=== PATIENT | female | born 1950 | race Caucasian/White ===

== ENCOUNTER 2018-04-07 19:42 | Emergency (ER) | payer OTHER ==
[~2018-04-07] VITALS: Ht 170.2 cm; Wt 76.5 kg
[~2018-04-07 19:42] MED LIST: ASPEC81 PO; ATOR-26 PO; GLC500 PO; IBUP-103 PO; LAMO25TA PO; LATA0.009 OP; LEVO25TA PO; LOSA100T65 PO; MULT-506 PO; PANT40TA PO; PARO1TAB27 PO; ROPI1TAB PO; ROPI2TAB6 PO
[2018-04-07 19:46] VITALS: TEMP 36.7; Ht 170.2 cm; Wt 76.5 kg
[2018-04-07] MEDS ORDERED: OXYCODONE/ACETAMINOPHEN 5-325 TAB PO STA (20:08)
--- NOTE | 2018-04-07 20:45 | DIAGNOSTIC IMAGING REPORT ---
L HIP UNILATERAL 2 VIEWS CLINICAL HISTORY: Left hip pain. No known injury. COMPARISON: None FINDINGS: Alignment of the left hip is anatomic. There is no fracture, suspicious osseous lesion or evidence for avascular necrosis. Left joint space is preserved. IMPRESSION: Unremarkable left hip radiographs. Electronically signed by: Devyn Reynoso M.D. 04/07/2018 8:43 PM Dictated Date/Time: 04/07/2018 8:43 PM
--- NOTE | 2018-04-07 20:46 | DIAGNOSTIC IMAGING REPORT ---
L FEMUR 2 VIEWS ROUTINE CLINICAL HISTORY: Left hip pain. No known injury. COMPARISON: None FINDINGS: No fracture or osseous lesion is identified within the left femur. Alignment of the left hip and the left knee is anatomic. There is moderate joint space narrowing and osteophytosis within the medial compartment of the left knee with osteophytosis within the lateral compartment. Superior patellar spurring is noted. IMPRESSION: 1. No osseous abnormality of the left femur. 2. Mild to moderate left knee osteoarthritis. Electronically signed by: Devyn Reynoso M.D. 04/07/2018 8:45 PM Dictated Date/Time: 04/07/2018 8:44 PM
[2018-04-07] MEDS ORDERED: OXYC-57 PO (21:10)
[2018-04-07] MEDS ORDERED: PERCOCET HOME PACK PO ONE (21:15)
[2018-04-07 21:22] VITALS: BP 162/82; PULSE 82; O2SAT 97
--- NOTE | 2018-04-08 01:07 | EMERGENCY ROOM VISIT NOTE ---
ED Visit Note First contact with patient: 19:57 Chief Complaint: Left hip pain. History of Present Illness: Ms. Bailey is a 67-year-old white female who ambulates into the ED accompanied by her complaining of left anterior thigh pain. [place] patient reports she has had previous pinched nerve but that was on the right side. Patient reports she started experiencing pain 3 days ago while doing yard work and cleaning out out buildings. Initially her pain was mild has gradually increased in intensity. She places her discomfort over the anterior thigh in the area of the insertion of the hamstring quadricep muscle group on the pelvis. She rates her discomfort 10/10. She describes her pain as a burning sensation. Her pain worsens with flexion and extension of the hip, moving from the standing to the sitting and lying down position and minimally with palpation. She reports she has been using ibuprofen and Aleve without relief of her discomfort. She denies any associated symptoms including recent direct trauma, any injuries like falls or car accidents, fevers, chills, sweats, skin eruptions, skin color changes, lumbar back pain, abdominal pain, nausea, vomiting, diarrhea, constipation, rectal bleeding, black/tarry stools, urinary symptoms, hematuria, flank pain, extremity weakness/numbness/tingling, genital paresthesias, bowel and bladder dysfunction. Review of Systems: As noted above in history of present illness. 8 body systems were reviewed and found to be negative as noted above. Past Medical History: Diabetes, heart disease, hypertension, asthma, pneumonia, unspecified stomach disorder. Current Medications: Lamictal, Requip, Paxil, Xalatan, aspirin, Synthroid, metformin, Lipitor, Cozaar, tonics, multivitamins, ibuprofen. Allergies to Medications: Carbamazepine. Betaxolol, Levobunolol, simvastatin, penicillins, sulfa. Social History: Physical Examination: Vital Signs: Date Time Temp Pulse Resp B/P (MAP) Pulse Ox O2 Delivery O2 Flow Rate FiO2 04/07/18 21:22 82 16 162/82 97 04/07/18 19:46 36.7 97 20 160/90 96 Room Air GENERAL: 67-year-old female in mild to moderate distress due to pain, nontoxic- appearing, afebrile and hemodynamically stable. NEUROLOGICAL: Awake, alert and oriented to person, place and time. Answering questions appropriately and following commands. Normal gait. Good hand eye coordination. No focal motor sensory deficits. SKIN: Warm, dry and pink. No soft tissue eruptions or trauma noted. HEENT: Atraumatic and normocephalic. BACK: No tenderness over the bony thoracic and lumbar spine. No tenderness or paraspinous muscle spasm. Decreased range of motion due to pain in her thigh. No CVA tenderness. Unable to perform a straight leg raise test due to pain. THORAX: Lungs sounds are clear to auscultation and equal bilaterally with symmetrical chest wall. No wheezing, rales or rhonchi. No crepitus, tenderness , subcutaneous air or deformities noted. ABDOMEN: Obese, soft and nontender. Positive bowel sounds in all quadrants. No guarding, rigidity or organomegaly. LOWER EXTREMITIES: No tenderness in the hip, knee, ankle and foot joints. Mild tenderness over the anterior proximal quadriceps muscles. I do not appreciate any bony muscle deformity, swelling or ecchymosis. 2+ patellar and Achilles deep tendon reflexes intact and equal bilaterally. Able to distinguish light sensations to all dermatomes of the lower legs and feet. No calf tenderness or cords. ED Course: Patient is assessed as noted above. Patient's medication list was reviewed. Patient was given 1 Percocet 5/325 mg tablet by mouth for pain and ice. Left Femur X-Rays: Was read by myself and the radiologist showing no acute fractures of the femur. Mild to moderate knee osteoarthritis. Left Hip X-Rays: Was read by myself and the radiologist showing normal anatomical alignment. No fractures or dislocations. Radiologist notes no suspicious osseous lesions and no evidence of avascular necrosis. Patient was educated on walker use. Patient's case was reviewed with Dr. Ngo; we agreed on diagnostic approach, treatment, disposition and plan. Patient was educated about today's findings and instructed on her treatment plan ; she verbalized understanding and agreement with this plan. Clinical Impression: Left thigh pain. Decision-Making: Initially my differential diagnosis I considered lumbar contusion, lumbar herniated disc, bursitis, hip osteoarthritis, and other causes. Disposition: Patient discharged to home in stable condition accompanied by her ; prior to departure she was reassessed and subjectively reported she was feeling the same and rated her discomfort 9/10. Plan: Comfort measures including rest, ice walker use and a sliding pain medication scale of ibuprofen, acetaminophen and Percocet were discussed with the patient; her name was checked on state database and no red flags were noted and she was given appropriate narcotic precautions. Patient was encouraged to follow-up with her family physician for recheck early next week. Patient was encouraged return the ED for worsening/uncontrolled pain, leg weakness/numbness/tingling, genital paresthesias, bowel and bladder dysfunction or any new/concerning symptoms.
[2018-04-09] MEDS ORDERED: LATA0.5S OP (09:30)
[2018-04-09] MEDS ORDERED: ASPI-232 PO (11:09)
[2018-04-09] MEDS ORDERED: METF1000 PO (11:09)
== END 2018-04-07 21:25 | disposition home or self-care (01) ==
LOC: C.EDB 19:42 → C.EDD 21:25
DX: M79.652 Pain in left thigh (principal); E11.9 Type 2 diabetes mellitus without complications; I10 Essential (primary) hypertension; J45.909 Unspecified asthma, uncomplicated; E66.9 Obesity, unspecified; Z87.01 Personal history of pneumonia (recurrent); Z79.82 Long term (current) use of aspirin; Z79.01 Long term (current) use of anticoagulants; Z79.899 Other long term (current) drug therapy; Z88.8 Allergy status to other drugs, medicaments and biological substances; Z88.0 Allergy status to penicillin; Z88.2 Allergy status to sulfonamides

== ENCOUNTER 2024-05-28 14:52 | Inpatient (IN) ==
[2024-05-28 15:40] LABS: Hematocrit (blood only) 42.3 % (37.0-47.0); Hemoglobin 13.7 g/dl (12.0-16.0); Mean Corpuscular Hemoglobin 28.8 pg (25.0-34.0); Mean Corpuscular Hgb Conc 32.4 g/dL (32.0-36.0); Mean Corpuscular Volume 88.9 fL (80.0-100.0); Mean Platelet Volume 8.8 fL (9.4-12.4); Platelet Count 223 K/uL (130-400); RDW Coefficient of Variation 13.2 % (11.5-14.5); RDW Standard Deviation 43.2 fL (36.4-46.3); Red Blood Count 4.76 M/uL (4.20-5.40); White Blood Count 6.77 K/ul (4.8-10.8)
[2024-05-28 15:46] LABS: Alanine Aminotransferase 12 U/L (7-52); Albumin Globulin Ratio 1.4 (0.9-2); Albumin Level 4.2 gm/dl (3.4-5.0); Alkaline Phosphatase 73 U/L (34-104); Anion Gap 9 (3-11); Aspartate Aminotransferase 17 U/L (13-39); Bilirubin,Total 0.5 mg/dl (0.2-1.0); Blood Urea Nitrogen 19 mg/dl (6-23); Calcium 9.7 mg/dl (8.6-10.3); Carbon Dioxide 28 mmol/L (21-32); Chloride 101 mmol/L (98-107); Est GFR (African American) 88.3 ml/min; Est GFR (Non-African American) 76.2 ml/min; Glucose 135 mg/dl (70-99(Fasting)); Magnesium 2.1 mg/dl (1.7-2.4); Potassium 3.3 mmol/L (3.5-5.1); Sodium 138 mmol/L (136-145); Total Protein 7.2 gm/dl (6.0-8.3)
--- NOTE | 2024-05-28 15:46 | CT Scan Report ---
CT OF THE HEAD WITHOUT CONTRAST CLINICAL HISTORY: Neuro deficit, acute, stroke suspected COMPARISON STUDY: Head CT and CTA of the head May 23, [address]23. CT DOSE: 547.75 mGy.cm TECHNIQUE: Helical axial images of the head were obtained without IV contrast. Automated exposure con trol was utilized for the study. A dose lowering technique was utilized adhering to the principles o f ALARA. FINDINGS: No acute intracranial hemorrhage, midline shift or mass effect is present. White matter hyp odensities are similar to prior exam and favor small vessel disease. The ventricular system is unrema rkable. The basal cisterns are patent. No extra-axial collections are present. There are no findings to suggest acute dural sinus thrombosis or acute territorial infarct. No significant calvarial abnorm alities are present. Visualized portions of the sinuses and mastoid air cells are clear. IMPRESSION: No acute intracranial findings. No change in appearance of the brain. ACT 112: Negative or not required by law. Electronically signed by: Devyn Reynoso M.D. 05/28/2024 3:44 PM
--- NOTE | 2024-05-28 15:47 | XRay Report ---
XR chest 1V not portable CLINICAL HISTORY: stroke alert TECHNIQUE: Single frontal radiograph of the chest was obtained. Comparison: Comparison is made to chest radiograph 05/23/2023 FINDINGS: No lines and tubes are seen. Calcified aortic knob is seen. The lungs are clear. No evidence of pleur al effusion or pneumothorax. IMPRESSION: No acute chest disease. ACT 112: Negative or not required by law. Electronically signed by: Ricardo Uribe M.D. 05/28/2024 3:46 PM
[2024-05-28 16:03] LABS: Partial Thromboplastin Ratio 0.8; Partial Thromboplastin Time 22 Seconds (21-31); Prothrombin Time 10.5 Seconds (9.0-12.0)
[2024-05-28] MEDS: ONDANSETRON INJ 2 MG/ML 2 ML VIAL IV STA (16:45)
[2024-05-28] MEDS: SODIUM CHLORIDE 0.9% 1,000 ML IV ONE (16:46)
--- NOTE | 2024-05-28 17:20 | Emergency Department Note ---
Impression & Plan Weakness, Near syncope, Dizziness, Hypokalemia ED Provider Note NAME: CANDELARIO SOTO AGE: 74 SEX: F : 1950 ARRIVES VIA: Walk-In INFORMANT: [Patient][family] ED PROVIDER(S): [Neymar Guaman MD] CHIEF COMPLAINT: Nausea, off-balance HISTORY OF PRESENT ILLNESS: The patient is a 74-year-old female who states that she was at an orthopedic appointment today. When she was walking out, she felt as if she had too much alcohol to drink. She was off balance, her vision was dark and she felt lightheaded and nauseated. She was sweaty. There was no chest pain. Patient sat down and felt a bit better but then the symptoms returned. She came to the ER. She does admit to some dry heaves, no diarrhea. No fever, no chest pain. The patient does feel worse when she stands up. Patient is unsure exactly why she feels this way. She is on no new medications. She felt okay earlier today, this all started fairly suddenly as she was leaving in the doctor's office. The patient's symptoms started about 4-1/2 hours ago. PMHx/PSHx/Social Hx: See Below PHYSICAL EXAM: GENERAL: Patient is in no acute distress. HEENT: No acute trauma, normocephalic atraumatic, mucous membranes moist, no nasal congestion. NECK: No stridor, no adenopathy, no meningismus, trachea is midline. LUNGS: Clear to auscultation bilaterally, no wheeze, no rhonchi, breath sounds equal. HEART: Subtle systolic murmur, regular rate and rhythm. ABDOMEN: Soft, nontender, no peritonitis. EXTREMITIES: No cyanosis, full range of motion of all the joints without pain or difficulty. NEUROLOGIC: Oriented x 3, patient has poor cerebellar functioning in both upper extremities. There is no extremity drift, speech slur or facial droop. SKIN: No jaundice, no diaphoresis. DIFFERENTIAL DIAGNOSIS: Dehydration, dysrhythmia, electrolyte imbalance, UTI, anemia, stroke, among others. EMERGENCY DEPARTMENT PROCEDURES: MEDICAL DECISION MAKING: There is no leukocytosis or concerning anemia. There is a normal platelet count. No coagulopathy. Potassium somewhat low at 3.3. No renal failure. No concerning liver enzyme elevation. The patient appeared to be in a euthyroid state. Urinalysis showed some glucose, no infection. Respiratory bio fire was completely negative. Chest x-ray did not show pneumonia or CHF. Brain CT showed no acute bleed or mass effect. CT angio of the head and neck were performed, there was no significant stenosis or clot. On my exam, patient did have poor cerebellar function in both upper extremities. She had no pronator drift. No speech slur or facial droop. Patient received IV saline, 1 L. She was given IV Zofran for nausea. During the patient stay, she began to develop a headache, she was given IV Tylenol. The patient was out of the window for any type of TNK. She had presented 4 and half hours after the onset of symptoms. Patient feels better than she did earlier but still has some of her symptoms. The cause for her complaints is currently unclear. I do think further workup is in order, the patient would likely benefit from an MRI of the brain and monitoring here in the hospital. I spoke with the patient and case management, I spoke with her family. The on- call hospitalist was consulted. Prior/Outside records/notes reviewed: None ECG per my interpretation: Indication was possible stroke. The ECG shows a normal sinus rhythm with a rate of 73. There is diffuse nonspecific ST change. There is no ST elevation, no PVCs. The QTc is 438. Imaging/x-ray results per my interpretation: Chest x-ray does not show mediastinal widening, pneumonia or pneumothorax. Chronic Medical/Social conditions affecting care: Advanced age. Care/Management discussed with: Case management, the on-call hospitalist. Level of care consideration(s): After review of the information above and other included data: --I believe the patient requires escalation of care to admission DISPOSITION: Admission Past Med/Surg History Problem List Postural dizziness with near syncope Syncope Left knee DJD Rotator cuff tear, right Status post reverse total replacement of left shoulder (~11/2021) Encounter for pre-operative examination Depression (Chronic) Left thigh pain (Acute) Hypothyroidism (Chronic) Insomnia (Chronic) Bursitis Medical History Osteoarthritis GERD (gastroesophageal reflux disease) Occasional Hypothyroidism Glaucoma Anxiety and depression Restless leg syndrome Mini stroke vs. complex migraine (most recent event 5+ years ago) Sleep apnea Could not tolerate device Asthma stable Chronic obstructive pulmonary disease Diabetes mellitus, type II NIDDM Bipolar disorder stable Hyperlipidemia Hypertension Surgical History History of carpal tunnel release RT/LEFT History of repair of rotator cuff RT/LEFT History of esophagogastroduodenoscopy (EGD) WITH ESOPHAGEAL STRETCHING X 3 History of colonoscopy History of Yusef fundoplication History of tonsillectomy and adenoidectomy H/O eye surgery LASER PROCEDURE FOR GLAUCOMA Strabismus RT/LEFT REPAIRED A CHILD (2 SURGERIES) History of cataract surgery RT/LEFT History of cardiac cath 30 years ago > no stents Family History Mother Family history of diabetes mellitus Brother Family history of diabetes mellitus Other No family history of adverse response to anesthesia Social History Smoking Status: Never smoker Second Hand Exposure: No; Do You Dip or Chew Tobacco: No; Hx Alcohol Use: No Hx Substance Use: No Preferred Language: Hungarian Communication Ability: Effective Special Diet Cook Required: No Beliefs That Will Affect Care: None Current Living Situation: Spouse Other Information That Helps Us Care for You: No Feels Safe at Home: Yes Safety Concerns: Feels Safe At This Time Assistive Devices: Cane, Glasses and Wheelchair Allergies Allergies Allergy/AdvReac Type Severity Reaction Status Date / Time Penicillins Allergy Intermediate rash/very Verified 05/28/24 19:03 sick Sulfa (Sulfonamide Allergy Unknown Unknown Verified 05/28/24 19:03 Antibiotics) betaxolol AdvReac Intermediate Insomnia Verified 05/28/24 19:03 (eye drop)/depression carbamazepine AdvReac Intermediate Worsened Verified 05/28/24 19:03 depression levobunolol AdvReac Intermediate Insomnia Verified 05/28/24 19:03 (eye drop) levofloxacin AdvReac Intermediate Muscle Pain Verified 05/28/24 19:03 simvastatin AdvReac Intermediate Myalgias Verified 05/28/24 19:03 Home Meds Home Medications Medication Instructions Recorded Confirmed aspirin 81 mg tablet,delayed 81 mg PO QAM 05/18/21 05/28/24 release (Ashley Low Dose Aspirin) empagliflozin 25 mg tablet 25 mg PO QAM 05/18/21 05/28/24 (Jardiance) latanoprost 0.005 % eye drops 1 drp OPB HS 05/18/21 05/28/24 (Xalatan) levothyroxine 25 mcg tablet 25 mcg PO DAILYBB 05/18/21 05/28/24 (Synthroid) losartan 100 1 tab PO QAM 05/18/21 05/28/24 mg-hydrochlorothiazide 25 mg tablet (Hyzaar) ropinirole 1 mg tablet 1 mg PO QID 05/18/21 05/28/24 potassium chloride 10 mEq 10 meq PO QAM 08/04/21 05/28/24 capsule,extended release albuterol sulfate 90 mcg/actuation 1 - 2 puff inhalation Q4H PRN 05/28/24 05/28/24 aerosol inhaler Shortness Of Breath Or Wheezing allopurinol 100 mg tablet 100 mg PO BID 05/28/24 05/28/24 atorvastatin 20 mg tablet 20 mg PO QAM 05/28/24 05/28/24 cholecalciferol (vitamin D3) 25 50 mcg PO DAILY 05/28/24 05/28/24 mcg (1,000 unit) capsule (Vitamin D3) clobetasol 0.05 % topical cream 1 applic topical BID PRN ITCHING 05/28/24 05/28/24 OF SCALP/BEHIND EARS cyanocobalamin (vitamin B-12) 500 500 mcg PO DAILY 05/28/24 05/28/24 mcg tablet (Vitamin B-12) famotidine 40 mg tablet 40 mg PO HS 05/28/24 05/28/24 ibuprofen 200 mg tablet 200 mg PO Q6H PRN Pain 05/28/24 05/28/24 pantoprazole 40 mg tablet,delayed 40 mg PO BID 05/28/24 05/28/24 release semaglutide 0.25 mg or 0.5 mg (2 0.25 mg subcut WK 05/28/24 05/28/24 mg/3 mL) subcutaneous pen injector (Ozempic) sertraline 100 mg tablet 150 mg PO QAM 05/28/24 05/28/24 tramadol 50 mg tablet 50 mg PO Q12H PRN Pain, Severe 05/28/24 05/28/24 trazodone 50 mg tablet 50 mg PO HS 05/28/24 05/28/24 Results & Data (ED) Vital Signs Vital Signs - 24 hr 05/28/24 14:56 05/28/24 17:09 05/28/24 17:15 Temperature 36.6 C Temperature Source Temporal Artery Scan Pulse Rate 73 69 70 Pulse Rate [Apical] Pulse Rate from SpO2 Sensor 70 Pulse Rhythm Regular Pulse Strength Normal Respiratory Rate 18 12 Respiratory Effort / Characteristics Non-Labored Spontaneous Respiratory Depth Normal Respiratory Pattern Regular Blood Pressure 142/78 H Blood Pressure [Right Arm] Blood Pressure Mean 99 Blood Pressure Mean [Right Arm] Blood Pressure Position Sitting Pulse Oximetry 96 96 Oxygen Delivery Method Room Air Sepsis Recent Fever Within 48 Hours No Sepsis New/Unexplained Change in Mental Status No Sepsis Action Taken by Nursing No Action Required 05/28/24 17:53 05/28/24 17:53 05/28/24 17:57 Temperature Temperature Source Pulse Rate 75 71 Pulse Rate [Apical] 74 Pulse Rate from SpO2 Sensor 71 Pulse Rhythm Pulse Strength Respiratory Rate 16 16 14 Respiratory Effort / Characteristics Non-Labored Spontaneous Respiratory Depth Normal Respiratory Pattern Blood Pressure Blood Pressure [Right Arm] 168/95 H Blood Pressure Mean Blood Pressure Mean [Right Arm] 119 Blood Pressure Position Pulse Oximetry 91 91 93 Oxygen Delivery Method Room Air Room Air Sepsis Recent Fever Within 48 Hours Sepsis New/Unexplained Change in Mental Status Sepsis Action Taken by Nursing 05/28/24 18:00 05/28/24 18:09 05/28/24 18:24 Temperature Temperature Source Pulse Rate 70 75 Pulse Rate [Apical] Pulse Rate from SpO2 Sensor 71 74 Pulse Rhythm Pulse Strength Respiratory Rate 12 17 Respiratory Effort / Characteristics Respiratory Depth Respiratory Pattern Blood Pressure 152/84 H Blood Pressure [Right Arm] Blood Pressure Mean 102 Blood Pressure Mean [Right Arm] Blood Pressure Position Pulse Oximetry 94 97 Oxygen Delivery Method Sepsis Recent Fever Within 48 Hours Sepsis New/Unexplained Change in Mental Status Sepsis Action Taken by [facility] Medications Current Medication List: was personally reviewed by me Laboratory Data Attestation: I reviewed the patient's lab results. 05/28/24 15:06 05/28/24 15:06 Lab Results 05/28/24 05/28/24 Range/Units 15:06 17:07 WBC 6.77 (4.8-10.8) K/ul RBC 4.76 (4.20-5.40) M/uL Hgb 13.7 (12.0-16.0) g/dl Hct 42.3 (37.0-47.0) % MCV 88.9 (80.0-100.0) fL MCH 28.8 (25.0-34.0) pg MCHC 32.4 (32.0-36.0) g/dL RDW Std Deviation 43.2 (36.4-46.3) fL RDW Coeff of Fidel 13.2 (11.5-14.5) % Plt Count 223 (130-400) K/uL MPV 8.8 L (9.4-12.4) fL PT 10.5 (9.0-12.0) Seconds INR 1.0 (0.9-1.1) APTT 22 (21-31) Seconds PTT Ratio 0.8 Sodium 138 (136-145) mmol/L Potassium 3.3 L (3.5-5.1) mmol/L Chloride 101 (98-107) mmol/L Carbon Dioxide 28 (21-32) mmol/L Anion Gap 9 (3-11) BUN 19 (6-23) mg/dl Creatinine 0.76 (0.6-1.2) mg/dl Est Cr Clr Drug Dosing Not Reportable Est GFR ( Amer) 88.3 ml/min Est GFR (Non-Af Amer) 76.2 ml/min BUN/Creatinine Ratio 25.0 H (10-20) Glucose 135 H (70-99(Fasting)) mg/dl Calcium 9.7 (8.6-10.3) mg/dl Magnesium 2.1 (1.7-2.4) mg/dl Total Bilirubin 0.5 (0.2-1.0) mg/dl AST 17 (13-39) U/L ALT 12 (7-52) U/L Alkaline Phosphatase 73 (34-104) U/L Total Protein 7.2 (6.0-8.3) gm/dl Albumin 4.2 (3.4-5.0) gm/dl Globulin 3.0 (2.5-4.0) gm/dl Albumin/Globulin Ratio 1.4 (0.9-2) TSH 2.697 (0.300-4.500) uIu/ml Urine Color Yellow Urine Appearance Clear (Clear) Urine pH 5.5 (4.5-7.5) Ur Specific [place] 1.026 (1.000-1.030) Urine Protein Negative (Negative) Urine Glucose (UA) 3+ H (Negative) Urine Ketones Negative (Negative) Urine Blood Negative (Negative) Urine Nitrite Negative (Negative) Urine Bilirubin Negative (Negative) Urine Urobilinogen Negative (Negative) Ur Leukocyte Esterase Negative (Negative) Administered Medications Allopurinol (Allopurinol 100 Mg Tab) 100 mg PO BID CRISTINA Stop: 06/27/24 21:34 Last Admin: 05/28/24 21:58 Dose: 100 mg Documented By: GIOVANI Famotidine (Famotidine 40 Mg Tablet) 40 mg PO HS CRISTINA Stop: 06/27/24 21:34 Last Admin: 05/28/24 21:58 Dose: 40 mg Documented By: GIOVANI Latanoprost (Latanoprost 0.005% Op Soln 2.5 Ml Btl) 1 drops OPB HS CRISTINA Stop: 06/27/24 21:34 Last Admin: 05/28/24 21:59 Dose: 1 drops Documented By: GIOVANI Pantoprazole Sodium (Pantoprazole 40 Mg Tab) 40 mg PO BID CRISTINA Stop: 06/27/24 21:34 Last Admin: 05/28/24 21:59 Dose: 40 mg Documented By: GIOVANI Ropinirole HCl (Ropinirole Hcl 1 Mg Tablet) 1 mg PO QID CRISTINA Stop: 06/27/24 21:34 Last Admin: 05/28/24 21:59 Dose: 1 mg Documented By: GIOVANI Discontinued Medications Sodium Chloride (Nss) 1,000 mls @ 999 mls/hr IV .Q1H1M ONE Stop: 05/28/24 17:39 Last Infusion: 05/28/24 17:50 Dose: Infused Documented By: Admin: 05/28/24 16:46 Dose: 999 mls/hr Documented By: AL Acetaminophen (Ofirmev) 1,000 mg in 100 mls @ 400 mls/hr IV NOW STA Stop: 05/28/24 18:54 Last Infusion: 05/28/24 20:48 Dose: Infused Documented By: Admin: 05/28/24 18:44 Dose: 400 mls/hr Documented By: KAYCEE Ioversol (Optiray 320 125ml) 120 ml IV ONCE ONE Stop: 05/28/24 17:41 Last Admin: 05/28/24 17:40 Dose: 120 ml Documented By: PLFlor Ondansetron HCl (Ondansetron Inj 2 Mg/Ml 2 Ml Vial) 4 mg IV NOW STA Stop: 05/28/24 16:40 Last Admin: 05/28/24 16:45 Dose: 4 mg Documented By: AL Potassium Chloride (Potassium Chloride Crtab 20 Meq Tabcr) 40 meq PO NOW STA Stop: 05/28/24 21:20 Last Admin: 05/28/24 21:57 Dose: 40 meq Documented By: GIOVANI Imaging Data Radiologist's Impression: Chest X-Ray 05/28/24 15:03 XR chest 1V not portable CLINICAL HISTORY: stroke alert TECHNIQUE: Single frontal radiograph of the chest was obtained. Comparison: Comparison is made to chest radiograph 05/23/2023 FINDINGS: No lines and tubes are seen. Calcified aortic knob is seen. The lungs are clear. No evidence of pleural effusion or pneumothorax. IMPRESSION: No acute chest disease. ACT 112: Negative or not required by law. Electronically signed by: Ricardo Uribe M.D. 05/28/2024 3:[address] 05/28/24 15:03 CT OF THE HEAD WITHOUT CONTRAST CLINICAL HISTORY: Neuro deficit, acute, stroke suspected COMPARISON STUDY: Head CT and CTA of the head May 23, [address]23. CT DOSE: 547.75 mGy.cm TECHNIQUE: Helical axial images of the head were obtained without IV contrast. Automated exposure control was utilized for the study. A dose lowering technique was utilized adhering to the principles of ALARA. FINDINGS: No acute intracranial hemorrhage, midline shift or mass effect is present. White matter hypodensities are similar to prior exam and favor small vessel disease. The ventricular system is unremarkable. The basal cisterns are patent. No extra-axial collections are present. There are no findings to suggest acute dural sinus thrombosis or acute territorial infarct. No significant calvarial abnormalities are present. Visualized portions of the sinuses and mastoid air cells are clear. IMPRESSION: No acute intracranial findings. No change in appearance of the brain. ACT 112: Negative or not required by law. Electronically signed by: Devyn Reynoso M.D. 05/28/2024 3:44 PM Head CTA 05/28/24 16:43 CT angio neck with con, CT angio head w con CLINICAL HISTORY: stroke like TECHNIQUE: CT angiography of the head and neck was performed following intravenous administration of iodinated contrast. Coronal and sagittal MIPS were obtained from the axial data set and were submitted for review. Automated dose lowering techniques and/or adjustment according to patient size were utilized for this examination. All measurements were calculated based on NASCET criteria. CT DOSE: 452.92 mGy.cm Comparison: Comparison is made to CT head 05/28/2024 FINDINGS: Lungs and soft tissues are unremarkable. CTA Neck: A 3 vessel aortic arch is shown. There is no significant atherosclerotic plaque in the aortic arch or the origins of the innominate, left common carotid, and left subclavian arteries. There is mild calcified atherosclerotic plaque at the bifurcation of the bilateral common carotid arteries without hemodynamically significant flow stenosis. There is no dissection present. The vertebral arteries are codominant. CTA Head: The anterior and posterior cerebral circulations are patent. No hemodynamically significant stenosis, aneurysm, dissection, or arteriovenous malformation is shown. IMPRESSION: 1. No occlusion, hemodynamically significant stenosis, or dissection in the major cervical arteries. 2. No occlusion, hemodynamically significant stenosis, aneurysm, dissection, or arteriovenous malformation in the major intracranial arteries. Assessment of stenosis of the internal carotid arteries is based on NASCET criteria. ACT 112: Negative or not required by law. Electronically signed by: Ricardo Uribe M.D. 05/28/2024 6:03 PM Neck CTA 05/28/24 16:43 CT angio neck with con, CT angio head w con CLINICAL HISTORY: stroke like TECHNIQUE: CT angiography of the head and neck was performed following intravenous administration of iodinated contrast. Coronal and sagittal MIPS were obtained from the axial data set and were submitted for review. Automated dose lowering techniques and/or adjustment according to patient size were utilized for this examination. All measurements were calculated based on NASCET criteria. CT DOSE: 452.92 mGy.cm Comparison: Comparison is made to CT head 05/28/2024 FINDINGS: Lungs and soft tissues are unremarkable. CTA Neck: A 3 vessel aortic arch is shown. There is no significant atherosclerotic plaque in the aortic arch or the origins of the innominate, left common carotid, and left subclavian arteries. There is mild calcified atherosclerotic plaque at the bifurcation of the bilateral common carotid arteries without hemodynamically significant flow stenosis. There is no dissection present. The vertebral arteries are codominant. CTA Head: The anterior and posterior cerebral circulations are patent. No hemodynamically significant stenosis, aneurysm, dissection, or arteriovenous malformation is shown. IMPRESSION: 1. No occlusion, hemodynamically significant stenosis, or dissection in the major cervical arteries. 2. No occlusion, hemodynamically significant stenosis, aneurysm, dissection, or arteriovenous malformation in the major intracranial arteries. Assessment of stenosis of the internal carotid arteries is based on NASCET criteria. ACT 112: Negative or not required by law. Electronically signed by: Ricardo Uribe M.D. 05/28/2024 6:03 PM Discharge Plan Visit Data Chief Complaint: Nausea Stated Complaint: SYNOCOPE ED Provider: Neymar Guaman Discharge Problem: Weakness, Near syncope, Dizziness, Hypokalemia Patient Disposition: Admitted As Inpatient Condition: Fair
[2024-05-28 17:29] LABS: Appearance Urine Clear (Clear); Bilirubin Urine Negative (Negative); Blood Urine Negative (Negative); Color Urine Yellow; Glucose Urine UA 3+ (Negative); Ketones Urine Negative (Negative); Leukocyte Esterase Urine Negative (Negative); Nitrite Urine Negative (Negative); Protein Urine Negative (Negative); Specific Gravity Urine 1.026 (1.000-1.030); Urobilinogen Urine Negative (Negative); pH Urine 5.5 (4.5-7.5)
[2024-05-28] MEDS: OPTIRAY 320 125ml IV ONE (17:40)
--- NOTE | 2024-05-28 18:04 | CT Scan Report ---
CT angio neck with con, CT angio head w con CLINICAL HISTORY: stroke like TECHNIQUE: CT angiography of the head and neck was performed following intravenous administration of iodinated contrast. Coronal and sagittal MIPS were obtained from the axial data set and were submitt ed for review. Automated dose lowering techniques and/or adjustment according to patient size were u tilized for this examination. All measurements were calculated based on NASCET criteria. CT DOSE: 452.92 mGy.cm Comparison: Comparison is made to CT head 05/28/2024 FINDINGS: Lungs and soft tissues are unremarkable. CTA Neck: A 3 vessel aortic arch is shown. There is no significant atherosclerotic plaque in the aor tic arch or the origins of the innominate, left common carotid, and left subclavian arteries. There is mild calcified atherosclerotic plaque at the bifurcation of the bilateral common carotid arteries without hemodynamically significant flow stenosis. There is no dissection present. The vertebral rose manuela are codominant. CTA Head: The anterior and posterior cerebral circulations are patent. No hemodynamically significan t stenosis, aneurysm, dissection, or arteriovenous malformation is shown. IMPRESSION: 1. No occlusion, hemodynamically significant stenosis, or dissection in the major cervical arteries. 2. No occlusion, hemodynamically significant stenosis, aneurysm, dissection, or arteriovenous malfor mation in the major intracranial arteries. Assessment of stenosis of the internal carotid arteries is based on NASCET criteria. ACT 112: Negative or not required by law. Electronically signed by: Ricardo Uribe M.D. 05/28/2024 6:03 PM
[2024-05-28] MEDS: ACETAMINOPHEN 1,000 MG/100 ML VIAL IV STA (18:44)
--- NOTE | 2024-05-28 18:48 | History & Physical Report ---
Date of Service May 28, 2024 Assessment & Plan (1) Postural dizziness with near syncope: (2) Hypokalemia: Plan Zonia Bailey is a 74y/o F with PMHx of DM type II, hypothyroidism, hyperlipidemia, HTN, ASCVD, hypertensive heart disease without heart failure, GERD without esophagitis, history of B12 deficiency, history of vitamin D deficiency, restless leg syndrome, lumbar degenerative disc disease, gouty arthropathy, primary open angle glaucoma of both eyes, depression, attention deficit disorder, anxiety and other problems listed below who presented to the ED today for evaluation secondary to a near-syncopal event. Postural Dizziness w/ Near Syncopal Events Pt c/o multiple near-syncopal events that occurred earlier today. CXR negative for acute disease process. Head CT with no acute intracranial findings. Head and neck CTA with no acute findings/abnormalities. CBC unremarkable on admission, no leukocytosis. UA and RVP negative - appears no infective process is occurring. Brain MRI and echo pending - follow results. Continuous cardiac, pulse ox monitoring in place. PT/OT evals ordered, fall precautions in place. AM labs including CBC, BMP, mag, phos and fasting lipid panel - follow. Hypokalemia Potassium 3.3 on admission. Administered 40mEq on oral potassium. Can continue LIBRARY MANAGER potassium supplementation. Repeat BMP in AM - monitor and replete PRN. DM Type II Hold LIBRARY MANAGER diabetic medications; initiate SSI regimen. Hgb A1c 7.2 on 02/12/24; will repeat Hgb A1c in AM - follow. BSG checks ACHS, CC/HH diet in place - monitor BSG trend. HTN BP stable at 133/74 at time of admission. Can continue LIBRARY MANAGER losartan-hydrochlorothiazide. Continuous cardiac monitoring in place, trend BP in AM. Dyslipidemia, H/O ASCVD: Can continue LIBRARY MANAGER aspirin and statin therapy. Hypothyroidism: Can continue LIBRARY MANAGER levothyroxine, TSH WNL on admission. Other Chronic Medical Conditions: Restless legs syndrome, depression/anxiety, lumbar DDD, insomnia, GERD, glaucoma --> Can continue LIBRARY MANAGER medications for these specific conditions. DVT Prophylaxis: SCDs/TEDs - For now Code Status: FULL CODE PCP: Narinder Milton, Disposition: Admit to Med/Surg with Telemetry Patient seen in collaboration with Dr. Benjamin. Please see addendum. I spent a total of 60 minutes coordinating, documenting, and providing care for this patient excluding time spent in the performance of separately billed services. This included personally reviewing all current laboratories and imaging studies, medical reconciliation, outpatient chart review and discussion with specialists. This chart was completed in part utilizing Speech Voice Recognition Software. Grammatical errors, random word insertions, pronoun errors, and incomplete sentences are an occasional consequence of this system due to software limitations, ambient noise, and hardware issues. Any formal questions or concerns about the content, text, or information contained within the body of this dictation should be directly addressed to the provider for clarification. History of Present Illness Chief Complaint: Near-Syncopal Events Primary Care Provider: Narinder Milton DO Zonia Bailey is a 74y/o F with PMHx of DM type II, hypothyroidism, hyperlipidemia, HTN, ASCVD, hypertensive heart disease without heart failure, GERD without esophagitis, history of B12 deficiency, history of vitamin D deficiency, restless leg syndrome, lumbar degenerative disc disease, gouty arthropathy, primary open angle glaucoma of both eyes, depression, attention deficit disorder, anxiety and other problems listed below who presented to the ED today for evaluation secondary to near-syncopal events. History obtained from patient, family at bedside and associated chart review. Patient seen at bedside with Dr. Benjamin. Patient was walking out of an orthopedic appointment earlier today when she suddenly felt very lightheaded and off-balance. Patient states her vision became very dark and she felt quite nauseated as well. She was also very diaphoretic. She denies experiencing any chest pain or shortness of breath with this episode. She mentions she sat down and started to feel a little bit better, therefore she drove herself to the nearby [employer] to machine pecan picker some things for her house. At [employer], she reports that she had another similar episode as before. Patient was supposed to have her drive her home from [employer], but her family reports that she drove herself home from the store. At her house, she was getting out of the car and became very lightheaded and dizzy. Family reports that she almost passed out. She was not fully unresponsive, but she appeared very lethargic and not as alert. Patient does admit to some dry heaving, but no vomiting. No recent fevers, body aches or chills. Patient reports that she feels worse when she stands up. Patient mentions that she is under a lot of stress recently. She is to undergo a total left knee arthroplasty on 06/14 and must have her hemoglobin A1c less than 7 before surgery, which she reports is constantly on her mind. She is not on any new medications, she reports she felt fine earlier in the day before the first episode occurred. Patient did not fall with either these episodes; no recent head trauma according to the patient and family. According to the patient, she has a history of mini strokes. Allergies Allergy/AdvReac Type Severity Reaction Status Date / Time Penicillins Allergy Intermediate rash/very Verified 05/28/24 19:03 sick Sulfa (Sulfonamide Allergy Unknown Unknown Verified 05/28/24 19:03 Antibiotics) betaxolol AdvReac Intermediate Insomnia Verified 05/28/24 19:03 (eye drop)/depression carbamazepine AdvReac Intermediate Worsened Verified 05/28/24 19:03 depression levobunolol AdvReac Intermediate Insomnia Verified 05/28/24 19:03 (eye drop) levofloxacin AdvReac Intermediate Muscle Pain Verified 05/28/24 19:03 simvastatin AdvReac Intermediate Myalgias Verified 05/28/24 19:03 Home Medications Medication Instructions Recorded Confirmed Type aspirin 81 mg tablet,delayed 81 mg PO QAM 05/18/21 05/28/24 History release (Ashley Low Dose Aspirin) empagliflozin 25 mg tablet 25 mg PO QAM 05/18/21 05/28/24 History (Jardiance) latanoprost 0.005 % eye drops 1 drp OPB HS 05/18/21 05/28/24 History (Xalatan) levothyroxine 25 mcg tablet 25 mcg PO DAILYBB 05/18/21 05/28/24 History (Synthroid) losartan 100 1 tab PO QAM 05/18/21 05/28/24 History mg-hydrochlorothiazide 25 mg tablet (Hyzaar) ropinirole 1 mg tablet 1 mg PO QID 05/18/21 05/28/24 History potassium chloride 10 mEq 10 meq PO QAM 08/04/21 05/28/24 History capsule,extended release albuterol sulfate 90 mcg/actuation 1 - 2 puff inhalation Q4H PRN 05/28/24 05/28/24 History aerosol inhaler Shortness Of Breath Or Wheezing allopurinol 100 mg tablet 100 mg PO BID 05/28/24 05/28/24 History atorvastatin 20 mg tablet 20 mg PO QAM 05/28/24 05/28/24 History cholecalciferol (vitamin D3) 25 50 mcg PO DAILY 05/28/24 05/28/24 History mcg (1,000 unit) capsule (Vitamin D3) clobetasol 0.05 % topical cream 1 applic topical BID PRN ITCHING 05/28/24 05/28/24 History OF SCALP/BEHIND EARS cyanocobalamin (vitamin B-12) 500 500 mcg PO DAILY 05/28/24 05/28/24 History mcg tablet (Vitamin B-12) famotidine 40 mg tablet 40 mg PO HS 05/28/24 05/28/24 History ibuprofen 200 mg tablet 200 mg PO Q6H PRN Pain 05/28/24 05/28/24 History pantoprazole 40 mg tablet,delayed 40 mg PO BID 05/28/24 05/28/24 History release semaglutide 0.25 mg or 0.5 mg (2 0.25 mg subcut WK 05/28/24 05/28/24 History mg/3 mL) subcutaneous pen injector (Ozempic) sertraline 100 mg tablet 150 mg PO QAM 05/28/24 05/28/24 History tramadol 50 mg tablet 50 mg PO Q12H PRN Pain, Severe 05/28/24 05/28/24 History trazodone 50 mg tablet 50 mg PO HS 05/28/24 05/28/24 History Past Med/Surg History Problem List (Updated 05/28/24 @ 22:42 by Karina Cary PA-C) Hypokalemia Postural dizziness with near syncope Syncope Left knee DJD Rotator cuff tear, right Status post reverse total replacement of left shoulder (~11/2021) Encounter for pre-operative examination Depression (Chronic) Left thigh pain (Acute) Hypothyroidism (Chronic) Insomnia (Chronic) Bursitis Medical History Osteoarthritis GERD (gastroesophageal reflux disease) Occasional Hypothyroidism Glaucoma Anxiety and depression Restless leg syndrome Mini stroke vs. complex migraine (most recent event 5+ years ago) Sleep apnea Could not tolerate device Asthma stable Chronic obstructive pulmonary disease Diabetes mellitus, type II NIDDM Bipolar disorder stable Hyperlipidemia Hypertension Surgical History History of carpal tunnel release RT/LEFT History of repair of rotator cuff RT/LEFT History of esophagogastroduodenoscopy (EGD) WITH ESOPHAGEAL STRETCHING X 3 History of colonoscopy History of Yusef fundoplication History of tonsillectomy and adenoidectomy H/O eye surgery LASER PROCEDURE FOR GLAUCOMA Strabismus RT/LEFT REPAIRED A CHILD (2 SURGERIES) History of cataract surgery RT/LEFT History of cardiac cath 30 years ago > no stents Family History Mother Family history of diabetes mellitus Brother Family history of diabetes mellitus Other No family history of adverse response to anesthesia Social History Smoking Status: Never smoker Second Hand Exposure: No; Do You Dip or Chew Tobacco: No; Hx Alcohol Use: No Hx Substance Use: No Preferred Language: Luxembourgish Communication Ability: Effective Bass String Winder Required: No Beliefs That Will Affect Care: None Current Living Situation: Spouse Other Information That Helps Us Care for You: No Feels Safe at Home: Yes Safety Concerns: Feels Safe At This Time Assistive Devices: Cane, Glasses and Wheelchair Review of Systems Review of Systems: At least ten systems reviewed and negative, except as noted in the HPI. Physical Exam Physical Exam: Please refer to Dr. Benjamin's addendum for physical examination findings. Results & Data Results & Data Vital Signs (Past 12 Hours) Vital Signs Temp Pulse Pulse Resp BP BP Pulse Ox 05/28/24 18:47 69 16 174/87 H 94 05/28/24 17:53 75 16 91 05/28/24 17:53 74 16 168/95 H 91 05/28/24 17:09 69 05/28/24 14:56 36.6 C 73 18 142/78 H 96 O2 Del Method 05/28/24 18:47 Room Air 05/28/24 17:53 Room Air 05/28/24 17:53 Room Air 05/28/24 17:09 05/28/24 14:56 Room Air Laboratory Results Short CBC 05/28/24 Range/Units 15:06 WBC 6.77 (4.8-10.8) K/ul Hgb 13.7 (12.0-16.0) g/dl Hct 42.3 (37.0-47.0) % Plt Count 223 (130-400) K/uL BMP 05/28/24 15:06 Sodium 138 Potassium 3.3 L Chloride 101 Carbon Dioxide 28 BUN 19 Creatinine 0.76 Glucose 135 H Calcium 9.7 Liver Function 05/28/24 Range/Units 15:06 Total Bilirubin 0.5 (0.2-1.0) mg/dl AST 17 (13-39) U/L ALT 12 (7-52) U/L Alkaline Phosphatase 73 (34-104) U/L Albumin 4.2 (3.4-5.0) gm/dl Urine 05/28/24 Range/Units 17:07 Urine Color Yellow Urine Appearance Clear (Clear) Urine pH 5.5 (4.5-7.5) Ur Specific [place] 1.026 (1.000-1.030) Urine Protein Negative (Negative) Urine Glucose (UA) 3+ H (Negative) Diagnostic Findings Chest X-Ray 05/28/24 15:03 XR chest 1V not portable CLINICAL HISTORY: stroke alert TECHNIQUE: Single frontal radiograph of the chest was obtained. Comparison: Comparison is made to chest radiograph 05/23/2023 FINDINGS: No lines and tubes are seen. Calcified aortic knob is seen. The lungs are clear. No evidence of pleural effusion or pneumothorax. IMPRESSION: No acute chest disease. ACT 112: Negative or not required by law. Electronically signed by: Ricardo Uribe M.D. 05/28/2024 3:[address] 05/28/24 15:03 CT OF THE HEAD WITHOUT CONTRAST CLINICAL HISTORY: Neuro deficit, acute, stroke suspected COMPARISON STUDY: Head CT and CTA of the head May 23, [address]23. CT DOSE: 547.75 mGy.cm TECHNIQUE: Helical axial images of the head were obtained without IV contrast. Automated exposure control was utilized for the study. A dose lowering technique was utilized adhering to the principles of ALARA. FINDINGS: No acute intracranial hemorrhage, midline shift or mass effect is present. White matter hypodensities are similar to prior exam and favor small vessel disease. The ventricular system is unremarkable. The basal cisterns are patent. No extra-axial collections are present. There are no findings to suggest acute dural sinus thrombosis or acute territorial infarct. No significant calvarial abnormalities are present. Visualized portions of the sinuses and mastoid air cells are clear. IMPRESSION: No acute intracranial findings. No change in appearance of the brain. ACT 112: Negative or not required by law. Electronically signed by: Devyn Reynoso M.D. 05/28/2024 3:44 PM Head CTA 05/28/24 16:43 CT angio neck with con, CT angio head w con CLINICAL HISTORY: stroke like TECHNIQUE: CT angiography of the head and neck was performed following intravenous administration of iodinated contrast. Coronal and sagittal MIPS were obtained from the axial data set and were submitted for review. Automated dose lowering techniques and/or adjustment according to patient size were utilized for this examination. All measurements were calculated based on NASCET criteria. CT DOSE: 452.92 mGy.cm Comparison: Comparison is made to CT head 05/28/2024 FINDINGS: Lungs and soft tissues are unremarkable. CTA Neck: A 3 vessel aortic arch is shown. There is no significant atherosclerotic plaque in the aortic arch or the origins of the innominate, left common carotid, and left subclavian arteries. There is mild calcified atherosclerotic plaque at the bifurcation of the bilateral common carotid arteries without hemodynamically significant flow stenosis. There is no dissection present. The vertebral arteries are codominant. CTA Head: The anterior and posterior cerebral circulations are patent. No hemodynamically significant stenosis, aneurysm, dissection, or arteriovenous malformation is shown. IMPRESSION: 1. No occlusion, hemodynamically significant stenosis, or dissection in the major cervical arteries. 2. No occlusion, hemodynamically significant stenosis, aneurysm, dissection, or arteriovenous malformation in the major intracranial arteries. Assessment of stenosis of the internal carotid arteries is based on NASCET criteria. ACT 112: Negative or not required by law. Electronically signed by: Ricardo Uribe M.D. 05/28/2024 6:03 PM Neck CTA 05/28/24 16:43 CT angio neck with con, CT angio head w con CLINICAL HISTORY: stroke like TECHNIQUE: CT angiography of the head and neck was performed following intravenous administration of iodinated contrast. Coronal and sagittal MIPS were obtained from the axial data set and were submitted for review. Automated dose lowering techniques and/or adjustment according to patient size were utilized for this examination. All measurements were calculated based on NASCET criteria. CT DOSE: 452.92 mGy.cm Comparison: Comparison is made to CT head 05/28/2024 FINDINGS: Lungs and soft tissues are unremarkable. CTA Neck: A 3 vessel aortic arch is shown. There is no significant atherosclerotic plaque in the aortic arch or the origins of the innominate, left common carotid, and left subclavian arteries. There is mild calcified atherosclerotic plaque at the bifurcation of the bilateral common carotid arteries without hemodynamically significant flow stenosis. There is no dissection present. The vertebral arteries are codominant. CTA Head: The anterior and posterior cerebral circulations are patent. No hemodynamically significant stenosis, aneurysm, dissection, or arteriovenous malformation is shown. IMPRESSION: 1. No occlusion, hemodynamically significant stenosis, or dissection in the major cervical arteries. 2. No occlusion, hemodynamically significant stenosis, aneurysm, dissection, or arteriovenous malformation in the major intracranial arteries. Assessment of stenosis of the internal carotid arteries is based on NASCET criteria. ACT 112: Negative or not required by law. Electronically signed by: Ricardo Uribe M.D. 05/28/2024 6:03 PM Medications Administered Acetaminophen (Ofirmev) 1,000 mg in 100 mls @ 400 mls/hr IV NOW STA Stop: 05/28/24 18:54 Last Admin: 05/28/24 18:44 Dose: 400 mls/hr Documented By: KAYCEE Discontinued Medications Sodium Chloride (Nss) 1,000 mls @ 999 mls/hr IV .Q1H1M ONE Stop: 05/28/24 17:39 Last Infusion: 05/28/24 17:50 Dose: Infused Documented By: Admin: 05/28/24 16:46 Dose: 999 mls/hr Documented By: AL Ioversol (Optiray 320 125ml) 120 ml IV ONCE ONE Stop: 05/28/24 17:41 Last Admin: 05/28/24 17:40 Dose: 120 ml Documented By: JADEN Ondansetron HCl (Ondansetron Inj 2 Mg/Ml 2 Ml Vial) 4 mg IV NOW STA Stop: 05/28/24 16:40 Last Admin: 05/28/24 16:45 Dose: 4 mg Documented By: AL Code Status & VTE Plan Code Status FULL CODE VTE Prophylaxis Plan VTE Prophylaxis will be ordered: Yes
[2024-05-28 20:40] LABS: Thyroid Stimulating Hormone 2.697 uIu/ml (0.300-4.500)
[2024-05-28 21:21] LABS: Adenovirus PCR Not Detected (NotDetected); Bordetella parapertussis PCR Not Detected (NotDetected); Bordetella pertussis PCR Not Detected (NotDetected); Chlamydia pneumoniae PCR Not Detected (NotDetected); Coronavirus 229E PCR Not Detected (NotDetected); Coronavirus CoV-2 (COVID19)PCR Not Detected (NotDetected); Coronavirus HKU1 PCR Not Detected (NotDetected); Coronavirus NL63 PCR Not Detected (NotDetected); Coronavirus OC43PCR Not Detected (NotDetected); Human Metapneumovirus PCR Not Detected (NotDetected); Influenza A PCR Not Detected (NotDetected); Influenza B PCR Not Detected (NotDetected); Mycoplasma pneumoniae PCR Not Detected (NotDetected); Parainfluenza Virus 1 PCR Not Detected (NotDetected); Parainfluenza Virus 2 PCR Not Detected (NotDetected); Parainfluenza Virus 3 PCR Not Detected (NotDetected); Parainfluenza Virus 4 PCR Not Detected (NotDetected); Respiratory Syncytial VirusPCR Not Detected (NotDetected); Rhinovirus/Enterovirus PCR Not Detected (NotDetected)
[2024-05-28] MEDS ORDERED: GLUCOSE 10 TAB/TUBE PO PRN (21:35)
[2024-05-28] MEDS ORDERED: IBUPROFEN 200 MG TAB PO PRN (21:35)
[2024-05-28] MEDS ORDERED: GLUCOSE 40% GEL 15 GM TUBE PO PRN (21:35)
[2024-05-28] MEDS ORDERED: ACETAMINOPHEN 325 MG TAB PO PRN (21:35)
[2024-05-28] MEDS ORDERED: POLYETHYLENE (MIRALAX) 17 GM PACK PO PRN (21:35)
[2024-05-28] MEDS ORDERED: GLUCAGON FOR INJ 1 MG VIAL SQ PRN (21:35)
[2024-05-28] MEDS ORDERED: DEXTROSE 50% 50 ML SYRINGE IV PRN (21:35)
[2024-05-28] MEDS ORDERED: ONDANSETRON INJ 2 MG/ML 2 ML VIAL IV PRN (21:35)
[2024-05-28] MEDS ORDERED: CARBOHYDRATES FOR HYPOGLYCEMIA PO PRN (21:35)
[2024-05-28] MEDS: POTASSIUM CHLORIDE CRTAB 20 MEQ TABCR PO STA (21:57)
[2024-05-28] MEDS: allopurinoL 100 MG TAB PO SCH (21:58)
[2024-05-28] MEDS: FAMOTIDINE 40 MG TABLET PO SCH (21:58)
[2024-05-28] MEDS: PANTOprazole 40 MG TAB PO SCH (21:59)
[2024-05-28] MEDS: rOPINIRole HCL 1 MG TABLET PO SCH (21:59)
[2024-05-28] MEDS: LATANOPROST 0.005% OP SOLN 2.5 ML BTL OPB SCH (21:59)
[2024-05-28] MEDS: INSULIN ASPART PER UNIT CHARGE SC SCH (22:33)
[2024-05-28] MEDS: traMADol HCL 50 MG TABLET PO PRN (23:28)
[2024-05-28] MEDS: traZODone HCL 50 MG TAB PO SCH (23:28)
--- NOTE | 2024-05-29 01:31 | Magnetic Resonance Report ---
Exam(s): MRI HEAD Without Contrast EXAM: MR Head Without Intravenous Contrast CLINICAL HISTORY: Reason for exam: Syncopal event. TECHNIQUE: Magnetic resonance images of the head/brain without intravenous contrast in multiple planes. COMPARISON: Comparison made to prior head CT from May 28, 2024. FINDINGS: Brain: Advanced nonspecific white matter changes. The flow voids of the base of the brain are intact. No mass. No hemorrhage. No acute infarct. Ventricles: Unremarkable. No ventriculomegaly. Bones/joints: Unremarkable. No acute fracture. Sinuses: Chronic ethmoid sinusitis. No acute sinusitis. Mastoid air cells: There is a tiny amount of fluid in the left mastoid air cells. No mastoid effusion. Orbits: Bilateral lens replacements. IMPRESSION: No evidence of acute intracranial pathology. Electronically signed by: Laura Yost MD 05/29/24 01:30 AM
--- OUTSIDE RECORDS SUMMARY | 2024-05-29 03:22 | External Medical Summary | Summary of Care ---
Author Name Unknown Organization [facility] Address [address] [place] [address] Phone [phone] Care Team Providers Care Membership Manager Name Role Phone Narinder Milton DO Primary Care Provider [phone] Encounter Details Date Type Department Care Team (Late st Contact Info) Description 05/28[facility]2024 [facility] [address] [place] [address] Isela Veras MD [address] [place] [address] GERD (gastroesophageal reflux disease)* Allergies Active Allergy Reactions Criticality Noted Date Comments Betaxolol 01/08/1997 Betoptic S: insomnia, depression Carbamazepine And Analogs Unknown 04/01/1999 Levobunolol 01/08/1997 Betagan: fatigue, nightmares Levofloxacin Muscle pain 03/14/2011 Penicillins 04/01/1999 Rash, very sick Simvastatin Unknown 09/16/2004 zocor Sulfa Antibiotics Unknown 04/01/1999 documented as of this encounter (statuses as of 05/28/2024) Medications Medication Sig Dispensed Refills Start Date End Date Status ASPIRIN 81 MG PO CHEW Take 1 Tablet by mouth in the morning. 0 09/29/2005 Active Ibuprofen 200 MG Oral Tablet (Motrin) Taking 2-3 daily with therapy for shoulder 01/05/2022 Active Levothyroxine Sodium 25 MCG Oral Tablet (Levoxyl)Indications :Hypothyroidism TAKE 1 TABLET BY MOUTH DAILY AT LEAST 30 MINUTES PRIOR TO FIRST MEAL OF THE DAY OR OTHER MEDICATIONS 100 Tablet 3 04/13/2023 Active Vitamin D-3 25 MCG (1000 UT) Oral CapsuleIndications:V itamin D deficiency Take 2 Capsules by mouth in the morning. 100 Capsule 3 05/29/2023 Active Vitamin B 12 500 MCG Oral TabletIndications:Vi tamin B 12 deficiency Take 500 mcg by mouth in the morning. 05/29/2023 Active Losartan Potassium-HCTZ 100-25 MG Oral Tablet (Hyzaar)Indications: HTN, goal below 130/80 TAKE ONE TABLET BY MOUTH EVERY DAY 100 Tablet 3 06/08/2023 Active Empagliflozin 25 MG Oral Tablet (Jardiance) Take 1 Tablet by mouth in the morning. 100 Tablet 2 08/22/2023 Active Potassium Chloride ER 10 MEQ Oral Capsule Extended ReleaseIndications:H ypertensive heart disease without heart failure TAKE ONE CAPSULE BY MOUTH EVERY MORNING AND TAKE ONE CAPSULE BY MOUTH EVERY DAY BEFORE BEDTIME 200 Capsule 2 09/22/2023 Active Additional Information Patient taking differently: 10 mEq Oral Daily(AM), Reported on 10/11/2023 traZODone HCl 50 MG Oral Tablet (Desyrel)Indications :Moderate episode of recurrent major depressive disorder (HCC) Take 1 Tablet by mouth at bedtime. 90 Tablet 3 09/25/2023 Active Latanoprost 0.005 % Ophthalmic Solution (Xalatan)Indications :Primary open angle glaucoma of both eyes, mild stage Instill 1 Drop into both eyes at bedtime. 2.5 mL 5 11/14/2023 Active rOPINIRole HCl 1 MG Oral Tablet (Requip)Indications: Restless legs syndrome TAKE ONE TABLET BY MOUTH FOUR TIMES A DAY 360 Tablet 2 01/01/2024 5 Active Atorvastatin Calcium 20 MG Oral Tablet (Lipitor)Indications :Dyslipidemia, goal LDL below 160 TAKE ONE TABLET BY MOUTH EVERY MORNING 100 Tablet 1 01/22/2024 Active Sertraline HCl 100 MG Oral Tablet (Zoloft)Indications: Bipolar affective disorder, currently depressed, moderate (HCC) Take 1.5 Tablets by mouth in the morning. 45 Tablet 3 01/23/2024 Active Additional Information Patient taking differently: 100 mgOral Daily(AM), Reported on 02/12/2024 Clobetasol Propionate 0.05 % External Ointment (Temovate)Indication s:Pruritus,Dermatiti s of right ear canal Apply 2x daily (or more if itchy instead of scratching) to itchy areas on scalp/behind ears or other itchy areas on body. 60 g 02/22/2024 Active Ozempic (0.25 or 0.5 MG/DOSE) 2 MG/3ML Solution Pen-injector (Semaglutide(0.25 or 0.5MG/DOS)) Inject 0.25 mg under the skin once a week. Active Famotidine 40 MG Oral Tablet (Pepcid) Take 1 Tablet by mouth at bedtime. 30 Tablet 5 05/15/2024 Active Pantoprazole Sodium 40 MG Oral Tablet Delayed Release (Protonix) Take one tablet by mouth before breakfast and one tablet before supper 180 Tablet 3 05/15/2024 Active traMADol HCl 50 MG Oral Tablet (Ultram)Indications: Primary osteoarthritis of left knee Take 1 Tablet by mouth every 12 hours as needed for Pain, Severe. 30 Tablet 05/15/2024 Active Allopurinol 100 MG Oral Tablet (Zyloprim)Indication s:Gout, arthropathy Take 1 Tablet by mouth in the morning and 1 Tablet before bedtime. 60 Tablet 5 05/15/2024 Active Hospital, Clinic, or Other Facility Administered Medication Ordered Dose Route Frequency Start Date End Date Status albuterol (PROVENTIL HFA) inhaler 4 PuffIndications:COPD, severity to be determined (HCC) 4 Puff IN Q4H PRN 09/08/2017 Active documented as of this encounter (statuses as of 05/28/2024) Active Problems Problem Noted Date Diagnosed Date Gout, arthropathy 04/29/2024 Anxiety disorder 01/23/2024 Gastroesophageal reflux disease without esophagi tis 10/11/2023 Lumbar degenerative disc disease 11/01/2022 Vitamin B 12 deficiency 09/19/2022 Vitamin D deficiency 01/12/2022 HTN, goal below 140/90 01/05/2022 Pure hypercholesterolemia 01/05/2022 Attention deficit disorder (ADD) in adult 2019 Restless legs syndrome 09/29/2020 Hypertensive heart disease without heart failure 03/07/2017 Hypothyroidism due to acquired atrophy of thyroi d 03/07/2017 Diffuse esophageal spasm 04/02/2015 Overview: Jackhammer esophagus Type 2 diabetes mellitus wit h hemoglobin A1c goal of less than 8.0% 04/28/2010 Overview: ICD-10 update of inactive term Insomnia 03/22/2005 Overview: ICD-10 update of inactive term Severe episode of recurrent major depressive disorder, without psychotic features 03/22/2005 Primary open angle glaucoma (POAG) of both eyes, mild stage 02/14/2003 ASCVD documented as of this encounter (statuses as of 05/28/2024) Resolved Problems Problem Noted Date Diagnosed Date Resolved Date Major depressive disorder, r ecurrent episode, moderate 01/23/2024 05/15/2024 Anxiety state 01/17/2023 02/12/2024 Type 2 diabetes mellitus wit h other diabetic ophthalmic complication 06/30/2020 01/05/2022 Overview: DM2 + glaucoma = conditions have assumed relationship per current coding guidelines. Encounter for examination fo r normal comparison and control in clinical research program 01/14/2019 06/15/2020 Overview: DO NOT DELETE [facility] [place] DETECT Study: Project # [id number], Flat Machine Cutter: Antione Coburn, PhD. SUMMARY: Goal: Establish test characteristics (sensitivity, specificity, PPV, NPV) of a circulating tumor DNA (ctDNA)-based test for cancer. Hypothesis: Circulating tumor DNA (ctDNA) and elevated protein biomarkers (together, the marker panel) can be detected in asymptomatic individuals with early cancer. Specific Aim 1: Determine the prevalence of a positive marker panel test in a prospective clinical cohort of 10,000 asymptomatic women ages 65 to 75 years. Specific Aim 2: Determine the sensitivity, specificity, positive predictive value (PPV) and negative predictive value (NPV) of a marker panel test to identify histologically proven cancers that develop within 5-years of the marker panel evaluation. CONTACTS: During normal business hours, contact study staff at ; after hours Flat Machine Cutter via the [facility] threading machine operator . Please contact study team before resolving/deleting from patients problem list. Study phone number: [phone]. Diagnosis changed due to Research Module. Go to Snapshot for study details. Encounter for examination fo r normal comparison and control in clinical research program 01/14/2019 07/14/2022 Overview: DO NOT DELETE - [facility] Study: Project # [id number], Flat Machine Cutter: Wilfrid Guzman, MS, MPH. SUMMARY: Goal: Establish test characteristics (sensitivity, specificity, PPV, NPV) of a circulating tumor DNA (ctDNA)-based test for cancer. - Hypothesis: Circulating tumor DNA (ctDNA) and elevated protein biomarkers (together, the marker panel) can be detected in asymptomatic individuals with early cancer. - Specific Aim 1: Determine the prevalence of a positive marker panel test in a prospective clinical cohort of 10,000 asymptomatic women ages 65 to 75 years. - Specific Aim 2: Determine the sensitivity, specificity, positive predictive value (PPV) and negative predictive value (NPV) of a marker panel test to identify histologically proven cancers that develop within 5-years of the marker panel evaluation. - CONTACTS: During normal business hours, contact study staff at ; after hours Flat Machine Cutter via the [facility] threading machine operator . - Please contact study team before resolving/deleting from patients problem list. Study phone number: [phone]. Diagnosis changed due to Research Module. Go to Snapshot for study details. Bronchitis, complicated 01/26/201502/12 Ankle joint pain 04/30/2014 03/07/2017 Bacterial pneumonia 10/05/2011 05/25/20 12 Abdominal pain, generalized 11/05/2010 05/25/2012 Cough 09/23/2009 05/25/2012 NONALLERGIC RHINITIS 09/23/2009 020 Impaired fasting glucose 09/14/2009 RECURRENT ACUTE SINUSITIS 08/17/2009 Chronic pharyngitis 08/17/2009 05/25/20 12 CHRONIC AIRWAY OBSTRUCTION - MODERATE PERSISTENT 04/08/2009 12/29/2019 ADVANCE DIRECTIVE INFORMATION 08/24/2005 01/03/2020 Overview: No, Advance Directive brochure offered , patient declined. Coagulation disorder 06/01/2004 018 HTN, goal below 130/80 03/08/200401/05 Dermatochalasis 02/14/2003 12/21/2005 HYPERTENSIVE HRT DIS NOS Overview: Per Heart Failure Taxonomy Protocol. Gastroesophageal reflux dise ase with esophagitis 01/12/2022 Carpal tunnel syndrome 05/25 CLASSICAL MIGRAINE WITHOU ME NTION OF INTRACTABLE MIGRAINE 01/03/2020 INFORMATION 12/10/2012 ADJ DISORDER W/DEPRES MOOD 0 05/25/2012 Need for prophylactic hormon e replacement therapy (postmenopausal) 05/25/2012 Dysphagia 01/03/2020 Overview: ICD-10 update of inactive term documented as of this encounter (statuses as of 05/28/2024) Immunizations Name Administration Dates Next Due COVID-19 mRNA, LNP-s, No Pre serve, 2-Dose Series ([employer]) 09/04/2021,01/27/2021,01/01/2021 H1N1 2008 Influenza, IM 11/12/2009 Pneumococcal Conjugate Vacc, 13 Valent (Prevnar) 09/02/2016,07/14/2015 Pneumococcal Polysaccharide PPV23 (Pneumovax) 11/28/2017,11/15/2010 Seasonal Influenza, PF, 6 M & above, IM , (FluLaval or Fluzone) 08/14/2020,08/15/2018,08/24/2017 Seasonal Influenza, Quadriva lent Hd (Fluzone Hd) 09/25/2023,08/25/2022,01/05/2022 Seasonal Influenza, Quadriva lent, No Preserve, IM 09/02/2016 Seasonal Influenza, Split, I IV3, With Preserve, Inj 07/14/2015,09/17/2014,09/10/2013,10/13,09/05/2011,11/11/2010,11/12/20 09 11/12/2010 Seasonal Influenza, Trivalen t, Adjuvanted, 65+ yrs 09/05/2019 TDAP (age 10 and older)(Boostrix) 11/28/2017 TDAP, Age 7 and older, IM (Adacel) 10/23/2007 Varicella Zoster Vaccine (Adult) 01/25/2010 Zoster Vaccine Recombinant (Shingrix) 03/10/2022 ,01/05/2022 documented as of this encounter Social History Tobacco Use Types Packs/Day Years Used Date Smoking Tobacco: Never Passive Smoke Exposure: Past Smokeless Tobacco: Never Comments:no passive smoke ex posures Alcohol Use Standard Drinks/Week Comments Never 0 (1 standard drink = 0.6 oz pur e alcohol) AUDIT-C Answer Date Recorded Q1: How often do you have a drink containing alc ohol? Never 07/11/2022 Average Number of Drinks Not on file 022 Q3: How often do you have si x or more drinks on one occasion? Never 07/11/2022 PHQ-2 Answer Date Recorded PHQ Adult Total Score 2 03/25/2024 Hunger Vital Sign Answer Date Recorded Within the past 12 months, y ou worried that your food would run out before you got the money to buy more. Never true 09/25/20 23 Within the past 12 months, t he food you bought just didn't last and you didn't have money to get more. Never true 09/25/2023 Childcare Answer Date Recorded Do you feel overwhelmed with taking care of a child, family member or friend? No 09/25/2023 Does your family need help f inding childcare? (Household - for ages 0-17 years) Not on file 09/25/2023 Clothing Answer Date Recorded Have you been unable to get clothing when it was really needed? No 09/25/2023 Is your family able to get c lothes or diapers when needed? (Household - for ages 0-17 years) Not on file 09/25/2023 Personal Safety Answer Date Recorded Do you feel unsafe or have concerns for your saf ety? No 09/25/2023 Do you have concerns for you r family's safety? (Household - for ages 0-17 years) Not on file 09/25/2023 Utilities Answer Date Recorded Do you have trouble paying y our heating, water, or electric bill? No 09/25/2023 Is your family able to pay t he heat, water, or electric bill? (Household - for ages 0-17 years) Not on file 09/25/2023 Does your family have access to good internet? (Household - for ages 0-17 years) Not on file 09/25/2023 Employment Status Answer Date Recorded Are you unemployed or without regular income? No 09/25/2023 Does the household have a re gular source of income? (Household - for ages 0-17 years) Not on file 09/25/2023 Social Connections Answer Date Recorded How often do you feel lonely or isolated from th ose around you? Never 09/25/2023 Financial Resource Strain Answer Date R ecorded Do you have any trouble payi ng for your medications, or do you think you might in the future? No 09/25/2023 Does your family have troubl e paying for medicine? (Household - for ages 0-17 years) Not on file 09/25/2023 Transportation Needs Answer Date Record ed READ ONLY Do you have troubl e getting a ride to medical visits or work? Never True 09/25/2023 Does your family have a hard time getting a ride to doctors visits? (Household - for ages 0-17 years) Not on file 09/25/2023 Has lack of transportation k ept you from medical appointments, meetings, work, or from getting things needed for daily living? Check all that apply. (Adult - for ages 18 years and over) Not on file 09/25/2023 Do you (or your family) have trouble finding or paying for a ride (transportation)? (Household - for ages 0-17 years) Not on file 09/25/2023 Housing Stability Answer Date Recorded Do you currently live in a s helter or have no steady place to sleep at night? No 09/25/2023 READ ONLY Do you think you a re at risk of becoming homeless? No 09/25/2023 Does your family worry about paying for your home or becoming homeless? (Household - for ages 0-17 years) Not on file 1 11/25/2022 Are you homeless or worried that you might be in the future? (Adult - for ages 18 years and over) Not on file Are you (or your family) keo eless or worried that you might be in the future? (Household - for ages 0-17 years) Not on file Food Insecurity Answer Date Recorded Do you need food for this week? No 09/25/2023 Are you able to get enough f ood for your family? (Household - for ages 0-17 years) Not on file 09/25/2023 Does your family need food t his week? (Household - for ages 0-17 years) Not on file 09/25/2023 Do you always have enough fo od for your family? (Household - for ages 0-17 years) Not on file 09/25/2023 Sex and Gender Information Value Date Recorded Sex Assigned at Female 12/23/2019 2:07 PM EST Gender Identity Female 12/23/2019 2:07 PM EST Sexual Orientation Straight 12/23/2019 2: 07 PM EST Job Start Date Occupation Industry Not on file Not on file Not on file documented as of this encounter Progress Notes * Jamila Montes De Oca LPN - 05/28/2024 9:45 AM EDT Order successfully faxed to [facility] today. Fax number busy at [phone], but confirmation received at [phone]. Olivia Montes De Oca LPN Intake Nurse Navigator General Surgery and Breast Clinic [facility] documented in this encounter Plan of Treatment Upcoming Encounters Date Type Department Care Team (Late st Contact Info) Description 06/17/2024 10:00 AM EDT Office Visit Family Practice [address] [place] [address] [address] [place] [address] Roseanna Childress DO [address] [place] [address] 06/28/2024 10:00 AM EDT Office Visit General Surgery, [facility] [address] [facility] [place] [address] Isela Veras MD [address] [place] [address] 07/01/2024 12:30 PM EDT Office Visit Gastroenterology, [facility] [address] [facility] [place] [address] Adelaide Bell CRNP [address] [facility] [place] [address] 07/24/2024 11:30 AM EDT Office Visit Ophthalmology, [place] [address] [place] [address] Avtar Patel MD [address] [place] [address] 08/06/2024 11:00 AM EDT Nutrition Services Nutrition Services [address] [address] Mercedez Alcantar RDN [address] [facility] [place] [address] 03/21/2025 11:00 AM EDT Nurse Only Ancillary [address] [address] College, Nurse Annual Wellness Visit [address] [address] Scheduled Orders Name Type Priority Associated Diagnoses Orde r Schedule FLUORO UGI SINGLE CONTRAST Medical Imaging Routine GERD (gastroesophageal reflux disease) Ordered: 05/28/2024 Scheduled Procedures Name Priority Associated Diagnoses Date/Ti me COLONOSCOPY FLEXIBLE PROXIMAL DIAGNOSTIC Recall History of colon polyps Health Maintenance Due Date Last Done Comments COVID-19 Vaccine ( season) 2023 09/04/2021, 01/27/2021, 01/01/2021 Influenza Vaccine (FLU shot) (#1) 2024 09/25/2023, 08/25/2022, 01/05/2022, Additional history exists HbA1c 08/13/2024 02/12/2024, 09/13, 05/26/2023, Additional history exists Diabetic Eye Exam 10/11/2024 10/11/2023, , 01/12/2022, Additional history exists Albumin/Creatinine Ratio 02/11/2025 042 024, 01/17/2023, 01/05/2022, Additional history exists Diabetic Foot Exam 02/11/2025 02/12/2024, 0 01/17/2023, 03/10/2022, Additional history exists TSH 02/11/2025 02/12/2024, 03/0 05/2023, 01/05/2022, Additional history exists DXA Scan 02/19/2025 02/19/2018, 07/14, 07/29/2013, Additional history exists Depression Monitoring 03/25/2025 03/25/2024 , 03/18/2024, 02/12/2024, Additional history exists GFR 04/29/2025 04/29/2024, 040 11/2023, 06/12/2023, Additional history exists Colonoscopy 09/01/2025 09/01/2020, 08/14, 07/18/2013, Additional history exists Singleton's Esophagus Surveilance 2027 2024, 2024, 09/23/2022, Additional history exists DTaP,Tdap,and Td Vaccines (3 - Td or Tdap) 11/28/2027 11/28/2017, 10/23/2007, 12/24/1993 Pneumococcal Vaccine: 65+ Years Completed 11/28/2017, 09/02/2016, 07/14/2015, Additional history exists RETIRED - COLONOSCOPY-EVERY 5 YRS AGES 18-100 Discontinued 09/01/2020, 09/01/2020, 07/18/2013, Additional history exists *BASELINE EKG FOR HTN Completed 05/31/2021 , 05/18/2021, 08/22/2020, Additional history exists Zoster Vaccines Completed 03/10/2022, 12/15, 01/25/2010 HPV (Gardasil) Vaccine Aged Out No lo nger eligible based on patient's age to complete this topic Hepatitis B Vaccine Aged Out No longe r eligible based on patient's age to complete this topic MENINGOCOCCAL (MENACTRA/MENVEO) Aged Out No longer eligible based on patient's age to complete this topic documented as of this encounter Medical Devices Implanted Type Area Financial Retirement Plan Specialist Device Identifier Shelf Expiration Date Model / Serial / Lot Lens 19.0 Sn60wf - [id number] - [id number] Implanted:Qty: 1 on 09/16/2020 by Avtar Patel MD at [facility] Right: Eye WEST : SURGICAL [id number].190 / [id number] / Lens 19.5 Sn60wf - [id number] Implanted:Qty: 1 on 02/03/2021 by Avtar Patel MD at [facility] Left: Eye WEST : SURGICAL 12/18/2024 SN60WF.[id number] / / [id number] documented as of this encounter Visit Diagnoses Diagnosis GERD (gastroesophageal reflux disease)- Primary Esophageal reflux documented in this encounter Care Teams Membership Manager Relationship Specialty Start Date End Date Narinder Milton DO [address] [place] [address] PCP - General Internal Medicine 04/25/24 documented as of this encounter
[2024-05-29] MEDS: LEVOTHYROXINE SODIUM 25 MCG TABLET PO SCH (05:47)
[2024-05-29] MEDS: ASPIRIN 81 MG ECTAB PO SCH (07:37)
[2024-05-29] MEDS: LOSARTAN/HCTZ 50/12.5MG TAB PO SCH (07:38)
[2024-05-29] MEDS: ATORVASTATIN 20 MG TAB PO SCH (07:38)
[2024-05-29] MEDS: CYANOCOBALAMIN (B-12) 500 MCG TABLET PO SCH (07:38)
[2024-05-29] MEDS: SERTRALINE HCL 50 MG TABLET PO SCH (07:40)
[2024-05-29] MEDS: POTASSIUM CHLORIDE 10 MEQ TABCR PO SCH (07:40)
[2024-05-29 07:41] LABS: Hematocrit (blood only) 38.7 % (37.0-47.0); Hemoglobin 12.4 g/dl (12.0-16.0); Mean Corpuscular Hemoglobin 28.6 pg (25.0-34.0); Mean Corpuscular Volume 89.2 fL (80.0-100.0); Mean Platelet Volume 8.7 fL (9.4-12.4); Platelet Count 212 K/uL (130-400); RDW Coefficient of Variation 13.2 % (11.5-14.5); RDW Standard Deviation 43.4 fL (36.4-46.3); Red Blood Count 4.34 M/uL (4.20-5.40); White Blood Count 3.58 K/ul (4.8-10.8)
--- OUTSIDE RECORDS SUMMARY | 2024-05-29 07:49 | External Medical Summary | Summary of Care ---
Author Name Unknown Organization [facility] Address [address] [facility] [place] [address] Phone [phone] Care Team Providers Care Green Jobs Trainer Name Role Phone Narinder Milton DO Primary Care Provider Reason for Visit * Reason Onset Date Comments Films 05/28/2024 Encounter Details Date Type Department Care Team (Late st Contact Info) Description 05/28/2024 Telephone Radiology Film File [address], [place] [id number] Benny Hua MD [address] [place] [address] Films Allergies Active Allergy Reactions Criticality Noted Date [...] OR OTHER MEDICATIONS 100 Tablet 3 04/13/2023 4 Active Vitamin D-3 25 MCG (1000 UT) [...] 01/14/2019 06/15/2020 Overview: DO NOT DELETE [facility] DETECT Study: Project # [id number], [employer] Director: Antione Coburn, PhD. SUMMARY: Goal: Establish test [...] contact study staff at ; after hours [employer] Director via the [facility] lathe scalper operator . Please contact study team before resolving/deleting from patients problem list. Study phone number: [phone]. Diagnosis changed due to Research Module. Go to Snapshot for study details. Encounter for examination fo r normal comparison and control in clinical research program 01/14/2019 07/14/2022 Overview: DO NOT DELETE - [facility] SINGH Study: Project # [id number], [employer] Director: Wilfrid Guzman, MS, MPH. SUMMARY: Goal: Establish [...] contact study staff at ; after hours [employer] Director via the [facility] hospital lathe scalper operator . - Please contact study team before resolving/deleting from patients problem list. Study phone number: [phone]. Diagnosis changed due to Research Module. Go [...] mRNA, LNP-s, No Pre serve, 2-Dose Series (Jini) 09/04/2021,01/27/2021,01/01/2021 H1N1 2009 Influenza, IM 11/12/2009 Pneumococcal Conjugate Vacc, 13 [...] money to buy more. Never true 09/25/20 Within the past 12 months, t he [...] on file documented as of this encounter Miscellaneous Notes * Telephone Encounter - Ike Solis OSA - 05/28/2024 11:50 AM EDT [facility] orthopedics department requesting 05-24-24 MR Knee images be pushed through PACS. [place] Authorization to Release on file. Images pushed to [facility] PACS external connection. Report(s) faxed to Orthopedics - [phone]. Successful fax confirmation received. documented in this encounter Plan of Treatment Upcoming Encounters Date Type Department Care Team (Late st Contact Info) Description 06/17/2024 10:00 AM EDT Office Visit Family Practice [address] [place] [address] [address] [place] [address] Roseanna Childress DO [address] [place] [address] 06/28/2024 10:00 AM EDT Office Visit General Surgery, [facility] [address] [facility] [place] [address] Isela Veras MD [address] [place] [address] 07/01/2024 12:30 PM EDT Office Visit Gastroenterology, [facility] [address] [facility] [place] [address] Adelaide Bell CRNP [address] [place] [address] 07/24/2024 11:30 AM EDT Office Visit Ophthalmology, [place] [address] [place] [address] Avtar Patel MD [address] [place] [address] 08/06/2024 11:00 AM EDT Nutrition Services Nutrition Services [address] [address] Mercedez Alcantar RDN [address] [facility] [place] [address] 03/21/2025 11:00 AM EDT Nurse Only Ancillary [address] [address] College, Nurse Annual Wellness Visit [address] [address] Scheduled Procedures Name Priority Associated Diagnoses Date/Ti [...] , 01/12/2022, Additional history exists Albumin/Creatinine Ratio 02/11/20252 024, 01/17/2023, 01/05/2022, Additional history exists Diabetic Foot Exam 02/11/2025 02/12/2024, 0 01/17/2023, 03/10/2022, Additional history exists TSH 02/11/2025 02/12/2024, 03/0 05/2023, 01/05/2022, Additional history exists DXA Scan 02/19/2025 02/19/2018, 07/14, 07/29/2013, Additional history exists Depression Monitoring 03/25/2025 03/25/2024 , 03/18/2024, 02/12/2024, Additional history exists GFR 04/29/2025 04/29/2024, 0 11/2023, 06/12/2023, Additional history exists Colonoscopy 09/01/2025 [...] this encounter Medical Devices Implanted Type Area Assistant Teacher Primary Device Identifier Shelf Expiration Date Model / Serial / Lot Lens 19.0 Sn60wf - [id number] - [id number] Implanted:Qty: 1 on 09/16/2020 by Avtar Patel MD at [facility] Right: Eye WEST : SURGICAL SN60WF.190 / [id number] / Lens 19.5 Sn60wf - [id number] Implanted:Qty: 1 on 02/03/2021 by Avtar Patel MD at [facility] Left: Eye WEST : SURGICAL 12/18/2024 SN60WF.1 95 / / [id number] documented as of this encounter Care Teams Green Jobs Trainer Relationship Specialty Start Date End Date Narinder Milton DO [address] [place] [address] PCP - General Internal Medicine 04/25/24 documented as of this encounter
[2024-05-29 07:58] LABS: Estimated Average Glucose 183 mg/dl
[2024-05-29 08:08] LABS: BUN Creatinine Ratio 26.4 (10-20); Calcium 9.1 mg/dl (8.6-10.3); Chol HDL Ratio 3.7 (0-5); Creatinine Clr Calc Pharmacy 62.6 ml/min; Est GFR (African American) 94.3 ml/min; Est GFR (Non-African American) 81.3 ml/min; Magnesium 2.1 mg/dl (1.7-2.4); Potassium 3.6 mmol/L (3.5-5.1)
--- NOTE | 2024-05-29 11:06 | Electrocardiogram Report ---
Test Reason : Blood Pressure : / mmHG Vent. Rate : 073 BPM Atrial Rate : 073 BPM P-R Int : 152 ms QRS Dur : 086 ms QT Int : 398 ms P-R-T Axes : 056 043 099 degrees QTc Int : 438 ms Normal sinus rhythm Possible Left atrial enlargement Nonspecific T wave abnormality Abnormal ECG When compared with ECG of 23-MAY-2023 11:03, Nonspecific T wave abnormality now evident in Lateral leads Confirmed by Moshe Harirs ([id number]) on 05/29/2024 11:06:16 AM Referred By: Confirmed By:Moshe Harris
--- NOTE | 2024-05-29 13:39 | Hospitalist Progress Note ---
Date of Service May 29, 2024 Assessment & Plan (1) Postural dizziness with near syncope: Plan: Zonia Bailey is a 74y/o F with PMHx of DM type II, hypothyroidism, hyperlipidemia, HTN, ASCVD, hypertensive heart disease without heart failure, GERD without esophagitis, history of B12 deficiency, history of vitamin D deficiency, restless leg syndrome, lumbar degenerative disc disease, gouty arthropathy, primary open angle glaucoma of both eyes, depression, attention deficit disorder, anxiety and other problems listed below who presented to the ED today for evaluation secondary to a near-syncopal event. questionable loss of consciousness with the episodes of near syncope associated with sweating and nausea and also blurred vision symptoms have resolved completely in the hospital doubt any neurological events CT scan of the head and neck, CTA of the neck and head and MRI of the head are unremarkable echo of the heart showed LV to be hyperdynamic with EF more than 70%, aortic valve sclerosis without significant stenosis, there is mild mitral annular calcification with mild tricuspid regurgitation, grade 1 diastolic dysfunction lipid profile has been noted will get orthostatic vitals and PT and OT evaluation reassured and likely discharge tomorrow on Zio patch (2) Hypokalemia: Plan: Hypokalemia Potassium 3.3 on admission. Administered 40mEq on oral potassium. Can continue LIGHT TECHNICIAN potassium supplementation. Repeat BMP in AM - monitor and replete PRN. Plan other significant medical conditions are stable and as below: DM Type II Hold LIGHT TECHNICIAN diabetic medications; initiate SSI regimen. Hgb A1c 7.2 on 02/12/24; will repeat Hgb A1c in AM - follow. BSG checks ACHS, CC/HH diet in place - monitor BSG trend. hemoglobin A1c is slightly elevated at 8.0 HTN BP stable at 133/74 at time of admission. Can continue LIGHT TECHNICIAN losartan-hydrochlorothiazide. Continuous cardiac monitoring in place, trend BP in AM blood pressure remains controlled. Dyslipidemia, H/O ASCVD: Can continue LIGHT TECHNICIAN aspirin and statin therapy. Hypothyroidism: Can continue LIGHT TECHNICIAN levothyroxine, TSH WNL on admission. Other Chronic Medical Conditions: Restless legs syndrome, depression/anxiety, lumbar DDD, insomnia, GERD, glaucoma --> Can continue LIGHT TECHNICIAN medications for these specific conditions. DVT Prophylaxis: SCDs/TEDs - For now Code Status: FULL CODE PCP: Narinder Milton, DO Disposition: Admit to Med/Surg with Telemetry Admission and Anticipated Discharge Date Admission Date: May 28, 2024 Subjective 05/29/2024 The patient was seen and examined in medical telemetry unit she was admitted with syncopal episodes likely vasovagal in origin denies any more nausea and or vomiting and no more syncope denies any neurological symptoms and has been feeling a lot better Review of Systems Review of Systems: all systems reviewed and are unremarkable except as noted below Physical Exam Physical Exam: lying in bed without any acute distress Constitutional: well developed, well nourished, + ill appearing and + obese Eyes: PERRL, conjunctivae normal, anicteric sclerae ENMT: external ear and nose normal, oropharynx normal Neck: trachea midline, no thyromegaly Respiratory: no respiratory distress Auscultation: lungs clear to auscultation bilaterally Cardiovascular: Rate/Rhythm: regular rate and regular rhythm; not tachycardic Heart Sounds: normal S1 and normal S2; no murmur Extremities: no edema Gastrointestinal (Abdomen): Inspection/Auscultation: normal bowel sounds; abdomen not distended Percussion/Palpation: abdomen soft; abdomen nontender Musculoskeletal: no acute arthritis involving any of the joints Neurologic: normal touch/pain/proprioception and moves all extremities; no focal motor deficits Psychiatric: A+Ox3, euthymic affect Lymphatic: no cervical or axillary lymphadenopathy Results & Data Results & Data Vital Signs (Past 12 Hours) Vital Signs Temp Pulse Pulse Pulse Resp BP BP 05/29/24 11:37 36.7 C 68 18 112/64 05/29/24 07:30 36.4 C L 63 16 138/78 05/29/24 07:25 75 05/29/24 04:24 36.4 C L 74 18 97/60 L Pulse Ox O2 Del Method 05/29/24 11:37 93 Room Air 05/29/24 07:30 97 Room Air 05/29/24 07:25 05/29/24 04:24 93 Room Air Laboratory Results Short CBC 05/28/24 05/29/24 Range/Units 15:06 07:04 WBC 6.77 3.58 L (4.8-10.8) K/ul Hgb 13.7 12.4 (12.0-16.0) g/dl Hct 42.3 38.7 (37.0-47.0) % Plt Count 223 212 (130-400) K/uL BMP 05/28/24 05/29/24 15:06 07:04 Sodium 138 140 Potassium 3.3 L 3.6 Chloride 101 104 Carbon Dioxide 28 32 BUN 19 19 Creatinine 0.76 0.72 Glucose 135 H 116 H Calcium 9.7 9.1 Liver Function 05/28/24 Range/Units 15:06 Total Bilirubin 0.5 (0.2-1.0) mg/dl AST 17 (13-39) U/L ALT 12 (7-52) U/L Alkaline Phosphatase 73 (34-104) U/L Albumin 4.2 (3.4-5.0) gm/dl Urine 05/28/24 Range/Units 17:07 Urine Color Yellow Urine Appearance Clear (Clear) Urine pH 5.5 (4.5-7.5) Ur Specific Boron 1.026 (1.000-1.030) Urine Protein Negative (Negative) Urine Glucose (UA) 3+ H (Negative) Medications Administered Current Inpatient Medications Acetaminophen (Acetaminophen 325 Mg Tab) 650 mg PO Q4H PRN PRN Reason: pain/fever Stop: 06/27/24 21:34 Allopurinol (Allopurinol 100 Mg Tab) 100 mg PO BID CRISTINA Stop: 06/27/24 21:34 Last Admin: 05/29/24 07:37 Dose: 100 mg Aspirin (Aspirin 81 Mg Ectab) 81 mg PO QAM C[facility]STINA Stop: 06/28/24 08:59 Last Admin: 05/29/24 07:37 Dose: 81 mg Atorvastatin Calcium (Atorvastatin 20 Mg Tab) 20 mg PO QAM C[facility]STINA Stop: 06/28/24 08:59 Last Admin: 05/29/24 07:38 Dose: 20 mg Cyanocobalamin (Cyanocobalamin (B-12) 500 Mcg Tablet) 500 mcg PO DAILY CRISTINA Stop: 06/28/24 08:59 Last Admin: 05/29/24 07:38 Dose: 500 mcg Dextrose (Dextrose 50% 50 Ml Syringe) 25 - 50 ml IV UD PRN; Protocol PRN Reason: Hypoglycemia Protocol Stop: 06/27/24 21:34 Famotidine (Famotidine 40 Mg Tablet) 40 mg PO HS CRISTINA Stop: 06/27/24 21:34 Last Admin: 05/28/24 21:58 Dose: 40 mg Glucagon (Glucagon For Inj 1 Mg Vial) 1 mg SQ UD PRN; Protocol PRN Reason: Hypoglycemia Protocol Stop: 06/27/24 21:34 Glucose (Glucose 40% Gel 15 Gm Tube) 15 - 30 gm PO UD PRN; Protocol PRN Reason: Hypoglycemia Protocol Stop: 06/27/24 21:34 Glucose (Glucose 10 Tab/Tube) 4 - 8 tab PO UD PRN; Protocol PRN Reason: Hypoglycemia Treatment Stop: 06/27/24 21:34 HCTZ/Losartan Potassium (Losartan/Hctz 50/12.5mg Tab) 1 tab PO QAM [facility] Stop: 06/28/24 08:59 Last Admin: 05/29/24 07:38 Dose: 1 tab Ibuprofen (Ibuprofen 200 Mg Tab) 200 mg PO Q6H PRN PRN Reason: Pain Stop: 06/27/24 21:34 Insulin Aspart (Insulin Aspart Per Unit Charge) 0 units SC ACHS CRISTINA Stop: 06/27/24 21:34 Last Admin: 05/29/24 13:23 Dose: 2 units Latanoprost (Latanoprost 0.005% Op Soln 2.5 Ml Btl) 1 drops OPB HS CRISTINA Stop: 06/27/24 21:34 Last Admin: 05/28/24 21:59 Dose: 1 drops Levothyroxine Sodium (Levothyroxine Sodium 25 Mcg Tablet) 25 mcg PO DAILYBB [facility] Stop: 06/28/24 06:29 Last Admin: 05/29/24 05:47 Dose: 25 mcg Miscellaneous (Carbohydrates For Hypoglycemia ) 15 - 30 gm PO UD PRN PRN Reason: Hypoglycemia Protocol Stop: 06/27/24 21:34 Ondansetron HCl (Ondansetron Inj 2 Mg/Ml 2 Ml Vial) 4 mg IV Q6H PRN PRN Reason: Nausea Stop: 06/27/24 21:34 Pantoprazole Sodium (Pantoprazole 40 Mg Tab) 40 mg PO BID CRISTINA Stop: 06/27/24 21:34 Last Admin: 05/29/24 07:39 Dose: 40 mg Polyethylene Glycol (Polyethylene (Miralax) 17 Gm Pack) 17 gm PO DAILY PRN PRN Reason: Constipation Stop: 06/27/24 21:34 Potassium Chloride (Potassium Chloride 10 Meq Tabcr) 10 meq PO QAM C[facility]STINA Stop: 06/28/24 08:59 Last Admin: 07/17/24 07:40 Dose: 10 meq Ropinirole HCl (Ropinirole Hcl 1 Mg Tablet) 1 mg PO QID CRISTNIA Stop: 06/27/24 21:34 Last Admin: 05/29/24 13:24 Dose: 1 mg Sertraline HCl (Sertraline Hcl 50 Mg Tablet) 150 mg PO QAM [facility] Stop: 06/28/24 08:59 Last Admin: 05/29/24 07:40 Dose: 150 mg Tramadol HCl (Tramadol Hcl 50 Mg Tablet) 50 mg PO Q12H PRN PRN Reason: Pain, Severe Stop: 06/27/24 21:34 Last Admin: 05/28/24 23:28 Dose: 50 mg Trazodone HCl (Trazodone Hcl 50 Mg Tab) 50 mg PO HS [facility] Stop: 06/27/24 21:34 Last Admin: 05/28/24 23:28 Dose: 50 mg
[2024-05-30 07:50] LABS: Basophils # (auto) 0.05 K/uL (0.00-0.20); Basophils % (auto) 1.2 %; Eosinophils # (auto) 0.19 K/uL (0.00-0.50); Eosinophils % (auto) 4.4 %; Immature Granulocytes # (auto) 0.02 K/uL (0.01-0.20); Immature Granulocytes % (auto) 0.5 %; Lymphocytes % (auto) 32.8 %; Mean Corpuscular Hemoglobin 29.1 pg (25.0-34.0); Mean Corpuscular Hgb Conc 32.5 g/dL (32.0-36.0); Mean Corpuscular Volume 89.5 fL (80.0-100.0); Mean Platelet Volume 8.7 fL (9.4-12.4); Monocytes # (auto) 0.46 K/uL (0.11-0.59); Monocytes % (auto) 10.8 %; Neutrophils # (auto) 2.15 K/uL (1.40-6.50); Neutrophils % (auto) 50.3 %; Platelet Count 213 K/uL (130-400); RDW Coefficient of Variation 13.3 % (11.5-14.5); RDW Standard Deviation 43.9 fL (36.4-46.3); Red Blood Count 4.47 M/uL (4.20-5.40); White Blood Count 4.27 K/ul (4.8-10.8)
[2024-05-30 08:09] LABS: BUN Creatinine Ratio 30.3 (10-20); Calcium 9.4 mg/dl (8.6-10.3); Creatinine Clr Calc Pharmacy 59.6 ml/min; Est GFR (African American) 88.3 ml/min; Est GFR (Non-African American) 76.2 ml/min; Magnesium 2.1 mg/dl (1.7-2.4)
--- NOTE | 2024-05-30 12:58 | Hospitalist Progress Note ---
Date of Service May 30, 2024 Assessment & Plan (1) Postural dizziness with near syncope: Plan: Zonia Bailey is a 74y/o F with PMHx of DM type II, hypothyroidism, hyperlipidemia, HTN, ASCVD, hypertensive heart disease without heart failure, GERD without esophagitis, history of B12 deficiency, history of vitamin D deficiency, restless leg syndrome, lumbar degenerative disc disease, gouty arthropathy, primary open angle glaucoma of both eyes, depression, attention deficit disorder, anxiety and other problems listed below who presented to the ED today for evaluation secondary to a near-syncopal event. questionable loss of consciousness with the episodes of near syncope associated with sweating and nausea and also blurred vision symptoms have resolved completely in the hospital doubt any neurological events CT scan of the head and neck, CTA of the neck and head and MRI of the head are unremarkable echo of the heart showed LV to be hyperdynamic with EF more than 70%, aortic valve sclerosis without significant stenosis, there is mild mitral annular calcification with mild tricuspid regurgitation, grade 1 diastolic dysfunction lipid profile has been noted will get orthostatic vitals and PT and OT evaluation reassured and likely discharge tomorrow on Zio patch clinically much better without any symptoms will be discharged home this afternoon will have a Zio patch placed for 14 days from doctor's office (2) Hypokalemia: Plan: Hypokalemia Potassium 3.3 on admission. Administered 40mEq on oral potassium. Can continue BARREL LATHE OPERATOR INSIDE potassium supplementation. Repeat BMP in AM - monitor and replete PRN. potassium has been normalized Plan other significant medical conditions are stable and as below: DM Type II Hold BARREL LATHE OPERATOR INSIDE diabetic medications; initiate SSI regimen. Hgb A1c 7.2 on 02/12/24; will repeat Hgb A1c in AM - follow. BSG checks ACHS, CC/HH diet in place - monitor BSG trend. hemoglobin A1c is slightly elevated at 8.0 continue with home Jardiance and Ozempic HTN BP stable at 133/74 at time of admission. Can continue BARREL LATHE OPERATOR INSIDE losartan-hydrochlorothiazide. Continuous cardiac monitoring in place, trend BP in AM blood pressure remains controlled. Dyslipidemia, H/O ASCVD: Can continue BARREL LATHE OPERATOR INSIDE aspirin and statin therapy. Hypothyroidism: Can continue BARREL LATHE OPERATOR INSIDE levothyroxine, TSH WNL on admission. Other Chronic Medical Conditions: Restless legs syndrome, depression/anxiety, lumbar DDD, insomnia, GERD, glaucoma --> Can continue BARREL LATHE OPERATOR INSIDE medications for these specific conditions. DVT Prophylaxis: SCDs/TEDs - For now Code Status: FULL CODE PCP: Narinder Milton DO Disposition: Admit to Med/Surg with Telemetry will be discharged home this afternoon Admission and Anticipated Discharge Date Admission Date: May 28, 2024 Subjective 05/29/2024 The patient was seen and examined in medical telemetry unit she was admitted with syncopal episodes likely vasovagal in origin denies any more nausea and or vomiting and no more syncope denies any neurological symptoms and has been feeling a lot better 05/30/2024 the patient was seen and examined in medical telemetry unit she has been feeling fine without any dizziness and/or other neurological symptoms still complains to have pain in the knee Review of Systems Review of Systems: all systems reviewed and are unremarkable except as noted below Physical Exam Physical Exam: lying in bed without any acute distress Constitutional: well developed, well nourished, + ill appearing and + obese Eyes: PERRL, conjunctivae normal, anicteric sclerae ENMT: external ear and nose normal, oropharynx normal Neck: trachea midline, no thyromegaly Respiratory: no respiratory distress Auscultation: lungs clear to auscultation bilaterally Cardiovascular: Rate/Rhythm: regular rate and regular rhythm; not tachycardic Heart Sounds: normal S1 and normal S2; no murmur Extremities: no edema Gastrointestinal (Abdomen): Inspection/Auscultation: normal bowel sounds; abdomen not distended Percussion/Palpation: abdomen soft; abdomen nontender Neurologic: normal touch/pain/proprioception and moves all extremities; no focal motor deficits Psychiatric: A+Ox3, euthymic affect Lymphatic: no cervical or axillary lymphadenopathy Results & Data Results & Data Vital Signs (Past 12 Hours) Vital Signs Temp Pulse Pulse Resp BP BP Pulse Ox 05/30/24 11:15 36.6 C 56 L 18 105/65 97 05/30/24 07:30 36.7 C 62 16 135/77 94 05/30/24 07:16 64 05/30/24 03:00 36.7 C 65 18 150/88 H 92 O2 Del Method 05/30/24 11:15 Room Air 05/30/24 07:30 Room Air 05/30/24 07:16 05/30/24 03:00 Room Air Laboratory Results Short CBC 05/30/24 Range/Units 07:11 WBC 4.27 L (4.8-10.8) K/ul Hgb 13.0 (12.0-16.0) g/dl Hct 40.0 (37.0-47.0) % Plt Count 213 (130-400) K/uL BMP 05/30/24 07:11 Sodium 140 Potassium 4.0 Chloride 103 Carbon Dioxide 32 BUN 23 Creatinine 0.76 Glucose 123 H Calcium 9.4 Medications Administered Current Inpatient Medications Acetaminophen (Acetaminophen 325 Mg Tab) 650 mg PO Q4H PRN PRN Reason: pain/fever Stop: 06/27/24 21:34 Allopurinol (Allopurinol 100 Mg Tab) 100 mg PO BID CRISTINA Stop: 06/27/24 21:34 Last Admin: 05/30/24 07:25 Dose: 100 mg Aspirin (Aspirin 81 Mg Ectab) 81 mg PO QAM [facility] Stop: 06/28/24 08:59 Last Admin: 05/30/24 07:25 Dose: 81 mg Atorvastatin Calcium (Atorvastatin 20 Mg Tab) 20 mg PO QAM [facility] Stop: 06/28/24 08:59 Last Admin: 05/30/24 07:26 Dose: 20 mg Cyanocobalamin (Cyanocobalamin (B-12) 500 Mcg Tablet) 500 mcg PO DAILY CRISTINA Stop: 06/28/24 08:59 Last Admin: 05/30/24 07:26 Dose: 500 mcg Dextrose (Dextrose 50% 50 Ml Syringe) 25 - 50 ml IV UD PRN; Protocol PRN Reason: Hypoglycemia Protocol Stop: 06/27/24 21:34 Famotidine (Famotidine 40 Mg Tablet) 40 mg PO HS CRISTINA Stop: 06/27/24 21:34 Last Admin: 05/29/24 20:33 Dose: 40 mg Glucagon (Glucagon For Inj 1 Mg Vial) 1 mg SQ UD PRN; Protocol PRN Reason: Hypoglycemia Protocol Stop: 06/27/24 21:34 Glucose (Glucose 40% Gel 15 Gm Tube) 15 - 30 gm PO UD PRN; Protocol PRN Reason: Hypoglycemia Protocol Stop: 06/27/24 21:34 Glucose (Glucose 10 Tab/Tube) 4 - 8 tab PO UD PRN; Protocol PRN Reason: Hypoglycemia Treatment Stop: 06/27/24 21:34 HCTZ/Losartan Potassium (Losartan/Hctz 50/12.5mg Tab) 1 tab PO QAM [facility] Stop: 06/28/24 08:59 Last Admin: 05/30/24 07:26 Dose: 1 tab Ibuprofen (Ibuprofen 200 Mg Tab) 200 mg PO Q6H PRN PRN Reason: Pain Stop: 06/27/24 21:34 Insulin Aspart (Insulin Aspart Per Unit Charge) 0 units SC ACHS CRISTINA Stop: 06/27/24 21:34 Last Admin: 05/30/24 08:49 Dose: 5 units Latanoprost (Latanoprost 0.005% Op Soln 2.5 Ml Btl) 1 drops OPB HS [facility] Stop: 06/27/24 21:34 Last Admin: 05/29/24 20:34 Dose: 1 drops Levothyroxine Sodium (Levothyroxine Sodium 25 Mcg Tablet) 25 mcg PO DAILYBB [facility] Stop: 06/28/24 06:29 Last Admin: 05/30/24 04:50 Dose: 25 mcg Miscellaneous (Carbohydrates For Hypoglycemia ) 15 - 30 gm PO UD PRN PRN Reason: Hypoglycemia Protocol Stop: 06/27/24 21:34 Ondansetron HCl (Ondansetron Inj 2 Mg/Ml 2 Ml Vial) 4 mg IV Q6H PRN PRN Reason: Nausea Stop: 06/27/24 21:34 Pantoprazole Sodium (Pantoprazole 40 Mg Tab) 40 mg PO BID [facility] Stop: 06/27/24 21:34 Last Admin: 05/30/24 07:26 Dose: 40 mg Polyethylene Glycol (Polyethylene (Miralax) 17 Gm Pack) 17 gm PO DAILY PRN PRN Reason: Constipation Stop: 06/27/24 21:34 Potassium Chloride (Potassium Chloride 10 Meq Tabcr) 10 meq PO QAM [facility] Stop: 06/28/24 08:59 Last Admin: 05/30/24 07:27 Dose: 10 meq Ropinirole HCl (Ropinirole Hcl 1 Mg Tablet) 1 mg PO QID [facility] Stop: 06/27/24 21:34 Last Admin: 05/30/24 07:27 Dose: 1 mg Sertraline HCl (Sertraline Hcl 50 Mg Tablet) 150 mg PO QAM [facility] Stop: 06/28/24 08:59 Last Admin: 05/30/24 07:27 Dose: 150 mg Tramadol HCl (Tramadol Hcl 50 Mg Tablet) 50 mg PO Q12H PRN PRN Reason: Pain, Severe Stop: 06/27/24 21:34 Last Admin: 05/30/24 04:50 Dose: 50 mg Trazodone HCl (Trazodone Hcl 50 Mg Tab) 50 mg PO HS [facility] Stop: 06/27/24 21:34 Last Admin: 05/29/24 20:33 Dose: 50 mg
--- NOTE | 2024-05-31 15:27 | Discharge Summary ---
Date of Service May 31, 2024 Admission HPI Per Admitting Provider Zonia Bailey is a 74y/o F with PMHx of DM type II, hypothyroidism, hyperlipidemia, HTN, ASCVD, hypertensive heart disease without heart failure, GERD without esophagitis, history of B12 deficiency, history of vitamin D deficiency, restless leg syndrome, lumbar degenerative disc disease, gouty arthropathy, primary open angle glaucoma of both eyes, depression, attention deficit disorder, anxiety and other problems listed below who presented to the ED today for evaluation secondary to near-syncopal events. History obtained from patient, family at bedside and associated chart review. Patient seen at bedside with Dr. Benjamin. Patient was walking out of an orthopedic appointment earlier today when she suddenly felt very lightheaded and off-balance. Patient states her vision became very dark and she felt quite n auseated as well. She was also very diaphoretic. She denies experiencing any chest pain or shortness of breath with this episode. She mentions she sat down and started to feel a little bit better, therefore she drove herself to the nearby [employer] to lease picker some things for her house. At [employer], she reports that she had another similar episode as before. Patient was supposed to have her drive her home from [employer], but her family reports that she drove herself home from the store. At her house, she was getting out of the car and became very lightheaded and dizzy. Family reports that she almost passed out. She was not fully unresponsive, but she appeared very lethargic and not as alert. Patient does admit to some dry heaving, but no vomiting. No recent fevers, body aches or chills. Patient reports that she feels worse when she stands up. Patient mentions that she is under a lot of stress recently. She is to undergo a total left knee arthroplasty on 06/14 and must have her hemoglobin A1c less than 7 before surgery, which she reports is constantly on her mind. She is not on any new medications, she reports she felt fine earlier in the day before the first episode occurred. Patient did not fall with either these episodes; no recent head trauma according to the patient and family. According to the patient, she has a history of mini strokes. Principal Diagnosis syncope likely vasovagal, stroke has been ruled out Discharge Exam lying in bed without any acute distress Constitutional well developed, well nourished, + ill appearing and + obese Eyes PERRL, conjunctivae normal, anicteric sclerae ENMT external ear and nose normal, oropharynx normal Neck trachea midline, no thyromegaly Respiratory no respiratory distress Auscultation: lungs clear to auscultation bilaterally Cardiovascular Rate/Rhythm: regular rate and regular rhythm; not tachycardic Heart Sounds: normal S1 and normal S2; no murmur Extremities: no edema Gastrointestinal (Abdomen) Inspection/Auscultation: normal bowel sounds; abdomen not distended Percussion/Palpation: abdomen soft; abdomen nontender Neurologic normal touch/pain/proprioception and moves all extremities; no focal motor deficits Psychiatric A+Ox3, euthymic affect Lymphatic no cervical or axillary lymphadenopathy Discharge Data Allergies Allergy/AdvReac Type Severity Reaction Status Date / Time Penicillins Allergy Intermediate rash/very Verified 05/28/24 19:03 sick Sulfa (Sulfonamide Allergy Unknown Unknown Verified 05/28/24 19:03 Antibiotics) betaxolol AdvReac Intermediate Insomnia Verified 05/28/24 19:03 (eye drop)/depression carbamazepine AdvReac Intermediate Worsened Verified 05/28/24 19:03 depression levobunolol AdvReac Intermediate Insomnia Verified 05/28/24 19:03 (eye drop) levofloxacin AdvReac Intermediate Muscle Pain Verified 05/28/24 19:03 simvastatin AdvReac Intermediate Myalgias Verified 05/28/24 19:03 Consultations 05/28/24 18:41 ED Decision to Admit Stat Ordered Studies 05/28/24 15:03 CT head/brain wo con Stat 05/28/24 16:43 CT angio head w con Stat CT angio neck with con Stat 05/28/24 20:02 MRI Brain [MR brain wo con] Stat Hospital Course (1) Postural dizziness with near syncope: Zonia Bailey is a 74y/o F with PMHx of DM type II, hypothyroidism, hyperlipidemia, HTN, ASCVD, hypertensive heart disease without heart failure, GERD without esophagitis, history of B12 deficiency, history of vitamin D deficiency, restless leg syndrome, lumbar degenerative disc disease, gouty arthropathy, primary open angle glaucoma of both eyes, depression, attention deficit disorder, anxiety and other problems listed below who presented to the ED today for evaluation secondary to a near-syncopal event. questionable loss of consciousness with the episodes of near syncope associated with sweating and nausea and also blurred vision symptoms have resolved completely in the hospital doubt any neurological events CT scan of the head and neck, CTA of the neck and head and MRI of the head are unremarkable echo of the heart showed LV to be hyperdynamic with EF more than 70%, aortic valve sclerosis without significant stenosis, there is mild mitral annular calcification with mild tricuspid regurgitation, grade 1 diastolic dysfunction lipid profile has been noted will get orthostatic vitals and PT and OT evaluation reassured and likely discharge tomorrow on Zio patch clinically much better without any symptoms will be discharged home this afternoon will have a Zio patch placed for 14 days from doctor's office (2) Hypokalemia: Hypokalemia Potassium 3.3 on admission. Administered 40mEq on oral potassium. Can continue MEDICINE ASSISTANT potassium supplementation. Repeat BMP in AM - monitor and replete PRN. potassium has been normalized Plan other significant medical conditions are stable and as below: DM Type II Hold MEDICINE ASSISTANT diabetic medications; initiate SSI regimen. Hgb A1c 7.2 on 02/12/24; will repeat Hgb A1c in AM - follow. BSG checks ACHS, CC/HH diet in place - monitor BSG trend. hemoglobin A1c is slightly elevated at 8.0 continue with home Jardiance and Ozempic HTN BP stable at 133/74 at time of admission. Can continue MEDICINE ASSISTANT losartan-hydrochlorothiazide. Continuous cardiac monitoring in place, trend BP in AM blood pressure remains controlled. Dyslipidemia, H/O ASCVD: Can continue MEDICINE ASSISTANT aspirin and statin therapy. Hypothyroidism: Can continue MEDICINE ASSISTANT levothyroxine, TSH WNL on admission. Other Chronic Medical Conditions: Restless legs syndrome, depression/anxiety, lumbar DDD, insomnia, GERD, glaucoma --> Can continue MEDICINE ASSISTANT medications for these specific conditions. DVT Prophylaxis: SCDs/TEDs - For now Code Status: FULL CODE PCP: Narinder Milton DO Disposition: Admit to Med/Surg with Telemetry will be discharged home this afternoon Total Time Total Time Spent Total Time Spent (In Minutes): 35 minutes Discharge Plan Discharge Items Patient Disposition: Home - Self-Care Reason For Visit: SYNCOPE, R/O CVA Discharge Diagnosis: syncope likely vasovagal, stroke has been ruled out Condition on Discharge: Fair Activity: Resume your previous activity Non-emergency contact: Primary Care Provider Call non-emergency contact if: you have any medication questions and your s ymptoms worsen Follow-up/Referrals: Narinder Milton DO [Primary Care Provider] - 06/04/24 2:20 pm (Date & Time 06/04/2024 2:20 PM Provider Narinder Milton DO Department [facility] [address], [place] ) Diet: Carb Consistent or DM2 Addtl Attending Provider Instructions: please take precautions to avoid fall you need to have a Zio patch placed from your doctor's office please keep appointment with the healthcare providers Pending Studies at Discharge: No Stand-Alone Forms: My [employer], Smoking Cessation Medications and DC Order Prescriptions: Continued latanoprost [Xalatan] 0.005 % drops 1 drp OPB HS ropinirole 1 mg tablet 1 mg PO QID aspirin [Ashley Low Dose Aspirin] 81 mg Tablet,Delayed Release (Dr/Ec) 81 mg PO QAM levothyroxine [Synthroid] 25 mcg tablet 25 mcg PO DAILYBB losartan-hydrochlorothiazide [Hyzaar] 100-25 mg tablet 1 tab PO QAM Jardiance 25 mg tablet 25 mg PO QAM potassium chloride 10 mEq Capsule, Extended Release 10 meq PO QAM Rx Instructions: PER [facility]- ORDERED BID, PT ONLY TAKES QAM. atorvastatin 20 mg tablet 20 mg PO QAM trazodone 50 mg tablet 50 mg PO HS famotidine 40 mg Tablet 40 mg PO HS sertraline 100 mg tablet 150 mg PO QAM clobetasol 0.05 % Cream 1 applic TOPICAL BID PRN (Reason: ITCHING OF SCALP/BEHIND EARS) allopurinol 100 mg tablet 100 mg PO BID tramadol 50 mg tablet 50 mg PO Q12H PRN (Reason: Pain, Severe) cyanocobalamin (vitamin B-12) [Vitamin B-12] 500 mcg Tablet 500 mcg PO DAILY pantoprazole 40 mg Tablet,Delayed Release (Dr/Ec) 40 mg PO BID Rx Instructions: TAKE PRIOR TO BREAKFAST AND SUPPER ibuprofen 200 mg Tablet 200 mg PO Q6H PRN (Reason: Pain) Rx Instructions: PER [facility]--TAKES 2-3 TABS DAILY FOR SHOULDER PAIN albuterol sulfate 90 mcg/actuation Hfa Aerosol Inhaler 1 - 2 puff INHALATION Q4H PRN (Reason: Shortness Of Breath Or Wheezing) cholecalciferol (vitamin D3) [Vitamin D3] 25 mcg (1,000 unit) Capsule 50 mcg PO DAILY Ozempic 0.25 mg or 0.5 mg (2 mg/3 mL) pen injector 0.25 mg SUBCUT WK Rx Instructions: THURSDAYS Discharge Orders: Discharge Order (Routine); Ordered 05/30/24 Ordered By: Jina Islas/Other Patient Handouts: Managing Type 2 Diabetes Admission Data Admit Date/Time: 05/28/24 18:45 Attending Provider: Jina Celis Admit Provider: Valente Benjamin Primary Care Provider: Narinder Milton Other Providers: Valente Benjamin Other Interventions: Discharge Summary Assessment (RN) Last Done: 05/30/24 13:31
== END 2024-05-30 14:12 | disposition home or self-care (01) | DRG 312 ==
LOC: ED 14:52 → SUATTDRO 18:45 → 2N 18:45

== ENCOUNTER 2024-07-22 08:03 | Observation (INO) ==
--- NOTE | 2024-06-04 10:06 | Anesthesiology Consultation ---
Date of Service June 04, 2024 Assessment & Plan (1) Encounter for pre-operative examination: Chart Review Chart Review: Pending: Refer to Additional Notes / Consult section ( pt seeing PCP (Narinder Milton) 06/04/24 for hospital f/u; please obtain note and any testing) and Patient NOT seen in Pre Admission Testing Infectious Disease screening: Per PAT nursing assessment on 05/30/24, No known infectious disease contacts in past 10 days or current infectious disease symptoms. No recent travel outside the country. Pt had Negative COVID-19 test 05/28/24 [facility] ED. History Surgery Operation Date: 06/14/24 11:00 Proposed Procedures p Left Total Knee Arthroplasty - Malik Malhotra, Height/Weight Height: 5 ft 6 in Weight: 69.853 kg Allergies Allergy/AdvReac Type Severity Reaction Status Date / Time Penicillins Allergy Intermediate rash/very Verified 05/28/24 19:03 sick Sulfa (Sulfonamide Allergy Unknown Unknown Verified 05/28/24 19:03 Antibiotics) betaxolol AdvReac Intermediate Insomnia Verified 05/28/24 19:03 (eye drop)/depression carbamazepine AdvReac Intermediate Worsened Verified 05/28/24 19:03 depression levobunolol AdvReac Intermediate Insomnia Verified 05/28/24 19:03 (eye drop) levofloxacin AdvReac Intermediate Muscle Pain Verified 05/28/24 19:03 simvastatin AdvReac Intermediate Myalgias Verified 05/28/24 19:03 Medications Home Medications Medication Instructions Recorded Confirmed Last Taken aspirin 81 mg tablet,delayed 81 mg PO QAM 05/18/21 05/30/24 05/28/24 release (Ashley Low Dose Aspirin) empagliflozin 25 mg tablet 25 mg PO QAM 05/18/21 05/30/24 05/28/24 (Jardiance) latanoprost 0.005 % eye drops 1 drp OPB HS 05/18/21 05/30/24 05/27/24 (Xalatan) levothyroxine 25 mcg tablet 25 mcg PO DAILYBB 05/18/21 05/30/24 05/28/24 (Synthroid) losartan 100 1 tab PO QAM 05/18/21 05/30/24 05/28/24 mg-hydrochlorothiazide 25 mg tablet (Hyzaar) ropinirole 1 mg tablet 1 mg PO QID 05/18/21 05/30/24 05/28/24 16:00 potassium chloride 10 mEq 10 meq PO QAM 08/04/21 05/30/24 05/28/24 capsule,extended release albuterol sulfate 90 mcg/actuation 1 - 2 puff inhalation Q4H PRN 05/28/24 05/30/24 Unknown aerosol inhaler Shortness Of Breath Or Wheezing allopurinol 100 mg tablet 100 mg PO BID 05/28/24 05/30/24 05/28/24 08:00 atorvastatin 20 mg tablet 20 mg PO QAM 05/28/24 05/30/24 05/28/24 cholecalciferol (vitamin D3) 25 50 mcg PO DAILY 05/28/24 05/30/24 05/28/24 mcg (1,000 unit) capsule (Vitamin D3) clobetasol 0.05 % topical cream 1 applic topical BID PRN ITCHING 05/28/24 05/30/24 Unknown OF SCALP/BEHIND EARS cyanocobalamin (vitamin B-12) 500 500 mcg PO DAILY 05/28/24 05/30/24 05/28/24 mcg tablet (Vitamin B-12) famotidine 40 mg tablet 40 mg PO HS 05/28/24 05/30/24 05/27/24 ibuprofen 200 mg tablet 200 mg PO Q6H PRN Pain 05/28/24 05/30/24 Unknown pantoprazole 40 mg tablet,delayed 40 mg PO BID 05/28/24 05/30/24 05/28/24 07:00 release semaglutide 0.25 mg or 0.5 mg (2 0.25 mg subcut WK 05/28/24 05/30/24 Unknown mg/3 mL) subcutaneous pen injector (Ozempic) sertraline 100 mg tablet 150 mg PO QAM 05/28/24 05/30/24 05/28/24 tramadol 50 mg tablet 50 mg PO Q12H PRN Pain, Severe 05/28/24 05/30/24 Unknown trazodone 50 mg tablet 50 mg PO HS 05/28/24 05/30/24 05/27/24 Past Medical History Medical History (Updated 06/04/24 @ 10:26 by Pita Fuller PA-C) Anxiety and depression ASCVD (arteriosclerotic cardiovascular disease) Asthma stable- has not used inhaler > 1 yr Bipolar disorder stable Chronic obstructive pulmonary disease Diabetes mellitus, type II NIDDM GERD (gastroesophageal reflux disease) Glaucoma primary open angle b/l Gout Hx of Lyme disease (2022) treated Hyperlipidemia Hypertension Hypokalemia Hypothyroidism [place] esophagus Lumbar degenerative disc disease Mini stroke vs. complex migraine (most recent event 15+ years ago) Near syncope admitted to [facility] 05/28/24-05/31/24 after 3 near syncopal events (all in a matter of hours); dx likely vasovagal response; CVA was ruled out; pt to f/u with PCP for Zio monitor Osteoarthritis Restless leg syndrome Short-term memory loss Sleep apnea Could not tolerate device Past Family History Family History Mother Family history of diabetes mellitus Brother Family history of diabetes mellitus Other No family history of adverse response to anesthesia Past Surgical History Surgical History H/O eye surgery LASER PROCEDURE FOR GLAUCOMA History of cardiac cath 30 years ago > no stents History of carpal tunnel release RT/LEFT History of cataract surgery RT/LEFT History of colonoscopy History of esophagogastroduodenoscopy (EGD) 04/22/24 S EGD W/ PIMENTEL done hx-WITH ESOPHAGEAL STRETCHING 7-9 times History of left shoulder replacement History of Yusef fundoplication History of repair of rotator cuff RT/LEFT History of tonsillectomy and adenoidectomy Strabismus RT/LEFT REPAIRED A CHILD (2 SURGERIES) Social History Smoking Status: Never smoker Do You Dip or Chew Tobacco: No Hx Alcohol Use: No Hx Substance Use: No substance use type: does not use Lab Results Anesthesia Preop Results Results Anesthesia Widget: WBC 4.27 K/ul (4.8-10.8) L 05/30/24 Hgb 13.0 g/dl (12.0-16.0) 05/30/24 Hct 40.0 % (37.0-47.0) 05/30/24 Plt 213 K/uL (130-400) 05/30/24 Na 140 mmol/L (136-145) 05/30/24 K 4.0 mmol/L (3.5-5.1) 05/30/24 Cl 103 mmol/L (98-107) 05/30/24 CO2 32 mmol/L (21-32) 05/30/24 BUN 23 mg/dl (6-23) 05/30/24 Creat 0.76 mg/dl (0.6-1.2) 05/30/24 Glucose Level 123 mg/dl (70-99(Fasting)) H 05/30/24 POC Glucose 106 mg/dl (70-99) H 05/30/24 PT 10.5 Seconds (9.0-12.0) 05/28/24 PTT 22 Seconds (21-31) 05/28/24 INR 1.0 (0.9-1.1) 05/28/24 TSH 2.697 uIu/ml (0.300-4.500) 05/28/24 HA1c 8.0 % (4.5-5.6) H 05/29/24 Urine Color Yellow 05/28/24 Urine Appearance Clear (Clear) 05/28/24 Urine pH 5.5 (4.5-7.5) 05/28/24 Urine Specific [place] 1.026 (1.000-1.030) 05/28/24 Urine Protein Negative (Negative) 05/28/24 Urine Glucose (UA) 3+ (Negative) H 05/28/24 Urine Ketones Negative (Negative) 05/28/24 Urine Blood Negative (Negative) 05/28/24 Urine Nitrite Negative (Negative) 05/28/24 Urine Bilirubin Negative (Negative) 05/28/24 Urine Urobilinogen Negative (Negative) 05/28/24 Urine Leukocyte Esterase Negative (Negative) 05/28/24 Coronavirus OC43 (PCR) Not Detected (NotDetected) 05/28/24 Coronavirus HKU1 (PCR) Not Detected (NotDetected) 05/28/24 Coronavirus 229E (PCR) Not Detected (NotDetected) 05/28/24 COVID-19 PCR Not Detected (NotDetected) 05/28/24 Coronavirus NL63 (PCR) Not Detected (NotDetected) 05/28/24 Testing Electrocardiogram Date: 05/28/24 Findings: + NSR @ (73bpm) Possible LAE. NS TWA. Compared to 05/23/23, NSTWA now evident in lateral leads Chest X-Ray Date: 05/28/24 Findings: + NAD Calcified aortic knob is seen. Echocardiogram Date: 05/29/24 EF: >70% Borderline cLVH. LV WM is normal. LV is hyperdynamic. Aortic valve sclerosis is mild, without significant aortic valvular stenosis. Mild mitral annular calcification. Mild TR. PASP: 47mmHg (mildly elevated). Gr I DD. Stress Test Date: 05/02/21 Type: DSE Findings: + WNL DSE negative for inducible ischemia. Stress EKG showed no evidence of ischemia. Occasional PACs noted during stress. LVWM normal. LVWM with stress is normal. LVEF increases normally with stress. Resting ECHO: mild cLVH. Isolated basal septal hypertrophy with maximum thickness of 1.6cm. EF 60-64%. Gr I DD. Mild TR. Other Testing Head CT 05/28/24: FINDINGS: No acute intracranial hemorrhage, midline shift or mass effect is present. White matter hypodensities are similar to prior exam and favor small vessel disease. The ventricular system is unremarkable. The basal cisterns are patent. No extra-axial collections are present. There are no findings to suggest acute dural sinus thrombosis or acute territorial infarct. No significant calvarial abnormalities are present. Visualized portions of the sinuses and mastoid air cells are clear. IMPRESSION: No acute intracranial findings. No change in appearance of the brain (compared to head CT/CTA 05/23/23) Head/Neck CTA 05/28/24: 1. No occlusion, hemodynamically significant stenosis, or dissection in the major cervical arteries. 2. No occlusion, hemodynamically significant stenosis, aneurysm, dissection, or arteriovenous malformation in the major intracranial arteries. Brain MRI 05/28/24: No evidence of acute intracranial pathology.
--- NOTE | 2024-07-10 09:44 | Anesthesiology Consultation ---
Date of Service July 10, 2024 Assessment & Plan (1) Encounter for pre-operative examination: Chart Review Chart Review: Acceptable Risk for Surgery and Patient NOT seen in Pre Admission Testing *Pt was originally scheduled for this procedure on 06/14/24; surgery was postponed 2/ poor control of diabetes and 05/2024 [facility] admission for near-syncopal episodes. Pt saw PCP after hospital discharge and completed Zio monitor which was WNL. She also saw Pharmacist for Diabetic mgmt and med changes and lifestyle changes made. Ha1c improved. Per PCP note 06/20/24, "Patient is low medical risk for the listed procedure... Patient may proceed with knee replacement... Continue current medications... No additional studies indicated prior to procedure." Infectious Disease screening: Per PAT nursing assessment on 05/30/24, No known infectious disease contacts in past 10 days or current infectious disease symptoms. No recent travel outside the country. Pt currently scheduled as 23 hours observation. Patient is not an acceptable can didate for [facility] per Anesthesia Guidelines. History Surgery Operation Date: 07/22/24 09:00 Proposed Procedures p Left Total Knee Arthroplasty - Malik Malhotra, Height/Weight Height: 5 ft 6 in Weight: 69.853 kg Allergies Allergy/AdvReac Type Severity Reaction Status Date / Time Penicillins Allergy Intermediate rash/very Verified 05/28/24 19:03 sick Sulfa (Sulfonamide Allergy Unknown Unknown Verified 05/28/24 19:03 Antibiotics) betaxolol AdvReac Intermediate Insomnia Verified 05/28/24 19:03 (eye drop)/depression carbamazepine AdvReac Intermediate Worsened Verified 05/28/24 19:03 depression levobunolol AdvReac Intermediate Insomnia Verified 05/28/24 19:03 (eye drop) levofloxacin AdvReac Intermediate Muscle Pain Verified 05/28/24 19:03 simvastatin AdvReac Intermediate Myalgias Verified 05/28/24 19:03 Medications Home Medications Medication Instructions Recorded Confirmed Last Taken aspirin 81 mg tablet,delayed 81 mg PO QAM 05/18/21 05/30/24 05/28/24 release (Ashley Low Dose Aspirin) empagliflozin 25 mg tablet 25 mg PO QAM 05/18/21 05/30/24 05/28/24 (Jardiance) latanoprost 0.005 % eye drops 1 drp OPB HS 05/18/21 05/30/24 05/27/24 (Xalatan) levothyroxine 25 mcg tablet 25 mcg PO DAILYBB 05/18/21 05/30/24 05/28/24 (Synthroid) losartan 100 1 tab PO QAM 05/18/21 05/30/24 05/28/24 mg-hydrochlorothiazide 25 mg tablet (Hyzaar) ropinirole 1 mg tablet 1 mg PO QID 05/18/21 05/30/24 05/28/24 16:00 potassium chloride 10 mEq 10 meq PO QAM 08/04/21 05/30/24 05/28/24 capsule,extended release albuterol sulfate 90 mcg/actuation 1 - 2 puff inhalation Q4H PRN 05/28/24 05/30/24 Unknown aerosol inhaler Shortness Of Breath Or Wheezing allopurinol 100 mg tablet 100 mg PO BID 05/28/24 05/30/24 05/28/24 08:00 atorvastatin 20 mg tablet 20 mg PO QAM 05/28/24 05/30/24 05/28/24 cholecalciferol (vitamin D3) 25 50 mcg PO DAILY 05/28/24 05/30/24 05/28/24 mcg (1,000 unit) capsule (Vitamin D3) clobetasol 0.05 % topical cream 1 applic topical BID PRN ITCHING 05/28/24 05/30/24 Unknown OF SCALP/BEHIND EARS cyanocobalamin (vitamin B-12) 500 500 mcg PO DAILY 05/28/24 05/30/24 05/28/24 mcg tablet (Vitamin B-12) famotidine 40 mg tablet 40 mg PO HS 05/28/24 05/30/24 05/27/24 ibuprofen 200 mg tablet 200 mg PO Q6H PRN Pain 05/28/24 05/30/24 Unknown pantoprazole 40 mg tablet,delayed 40 mg PO BID 05/28/24 05/30/24 05/28/24 07:00 release sertraline 100 mg tablet 150 mg PO QAM 05/28/24 05/30/24 05/28/24 tramadol 50 mg tablet 50 mg PO Q12H PRN Pain, Severe 05/28/24 05/30/24 Unknown trazodone 50 mg tablet 50 mg PO HS 05/28/24 05/30/24 05/27/24 famotidine 40 mg tablet 40 mg PO HS 07/10/24 07/10/24 Unknown glipizide 2.5 mg tablet, extended 2.5 mg PO PM 07/10/24 07/10/24 Unknown release 24 hr Past Medical History Medical History (Updated 07/10/24 @ 10:17 by Pita Fuller PA-C) Anxiety and depression ASCVD (arteriosclerotic cardiovascular disease) dx per chart review Asthma stable- has not used inhaler > 1 yr Bipolar disorder stable Chronic obstructive pulmonary disease Diabetes mellitus, type II NIDDM GERD (gastroesophageal reflux disease) Glaucoma primary open angle b/l Gout Hx of Lyme disease (2022) treated Hyperlipidemia Hypertension Hypokalemia during 05/2024 hosp admission [facility]; likely 2/2 dehydration; resolved prior to D/C Hypothyroidism Jackhammer esophagus follows with GI Lumbar degenerative disc disease Mini stroke vs. complex migraine (most recent event 15+ years ago) Near syncope admitted to [facility] 05/28/24-05/31/24 after 3 near syncopal events (all in a matter of hours); dx likely vasovagal response vs dehydration; CVA was ruled out; pt had Zio monitor as outpt which was WNL Osteoarthritis Restless leg syndrome Short-term memory loss Sleep apnea Could not tolerate device Past Family History Family History Mother Family history of diabetes mellitus Brother Family history of diabetes mellitus Other No family history of adverse response to anesthesia Past Surgical History Surgical History (Updated 07/10/24 @ 10:17 by Pita Fuller PA-C) H/O eye surgery LASER PROCEDURE FOR GLAUCOMA History of cardiac cath 30 years ago > no stents History of carpal tunnel release RT/LEFT History of cataract surgery RT/LEFT History of colonoscopy History of esophagogastroduodenoscopy (EGD) 04/22/24 [facility] EGD W/ PIMENTEL done hx-WITH ESOPHAGEAL STRETCHING 7-9 times History of left shoulder replacement L reverse TSA 11/29/21; GA: MAC#3, ETT#7.5, Gr View 1, DVLx1 atraumatic History of Yusef fundoplication History of repair of rotator cuff RT/LEFT History of tonsillectomy and adenoidectomy Strabismus RT/LEFT REPAIRED A CHILD (2 SURGERIES) Social History Smoking Status: Never smoker Do You Dip or Chew Tobacco: No Hx Alcohol Use: No Hx Substance Use: No substance use type: does not use Testing Laboratory Results 06/27/24 Ha1c: 7.5% SODIUM: 140 POTASSIUM: 3.7 CHLORIDE: 100 CO2: 29 BUN: 16 CREATININE: 0.8 GLUCOSE: 88 06/04/24: WBC: 5.14 H/H: 13.5/42.5 PLATELETS: 222 05/28/24: UA: 3+ glucose, -Nitrite, -LE PT: 10.5 PTT: 22 INR: 1.0 Electrocardiogram Date: 05/28/24 Findings: + NSR @ (73bpm) Possible LAE. NS TWA. Compared to 05/23/23, NSTWA now evident in lateral leads Chest X-Ray Date: 05/28/24 Findings: + NAD Calcified aortic knob is seen. Echocardiogram Date: 05/29/24 EF: >70% Borderline cLVH. LV WM is normal. LV is hyperdynamic. Aortic valve sclerosis is mild, without significant aortic valvular stenosis. Mild mitral annular calcification. Mild TR. PASP: 47mmHg (mildly elevated). Gr I DD. Stress Test Date: 05/02/21 Type: DSE Findings: + WNL DSE negative for inducible ischemia. Stress EKG showed no evidence of ischemia. Occasional PACs noted during stress. LVWM normal. LVWM with stress is normal. LVEF increases normally with stress. Resting ECHO: mild cLVH. Isolated basal septal hypertrophy with maximum thickness of 1.6cm. EF 60-64%. Gr I DD. Mild TR. Other Testing 06/04/24 Zio monitor: monitor time: 13 days IMPRESSION: Sinus rhythm, average rate 78 beats per minute with 12 runs of nonsustained supraventricular tachycardia, longest episode 15.7 seconds at 112 beats per minute Head CT 05/28/24: FINDINGS: No acute intracranial hemorrhage, midline shift or mass effect is present. White matter hypodensities are similar to prior exam and favor small vessel disease. The ventricular system is unremarkable. The basal cisterns are patent. No extra-axial collections are present. There are no findings to suggest acute dural sinus thrombosis or acute territorial infarct. No significant calvarial abnormalities are present. Visualized portions of the sinuses and mastoid air cells are clear. IMPRESSION: No acute intracranial findings. No change in appearance of the brain (compared to head CT/CTA 05/23/23) Head/Neck CTA 05/28/24: 1. No occlusion, hemodynamically significant stenosis, or dissection in the major cervical arteries. 2. No occlusion, hemodynamically significant stenosis, aneurysm, dissection, or arteriovenous malformation in the major intracranial arteries. Brain MRI 05/28/24: No evidence of acute intracranial pathology.
--- NOTE | 2024-07-18 07:11 | History & Physical Report ---
Date of Service July 18, 2024 Assessment & Plan (1) Left knee DJD: We will proceed with a left total knee arthroplasty. Postoperatively she will be started on aspirin for DVT prophylaxis and kept overnight in the hospital for postop medical management. She plans to use fit for play upon discharge. History of Present Illness Chief Complaint: Osteoarthritis of the left knee. Primary Care Provider: Narinder Milton DO Brar is a pleasant 74-year-old female who has been dealing with chronic increasing left knee pain. It is to the point where she is ambulating with a cane. She was seeing an another provider. She has had aspirations and injections to the left knee. She can no longer ambulate well with it. X-rays and clinical examination have shown worsening osteoarthritis of the left knee. After failing conservative treatment, she has elected to proceed with a left total knee arthroplasty. Allergies Allergy/AdvReac Type Severity Reaction Status Date / Time Penicillins Allergy Intermediate rash/very Verified 05/28/24 19:03 sick Sulfa (Sulfonamide Allergy Unknown Unknown Verified 05/28/24 19:03 Antibiotics) betaxolol AdvReac Intermediate Insomnia Verified 05/28/24 19:03 (eye drop)/depression carbamazepine AdvReac Intermediate Worsened Verified 05/28/24 19:03 depression levobunolol AdvReac Intermediate Insomnia Verified 05/28/24 19:03 (eye drop) levofloxacin AdvReac Intermediate Muscle Pain Verified 05/28/24 19:03 simvastatin AdvReac Intermediate Myalgias Verified 05/28/24 19:03 Home Medications Medication Instructions Recorded Confirmed Type aspirin 81 mg tablet,delayed 81 mg PO QAM 05/18/21 05/30/24 History release (Ashley Low Dose Aspirin) empagliflozin 25 mg tablet 25 mg PO QAM 05/18/21 05/30/24 History (Jardiance) latanoprost 0.005 % eye drops 1 drp OPB HS 05/18/21 05/30/24 History (Xalatan) levothyroxine 25 mcg tablet 25 mcg PO DAILYBB 05/18/21 05/30/24 History (Synthroid) losartan 100 1 tab PO QAM 05/18/21 05/30/24 History mg-hydrochlorothiazide 25 mg tablet (Hyzaar) ropinirole 1 mg tablet 1 mg PO QID 05/18/21 05/30/24 History potassium chloride 10 mEq 10 meq PO QAM 08/04/21 05/30/24 History capsule,extended release albuterol sulfate 90 mcg/actuation 1 - 2 puff inhalation Q4H PRN 05/28/24 05/30/24 History aerosol inhaler Shortness Of Breath Or Wheezing allopurinol 100 mg tablet 100 mg PO BID 05/28/24 05/30/24 History atorvastatin 20 mg tablet 20 mg PO QAM 05/28/24 05/30/24 History cholecalciferol (vitamin D3) 25 50 mcg PO DAILY 05/28/24 05/30/24 History mcg (1,000 unit) capsule (Vitamin D3) clobetasol 0.05 % topical cream 1 applic topical BID PRN ITCHING 05/28/24 05/30/24 History OF SCALP/BEHIND EARS cyanocobalamin (vitamin B-12) 500 500 mcg PO DAILY 05/28/24 05/30/24 History mcg tablet (Vitamin B-12) famotidine 40 mg tablet 40 mg PO HS 05/28/24 05/30/24 History ibuprofen 200 mg tablet 200 mg PO Q6H PRN Pain 05/28/24 05/30/24 History pantoprazole 40 mg tablet,delayed 40 mg PO BID 05/28/24 05/30/24 History release sertraline 100 mg tablet 150 mg PO QAM 05/28/24 05/30/24 History tramadol 50 mg tablet 50 mg PO Q12H PRN Pain, Severe 05/28/24 05/30/24 History trazodone 50 mg tablet 50 mg PO HS 05/28/24 05/30/24 History famotidine 40 mg tablet 40 mg PO HS 07/10/24 07/10/24 History glipizide 2.5 mg tablet, extended 2.5 mg PO PM 07/10/24 07/10/24 History release 24 hr Past Med/Surg History Problem List Hypokalemia Postural dizziness with near syncope Syncope Left knee DJD Rotator cuff tear, right Status post reverse total replacement of left shoulder (~11/2021) Encounter for pre-operative examination Bursitis Insomnia (Chronic) Hypothyroidism (Chronic) Left thigh pain (Acute) Depression (Chronic) Medical History ASCVD (arteriosclerotic cardiovascular disease) dx per chart review Near syncope admitted to [facility] 05/28/24-05/31/24 after 3 near syncopal events (all in a matter of hours); dx likely vasovagal response vs dehydration; CVA was ruled out; pt had Zio monitor as outpt which was WNL Lumbar degenerative disc disease Hx of Lyme disease (2022) treated Gout Short-term memory loss Hypokalemia during 05/2024 hosp admission [facility]; likely 2/2 dehydration; resolved prior to D/C Jackhammer esophagus follows with GI Osteoarthritis GERD (gastroesophageal reflux disease) Hypothyroidism Glaucoma primary open angle b/l Anxiety and depression Restless leg syndrome Mini stroke vs. complex migraine (most recent event 15+ years ago) Sleep apnea Could not tolerate device Asthma stable- has not used inhaler > 1 yr Chronic obstructive pulmonary disease Diabetes mellitus, type II NIDDM Bipolar disorder stable Hyperlipidemia Hypertension Surgical History History of left shoulder replacement L reverse TSA 11/29/21; GA: MAC#3, ETT#7.5, Gr View 1, DVLx1 atraumatic History of carpal tunnel release RT/LEFT History of repair of rotator cuff RT/LEFT History of esophagogastroduodenoscopy (EGD) 04/22/24 S EGD W/ PIMENTEL done hx-WITH ESOPHAGEAL STRETCHING 7-9 times History of colonoscopy History of Yusef fundoplication History of tonsillectomy and adenoidectomy H/O eye surgery LASER PROCEDURE FOR GLAUCOMA Strabismus RT/LEFT REPAIRED A CHILD (2 SURGERIES) History of cataract surgery RT/LEFT History of cardiac cath 30 years ago > no stents Family History Mother Family history of diabetes mellitus Brother Family history of diabetes mellitus Other No family history of adverse response to anesthesia Social History Smoking Status: Never smoker Second Hand Exposure: No; Do You Dip or Chew Tobacco: No; Tobacco Cessation Education Requested by Patient: No Hx Alcohol Use: No Hx Substance Use: No Preferred Language: Korean Communication Ability: Effective Senior Operations Manager Required: No Beliefs That Will Affect Care: None Current Living Situation: Spouse Other Information That Helps Us Care for You: No Feels Safe at Home: Yes Safety Concerns: Feels Safe At This Time Assistive Devices: Cane and Walker Assistive Devices Comment: cane prn Review of Systems All systems reviewed & are unremarkable except as noted in HPI & below. Physical Exam On physical examination of the left knee, she has slight varus deformity. She has tenderness palpation of the distal medial femoral condyle and over the medial joint line.. Constitutional WD/WN, vitals as above Eyes PERRL, conjunctivae normal, anicteric sclerae ENMT external ear and nose normal, oropharynx normal Neck trachea midline, no thyromegaly Respiratory normal respiratory effort Cardiovascular RRR, no murmur, no edema Gastrointestinal (Abdomen) normal bowel sounds, soft, nontender, no hepatosplenomegaly Psychiatric A+Ox3, euthymic affect Results & Data Results & Data Laboratory Results . Diagnostic Findings X-rays of the left knee show advanced osteoarthritis with joint space narrowing, osteophyte formation, and [id number] articulation. PG Care Time/CCT Total # of Minutes Spent Total Time Spent with Patient: Total time spent is greater than 50% in coordination of care (as documented) at patient's floor/unit and/or counseling patient: Coding Level of Care Code None Diagnoses Left knee DJD M17.12
[~2024-07-22 08:03] MED LIST changes: -ASPEC81 PO; -ATOR-26 PO; +BUPIVACAINE 0.5 % 5 MG/1 ML PF 10ML VIAL ONE; +BUPIVACAINE/EPINEPHRINE 0.25% 1:200,000 30 ML VIAL ONE; +DEXAMETHASONE SOD INJ 4 MG/ML VIAL ONE; -GLC500 PO; -IBUP-103 PO; -LAMO25TA PO; -LATA0.009 OP; -LEVO25TA PO; -LOSA100T65 PO; -MULT-506 PO; -PANT40TA PO; -PARO1TAB27 PO; -ROPI1TAB PO; -ROPI2TAB6 PO
[2024-07-22] MEDS ORDERED: LIDOCAINE 2% 2 ML VIAL/AMP(20MG/ML) INFIL ONE (08:12)
[2024-07-22] MEDS ORDERED: PROPOFOL IV EMULSION 10 MG/ML 20 ML VIAL IV ONE (08:12)
[2024-07-22] MEDS ORDERED: GLYCOPYRROLATE 0.2 MG/ML VIAL ONE (08:12)
[2024-07-22] MEDS ORDERED: KETAMINE HCL 10MG/ML SYR ONE (08:12)
[2024-07-22] MEDS ORDERED: MIDAZOLAM HCL 1 MG/ML 2ML VIAL ONE (08:12)
[2024-07-22] MEDS ORDERED: ONDANSETRON INJ 2 MG/ML 2 ML VIAL ONE (08:12)
--- OUTSIDE RECORDS SUMMARY | 2024-07-22 08:32 | External Medical Summary | Summary of Care ---
Author Name Unknown Organization [facility] Address [address] [facility] [place] [address] Phone [phone] Care Team Providers Care Call Center Associate Name Role Phone Narinder Milton DO Primary Care Provider Encounter Details Date Type Department Care Team (Late st Contact Info) Description 05/17/2024 Telephone Gastroenterology, [facility] [address] [place] [address] Adelaide Bell CRNP [address] [place] [address] Allergies Active Allergy Reactions Criticality Noted Date Comments Betaxolol 01/08/1997 Betoptic S: insomnia, depression Carbamazepine And Analogs Unknown 04/01/1999 Levobunolol 01/08/1997 Betagan: fatigue, nightmares Levofloxacin Muscle pain 03/14/2011 Penicillins 04/01/1999 Rash, very sick Simvastatin Unknown 09/16/2004 zocor Sulfa Antibiotics Unknown 04/01/1999 documented as of this encounter (statuses as of 07/09/2024) Medications Medication Sig Dispensed Refills Start Date End Date Status ASPIRIN 81 MG PO CHEW Take 1 Tablet by mouth in the morning. 0 5 Active Vitamin D-3 25 MCG (1000 UT) Oral CapsuleIndications :Vitamin D deficiency Take 2 Capsules by mouth in the morning. 100 Capsule 3 3 Active Vitamin B 12 500 MCG Oral TabletIndications: Vitamin B 12 deficiency Take 500 mcg by mouth in the morning. 3 Active Latanoprost 0.005 % Ophthalmic Solution (Xalatan)Indicatio ns:Primary open angle glaucoma of both eyes, mild stage Instill 1 Drop into both eyes at bedtime. 2.5 mL 5 4 Active rOPINIRole HCl 1 MG Oral Tablet (Requip)Indication s:Restless legs syndrome TAKE ONE TABLET BY MOUTH FOUR TIMES A DAY 360 Tablet 2 4 025 Active Clobetasol Propionate 0.05 % External Ointment (Temovate)Indicati ons:Pruritus,Henryetta titis of right ear canal Apply 2x daily (or more if itchy instead of scratching) to itchy areas on scalp/behind ears or other itchy areas on body. 60 g 4 Active Pantoprazole Sodium 40 MG Oral Tablet Delayed Release (Protonix) Take one tablet by mouth before breakfast and one tablet before supper 180 Tablet 3 4 Active traMADol HCl 50 MG Oral Tablet (Ultram)Indication s:Primary osteoarthritis of left knee Take 1 Tablet by mouth every 12 hours as needed for Pain, Severe. 30 Tablet 4 Active Allopurinol 100 MG Oral Tablet (Zyloprim)Indicati ons:Gout, arthropathy Take 1 Tablet by mouth in the morning and 1 Tablet before bedtime. 60 Tablet 5 4 Active Ibuprofen 200 MG Oral Tablet (Motrin) Taking 2-3 daily with therapy for shoulder 2 024 Discontinued(Ak dication List Clean Up) Levothyroxine Sodium 25 MCG Oral Tablet (Levoxyl)Indicatio ns:Hypothyroidism TAKE 1 TABLET BY MOUTH DAILY AT LEAST 30 MINUTES PRIOR TO FIRST MEAL OF THE DAY OR OTHER MEDICATIONS 100 Tablet 3 3 024 Discontinued(Re fill) Losartan Potassium-HCTZ 100-25 MG Oral Tablet (Hyzaar)Indication s:HTN, goal below 130/80 TAKE ONE TABLET BY MOUTH EVERY DAY 100 Tablet 3 3 024 Discontinued(Re fill) Empagliflozin 25 MG Oral Tablet (Jardiance) Take 1 Tablet by mouth in the morning. 100 Tablet 2 3 024 Discontinued(Re fill) Potassium Chloride ER 10 MEQ Oral Capsule Extended ReleaseIndications :Hypertensive heart disease without heart failure TAKE ONE CAPSULE BY MOUTH EVERY MORNING AND TAKE ONE CAPSULE BY MOUTH EVERY DAY BEFORE BEDTIME 200 Capsule 2 3 024 Discontinued(Re fill) traZODone HCl 50 MG Oral Tablet (Desyrel)Indicatio ns:Moderate episode of recurrent major depressive disorder (HCC) Take 1 Tablet by mouth at bedtime. 90 Tablet 3 3 024 Discontinued(Me dication List Clean Up) Atorvastatin Calcium 20 MG Oral Tablet (Lipitor)Indicatio ns:Dyslipidemia, goal LDL below 160 TAKE ONE TABLET BY MOUTH EVERY MORNING 100 Tablet 1 4 024 Discontinued(Re fill) Sertraline HCl 100 MG Oral Tablet (Zoloft)Indication s:Bipolar affective disorder, currently depressed, moderate (HCC) Take 1.5 Tablets by mouth in the morning. 45 Tablet 3 4 024 Discontinued(Re fill) Ozempic (0.25 or 0.5 MG/DOSE) 2 MG/3ML Solution Pen-injector (Semaglutide(0.25 or 0.5MG/DOS)) Inject 0.25 mg under the skin once a week. 024 Discontinued Azithromycin 250 MG Oral Tablet (Zithromax)Indicat ions:Bronchitis, complicated Take 2 tabs by mouth on the first day, then 1 tab daily on days two through five 6 Tablet 4 024 Discontinued(Me dication List Clean Up) predniSONE 20 MG Oral Tablet (Deltasone)Indicat ions:Bronchitis, complicated Take 1 Tablet by mouth in the morning for 5 days. 5 Tablet 4 024 Discontinued([place] preference/disc ontinuation) Cephalexin 500 MG Oral CapsuleIndications :Cellulitis of left thumb Take 1 Capsule by mouth in the morning and 1 Capsule at noon and 1 Capsule before bedtime. Do all this for 10 days. 30 Capsule 4 024 Discontinued(Me dication List Clean Up) Famotidine 40 MG Oral Tablet (Pepcid) Take 1 Tablet by mouth at bedtime. 30 Tablet 5 07/03 024 Discontinued Hospital, Clinic, or Other Facility Administered Medication Ordered Dose Route Frequency Start Date End Date Status albuterol (PROVENTIL HFA) inhaler 4 PuffIndications:COPD, severity to be determined (HCC) 4 Puff IN Q4H PRN 09/08/2017 Active documented as of this encounter (statuses as of 07/09/2024) Active Problems Problem Noted Date Diagnosed Date History of Yusef fundoplication 06/28/2024 Halitosis 06/28/2024 Esophagogastric junction outflow obstruction Gout, arthropathy 04/29/2024 Generalized anxiety disorder 01/23/2024 Lumbar degenerative disc disease 11/01/2022 Vitamin B 12 deficiency 09/19/2022 Vitamin D deficiency 01/12/2022 HTN, goal below 140/90 01/05/2022 Pure hypercholesterolemia 01/05/2022 Attention deficit disorder (ADD) in adult 2019 Restless legs syndrome 09/29/2020 Hypertensive heart disease without heart failure 03/07/2017 Hypothyroidism due to acquired atrophy of thyroi d 03/07/2017 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 Type 2 diabetes mellitus wit h hemoglobin A1c goal of less than 8.0% 04/28/2010 Overview: ICD-10 update of inactive term Insomnia 03/22/2005 Overview: ICD-10 update of inactive term Severe episode of recurrent major depressive disorder, without psychotic features 03/22/2005 Primary open angle glaucoma (POAG) of both eyes, mild stage 02/14/2003 ASCVD Pharyngoesophageal dysphagia Overview: ICD-10 update of inactive term documented as of this encounter (statuses as of 07/09/2024) Resolved Problems Problem Noted Date Diagnosed Date Resolved Date Major depressive disorder, r ecurrent episode, moderate 01/23/2024 05/15/2024 Gastroesophageal reflux dise ase without esophagitis 10/11/2023 06/28/2024 Anxiety state 01/17/2023 02/12/2024 Type 2 diabetes mellitus wit h other diabetic ophthalmic complication 06/30/2020 01/05/2022 Overview: DM2 + glaucoma = conditions have assumed relationship per current coding guidelines. Encounter for examination fo r normal comparison and control in clinical research program 01/14/2019 06/15/2020 Overview: DO NOT DELETE [facility] SINGH Study: Project # [id number], Install And Repair Technician: Antione Coburn, PhD. SUMMARY: Goal: Establish test [...] contact study staff at ; after hours Install And Repair Technician via the [facility] hospital air reduction equipment operator . Please contact study team before resolving/deleting from patients problem list. Study phone number: [phone]. Diagnosis changed due to Research Module. Go to Snapshot for study details. Encounter for examination fo r normal comparison and control in clinical research program 01/14/2019 07/14/2022 Overview: DO NOT DELETE - [facility] DETECT Study: Project # [id number], Install And Repair Technician: Wilfrid Guzman, MS, MPH. SUMMARY: Goal: Establish [...] contact study staff at ; after hours Install And Repair Technician via the [facility] hospital air reduction equipment operator . - Please contact study team before resolving/deleting from patients problem list. Study phone number: [phone]. Diagnosis changed due to Research Module. Go [...] prophylactic hormon e replacement therapy (postmenopausal) 05/25/2012 documented as of this encounter (statuses as of 07/09/2024) Immunizations Name Administration Dates Next Due COVID-19 mRNA, LNP-s, No Pre serve, 2-Dose Series (ImmuneXcite) 09/04/2021,01/27/2021,01/01/2021 H1N1 2009 Influenza, IM 11/12/2009 PPD 05/20/1998 Pneumococcal Conjugate Vacc, 13 Valent (Prevnar) 09/02/2016,07/14/2015 Pneumococcal Polysaccharide PPV23 (Pneumovax) 11/28/2017,11/15/2010 Seasonal Influenza, PF, 6 M & above, IM , (FluLaval or Fluzone) 08/14/2020,08/15/2018,08/24/2017 Seasonal Influenza, Quadriva lent Hd (Fluzone Hd) 09/25/2023,08/25/2022,01/05/2022 Seasonal Influenza, Quadriva lent, No Preserve, IM 09/02/2016 Seasonal Influenza, Split, I IV3, With Preserve, Inj 07/14/2015,09/17/2014,09/10/2013,10/13,09/05/2011,11/11/2010,11/12/20 09 11/12/2010 Seasonal Influenza, Trivalen t, Adjuvanted, 65+ yrs 09/05/2019 TD - Tetanus/Diptheria (ADULT) 12/24/1993 TDAP (age 10 and older)(Boostrix) 11/28/2017 TDAP, [...] 09/25/2023 Does the household have a re lar source of income? (Household - for ages [...] encounter Miscellaneous Notes * Telephone Encounter - Iraida Bowers OSA - 07/09/2024 8:28 AM EDT Kwame ellison at [place] 07/12/24 * Telephone Encounter - Iraida Bowers OSA - 06/21/2024 2:50 PM EDT Can we start scheduling these? * Telephone Encounter - Iraida Bowers OSA - 05/17/2024 12:07 PM EDT Do you know when we are scheduling these. * Telephone Encounter - Iraida Bowers OSA - 05/17/2024 12:06 PM EDT ----- Message from Adelaide Bell sent at 05/15/2024 9:40 AM EDT ----- Regarding: needs esophageal manometry needs esophageal manometry documented in this encounter Plan of Treatment Upcoming Encounters Date Type Department Care Team (Late st Contact Info) Description 07/12/2024 10:00 AM EDT Nurse Only Gastroenterology, [place] [address] [place] [address] [place], Nurse Gastroenterology [address] [place] [address] 07/24/2024 11:30 AM EDT Office Visit Ophthalmology, [place] [address] [place] [address] Avtar Patel MD [address] [place] [address] 07/31/2024 10:30 AM EDT Telemedicine General Surgery, [place] [address] [place] [address] Carlitos Conde MD [address] [place] [address] 08/06/2024 11:00 AM EDT Nutrition Services Nutrition Services 65 [facility], [address] [place] [address] Mercedez Alcantar, NAHUN [address] [facility] [place] [address] 03/21/2025 11:00 AM EDT Nurse Only Ancillary [address], [place] [address] [facility], [place] [address] College, Nurse Annual Wellness Visit [address] [facility] [address] [facility], [place] [facility] Scheduled Procedures Name Priority Associated Diagnoses Date/Ti me COLONOSCOPY FLEXIBLE PROXIMAL DIAGNOSTIC Recall History of colon polyps Health Maintenance Due Date Last Done Comments COVID-19 Vaccine ( season) 2023 09/04/2021, 01/27/2021, 01/01/2021 Influenza Vaccine (FLU shot) (#1) 2024 09/25/2023, 08/25/2022, 01/05/2022, Additional history exists Diabetic Eye Exam 10/11/2024 10/11/2023, , 01/12/2022, Additional history exists HbA1c 12/28/2024 06/27/2024, 05/14, 02/12/2024, Additional history exists Albumin/Creatinine Ratio 02/11/2025 024, 01/17/2023, 01/05/2022, Additional history exists Diabetic Foot Exam 02/11/2025 02/12/2024, 0 01/17/2023, 03/10/2022, Additional history exists TSH 02/11/2025 02/12/2024, 03/0 05/2023, 01/05/2022, Additional history exists DXA Scan 02/19/2025 02/19/2018, 07/14, 07/29/2013, Additional history exists Adult Wellness Visit 03/18/2025 03/18/2024, 03/16/2023, 03/10/2022 Depression Monitoring 03/25/2025 03/25/2024 , 03/18/2024, 02/12/2024, Additional history exists GFR 06/27/2025 06/27/2024, 05/14, 04/29/2024, Additional history exists Colonoscopy 09/01/2025 09/01/2020, 08/14, 07/18/2013, Additional history exists Singleton's Esophagus Surveilance 2027 2024, 2024, 09/23/2022, Additional history exists DTap/Tdap Vaccines (3 - Td or Tdap) 11/28/2027 11/28/2017, 10/23/2007, 12/24/1993 Pneumococcal Vaccine: 65+ Years Completed 11/28/2017, 09/02/2016, 07/14/2015, Additional history exists RETIRED - COLONOSCOPY-EVERY 5 YRS AGES 18-100 Discontinued 09/01/2020, 09/01/2020, 07/18/2013, Additional history exists Zoster Vaccines Completed 03/10/2022, [...] this encounter Medical Devices Implanted Type Area Structural Steel Engineer Device Identifier Shelf Expiration Date Model / Serial / Lot Lens 19.0 Sn60wf - [id number] - [id number] Implanted:Qty: 1 on 09/16/2020 by Avtar Patel MD at OR [facility] Right: Eye WEST : SURGICAL SN60WF.190 / [id number] / Lens 19.5 Sn60wf - [id number] Implanted:Qty: 1 on 02/03/2021 by Avtar Patel MD at OR [facility] Left: Eye WEST : SURGICAL 12/18/2024 SN60WF.1 95 / / [id number] documented as of this encounter Care Teams Call Center Associate Relationship Specialty Start Date End Date Narinder Milton DO [address] [place] [address] PCP - General Internal Medicine 04/25/24 documented as of this encounter
--- OUTSIDE RECORDS SUMMARY | 2024-07-22 08:32 | External Medical Summary | Summary of Care ---
Author Name Unknown Organization [facility] Address [address] [place] [address] Phone [phone] Care Team Providers Care Home Health Cna Name Role Phone Narinder Milton DO Primary Care Provider [phone] Reason for Visit * Reason Onset Date Comments Information 06/28/202406/28, 07/01 Encounter Details Date Type Department Care Team (Late st Contact Info) Description 06/28/2024 Telephone Family Practice [facility] [address] [place] [address] Narinder Milton DO [address] [place] [address] Information (06/28, 07/01 ) Allergies Active Allergy Reactions Criticality Noted Date Comments Betaxolol 01/08/1997 Betoptic S: insomnia, depression Carbamazepine And Analogs Unknown 04/01/1999 Levobunolol 01/08/1997 Betagan: fatigue, nightmares Levofloxacin Muscle pain 03/14/2011 Penicillins 04/01/1999 Rash, very sick Simvastatin Unknown 09/16/2004 zocor Sulfa Antibiotics Unknown 04/01/1999 documented as of this encounter (statuses as of 07/08/2024) Medications Medication Sig Dispensed Refills Start Date End Date Status ASPIRIN 81 MG PO CHEW Take 1 Tablet by mouth in the morning. 0 5 Active Vitamin D-3 25 MCG (1000 UT) Oral CapsuleIndications:Vitami n D deficiency Take 2 Capsules by mouth in the morning. 100 Capsule 3 3 Active Vitamin B 12 500 MCG Oral TabletIndications:Vitamin B 12 deficiency Take 500 mcg by mouth in the morning. 3 Active Latanoprost 0.005 % Ophthalmic Solution (Xalatan)Indications:Prim margret open angle glaucoma of both eyes, mild stage Instill 1 Drop into both eyes at bedtime. 2.5 mL 5 4 Active rOPINIRole HCl 1 MG Oral Tablet (Requip)Indications:Restl ess legs syndrome TAKE ONE TABLET BY MOUTH FOUR TIMES A DAY 360 Tablet 2 4 12/31/19 25 Active Clobetasol Propionate 0.05 % External Ointment (Temovate)Indications:Pru ritus,Dermatitis of right ear canal Apply 2x daily (or more if itchy instead of scratching) to itchy areas on scalp/behind ears or other itchy areas on body. 60 g 4 Active Pantoprazole Sodium 40 MG Oral Tablet Delayed Release (Protonix) Take one tablet by mouth before breakfast and one tablet before supper 180 Tablet 3 4 Active traMADol HCl 50 MG Oral Tablet (Ultram)Indications:Prima ry osteoarthritis of left knee Take 1 Tablet by mouth every 12 hours as needed for Pain, Severe. 30 Tablet 4 Active Allopurinol 100 MG Oral Tablet (Zyloprim)Indications:Gou t, arthropathy Take 1 Tablet by mouth in the morning and 1 Tablet before bedtime. 60 Tablet 5 4 Active Famotidine 40 MG Oral Tablet (Pepcid)Indications:Gastr oesophageal reflux disease, unspecified whether esophagitis present Take 1 Tablet by mouth at bedtime. 90 Tablet 3 4 Active glipiZIDE ER 2.5 MG Oral Tablet Extended Release 24 Hour (Glucotrol XL)Indications:Type 2 diabetes mellitus with hemoglobin A1c goal of less than 8.0% ([facility]) Take 1 Tablet by mouth 2 times a day with morning and evening meals. 60 Tablet 1 4 Active Levothyroxine Sodium 25 MCG Oral Tablet (Levoxyl)Indications:Hypo thyroidism TAKE 1 TABLET BY MOUTH DAILY AT LEAST 30 MINUTES PRIOR TO FIRST MEAL OF THE DAY OR OTHER MEDICATIONS 100 Tablet 2 4 Active Acetaminophen 500 MG Oral Tablet (Tylenol) Take 1 Tablet by mouth every 6 hours as needed for Pain, Moderate. Active Atorvastatin Calcium 20 MG Oral Tablet (Lipitor)Indications:Pure hypercholesterolemia Take 1 Tablet by mouth in the morning. 100 Tablet 3 4 Active Empagliflozin 25 MG Oral Tablet (Jardiance) Take 1 Tablet by mouth in the morning. 100 Tablet 3 4 Active Losartan Potassium-HCTZ 100-25 MG Oral Tablet (Hyzaar)Indications:Hyper tensive heart disease without heart failure Take 1 Tablet by mouth in the morning. 100 Tablet 3 4 Active Potassium Chloride ER 10 MEQ Oral Capsule Extended ReleaseIndications:Hypert ensive heart disease without heart failure Take 1 Capsule by mouth in the morning. 100 Capsule 3 4 Active Sertraline HCl 100 MG Oral Tablet (Zoloft)Indications:Bipol ar affective disorder, currently depressed, moderate (HCC) Take 1 and 1/2 Tablets by mouth in the morning. 45 Tablet 1 4 Active Hospital, Clinic, or Other Facility Administered Medication Ordered Dose Route Frequency Start Date End Date Status albuterol (PROVENTIL HFA) inhaler 4 PuffIndications:COPD, severity to be determined (HCC) 4 Puff IN Q4H PRN 09/08/2017 Active documented as of this encounter (statuses as of 07/08/2024) Active Problems Problem Noted Date Diagnosed Date [...] as of this encounter (statuses as of 07/08/2024) Resolved Problems Problem Noted Date Diagnosed Date [...] [facility] [place] [facility] Study: Project # [id number], Senior Media Director: Antione Coburn, PhD. SUMMARY: Goal: Establish [...] contact study staff at ; after hours Senior Media Director via the [facility] hospital wastewater operator . Please contact study team before resolving/deleting from patients problem list. Study phone number: [phone]. Diagnosis changed due to Research Module. Go to [employer] for study details. Encounter for examination fo r normal comparison and control in clinical research program 01/14/2019 07/14/2022 Overview: DO NOT DELETE - [facility] [place] SINGH Study: Project # [id number], Senior Media Director: Wilfrid Guzman, MS, MPH. SUMMARY: Goal: [...] contact study staff at ; after hours Senior Media Director via the [facility] hospital wastewater operator . - Please contact study team before resolving/deleting from patients problem list. Study phone number: [phone]. Diagnosis changed due to Research Module. Go to [employer] for study details. Bronchitis, complicated 01/26/201502/12 Ankle [...] as of this encounter (statuses as of 07/08/2024) Immunizations Name Administration Dates Next Due COVID-19 mRNA, LNP-s, No Pre serve, 2-Dose Series ([employer]) 09/04/2021,01/27/2021,01/01/2021 H1N1 2009 Influenza, IM 11/12/2009 Pneumococcal [...] encounter Miscellaneous Notes * Telephone Encounter - Johana Marie LPN - 07/08/2024 2:51 PM EDT Faxed note to [phone]. Thank you * Telephone Encounter - Narinder Milton DO - 07/08/2024 10:43 AM EDT Preop completed Send notes to Dr. Malhotra * Telephone Encounter - Johana Marie LPN - 07/01/2024 2:35 PM EDT Left message for Dr Malhotra's office to return call. * Telephone Encounter - Johana Marie LPN - 06/28/2024 5:14 PM EDT Called, left message for patient to return call. Called, left message for patient to return call. Thank you * Telephone Encounter - Narinder iMlton DO - 06/28/2024 5:06 PM EDT Zio is good. Hgba1c is good 8.2% reading may have been an error Patient should be rescheduled for knee replacement See what surgery needs for preop. Hemoglobin AIC Results: Lab Results Component Value Date/Time HEMOGLOBIN A1C - [facility] 7.5 (H) 06/27/2024 12:11 PM HEMOGLOBIN A1C - [facility] 8.2 (H) 06/04/2024 03:23 PM HEMOGLOBIN A1C - [facility] 7.2 (H) 02/12/2024 09:36 AM HEMOGLOBIN A1C - [facility] 6.6 (H) 06/30/2020 07:27 AM HEMOGLOBIN A1C - [facility] 6.2 (H) 09/17/2019 12:14 PM HEMOGLOBIN A1C - [facility] 6.4 (H) 04/29/2019 12:06 PM documented in this encounter Plan of Treatment Upcoming Encounters Date Type Department Care Team (Late st Contact Info) Description 07/12/2024 10:00 AM EDT Nurse Only Gastroenterology, [place] [address] [place] [address] [place], Nurse Gastroenterology [facility] [place] [address] 07/24/2024 11:30 AM EDT Office Visit Ophthalmology, [place] [address] [facility] [place] [address] Avtar Patel MD [address] [place] [address] 07/31/2024 10:30 AM EDT Telemedicine General Surgery, [place] [address] [place] [address] Carlitos Conde MD [address] [place] [address] 08/06/2024 11:00 AM EDT Nutrition Services Nutrition Services [address] [place] [address] Mercedez Alcantar RDN [address] [place] [address] 03/21/2025 11:00 AM EDT Nurse Only Ancillary [address] [place] [address] College, Nurse Annual Wellness Visit [address] [facility] [address] [place] [address] Scheduled Procedures Name Priority Associated Diagnoses Date/Ti [...] this encounter Medical Devices Implanted Type Area Crystalizer Tender Device Identifier Shelf Expiration Date Model / Serial / Lot Lens 19.0 Sn60wf - [id number] - [id number] Implanted:Qty: 1 on 09/16/2020 by Avtar Patel MD at OR [facility] Right: Eye WEST : SURGICAL SN60WF.190 / [id number] / Lens 19.5 Sn60wf - [id number] Implanted:Qty: 1 on 02/03/2021 by Avtar Patel MD at OR [facility] Left: Eye WEST : SURGICAL 12/18/2024 SN60WF.1 95 / / [id number] documented as of this encounter Care Teams Home Health Cna Relationship Specialty Start Date End Date Narinder Milton DO [address] [place] [address] PCP - General Internal Medicine 04/25/24 documented as of this encounter
--- OUTSIDE RECORDS SUMMARY | 2024-07-22 08:32 | External Medical Summary | Summary of Care ---
Author Name Unknown Organization [facility] Address [address] [place] [address] Phone [phone] Care Team Providers Care Mc Kay Stitcher Name Role Phone Narinder Milton DO Primary Care Provider [phone] Reason for Visit * Reason Comments Esophageal Manometry Encounter Details Date Type Department Care Team (Late st Contact Info) Description 07/12/2024 10:00 AM EDT Nurse Only Gastroenterology, [place] [address] [place] [address] [place], Nurse Gastroenterology [address] [place] [address] Esophageal Manometry Allergies Active Allergy Reactions Criticality Noted Date Comments Betaxolol 01/08/1997 Betoptic S: insomnia, depression Carbamazepine And Analogs Unknown 04/01/1999 Levobunolol 01/08/1997 Betagan: fatigue, nightmares Levofloxacin Muscle pain 03/14/2011 Penicillins 04/01/1999 Rash, very sick Simvastatin Unknown 09/16/2004 zocor Sulfa Antibiotics Unknown 04/01/1999 documented as of this encounter (statuses as of 07/17/2024) Medications Medication Sig Dispensed Refills Start Date [...] hemoglobin A1c goal of less than 8.0% ([facility]) Take 1 Tablet by mouth 2 times [...] as of this encounter (statuses as of 07/17/2024) Active Problems Problem Noted Date Diagnosed Date [...] as of this encounter (statuses as of 07/17/2024) Resolved Problems Problem Noted Date Diagnosed Date [...] program 01/14/2019 06/15/2020 Overview: DO NOT DELETE [facility] DETECT Study: Project # [id number], Sql Report Writer: Antione Coburn, PhD. SUMMARY: Goal: Establish test [...] contact study staff at ; after hours Sql Report Writer via the [facility] hospital fun house operator . Please contact study team before resolving/deleting from patients problem list. Study phone number: [phone]. Diagnosis changed due to Research Module. Go to Snapshot for study details. Encounter for examination fo r normal comparison and control in clinical research program 01/14/2019 07/14/2022 Overview: DO NOT DELETE - [facility]H Study: Project # [id number], Sql Report Writer: Wilfrid Guzman, MS, MPH. SUMMARY: Goal: Establish [...] contact study staff at ; after hours Sql Report Writer via the [facility] hospital fun house operator . - Please contact study team before resolving/deleting from patients problem list. Study phone number: [phone]. Diagnosis changed due to Research Module. Go [...] as of this encounter (statuses as of 07/17/2024) Immunizations Name Administration Dates Next Due COVID-19 mRNA, LNP-s, No Pre serve, 2-Dose Series ([employer]) 09/04/2021,01/27/2021,01/01/2021 H1N1 2009 Influenza, IM 11/12/2009 PPD 05/20/1998 Pneumococcal Conjugate Vacc, 13 Valent (Prevnar) 09/02/2016,07/14/2015 Pneumococcal Polysaccharide PPV23 (Pneumovax) 11/28/2017,11/15/2010 Seasonal Influenza, PF, 6 M & above, IM , (FluLaval or Fluzone) 08/14/2020,08/15/2018,08/24/2017 Seasonal Influenza, Quadriva lent Hd (Fluzone Hd) 09/25/2023,08/25/2022,01/05/2022 Seasonal Influenza, Quadriva lent, No Preserve, IM 09/02/2016 Seasonal Influenza, Trivalen t, (IIV3), with Preserv, (Fluzone) 07/14/2015,09/17/2014,09/10/2013,10/13,09/05/2011,11/11/2010,11/12/20 09 11/12/2010 Seasonal Influenza, Trivalen t, Adjuvanted, 65+ YRS, PF, (Fluad) 09/05/2019 TD - Tetanus/Diptheria (ADULT) 12/24/1993 TDAP (age 10 and older)(Boostrix) 11/28/2017 TDAP, Age 7 and older, IM (Adacel) 10/23/2007 Varicella Zoster Vaccine (Adult) 01/25/2010 Zoster Vaccine Recombinant (Shingrix) 03/10/2022 ,01/05/2022 documented as of this encounter Social History Tobacco Use Types Packs/Day Years Used Date Smoking Tobacco: Never Passive Smoke Exposure: Past Smokeless Tobacco: Never Tobacco Cessation:Counseling Given: Not Answered Comments:no passive smoke exposures Alcohol Use Standard Drinks/Week Comments Never 0 [...] as of this encounter Progress Notes * Milo Quiñonez, DO - 07/17/2024 6:51 AM EDT Images from the original note were not included. Patient: Zonia Bailey [id number] Gender: Female Physician: Dr. Milo Quiñonez / Age: 06 1950 Him Coder: Carmen Alberto RN Height: 5 ft 4 in Referring Physician: Isela Veras MD Procedure: esophageal manometry / Z Examination Date: 07/12/2024 Swallow Composite (mean of 10 swallows) Resting Pressure Profile & Anatomy Basal Pressures* LES, respiratory mean(mmHg) 33.0 (13-43) UES mean(mmHg) 17.8 (34-104) Anatomy* LES proximal(cm) 39.5 LES intraabdominal(cm) 0.0 Esophageal length(cm) 19.9 Hiatal hernia Yes, 3.5 Motility* LES percent relaxation(%) 74 (>40.0%) Distal contr. integral(mmHg-cm-s) 2511.4 (500-5000) Incomplete bolus clearance(%) 30 Residual Pressures* LES (mean)(mmHg) 9.9 LES (median)(mmHg) 10.4 (<15.0) LES (highest)(mmHg) 17.8 UES (mean)(mmHg) 2.3 (<12.0) *Notes. Motility values are mean among swallows; Normal values in (xxx.x): Simultaneous contractions: Velocity > 8.0 cm/s; eSlv: eSleeve; 3SN, IRP, DCI, IBP - See manual definitions Lower Esophageal Sphincter Region Normal Esophageal Motility Normal Landmarks Number of swallows evaluated 10 Proximal LES (from nares)(cm) 39.5 [place] Classification LES length(cm) 1.3 2.7-4.8 % failed 20 Esophageal length (LES-UES centers)(cm) 19.9 % panesophageal pressurization 0 Intraabdominal LES length(cm) 0.0 % premature contraction 0 Hiatal hernia? Yes, 3.5 % rapid contraction 0 LES Pressures Additional High Resolution Parameters Pressure dennis. method eSleeve,IRP Distal latency 7.0 Basal (respiratory min.)(mmHg) 25.5 4.8-32.0 Distal contractile integral(mean)(mmHg-cm-s) 2511.4 500-5000 Basal (respiratory mean)(mmHg) 33.0 13-43 Contractile front velocity(cm/s) 2.9 <9.0 Residual (mean)(mmHg) 9.9 Impedance analysis Residual (median)(mmHg) 10.4 <15.0 Incomplete bolus clearance(%) 30 Residual (highest)(mmHg) 17.8 Percent relaxation(%) 74 >40.0% Upper Esophageal Sphincter Normal Pharyngeal / UES Motility Normal Mean basal pressure(mmHg) 17.8 34-104 No. swallows evaluated 10 Mean residual pressure(mmHg) 2.3 <12.0 Evaluated @ 3.0 & N/A above UES Mean peak pressure(mmHg) 13.4 Kab[place] Classification Findings* No [place] Classification abnormality found * Findings are based on published [place] Classification scheme and are only intended to serve as aguide for patient diagnosis Procedure After confirmation of potential allergies, a topical analgesic was used to numb the nares followed by trans-nasal insertion of a High Resolution Manometry Catheter. Pressure bands of both UES and LESwere observed on the color contour. Patient instructed to take deep breath to verify placement of catheter; diaphragmatic pinch noted on inspiration. Patient was assisted to supine position and catheter was stabilized by taping at the nares. Patient was encouraged to relax while acclimating to catheter for approximately 5 minutes. A 30 second baseline pressure was obtained to identify the UES andLES followed by a series of wet swallows using 5 ccs room temperature normal saline to assess esophageal motility and bolus transit. At the conclusion of the procedure; the catheter was removed. Indications Pharyngoesophageal dysphagia Interpretation / Findings Upper esophageal sphincter with low basal pressures. Esophageal body with peristalsis in response to wet swallows 7/10, 1/10 weak, 2/10 failed. Lower esophageal sphincter relaxes in response to wet swallows. Band consistent with hernia in thisarea. During rapid swallow phase DCI >450 which is NOT suggestive of ineffective esophageal motility. documented in this encounter Nursing Notes * Carmen Alberto RN - 07/12/2024 10:30 AM EDT Patient referred by Isela Veras MD for manometry because of pharyngoesophageal dysphagia. Procedure, risks and benefits were fully explained and time was given for questions. Informed consent was obtained. Procedure was performed by Carmen Alberto RN. Patient tolerated the procedure with some difficulty. Instructions for post-procedure mild sore throat were given: ice chips, tylenol. Catheter placed in left nares. No blood noted upon removal of catheter. Patient drank 1 bottle of Gatorade prior to appointment. The risk of aspiration was explained. Patient verbalized understanding and wished to continue with test. Dr. Quiñonez made aware prior toobtaining consent. documented in this encounter Plan of Treatment Upcoming Encounters Date Type Department Care Team (Late st Contact Info) Description 07/24/2024 11:30 AM EDT Office Visit Ophthalmology, [place] [address] Avtar Patel MD [address] [place] [id number] 07/31/2024 10:30 AM EDT Telemedicine General Surgery, [place] [address] [place] [address] Carlitos Conde MD [address] [place] [address] 08/06/2024 11:00 AM EDT Nutrition Services Nutrition Services [address] [place] [address] Mercedez Alcantar, NAHUN 106 [facility] [place] [id number] 03/21/2025 11:00 AM EDT Nurse Only [facility] [address] [place] [address] College, Nurse Annual Wellness Visit 65 [facility] [address] [place] [address] Scheduled Procedures Name Priority Associated Diagnoses Date/Ti me COLONOSCOPY FLEXIBLE PROXIMAL DIAGNOSTIC Recall History of colon polyps Health Maintenance Due Date Last Done Comments COVID-19 Vaccine ( season) 2024 09/04/2021, 01/27/2021, 01/01/2021 Influenza Vaccine (FLU shot) (#1) 2024 09/25/2023, 08/25/2022, 01/05/2022, Additional history exists Diabetic Eye Exam 10/11/2024 10/11/2023, , 01/12/2022, Additional history exists HbA1c 12/28/2024 06/27/2024, 2 01/2024, 02/12/2024, Additional history exists Albumin/Creatinine Ratio 02/11/2025 024, 01/17/2023, 01/05/2022, Additional history exists Diabetic Foot Exam 02/11/2025 02/12/2024, 0 01/17/2023, 03/10/2022, Additional history exists TSH 02/11/2025 02/12/2024, 03/0 05/2023, 01/05/2022, Additional history exists DXA Scan 02/19/2025 02/19/2018, 07/14, 07/29/2013, Additional history exists Adult Wellness Visit 03/18/2025 03/18/2024, 03/16/2023, 03/10/2022 Depression Monitoring 03/25/2025 03/25/2024 , 03/18/2024, 02/12/2024, Additional history exists GFR 06/27/2025 06/27/2024, 01/2024, 04/29/2024, Additional history exists Colonoscopy 09/01/2025 09/01/2020, [...] this encounter Medical Devices Implanted Type Area Room Worker Device Identifier Shelf Expiration Date Model / Serial / Lot Lens 19.0 Sn60wf - [id number] - [id number] Implanted:Qty: 1 on 09/16/2020 by Avtar Patel MD at OR [facility] Right: Eye WEST : SURGICAL SN60WF.190 / [id number] / Lens 19.5 Sn60wf - [id number] Implanted:Qty: 1 on 02/03/2021 by Avtar Patel MD at OR [facility] Left: Eye WEST : SURGICAL 12/18/2024 SN60WF.1 95 / / [id number] documented as of this encounter Visit Diagnoses Diagnosis Esophageal dysphagia [R13.19]- Primary Dysphagia, pharyngoesophageal phase documented in this encounter Care Teams Mc Kay Stitcher Relationship Specialty Start Date End Date Narinder Milton DO [address] [place] [address] PCP - General Internal Medicine 04/25/24 documented as of this encounter
--- OUTSIDE RECORDS SUMMARY | 2024-07-22 08:32 | External Medical Summary | Summary of Care ---
Author Name Unknown Organization [facility] Address [address] [place] [address] Phone [phone] Care Team Providers Care Property Staff Accountant Name Role Phone Narinder Milton DO Primary Care Provider [phone] Reason for Visit * Reason Comments Esophageal Manometry Encounter Details Date Type Department Care Team (Late st Contact Info) Description 07/12/2024 10:00 AM EDT Nurse Only Gastroenterology, [place] [address] [place] [address] [place], Nurse Gastroenterology [address] [place] [address] Esophageal Manometry Allergies Active Allergy Reactions Criticality Noted Date Comments Betaxolol 01/08/1997 Betoptic S: insomnia, depression Carbamazepine And Analogs Unknown 04/01/1999 Levobunolol 01/08/1997 Betagan: fatigue, nightmares Levofloxacin Muscle pain 03/14/2011 Penicillins 04/01/1999 Rash, very sick Simvastatin Unknown 09/16/2004 zocor Sulfa Antibiotics Unknown 04/01/1999 documented as of this encounter (statuses as of 07/12/2024) Medications Medication Sig Dispensed Refills Start Date [...] hemoglobin A1c goal of less than 8.0% ([facility]) Take 1 Tablet by mouth 2 times [...] as of this encounter (statuses as of 07/12/2024) Active Problems Problem Noted Date Diagnosed Date [...] as of this encounter (statuses as of 07/12/2024) Resolved Problems Problem Noted Date Diagnosed Date [...] program 01/14/2019 06/15/2020 Overview: DO NOT DELETE [facility] DETECT Study: Project # [id number], Quick Service Technician: Antione Coburn, PhD. SUMMARY: Goal: Establish [...] contact study staff at ; after hours Quick Service Technician via the [facility] hospital monorail operator . Please contact study team before resolving/deleting from patients problem list. Study phone number: [phone]. Diagnosis changed due to Research Module. Go to Snapshot for study details. Encounter for examination fo r normal comparison and control in clinical research program 01/14/2019 07/14/2022 Overview: DO NOT DELETE - [facility] Study: Project # [id number], Quick Service Technician: Wilfrid Guzman, MS, MPH. SUMMARY: Goal: [...] contact study staff at ; after hours Quick Service Technician via the [facility] hospital monorail operator . - Please contact study team before resolving/deleting from patients problem list. Study phone number: [phone]. Diagnosis changed due to Research Module. Go [...] as of this encounter (statuses as of 07/12/2024) Immunizations Name Administration Dates Next Due COVID-19 mRNA, LNP-s, No Pre serve, 2-Dose Series ([employer]) 09/04/2021,01/27/2021,01/01/2021 H1N1 2009 Influenza, IM 11/12/2009 Pneumococcal [...] t, Adjuvanted, 65+ YRS, PF, (Fluad) 09/05/2019 TDAP (age 10 and older)(Boostrix) 11/28/2017 [...] on file documented as of this encounter Nursing Notes * Carmen Alberto [...] 07/24/2024 11:30 AM EDT Office Visit Ophthalmology, [place] [address] Avtar Patel MD [address] [place] [id number] 07/31/2024 10:30 AM EDT Telemedicine General Surgery, [place] [address] [place] [address] Carlitos Conde MD [address] [place] [address] 08/06/2024 11:00 AM EDT Nutrition Services Nutrition Services [address] [place] [address] 293 [place] [address] Mercedez Alcantar, NAHUN 106 [facility] [place]USSE[place] [id number] 03/21/2025 11:00 AM EDT Nurse Only Ancillary 65 [facility] [address] [place] [address] College, Nurse Annual Wellness Visit [address] [address] Scheduled Procedures Name Priority Associated Diagnoses Date/Ti [...] this encounter Medical Devices Implanted Type Area Electric Meter Reader Device Identifier Shelf Expiration Date Model / Serial / Lot Lens 19.0 Sn60wf - [id number] - [id number] Implanted:Qty: 1 on 09/16/2020 by Avtar Patel MD at OR [facility] Right: Eye WEST : SURGICAL SN60WF.190 / [id number] / Lens 19.5 Sn60wf - [id number] Implanted:Qty: 1 on 02/03/2021 by Avtar Patel MD at OR [facility] Left: Eye WEST : SURGICAL 12/18/2024 SN60WF.1 95 / / [id number] documented as of this encounter Care Teams Property Staff Accountant Relationship Specialty Start Date End Date Narinder Milton DO [address] [place] [address] PCP - General Internal Medicine 04/25/24 documented as of this encounter
--- OUTSIDE RECORDS SUMMARY | 2024-07-22 08:32 | External Medical Summary | Summary of Care ---
Author Name Unknown Organization [facility] Address [address] [place] [address] Phone [phone] Care Team Providers Care Wood Engraver Name Role Phone Narinder Milton DO Primary Care Provider [phone] Reason for Visit * Reason Comments Esophageal Manometry Encounter Details Date Type Department Care Team (Late st Contact Info) Description 07/12/2024 10:00 AM EDT Nurse Only Gastroenterology, [place] [address] [place] [address] [place], Nurse Gastroenterology [address] [place] [address] Esophageal Manometry Allergies Active Allergy [...] A1c goal of less than 8.0% ([facility]) Take 1 Tablet by mouth [...] program 01/14/2019 06/15/2020 Overview: DO NOT DELETE [facility] DETECT Study: Project # [id number], Warper Fixer: Antione Coburn, PhD. SUMMARY: Goal: Establish test [...] contact study staff at ; after hours Warper Fixer via the [facility] hospital radiosonde operator . Please contact study team before resolving/deleting from patients problem list. Study phone number: [phone]. Diagnosis changed due to Research Module. Go to Snapshot for study details. Encounter for examination fo r normal comparison and control in clinical research program 01/14/2019 07/14/2022 Overview: DO NOT DELETE - [facility] Study: Project # [id number], Warper Fixer: Wilfrid Guzman, MS, MPH. SUMMARY: Goal: Establish [...] contact study staff at ; after hours Warper Fixer via the [facility] hospital radiosonde operator . - Please contact study team before resolving/deleting from patients problem list. Study phone number: [phone]. Diagnosis changed due to Research Module. Go [...] mRNA, LNP-s, No Pre serve, 2-Dose Series ([employer]) 09/04/2021,01/27/2021,01/01/2021 H1N1 2009 Influenza, IM 11/12/2009 PPD [...] note were not included. Patient: Zonia Bailey [id number] Gender: Female Physician: Dr. Milo Quiñonez / Age: 06 1950 Fur Machine Operator: Carmen Alberto RN Height: 5 ft 4 [...] evaluated 10 Proximal LES (from nares)(cm) 39.5 Lavon Classification LES length(cm) 1.3 2.7-4.8 % failed [...] N/A above UES Mean peak pressure(mmHg) 13.4 Lavon Classification Findings* No Lavon Classification abnormality found * Findings are based on published [place] Classification scheme and are only intended to [...] 07/24/2024 11:30 AM EDT Office Visit Ophthalmology, [place] [address] Avtar Patel MD [address] [id number] 07/31/2024 10:30 AM EDT Telemedicine General Surgery, [place] [address] [place] [address] Carlitos Conde MD [address] [place] [address] 08/06/2024 11:00 AM EDT Nutrition Services Nutrition Services [address] [place] [address] Mercedez Alcantar, NAHUN 106 [facility] [place] [id number] 03/21/2025 11:00 AM EDT [facility] Only [facility] [address] [place] [address] College, Nurse Annual Wellness Visit 65 [facility] [address] [place] [address] Scheduled Procedures Name Priority Associated Diagnoses Date/Ti [...] this encounter Medical Devices Implanted Type Area Neon Electrician Device Identifier Shelf Expiration Date Model / Serial / Lot Lens 19.0 Sn60wf - [id number] - [id number] Implanted:Qty: 1 on 09/16/2020 by Avtar Patel MD at OR [facility] Right: Eye WEST : SURGICAL SN60WF.190 / [id number] / Lens 19.5 Sn60wf - [id number] Implanted:Qty: 1 on 02/03/2021 by Avtar Patel MD at OR [facility] Left: Eye WEST : SURGICAL 12/18/2024 SN60WF.1 95 / / [id number] documented as of this encounter Visit Diagnoses Diagnosis Esophageal dysphagia [R13.19]- Primary Dysphagia, pharyngoesophageal phase documented in this encounter Care Teams Wood Engraver Relationship Specialty Start Date End Date Narinder Milton DO [address] [place] [address] PCP - General Internal Medicine 04/25/24 documented as of this encounter
--- OUTSIDE RECORDS SUMMARY | 2024-07-22 08:33 | External Medical Summary | Summary of Care ---
Author Name Unknown Organization [facility] Address [address] [place] [address] Phone [phone] Care Team Providers Care Head Counselor Name Role Phone Narinder Milton DO Primary Care Provider [phone] Reason for Visit * Reason Onset Date Comments Medication Refill 06/28/2024 Encounter Details Date Type Department Care Team (Late st Contact Info) Description 06/28/2024 Refill Psychiatry [place] Davis [address] [place] [address] Yasmani Randolph MD [address] [place] [address] Bipolar affective disorder, currently depressed, moderate (HCC) Allergies Active Allergy Reactions Criticality Noted Date Comments Betaxolol 01/08/1997 Betoptic S: insomnia, depression Carbamazepine And Analogs Unknown 04/01/1999 Levobunolol 01/08/1997 Betagan: fatigue, nightmares Levofloxacin Muscle pain 03/14/2011 Penicillins 04/01/1999 Rash, very sick Simvastatin Unknown 09/16/2004 zocor Sulfa Antibiotics Unknown 04/01/1999 documented as of this encounter (statuses as of 07/02/2024) Medications Medication Sig Dispensed Refills Start Date End Date Status ASPIRIN 81 MG PO CHEW Take 1 Tablet by mouth in the morning. 0 5 Active Vitamin D-3 25 MCG (1000 UT) Oral CapsuleIndications:Vitam in D deficiency Take 2 Capsules by mouth in the morning. 100 Capsule 3 3 Active Vitamin B 12 500 MCG Oral TabletIndications:Vitami n B 12 deficiency Take 500 mcg by mouth in the morning. 3 Active Latanoprost 0.005 % Ophthalmic Solution (Xalatan)Indications:Philly walter open angle glaucoma of both eyes, mild stage Instill 1 Drop into both eyes at bedtime. 2.5 mL 5 4 Active rOPINIRole HCl 1 MG Oral Tablet (Requip)Indications:Rest less legs syndrome TAKE ONE TABLET BY MOUTH FOUR TIMES A DAY 360 Tablet 2 4 025 Active Clobetasol Propionate 0.05 % External Ointment (Temovate)Indications:Pr uritus,Dermatitis of right ear canal Apply 2x daily (or more if itchy instead of scratching) to itchy areas on scalp/behind ears or other itchy areas on body. 60 g 4 Active Pantoprazole Sodium 40 MG Oral Tablet Delayed Release (Protonix) Take one tablet by mouth before breakfast and one tablet before supper 180 Tablet 3 4 Active traMADol HCl 50 MG Oral Tablet (Ultram)Indications:Prim margret osteoarthritis of left knee Take 1 Tablet by mouth every 12 hours as needed for Pain, Severe. 30 Tablet 4 Active Allopurinol 100 MG Oral Tablet (Zyloprim)Indications:Go ut, arthropathy Take 1 Tablet by mouth in the morning and 1 Tablet before bedtime. 60 Tablet 5 4 Active Famotidine 40 MG Oral Tablet (Pepcid)Indications:Amber roesophageal reflux disease, unspecified whether esophagitis present Take 1 Tablet by mouth at bedtime. 90 Tablet 3 4 Active glipiZIDE ER 2.5 MG Oral Tablet Extended Release 24 Hour (Glucotrol XL)Indications:Type 2 diabetes mellitus with hemoglobin A1c goal of less than 8.0% (HCC) Take 1 Tablet by mouth 2 times a day with morning and evening meals. 60 Tablet 1 4 Active Levothyroxine Sodium 25 MCG Oral Tablet (Levoxyl)Indications:Hyp othyroidism TAKE 1 TABLET BY MOUTH DAILY AT LEAST 30 MINUTES PRIOR TO FIRST MEAL OF THE DAY OR OTHER MEDICATIONS 100 Tablet 2 4 Active Acetaminophen 500 MG Oral Tablet (Tylenol) Take 1 Tablet by mouth every 6 hours as needed for Pain, Moderate. Active Atorvastatin Calcium 20 MG Oral Tablet (Lipitor)Indications:Pur e hypercholesterolemia Take 1 Tablet by mouth in the morning. 100 Tablet 3 4 Active Empagliflozin 25 MG Oral Tablet (Jardiance) Take 1 Tablet by mouth in the morning. 100 Tablet 3 4 Active Losartan Potassium-HCTZ 100-25 MG Oral Tablet (Hyzaar)Indications:Hype rtensive heart disease without heart failure Take 1 Tablet by mouth in the morning. 100 Tablet 3 4 Active Potassium Chloride ER 10 MEQ Oral Capsule Extended ReleaseIndications:Hyper tensive heart disease without heart failure Take 1 Capsule by mouth in the morning. 100 Capsule 3 4 Active Sertraline HCl 100 MG Oral Tablet (Zoloft)Indications:Bipo lar affective disorder, currently depressed, moderate (HCC) Take 1 and 1/2 Tablets by mouth in the morning. 45 Tablet 1 4 Active Sertraline HCl 100 MG Oral Tablet (Zoloft)Indications:Bipo lar affective disorder, currently depressed, moderate (HCC) Take 1.5 Tablets by mouth in the morning. 45 Tablet 3 4 024 Discontin ued(Refil l) Hospital, Clinic, or Other Facility Administered Medication Ordered Dose Route Frequency Start Date End Date Status albuterol (PROVENTIL HFA) inhaler 4 PuffIndications:COPD, severity to be determined (HCC) 4 Puff IN Q4H PRN 09/08/2017 Active documented as of this encounter (statuses as of 07/02/2024) Active Problems Problem Noted Date Diagnosed Date [...] as of this encounter (statuses as of 07/02/2024) Resolved Problems Problem Noted Date Diagnosed Date [...] 06/15/2020 Overview: DO NOT DELETE [facility] DETECT Study: Project # [id number], Insulation Helper: Antione Coburn, PhD. SUMMARY: Goal: Establish test [...] contact study staff at ; after hours Insulation Helper via the [facility] bed machine operator . Please contact study team before resolving/deleting from patients problem list. Study phone number: [phone]. Diagnosis changed due to Research Module. Go to Snapshot for study details. Encounter for examination fo r normal comparison and control in clinical research program 01/14/2019 07/14/2022 Overview: DO NOT DELETE [facility] Study: Project # [id number], Insulation Helper: Wilfrid Guzman, MS, MPH. SUMMARY: Goal: Establish [...] contact study staff at ; after hours Insulation Helper via the [facility] bed machine operator . - Please contact study team before resolving/deleting from patients problem list. Study phone number: [phone]. Diagnosis changed due to Research Module. Go to [employer] for study details. Bronchitis, complicated 01/26/201502/12 Ankle [...] as of this encounter (statuses as of 07/02/2024) Immunizations Name Administration Dates Next Due COVID-19 mRNA, LNP-s, No Pre serve, 2-Dose Series ([employer]) 09/04/2021,01/27/2021,01/01/2021 H1N1 2009 Influenza, IM 11/12/2009 PPD [...] encounter Miscellaneous Notes * Telephone Encounter - Sol Caban PHARM Tech - 07/02/2024 10:51 AM EDT Pharmacy checking status of 90 day supply of sertraline (135 tablets). Please note prescription sent 06/28/24 has not been filled. Thank You, Sol Caban [facility] Clerical Specialist III [facility] ([facility]) 07/02/2024, 10:52 AM * Telephone Encounter - Lorraine García CPhT - 06/28/2024 3:18 PM EDT pharmacy called to request a 90 day supply for sertraline 100mg. If agreeable please send to Dr. Tariff [facility]. Thank you, Lorraine García CphT Clerical Specialist III [facility]) 06/28/24 * Telephone Encounter - Yasmani Randolph MD - 06/28/2024 2:47 PM EDTSigned Prescriptions: Disp Refills Sertraline HCl 100 MG Oral Tablet (Zoloft) 45 Tab*1 Sig: Take 1.5 Tablets by mouth in the morning. Authorizing Provider: YASMANI RANDOLPH * Telephone Encounter - Jennifer Brown MED ASSIST - 06/28/2024 1:26 PM EDT Pharmacy requesting refill on Zoloft. Medication was last filled on 01/23/24 with 3 refills. Patientlast seen on 01/23/24 with return appointment scheduled for Needs to Schedule Appointment. Patient had 1 cancelled appointments and 0 NO SHOW appointments. documented in this encounter Plan of Treatment Upcoming Encounters Date Type Department Care Team (Late st Contact Info) Description 07/24/2024 11:30 AM EDT Office Visit [facility]hthal[facility], [place] [address] [facility] [place] [address] Avtar Patel MD [address] [facility] [place] [address] 07/31/2024 10:30 AM EDT Telemedicine General Surgery, [place] [address] [place] [address] Carlitos Conde MD [address] [place] [address] 08/06/2024 11:00 AM EDT Nutrition Services Nutrition Services 65 [facility], [address] [address] Mercedez Alcantar RDN [address] [place] [address] 03/21/2025 11:00 AM EDT Nurse Only Ancillary [address] [facility], [place] [address] [place] [address] College, Nurse Annual Wellness Visit 65 [facility] [address] [place] [address] Scheduled Procedures Name Priority Associated Diagnoses Date/Ti [...] this encounter Medical Devices Implanted Type Area Automobile Racer Device Identifier Shelf Expiration Date Model / Serial / Lot Lens 19.0 Sn60wf - [id number] - [id number] Implanted:Qty: 1 on 09/16/2020 by Avtar Patel MD at OR [facility] Right: Eye WEST : SURGICAL SN60WF.190 / [id number] / Lens 19.5 Sn60wf - [id number] Implanted:Qty: 1 on 02/03/2021 by Avtar Patel MD at OR [facility] Left: Eye WEST : SURGICAL 12/18/2024 SN60WF.1 95 / / [id number] documented as of this encounter Visit Diagnoses Diagnosis Bipolar affective disorder, currently depressed, moderate (HCC) Bipolar I disorder, most recent episode (or current) depressed, moderate documented in this encounter Care Teams Head Counselor Relationship Specialty Start Date End Date Narinder Milton DO [address] [place] [address] PCP - General Internal Medicine 04/25/24 documented as of this encounter
--- OUTSIDE RECORDS SUMMARY | 2024-07-22 08:33 | External Medical Summary | Summary of Care ---
Author Name Unknown Organization [facility] Address [address] [place] [address] Phone [phone] Care Team Providers Care Senior Sustainability Advisor Name Role Phone Narinder Milton DO Primary Care Provider [phone] Reason for Visit * Reason Onset Date Comments Nutritional Services Documentation 07/03/2024 Encounter Details Date Type Department Care Team (Late st Contact Info) Description 07/03/2024 11:30 AM EDT Scheduled Telephone Nutrition Services 65 [facility] [address] [place] [address] Mercedez Alcantar RDN [address] [place] [address] Arrived Allergies Active Allergy Reactions Criticality Noted Date Comments Betaxolol 01/08/1997 Betoptic S: insomnia, depression Carbamazepine And Analogs Unknown 04/01/1999 Levobunolol 01/08/1997 Betagan: fatigue, nightmares Levofloxacin Muscle pain 03/14/2011 Penicillins 04/01/1999 Rash, very sick Simvastatin Unknown 09/16/2004 zocor Sulfa Antibiotics Unknown 04/01/1999 documented as of this encounter (statuses as of 07/03/2024) Medications Medication Sig Dispensed Refills Start Date [...] as of this encounter (statuses as of 07/03/2024) Active Problems Problem Noted Date Diagnosed Date [...] as of this encounter (statuses as of 07/03/2024) Resolved Problems Problem Noted Date Diagnosed Date [...] program 01/14/2019 06/15/2020 Overview: DO NOT DELETE [facility] DETECT Study: Project # [id number], Associate Consulting Engineer: Antione Coburn, PhD. SUMMARY: Goal: Establish test [...] contact study staff at ; after hours Associate Consulting Engineer via the [facility] hospital roller presser operator . Please contact study team before resolving/deleting from patients problem list. Study phone number: [phone]. Diagnosis changed due to Research Module. Go to [employer] for study details. Encounter for examination fo r normal comparison and control in clinical research program 01/14/2019 07/14/2022 Overview: DO NOT DELETE - Micah Gutierrez SINGH Study: Project # [id number], Associate Consulting Engineer: Wilfrid Guzman, MS, MPH. SUMMARY: Goal: Establish [...] contact study staff at ; after hours Associate Consulting Engineer via the [facility] hospital roller presser operator . - Please contact study team before resolving/deleting from patients problem list. Study phone number: [phone]. Diagnosis changed due to Research Module. Go to [employer] for study details. Bronchitis, complicated 01/26/201502/12 Ankle [...] offered , patient declined. Coagulation disorder 06/01/2004 06/26/2 018 HTN, goal below 130/80 03/08/200401/05 Dermatochalasis [...] as of this encounter (statuses as of 07/03/2024) Immunizations Name Administration Dates Next Due COVID-19 mRNA, LNP-s, No Pre serve, 2-Dose Series (First30Days) 09/04/2021,01/27/2021,01/01/2021 H1N1 2009 Influenza, IM 11/12/2009 Pneumococcal [...] encounter Miscellaneous Notes * Telephone Encounter - Mercedez Alcantar RDN - 07/03/2024 12:29 PM EDT 65 [facility] Dietitian Phone Outreach Reached out to patient to check in on progress towards goal set at last visit. Result of call: Unable to connect (no ringing) when calling home phone listed. Called 's cell. Someone picked up, can be heard on the phone, but unable to hear/know this provider was on the line. Will attempt to reach out to patient at a future date/time. Electronically signed by: Mercedez Alcantar RDN, NUTRITION SERVICES [address] [place] [address] documented in this encounter Plan of Treatment Upcoming Encounters Date Type Department Care Team (Late st Contact Info) Description 07/12/2024 10:00 AM EDT Nurse Only Gastroenterology, [place] [address] [place] [address] [place], Nurse Gastroenterology [address] [place] [address] 07/24/2024 11:30 AM EDT Office Visit Ophthalmology, [place] [address] Avtar Patel MD [address] [place] [address] 07/31/2024 10:30 AM EDT Telemedicine General Surgery, [place] [address] [place] [address] Carlitos Conde MD [address] [place] [address] 08/06/2024 11:00 AM EDT Nutrition Services Nutrition Services 65 [facility] [address] [place] [address] Mercedez Alcantar, RDN [address] [facility] [place] [address] 03/21/2025 11:00 AM EDT Nurse Only Ancillary 65 [facility] [address] [place] [address] College, Nurse Annual Wellness Visit [address] [address] Scheduled Procedures Name Priority Associated Diagnoses Date/Ti me COLONOSCOPY FLEXIBLE PROXIMAL DIAGNOSTIC Recall History of colon polyps Health Maintenance Due Date Last Done Comments COVID-19 Vaccine ( season) 2023 09/04/2021, 01/27/2021, 01/01/2021 Influenza Vaccine (FLU shot) (#1) 2024 09/25/2023, 08/25/2022, 01/05/2022, Additional history exists Diabetic Eye Exam 10/11/2024 10/11/2023, , 01/12/2022, Additional history exists HbA1c 12/28/2024 06/27/2024, 07/2 01/2024, 02/12/2024, Additional history exists Albumin/Creatinine Ratio [...] this encounter Medical Devices Implanted Type Area Fingerprint Expert Device Identifier Shelf Expiration Date Model / Serial / Lot Lens 19.0 Sn60wf - [id number] - [id number] Implanted:Qty: 1 on 09/16/2020 by Avtar Patel MD at OR [facility] Right: Eye WEST : SURGICAL SN60WF.190 / [id number] / Lens 19.5 Sn60wf - [id number] Implanted:Qty: 1 on 02/03/2021 by Avtar Patel MD at OR [facility] Left: Eye WEST : SURGICAL 12/18/2024 SN60WF.1 95 / / [id number] documented as of this encounter Care Teams Senior Sustainability Advisor Relationship Specialty Start Date End Date Narinder Milton DO [address] [place] [address] PCP - General Internal Medicine 04/25/24 documented as of this encounter
--- OUTSIDE RECORDS SUMMARY | 2024-07-22 08:33 | External Medical Summary | Summary of Care ---
Author Name Unknown Organization [facility] Address [address] [place] [address] Phone [phone] Care Team Providers Care Shaper And Presser Name Role Phone Narinder Milton DO Primary Care Provider Reason for Referral * Evaluate & Treat - Unlimited Visits (Within 10 days (routine)) - Authorized Specialty Diagnoses / Procedures Referred By Rekha yanez Referred To Contact Gastroenterology Diagnoses Pharyngoesophageal dysphagia Esophagogastric junction outflow obstruction History of Yusef fundoplication Hypercontractile esophagus GERD (gastroesophageal reflux disease) Isela Veras MD [address] [place] [address] Antione Zarate MD [address] [place] [address] Referral ID Status Reason Start Date Expiration Date Visits Requested Visits Authorized [id number] Authorized Specialty Services Required 07/02/2024 999 999 Question Answer Referral Priority Within 10 days (routine) Where should this appointment be scheduled? [facility] For what condition is the patient being referred? All Gastro Conditions * Precert (Within 10 days (routine)) - Authorized Specialty Diagnoses / Procedures Referred By Rekha yanez Referred To Contact Diagnoses Pharyngoesophageal dysphagia Esophagogastric junction outflow obstruction History of Yusef fundoplication Hypercontractile esophagus GERD (gastroesophageal reflux disease) Procedures ESOPHAGEAL MOTILITY STUDY Isela Veras MD [address] [place] [address] Referral ID Status Reason Start Date Expiration Date V isits Requested Visits Authorized [id number] Authorized 07/02/2024 999 999 Encounter Details Date Type Department Care Team (Latest Contact Info) Description 07/02/2024 Orders Only General Surgery, [place] [address] [place] [address] Demetra Mcnair RN [address] [place] [address] Pharyngoesophageal dysphagia*; Esophagogastric junction outflow obstruction; History of Yusef fundoplication; Hypercontractile esophagus; GERD (gastroesophageal reflux disease) Allergies Active Allergy Reactions Criticality Noted Date [...] hemoglobin A1c goal of less than 8.0% ([facility]) Take 1 Tablet by mouth 2 times [...] program 01/14/2019 06/15/2020 Overview: DO NOT DELETE [facility] DETECT Study: Project # [id number], Employment Training Specialist: Antione Coburn, PhD. SUMMARY: Goal: Establish test [...] contact study staff at ; after hours Employment Training Specialist via the [facility] hospital tower loader operator . Please contact study team before resolving/deleting from patients problem list. Study phone number: [phone]. Diagnosis changed due to Research Module. Go to Snapshot for study details. Encounter for examination fo r normal comparison and control in clinical research program 01/14/2019 07/14/2022 Overview: DO NOT DELETE [facility] DETECT Study: Project # [id number], Employment Training Specialist: Wilfrid Guzman, MS, MPH. SUMMARY: Goal: Establish [...] contact study staff at ; after hours Employment Training Specialist via the [facility] hospital tower loader operator . - Please contact study team before resolving/deleting from patients problem list. Study phone number: [phone]. Diagnosis changed due to Research Module. Go [...] mRNA, LNP-s, No Pre serve, 2-Dose Series ([employer]) 09/04/2021,01/27/2021,01/01/2021 H1N1 2009 Influenza, IM 11/12/2009 Pneumococcal [...] No 09/25/2023 Does the household have a [facility] source of income? (Household - for ages [...] on file documented as of this encounter Plan of Treatment Upcoming Encounters Date Type Department Care Team (Late st Contact Info) Description 07/12/2024 10:00 AM EDT Nurse Only Gastroenterology, [place] [address] [place] [address] [place], Nurse Gastroenterology [address] [place] [address] 07/24/2024 11:30 AM EDT Office Visit Ophthalmology, [place] [facility] [place] [address] Avtar Patel MD [address] [place] [address] 07/31/2024 10:30 AM EDT Telemedicine General Surgery, [place] [address] [place] [address] Carlitos Conde MD [address] [place] [address] 08/06/2024 11:00 AM EDT Nutrition Services Nutrition Services [address] [address] Mercedez Alcantar RDN [address] [place] [address] 03/21/2025 11:00 AM EDT Nurse Only Ancillary [address] [address] College, Nurse Annual Wellness Visit [address] [address] Scheduled Orders Name Type Priority Associated Diagnoses Orde r Schedule ESOPHAGEAL MOTILITY STUDY Procedures Routine Pharyngoesophageal dysphagia Esophagogastric junction outflow obstruction History of Yusef fundoplication Hypercontractile esophagus GERD (gastroesophageal reflux disease) Ordered: 07/02/2024 Scheduled Procedures Name Priority Associated Diagnoses Date/Ti me COLONOSCOPY FLEXIBLE PROXIMAL DIAGNOSTIC Recall History of colon polyps Scheduled Referrals Name Type Priority Associated Diagnoses Order Schedule ADULT GASTROENTEROLOGY REFERRAL OP Referral Within 10 days (routine) Pharyngoesophageal dysphagia Esophagogastric junction outflow obstruction History of Yusef fundoplication Hypercontractile esophagus GERD (gastroesophageal reflux disease) Ordered: 07/02/2024 Health Maintenance Due Date Last Done Comments [...] this encounter Medical Devices Implanted Type Area Radiator Specialist Device Identifier Shelf Expiration Date Model / Serial / Lot Lens 19.0 Sn60wf - [id number] - [id number] Implanted:Qty: 1 on 09/16/2020 by Avtar Patel MD at OR [facility] Right: Eye WEST : SURGICAL SN60WF.190 / [id number] / Lens 19.5 Sn60wf - [id number] Implanted:Qty: 1 on 02/03/2021 by Avtar Patel MD at OR [facility] Left: Eye WEST : SURGICAL 12/18/2024 SN60WF.1 95 / / [id number] documented as of this encounter Visit Diagnoses Diagnosis Pharyngoesophageal dysphagia- Primary Dysphagia, pharyngoesophageal phase Esophagogastric junction outflow obstruction History of Yusef fundoplication Hypercontractile esophagus GERD (gastroesophageal reflux disease) Esophageal reflux documented in this encounter Care Teams Shaper And Presser Relationship Specialty Start Date End Date Narinder Milton DO [address] [place] [address] PCP - General Internal Medicine 04/25/24 documented as of this encounter
--- OUTSIDE RECORDS SUMMARY | 2024-07-22 08:33 | External Medical Summary | Summary of Care ---
Author Name Unknown Organization [facility] Address [address] [facility] [place] [address] Phone [phone] Care Team Providers Care [employer] Consultant Name Role Phone Narinder Milton DO Primary Care Provider [phone] Reason for Visit * Reason Onset Date Comments Medication Refill 06/28/2024 Encounter Details Date Type Department Care Team (Late st Contact Info) Description 06/28/2024 Refill Psychiatry Neftali Davis [address] [place] [address] Yasmani Randolph MD [address] [place] [address] Bipolar affective disorder, currently depressed, moderate (HCC) Allergies Active Allergy Reactions Criticality Noted Date Comments Betaxolol 01/08/1997 Betoptic S: insomnia, depression Carbamazepine And Analogs Unknown 04/01/1999 Levobunolol 01/08/1997 Betagan: fatigue, nightmares Levofloxacin Muscle pain 03/14/2011 Penicillins 04/01/1999 Rash, very sick Simvastatin Unknown 09/16/2004 zocor Sulfa Antibiotics Unknown 04/01/1999 documented as of this encounter (statuses as of 06/28/2024) Medications Medication Sig Dispensed Refills Start Date [...] as of this encounter (statuses as of 06/28/2024) Active Problems Problem Noted Date Diagnosed Date [...] as of this encounter (statuses as of 06/28/2024) Resolved Problems Problem Noted Date Diagnosed Date [...] 01/14/2019 06/15/2020 Overview: DO NOT DELETE [facility] DETECT Study: Project # [id number], Cotton Stomper: Antione Coburn, PhD. SUMMARY: Goal: Establish test [...] contact study staff at ; after hours Cotton Stomper via the [facility] mobile plant operators . Please contact study team before resolving/deleting from patients problem list. Study phone number: [phone]. Diagnosis changed due to Research Module. Go to Snapshot for study details. Encounter for examination fo r normal comparison and control in clinical research program 01/14/2019 07/14/2022 Overview: DO NOT DELETE [facility] Study: Project # [id number], Cotton Stomper: Wilfrid Guzman, MS, MPH. SUMMARY: Goal: Establish [...] contact study staff at ; after hours [employer] Stomper via the [facility] mobile plant operators . - Please contact study team before resolving/deleting from patients problem list. Study phone number: [phone]. Diagnosis changed due to Research Module. Go to [employer] for study details. Bronchitis, complicated 01/26/201502/12 Ankle [...] as of this encounter (statuses as of 06/28/2024) Immunizations Name Administration Dates Next Due COVID-19 mRNA, LNP-s, No Pre serve, 2-Dose Series ([employer]book[employer]) 09/04/2021,01/27/2021,01/01/2021 H1N1 2009 Influenza, IM 11/12/2009 Pneumococcal [...] encounter Miscellaneous Notes * Telephone Encounter - Yasmani Randolph MD [...] 07/24/2024 11:30 AM EDT Office Visit Ophthalmology, [address] [place] [address] Avtar Patel MD [address] [place] [address] 07/31/2024 10:30 AM EDT Telemedicine General Surgery, [place] [address] [place] [address] Carlitos Conde MD [address] [place] [address] 08/06/2024 11:00 AM EDT Nutrition Services Nutrition Services [address] [address] Mercedez Alcantar RDN [address] [place] [address] 03/21/2025 11:00 AM EDT Nurse Only Ancillary [address] [address] College, Nurse Annual Wellness Visit [address] [address] Scheduled Procedures Name Priority Associated Diagnoses Date/Ti [...] 03/10/2022, Additional history exists TSH 02/11/2025 02/12/2024, 05/2023, 01/05/2022, Additional history exists DXA Scan [...] this encounter Medical Devices Implanted Type Area Mail Sorter Device Identifier Shelf Expiration Date Model / Serial / Lot Lens 19.0 Sn60wf - [id number] - [id number] Implanted:Qty: 1 on 09/16/2020 by Avtar Patel MD at OR [facility] Right: Eye WEST : SURGICAL SN60WF.190 / [id number] / Lens 19.5 Sn60wf - [id number] Implanted:Qty: 1 on 02/03/2021 by Avtar Patel MD at OR [facility] Left: Eye WEST : SURGICAL 12/18/2024 SN60WF.1 95 / / [id number] documented as of this encounter Visit Diagnoses Diagnosis Bipolar affective disorder, currently depressed, moderate (HCC) Bipolar I disorder, most recent episode (or current) depressed, moderate documented in this encounter Care Teams [employer] Consultant Relationship Specialty Start Date End Date Narinder Milton DO [address] [place] [address] PCP - General Internal Medicine 04/25/24 documented as of this encounter
--- OUTSIDE RECORDS SUMMARY | 2024-07-22 08:33 | External Medical Summary | Summary of Care ---
Author Name Unknown Organization [facility] Address [address] [place] [address] Phone [phone] Care Team Providers Care Manufacturing Job Titles Name Role Phone Narinder Milton DO Primary Care Provider [phone] Reason for Visit * Reason Comments Follow Up Encounter Details Date Type Department Care Team (Latest Contact Info) Description 06/20/2024 11:40 AM EDT Office Visit Family Practice [address] [place] [address] [address] [place] [address] Narinder iMlton DO [address] [place] [address] Primary osteoarthritis of left knee*; Type 2 diabetes mellitus with hemoglobin A1c goal of less than 8.0% ([facility]); Hypertensive heart disease without heart failure; Severe episode of recurrent major depressive disorder, without psychotic features ([facility]); Hypothyroidism due to acquired atrophy of thyroid; Restless legs syndrome; Pure hypercholesterolemia; Vitamin D deficiency; Lumbar degenerative disc disease; Gastroesophageal reflux disease without esophagitis; Generalized anxiety disorder; Gout, arthropathy; HTN, goal below 130/80 Allergies Active Allergy Reactions Criticality Noted Date Comments Betaxolol 01/08/1997 Betoptic S: insomnia, depression Carbamazepine And Analogs Unknown 04/01/1999 Levobunolol 01/08/1997 Betagan: fatigue, nightmares Levofloxacin Muscle pain 03/14/2011 Penicillins 04/01/1999 Rash, very sick Simvastatin Unknown 09/16/2004 zocor Sulfa Antibiotics Unknown 04/01/1999 documented as of this encounter (statuses as of 07/01/2024) Medications Medication Sig Dispensed Refills Start Date [...] Active Latanoprost 0.005 % Ophthalmic Solution (Xalatan)Indications:Philly johana open angle glaucoma of both eyes, mild [...] hemoglobin A1c goal of less than 8.0% ([facility]) Take 1 Tablet by mouth 2 times [...] the morning. 100 Capsule 3 4 Active Losartan Potassium-HCTZ 100-25 MG Oral Tablet (Hyzaar)Indications:HTN, goal below 130/80 TAKE ONE TABLET BY MOUTH EVERY DAY 100 Tablet 3 3 024 Discontin ued(Refil l) Empagliflozin 25 MG Oral Tablet (Jardiance) Take 1 Tablet by mouth in the morning. 100 Tablet 2 3 024 Discontin ued(Refil l) Potassium Chloride ER 10 MEQ Oral Capsule Extended ReleaseIndications:Hyper tensive heart disease without heart failure TAKE ONE CAPSULE BY MOUTH EVERY MORNING AND TAKE ONE CAPSULE BY MOUTH EVERY DAY BEFORE BEDTIME 200 Capsule 2 3 024 Discontin ued(Refil l) traZODone HCl 50 MG Oral Tablet (Desyrel)Indications:Mod erate episode of recurrent major depressive disorder (HCC) Take 1 Tablet by mouth at bedtime. 90 Tablet 3 3 024 Discontin ued(Medic ation List Clean Up) Atorvastatin Calcium 20 MG Oral Tablet (Lipitor)Indications:Dys lipidemia, goal LDL below 160 TAKE ONE TABLET BY MOUTH EVERY MORNING 100 Tablet 1 4 024 Discontin ued(Refil l) Sertraline HCl 100 MG Oral Tablet (Zoloft)Indications:Bipo lar affective disorder, currently depressed, moderate (HCC) Take 1.5 Tablets by mouth in the morning. 45 Tablet 3 4 024 Discontin ued(Refil l) predniSONE 20 MG Oral Tablet (Deltasone)Indications:B ronchitis, complicated Take 1 Tablet by mouth in the morning for 5 days. 5 Tablet 4 024 Discontin ued(Patie nt preferenc e/discont inuation) Hospital, Clinic, or Other Facility Administered Medication Ordered Dose Route Frequency Start Date End Date Status albuterol (PROVENTIL HFA) inhaler 4 PuffIndications:COPD, severity to be determined (HCC) 4 Puff IN Q4H PRN 09/08/2017 Active documented as of this encounter (statuses as of 07/01/2024) Active Problems Problem Noted Date Diagnosed Date Gout, arthropathy 04/29/2024 Generalized anxiety disorder 01/23/2024 [...] as of this encounter (statuses as of 07/01/2024) Resolved Problems Problem Noted Date Diagnosed Date [...] 01/14/2019 06/15/2020 Overview: DO NOT DELETE [facility] DETECT Study: Project # [id number], Associate Merchandise Planner: Antione Coburn, PhD. SUMMARY: Goal: Establish test [...] study staff at ; after hours Associate Merchandise Planner via the [facility] cut roll machine operator . Please contact study team before resolving/deleting from patients problem list. Study phone number: [phone]. Diagnosis changed due to Research Module. Go to Snapshot for study details. Encounter for examination fo r normal comparison and control in clinical research program 01/14/2019 07/14/2022 Overview: DO NOT DELETE - [employer] DETECT Study: Project # [id number], Associate Merchandise Planner: Wilfrid Guzman, MS, MPH. SUMMARY: Goal: Establish [...] study staff at ; after hours Associate Merchandise Planner via the [facility] cut roll machine operator . - Please contact study team before resolving/deleting from patients problem list. Study phone number: [phone]. Diagnosis changed due to Research Module. Go [...] as of this encounter (statuses as of 07/01/2024) Immunizations Name Administration Dates Next Due COVID-19 mRNA, LNP-s, No Pre serve, 2-Dose Series ([employer]) 09/04/2021,01/27/2021,01/01/2021 H1N1 2009 Influenza, IM 11/12/2009 Pneumococcal [...] Past Smokeless Tobacco: Never Tobacco Cessation:Counseling Given: Yes Comments:no passive smoke exposures Alcohol Use Standard [...] on file documented as of this encounter Last Filed Vital Signs Vital Sign Reading Time Taken Comments Blood Pressure 132/76 06/20/2024 11:53 AM EDT Pulse 84 06/20/2024 11:53 AM EDT Temperature 36.9 C (98.4 F) 06/20/2024 1 1:53 AM EDT Respiratory Rate 16 06/20/2024 11:5 3 AM EDT Oxygen Saturation 94% 06/20/2024 11: 53 AM EDT Inhaled Oxygen Concentration - - Weight 68.8 kg (151 lb 11.2 oz) 024 11:53 AM EDT Height 161.3 cm (5' 3.5") 06/20/2024 11 :53 AM EDT Body Mass Index 26.45 06/20/2024 11:53 AM EDT documented in this encounter Progress Notes * Narinder Milton, DO - 06/20/2024 12:27 PM EDT SUBJECTIVE: Zonia Bailey is a 74 year old female. Chief Complaint Patient presents with Follow Up HPI: Patient is a 74 year old female with a history of Depression, HTN, Hypothyroidism, DM type II, B-12Deficiency, Hyperlipidemia, Insomnia, Gout, left Knee Osteoarthritis, and Restless leg that is seenfor follow up. Dizziness has resolved. Chronic nausea is unchanged. Nausea has not improved with stopping Ozempic. Zio is pending. Appetite is fair and weight is down. No chest pain or shortness of breath are present. Hgba1c was 8.2. She has worsening left knee pain. Knee replacement was postponed due to recent hospitalization and need for Zio prior to procedure. Patient Active Problem List Diagnosis Primary open angle glaucoma (POAG) of both eyes, mild stage Insomnia Severe episode of recurrent major depressive disorder, without psychotic features (HCC) ASCVD Type 2 diabetes mellitus with hemoglobin A1c goal of less than 8.0% (HCC) Diffuse esophageal spasm Hypertensive heart disease without heart failure Hypothyroidism due to acquired atrophy of thyroid Attention deficit disorder (ADD) in adult Restless legs syndrome HTN, goal below 140/90 Pure hypercholesterolemia Vitamin D deficiency Vitamin B 12 deficiency Lumbar degenerative disc disease Gastroesophageal reflux disease without esophagitis Generalized anxiety disorder Gout, arthropathy Current Outpatient Medications Medication Sig Dispense Refill Atorvastatin Calcium 20 MG Oral Tablet (Lipitor) Take 1 Tablet by mouth in the morning. 100 Tablet 3 Empagliflozin 25 MG Oral Tablet (Jardiance) Take 1 Tablet by mouth in the morning. 100 Tablet 3 Losartan Potassium-HCTZ 100-25 MG Oral Tablet (Hyzaar) Take 1 Tablet by mouth in the morning. 100 Tablet 3 Potassium Chloride ER 10 MEQ Oral Capsule Extended Release Take 1 Capsule by mouth in the morning. 100 Capsule 3 ASPIRIN 81 MG PO CHEW Take 1 Tablet by mouth in the morning. 0 Vitamin D-3 25 MCG (1000 UT) Oral Capsule Take 2 Capsules by mouth in the morning. 100 Capsule 3 Vitamin B 12 500 MCG Oral Tablet Take 500 mcg by mouth in the morning. traZODone HCl 50 MG Oral Tablet (Desyrel) Take 1 Tablet by mouth at bedtime. (Patient not taking: Reported on 06/20/2024) 90 Tablet 3 Latanoprost 0.005 % Ophthalmic Solution (Xalatan) Instill 1 Drop into both eyes at bedtime. 2.5 mL 5 rOPINIRole HCl 1 MG Oral Tablet (Requip) TAKE ONE TABLET BY MOUTH FOUR TIMES A DAY 360 Tablet 2 Sertraline HCl 100 MG Oral Tablet (Zoloft) Take 1.5 Tablets by mouth in the morning. 45 Tablet 3 Clobetasol Propionate 0.05 % External Ointment (Temovate) Apply 2x daily (or more if itchy instead of scratching) to itchy areas on scalp/behind ears or other itchy areas on body. 60 g 0 Pantoprazole Sodium 40 MG Oral Tablet Delayed Release (Protonix) Take one tablet by mouth before breakfast and one tablet before supper 180 Tablet 3 traMADol HCl 50 MG Oral Tablet (Ultram) Take 1 Tablet by mouth every 12 hours as needed for Pain, Severe. 30 Tablet 0 Allopurinol 100 MG Oral Tablet (Zyloprim) Take 1 Tablet by mouth in the morning and 1 Tablet beforebedtime. 60 Tablet 5 Famotidine 40 MG Oral Tablet (Pepcid) Take 1 Tablet by mouth at bedtime. 90 Tablet 3 glipiZIDE ER 2.5 MG Oral Tablet Extended Release 24 Hour (Glucotrol XL) Take 1 Tablet by mouth 2 times a day with morning and evening meals. 60 Tablet 1 Levothyroxine Sodium 25 MCG Oral Tablet (Levoxyl) TAKE 1 TABLET BY MOUTH DAILY AT LEAST 30 MINUTES PRIOR TO FIRST MEAL OF THE DAY OR OTHER MEDICATIONS 100 Tablet 2 Acetaminophen 500 MG Oral Tablet (Tylenol) Take 1 Tablet by mouth every 6 hours as needed for Pain,Moderate. Current Facility-Administered Medications Medication Dose Route Frequency Provider Last Rate Last Admin albuterol (PROVENTIL HFA) inhaler 4 Puff 4 Puff Inhalation Q4H Johana Esquivel MD 4 Puff at 09/20/17 0927 The patient's medication list was reviewed and updated as needed. 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 ([facility]) 03/22/2005 Disorder of eye movements DVD DM type 2, goal A1c below 7 04/28/2010 Dyslipidemia, goal to be determined Dysphagia, unspecified(787.20) Episcleritis periodica fugax OD Esophageal reflux GERD Esotropia RET S/P strab surgery X 2; now LET Gastroesophageal reflux disease without esophagitis 10/11/2023 HTN, goal below 140/90 Hypertension Benign Hypertensive heart disease, severity unknown Hypertensive Cardiovasc Disease Hypothyroidism due to acquired atrophy of thyroid 03/07/2017 INFORMATION demyelinating disease vs mult CVA INFORMATION 11/2006 pachy 506/484;+3/+4 Insomnia, unspecified Lattice degeneration OS Lumbar degenerative disc disease 11/01/2022 Need for prophylactic hormone replacement therapy (postmenopausal) Hormone Therapy Relacement Other specified gastritis without mention of hemorrhage 07/27/2007 mild Primary open angle glaucoma 0.6 OU (05/04); VF 01/18, ALT OD;HRT 12/02 Pseudophakia OU Pure hypercholesterolemia 01/05/2022 Restless legs syndrome 09/29/2020 Rosacea Type 2 diabetes mellitus with hemoglobin A1c goal of less than 8.0% ([facility]) 04/28/2010 ICD-10 update of inactive term Vitamin B 12 deficiency 09/19/2022 Vitamin D deficiency 01/12/2022 Past Surgical History: Procedure Laterality Date COLONOSCOPY, DIAGNOSTIC (RECTUM) 07/18/2013 COLONOSCOPY FLEXIBLE PROXIMAL DIAGNOSTIC performed by Sarah Orlando DO at [facility]-hyperplastic polyp- repeat in 10 years COLONOSCOPY, DIAGNOSTIC (RECTUM) 09/01/2020 adenomatous polyps, diverticulosis, repeat 5 yrs / COLONOSCOPY FLEXIBLE PROXIMAL DIAGNOSTIC performed by Sarah Orlando DO at END[facility]COPY [facility] EGD, FLEXIBLE, DIAGNOSTIC 07/18/2013 UPPER GI ENDOSCOPY DIAGNOSTIC performed by Sarah Orlando DO at ENDOSCOPY [facility]- Neg for Singleton's EGD, FLEXIBLE, DIAGNOSTIC 07/03/2014 mild inflammation, + H pylori EGD, FLEXIBLE, DIAGNOSTIC 07/03/2014 ESOPHAGOGASTRODUODENOSCOPY (EGD), FLEXIBLE, TRANSORAL, DIAGNOSTIC performed by Moshe Kemp MD at ENDOSCOPY [facility] EGD, FLEXIBLE, DIAGNOSTIC 09/01/2020 hiatal hernia / ESOPHAGOGASTRODUODENOSCOPY (EGD), FLEXIBLE, TRANSORAL, DIAGNOSTIC performed by Sarah Orlando DO at ENDOSCOPY [facility] EGD, FLEXIBLE, DIAGNOSTIC 09/23/2022 normal scope, small HH / no specimens collected / ESOPHAGOGASTRODUODENOSCOPY (EGD), FLEXIBLE, TRANSORAL, DIAGNOSTIC performed by Sarah Orlando DO at ENDOSCOPY [facility] EGD, FLEXIBLE, DIAGNOSTIC N/A 2024 small HH/Yusef fundoplication/PIMENTEL show acid reflux/ESOPHAGOGASTRODUODENOSCOPY (EGD), FLEXIBLE, TRANSORAL, DIAGNOSTIC performed by Robbi Spears MD at ENDOSCOPY [facility] EGD, FLEXIBLE, W/BIOPSY 07/27/2007 mild gastritis normal esophagus ESOPH FUNCT/REFLUX TEST,MUCOSAL PH N/A 2024 GASTRO REFLUX TEST WITH MUCOSAL TELEMETRY PH ELECTRODE performed by Robbi Spears MD at [facility]COPY [facility] ESOPHAGOGASTRIC FUNDOPLASTY 07/05/2006 Laparoscopic Yusef Fundoplication By Dr. Garcia INFORMATION Strabismus surgery x 2 INFORMATION 03/30/2011 right rotator cuff repair LAP;FULGURATION OVIDUCTS 11/13/1982 Tubal Ligation,Laparoscopic LASER TRABECULOPLASTY 12/24/1991 ALT OD OTHER Bilateral carpal tunnel hand surgery DC ARTHROPLASTY GLENOHUMERAL JOINT TOTAL SHOULDER Left 11/29/2021 DC XCAPSL CTRC RMVL INSJ IO LENS PROSTH W/O ECP 02/03/2021 OS [place] SN60WF 19.5 REMOVAL OF TONSILS, UNDER AGE 12 REMOVE CATARACT, INSERT LENS PROSTH 09/16/2020 OD [place] SN60WF 19.0 REMOVE CATARACT, INSERT LENS PROSTH Right 09/16/2020 EXTRACAPSULAR CATARACT REMOVAL WITH INTRAOCULAR LENS performed by Avtar Patel MD at OR [facility] REMOVE CATARACT, INSERT LENS PROSTH Left 02/03/2021 EXTRACAPSULAR CATARACT REMOVAL WITH INTRAOCULAR LENS performed by Avtar Patel MD at OR [facility] REMOVE VULVA GLAND/LESION Review of patient's allergies indicates: Allergen Reactions Betaxolol Betoptic S: insomnia, depression Carbamazepine And Analogs Unknown Levobunolol Betagan: fatigue, nightmares Levofloxacin Muscle pain Penicillins Rash, very sick Simvastatin Unknown zocor Sulfa Antibiotics Unknown Review of Systems Constitutional: Negative for appetite change, chills, fatigue and fever. HENT: Negative for congestion, sore throat and trouble swallowing. Respiratory: Negative for cough, shortness of breath and wheezing. Cardiovascular: Negative for chest pain, palpitations and leg swelling. Gastrointestinal: Negative for abdominal pain, blood in stool, constipation, diarrhea, nausea and vomiting. Genitourinary: Negative for dysuria and hematuria. Musculoskeletal: Left knee pain has worsened Neurological: Negative for dizziness, syncope and headaches. Psychiatric/Behavioral: Positive for dysphoric mood. Negative for confusion, decreased concentration and sleep disturbance. OBJECTIVE: BP 132/76 | Pulse 84 | Temp 36.9 C (98.4 F) | Resp 16 | Ht 1.613 m (5' 3.5") | Wt 68.8 kg (151 lb 11.2 oz) | LMP 10/24/2000 | SpO2 94% | BMI 26.45 kg/m | BSA 1.76 m Physical Exam Vitals and nursing note reviewed. Constitutional: General: She is not in acute distress. Appearance: Normal appearance. She is not toxic-appearing. HENT: Head: Normocephalic and atraumatic. Cardiovascular: Rate and Rhythm: Normal rate and regular rhythm. Heart sounds: Normal heart sounds. No murmur heard. No gallop. Pulmonary: Effort: Pulmonary effort is normal. Breath sounds: Normal breath sounds. No wheezing, rhonchi or rales. Abdominal: General: Bowel sounds are normal. There is no distension. Palpations: Abdomen is soft. Tenderness: There is no abdominal tenderness. Musculoskeletal: Right lower leg: No edema. Left lower leg: No edema. Neurological: Mental Status: She is alert and oriented to person, place, and time. Mental status is at baseline. Gait: Gait abnormal. Psychiatric: Mood and Affect: Mood is depressed. Affect is flat. Speech: Speech normal. Behavior: Behavior normal. Cognition and Memory: Cognition and memory normal. Component Latest Ref Rng 02/12/2024 04/29/2024 06/04/2024 BUN 6 - 20 mg/dL 25 (H) 20 Creatinine 0.5 - 1.0 mg/dL 0.7 0.8 Estimated Glomerular Filtration Rate >=60 mL/min 88 74 Sodium 135 - 146 mmol/L 136 139 Potassium 3.5 - 5.1 mmol/L 4.3 3.7 Chloride 98 - 107 mmol/L 97 (L) 100 CO2 22 - 32 mmol/L 25 26 Anion Gap 7 - 15 mmol/L 14 13 Glucose 70 - 120 mg/dL 232 (H) 209 (H) Albumin 3.8 - 5.0 g/dL 4.1 AST 10 - 35 U/L 20 Alkaline Phosphatase 35 - 130 U/L 101 Bilirubin, Total <=1.2 mg/dL 0.3 Calcium 8.4 - 10.2 mg/dL 9.5 9.8 Protein 6.0 - 8.3 g/dL 6.6 ALT 10 - 35 U/L 21 WBC 4.00 - 10.80 K/uL 5.14 Neutrophils % 40.0 - 75.0 % 56.3 Lymphocytes % 18.0 - 42.0 % 31.1 Monocytes % 1.0 - 11.0 % 8.9 Eosinophils % 0.0 - 6.0 % 2.5 Basophils % 0.0 - 2.0 % 0.8 Immature Granulocytes % 0.0 - 2.0 % 0.4 Absolute Neutrophils 1.80 - 7.70 K/uL 2.89 Absolute Lymphocytes 1.00 - 4.80 K/ul 1.60 Absolute Monocytes 0.00 - 1.10 K/uL 0.46 Absolute Eosinophils 0.00 - 0.70 K/uL 0.13 Absolute Basophils 0.00 - 0.20 K/uL 0.04 Absolute Immature Granulocytes 0.00 - 0.20 K/uL 0.02 WBC 4.00 - 10.80 K/uL 5.14 RBC 3.85 - 5.15 M/uL 4.68 HGB 12.0 - 15.3 g/dL 13.5 HCT 36.0 - 45.2 % 42.5 MCV 81.5 - 97.5 fL 90.8 MCH 27.0 - 34.0 pg 28.8 MCHC 32.0 - 36.0 g/dL 31.8 RDW 11.5 - 15.5 % 13.3 PLT 140 - 400 K/uL 222 MPV 6.6 - 11.1 fL 10.0 nRBCs <=0 /100 WBCs 0 Hemoglobin A1C 4.0 - 5.6 % 8.2 (H) Estimated Average Glucose <126 mg/dL 189 (H) TSH 0.27 - 4.20 uIU/mL 2.40 Uric Acid 2.4 - 5.7 mg/dL 3.4 Legend: (H) High (L) Low PLAN AND ASSESSMENT: Primary osteoarthritis of left knee (Primary) Continue to follow with Orthopedics Patient for future knee replacement Continue Tramadol Type 2 diabetes mellitus with hemoglobin A1c goal of less than 8.0% (HCC) Continue Empagliflozin, and Glipizide ER Patient had episode of hypoglycemia due to dietary changes. MT has placed CGM for glucose monitoring Home Glucometer readings are not elevated. Will repeat Hgba1c in 1 week to see if possible lab error. Hypertensive heart disease without heart failure - Renew Losartan Potassium-HCTZ 100-25 MG Oral Tablet (Hyzaar); Take 1 Tablet by mouth in the morning. - Renew Potassium Chloride ER 10 MEQ Oral Capsule Extended Release; Take 1 Capsule by mouth in the morning. Severe episode of recurrent major depressive disorder, without psychotic features (HCC) Continue Sertraline Hypothyroidism due to acquired atrophy of thyroid Continue Levothyroxine Restless legs syndrome Continue Ropinirole Pure hypercholesterolemia Continue Atorvastatin Vitamin D deficiency Continue Vitamin D Lumbar degenerative disc disease Gastroesophageal reflux disease without esophagitis Continue Pantoprazole, and Famotidine Generalized anxiety disorder Gout, arthropathy HTN, goal below 130/80 Continue Losartan and HCTZ Follow Up: Return in about 1 week (around 06/27/2024), or if symptoms worsen or fail to improve. Narinder Milton DO 3:31 PM 06/20/2024 documented in this encounter Plan of Treatment Upcoming Encounters Date Type Department Care Team (Late st Contact Info) Description 07/24/2024 11:30 AM EDT Office Visit Ophthalmology, [place] [address] [place] [address] Avtar Patel MD [address] [place] [address] 07/31/2024 10:30 AM EDT Telemedicine General Surgery, [place] [address] [place] [address] Carlitos Conde MD [address] [place] [address] 08/06/2024 11:00 AM EDT Nutrition Services Nutrition Services [address] [address] Mercedez Alcantar RDN [address] [place], [place] [id number] 03/21/2025 11:00 AM EDT Nurse Only Ancillary [address] [address] College, Nurse Annual Wellness Visit [address] [address] Scheduled Procedures Name Priority Associated Diagnoses Date/Ti me COLONOSCOPY FLEXIBLE PROXIMAL DIAGNOSTIC Recall History of colon polyps Health Maintenance Due Date Last Done Comments COVID-19 Vaccine ( season) 2023 09/04/2021, 01/27/2021, 01/01/2021 Influenza Vaccine (FLU shot) (#1) 2024 09/25/2023, 08/25/2022, 01/05/2022, Additional history exists Diabetic Eye Exam 10/11/2024 10/11/2023, , 01/12/2022, Additional history exists HbA1c 12/28/2024 06/27/2024, 0701/2024, 02/12/2024, Additional history exists Albumin/Creatinine Ratio 02/11/2025 024, 01/17/2023, 01/05/2022, Additional history exists Diabetic Foot Exam 02/11/2025 02/12/2024, 0 01/17/2023, 03/10/2022, Additional history exists TSH 02/11/2025 02/12/2024, 0305/2023, 01/05/2022, Additional history exists DXA Scan 02/19/2025 [...] this encounter Medical Devices Implanted Type Area Working Second Hand Device Identifier Shelf Expiration Date Model / Serial / Lot Lens 19.0 Sn60wf - [id number] - [id number] Implanted:Qty: 1 on 09/16/2020 by Avtar Patel MD at OR [facility] Right: Eye [employer] : SURGICAL SN60WF.190 / [id number] / Lens 19.5 Sn60wf - [id number] Implanted:Qty: 1 on 02/03/2021 by Avtar Patel MD at OR [facility] Left: Eye [employer] : SURGICAL 12/18/2024 SN60WF.1 95 / / [id number] documented as of this encounter Visit Diagnoses Diagnosis Primary osteoarthritis of left knee- Primary Primary localized osteoarthrosis, lower leg Type 2 diabetes mellitus with hemoglobin A1c goal of less than 8.0% (HCC) Hypertensive heart disease without heart failure Unspecified hypertensive heart disease without heart failure Severe episode of recurrent major depressive disorder, without psychotic features (HCC) Hypothyroidism due to acquired atrophy of thyroid Restless legs syndrome Restless legs syndrome (RLS) Pure hypercholesterolemia Vitamin D deficiency Unspecified vitamin D deficiency Lumbar degenerative disc disease Degeneration of lumbar or lumbosacral intervertebral disc Gastroesophageal reflux disease without esophagitis Esophageal reflux Generalized anxiety disorder Gout, arthropathy Gouty arthropathy, unspecified HTN, goal below 130/80 Unspecified essential hypertension documented in this encounter Care Teams Manufacturing Job Titles Relationship Specialty Start Date End Date Narinder Milton DO [address] [place] [address] PCP - General Internal Medicine 04/25/24 documented as of this encounter
--- OUTSIDE RECORDS SUMMARY | 2024-07-22 08:33 | External Medical Summary | Summary of Care ---
Author Name Unknown Organization [facility] Address [address] [place] [address] Phone [phone] Care Team Providers Care Front Desk Associate Name Role Phone Narinder Milton DO Primary Care Provider [phone] Reason for Visit * Reason Comments Follow Up Encounter Details Date Type Department Care Team (Latest Contact Info) Description 06/20/2024 11:40 AM EDT Office Visit Family Practice [address] [place] [address] [address] [place] [address] Narinder Milton DO [address] [place] [address] Primary osteoarthritis of left knee*; Type 2 diabetes mellitus with hemoglobin A1c goal of less than 8.0% ([facility]); Hypertensive heart disease without heart failure; Severe episode of recurrent major depressive disorder, without psychotic features ([facility]); Hypothyroidism due to acquired atrophy of thyroid; [...] hemoglobin A1c goal of less than 8.0% ([facility]) Take 1 Tablet by mouth 2 [...] program 01/14/2019 06/15/2020 Overview: DO NOT DELETE [facility] DETECT Study: Project # [id number], Continuous Dryout Operator: Antione Coburn, PhD. SUMMARY: Goal: Establish test [...] contact study staff at ; after hours Continuous Dryout Operator via the [facility] lead laying and gluing machine operator . Please contact study team before resolving/deleting from patients problem list. Study phone number: [phone]. Diagnosis changed due to Research Module. Go to Snapshot for study details. Encounter for examination fo r normal comparison and control in clinical research program 01/14/2019 07/14/2022 Overview: DO NOT DELETE - [facility] DETECT Study: Project # [id number], Continuous Dryout Operator: Wilfrid Guzman, MS, MPH. SUMMARY: Goal: Establish [...] contact study staff at ; after hours Continuous Dryout Operator via the [facility] hospital lead laying and gluing machine operator . - Please contact study team before resolving/deleting from patients problem list. Study phone number: [phone]. Diagnosis changed due to Research Module. Go [...] ([employer]) 09/04/2021,01/27/2021,01/01/2021 H1N1 2009 Influenza, IM 11/12/2009 PPD [...] this encounter Progress Notes * Narinder Milton, - 07/08/2024 7:48 AM EDT Images from the original note were not included. All records reviewed. Patient had ED visit at [facility] on 05/27/2024 due to syncopal episode. No CVA, mass, or hemorrhage present on MRI brain. No occlusion, hemodynamically significant stenosis, or dissection of cervical and cerebral arterieson CTA. 05/29/2024 Echo [facility] Concentric LVH, LV wall motion is normal, Pulmonary artery systolic pressure estimated 47 mm hg Grade I diastolic dysfunction 06/04/2024 Zio Sinus rhythm, average rate 78 beats per minute with 12 runs of nonsustained supraventricular tachycardia, longest episode 15.7 seconds at 112 beats per minute 06/27/2024 Hgba1c 7.5 % Surgical Risk Scoring Revised Cardiac Risk Index (RCRI) High-risk type of surgery (examples include vascular and any open intraperitoneal or intrathoracic procedures): 0=No History of ischemic heart disease (history of myocardial infarction or positive exercise test, current compliant of chest pain considered to be secondary to myocardia ischemia, use of nitrate therapy, or ECG with pathological Q waves; do not count prior coronary revascularization procedure unless one of the other criteria for ischemic heart disease is present): 0=No History of heart failure: 0=No History of cerebrovascular disease: 0=No Diabetes mellitus requiring treatment with insulin: 0=No Preoperative serum creatinine >2.0 mg/dL (177 micromol/L): 0=No Pt has revised cardiac index score of: No Risk Factors- 0.4% (95% CI: 0.1-0.8) Surgical Risk Assessment Patient is low medical risk for the listed procedure. Patient may proceed with knee replacement Medication adjustments: Continue current medications Additional consults or testing: No additional studies indicated prior to procedure * Narinder Milton DO - 06/20/2024 12:27 PM EDT SUBJECTIVE: [...] inhaler 4 Puff 4 Puff Inhalation Q4H PRN Johana Antonio MD 4 Puff at 09/20/17 0927 The [...] of major depressive disorder without psychotic features ([facility]) 03/22/2005 Disorder of eye movements DVD DM [...] open angle glaucoma 0.6 OU (05/04); VF 3/08, ALT OD;HRT 12/02 Pseudophakia OU Pure hypercholesterolemia 01/05/2022 Restless legs syndrome 09/29/2020 Rosacea Type 2 diabetes mellitus with hemoglobin A1c goal of less than 8.0% ([facility]) 04/28/2010 ICD-10 update of inactive term Vitamin B 12 deficiency 09/19/2022 Vitamin D deficiency 01/12/2022 Past Surgical History: Procedure Laterality Date COLONOSCOPY, DIAGNOSTIC (RECTUM) 07/18/2013 COLONOSCOPY FLEXIBLE PROXIMAL DIAGNOSTIC performed by Sarah Orlando DO at [facility]-hyperplastic polyp- repeat in 10 years COLONOSCOPY, DIAGNOSTIC (RECTUM) 09/01/2020 adenomatous polyps, diverticulosis, repeat 5 yrs / COLONOSCOPY FLEXIBLE PROXIMAL DIAGNOSTIC performed by Sarah Orlando DO at [facility] EGD, FLEXIBLE, DIAGNOSTIC 07/18/2013 UPPER GI ENDOSCOPY DIAGNOSTIC performed by Sarah Orlando DO at [facility]- Neg for Singleton's EGD, FLEXIBLE, DIAGNOSTIC 07/03/2014 mild inflammation, + H pylori EGD, FLEXIBLE, DIAGNOSTIC 07/03/2014 ESOPHAGOGASTRODUODENOSCOPY (EGD), FLEXIBLE, TRANSORAL, DIAGNOSTIC performed by Moshe Kemp MD at [facility] EGD, FLEXIBLE, DIAGNOSTIC 09/01/2020 hiatal hernia / ESOPHAGOGASTRODUODENOSCOPY (EGD), FLEXIBLE, TRANSORAL, DIAGNOSTIC performed by Sarah Orlando DO at [facility] EGD, FLEXIBLE, DIAGNOSTIC 09/23/2022 normal scope, small HH / no specimens collected / ESOPHAGOGASTRODUODENOSCOPY (EGD), FLEXIBLE, TRANSORAL, DIAGNOSTIC performed by Sarah Orlando DO at [facility] EGD, FLEXIBLE, DIAGNOSTIC N/A 2024 small HH/Yusef fundoplication/PIMENTEL show acid reflux/ESOPHAGOGASTRODUODENOSCOPY (EGD), FLEXIBLE, TRANSORAL, DIAGNOSTIC performed by Robbi Spears MD at [facility] EGD, FLEXIBLE, W/BIOPSY 07/27/2007 mild gastritis normal esophagus ESOPH FUNCT/REFLUX TEST,MUCOSAL PH N/A 2024 GASTRO REFLUX TEST WITH MUCOSAL TELEMETRY PH ELECTRODE performed by Robbi Spears MD at [facility] ESOPHAGOGASTRIC FUNDOPLASTY 07/05/2006 Laparoscopic Yusef Fundoplication By Dr. Garcia INFORMATION Strabismus surgery x 2 INFORMATION 03/30/2011 right rotator cuff repair LAP;FULGURATION OVIDUCTS 11/13/1982 Tubal Ligation,Laparoscopic LASER TRABECULOPLASTY 12/24/1991 ALT OD OTHER Bilateral carpal tunnel hand surgery [facility] ARTHROPLASTY GLENOHUMERAL JOINT TOTAL SHOULDER Left 11/29/2021 UT XCAPSL CTRC RMVL INSJ IO LENS PROSTH W/O ECP 02/03/2021 OS [place] SN60WF 19.5 REMOVAL OF TONSILS, UNDER AGE 12 REMOVE CATARACT, INSERT LENS PROSTH 09/16/2020 OD [place] SN60WF 19.0 REMOVE CATARACT, INSERT LENS PROSTH Right 09/16/2020 EXTRACAPSULAR CATARACT REMOVAL WITH INTRAOCULAR LENS performed by Avtar Patel MD at [facility] REMOVE CATARACT, INSERT LENS PROSTH Left 02/03/2021 EXTRACAPSULAR CATARACT REMOVAL WITH INTRAOCULAR LENS performed by Avtar Patel MD at [facility] REMOVE VULVA GLAND/LESION Review of patient's allergies [...] episode of hypoglycemia due to dietary changes. MTM has placed CGM for glucose monitoring Home [...] 07/12/2024 10:00 AM EDT Nurse Only Gastroenterology, [address] [address] [place], Nurse Gastroenterology [address] [place] [address] 07/24/2024 11:30 AM EDT Office Visit Ophthalmology, [place] [address] [place] [address] Avtar Patel MD [address] [place] [address] 07/31/2024 10:30 AM EDT Telemedicine General Surgery, [place] [address] [place] [address] Carlitos Conde MD [address] [place] [address] 08/06/2024 11:00 AM EDT Nutrition Services Nutrition Services [address] [place] [address] Mercedez Alcantar RDN [address] [place] [address] 03/21/2025 11:00 AM EDT Nurse Only Ancillary [address] [address] College, Nurse Annual Wellness Visit [address] [place] [address] Scheduled Procedures Name Priority Associated Diagnoses Date/Ti me COLONOSCOPY FLEXIBLE PROXIMAL DIAGNOSTIC Recall History of colon polyps Health Maintenance Due Date Last Done Comments COVID-19 Vaccine ( season) 2023 09/04/2021, 01/27/2021, 01/01/2021 Influenza Vaccine (FLU shot) (#1) 2024 09/25/2023, 08/25/2022, 01/05/2022, Additional history exists Diabetic Eye Exam 10/11/2024 10/11/2023, , 01/12/2022, Additional history exists HbA1c 12/28/2024 06/27/2024, 07/01/2024, 02/12/2024, Additional history exists Albumin/Creatinine Ratio 02/11/2025 024, 01/17/2023, 01/05/2022, Additional history exists Diabetic Foot Exam 02/11/2025 02/12/2024, 0 01/17/2023, 03/10/2022, Additional history exists TSH 02/11/2025 02/12/2024, 03/05/2023, 01/05/2022, Additional history exists DXA Scan 02/19/2025 [...] this encounter Medical Devices Implanted Type Area Media Production Operator Device Identifier Shelf Expiration Date Model / Serial / Lot Lens 19.0 Sn60wf - [id number] - [id number] Implanted:Qty: 1 on 09/16/2020 by Avtar Patel MD at [facility] Right: Eye [place] : SURGICAL SN60WF.190 / [id number] / Lens 19.5 Sn60wf - [id number] Implanted:Qty: 1 on 02/03/2021 by Avtar Patel MD at [facility] Left: Eye [place] : SURGICAL 12/18/2024 SN60WF.1 95 / / [id number] documented as of this encounter Visit [...] hypertension documented in this encounter Care Teams Front Desk Associate Relationship Specialty Start Date End Date Narinder Milton DO [address] [place] [address] PCP - General Internal Medicine 04/25/24 documented as of this encounter
--- OUTSIDE RECORDS SUMMARY | 2024-07-22 08:33 | External Medical Summary | Summary of Care ---
Author Name Unknown Organization [facility] Address [address] [facility] [place] [address] Phone [phone] Care Team Providers Care Palliative Care Coordinator Name Role Phone Narinder Milton DO Primary Care Provider [phone] Reason for Visit * Reason Onset Date Comments Medication Refill 06/28/2024 Encounter Details Date Type Department Care Team (Late st Contact Info) Description 06/28/2024 Refill Psychiatry Neftali Davis [address] [place] [address] Yasmani Randolph MD [address] [place] [address] Bipolar affective disorder, currently depressed, moderate [...] [facility] DETECT Study: Project # [id number], Military Professional: Antione Coburn, PhD. SUMMARY: Goal: Establish test [...] contact study staff at ; after hours Military Professional via the [facility] road packer operator . Please contact study team before resolving/deleting from patients problem list. Study phone number: [phone]. Diagnosis changed due to Research Module. Go to Snapshot for study details. Encounter for examination fo r normal comparison and control in clinical research program 01/14/2019 07/14/2022 Overview: DO NOT DELETE [facility] Study: Project # [id number], Military Professional: Wilfrid Guzman, MS, MPH. SUMMARY: Goal: Establish [...] contact study staff at ; after hours Military Professional via the [facility] road packer operator . - Please contact study team before resolving/deleting from patients problem list. Study phone number: [phone]. Diagnosis changed due to Research Module. Go to Clouli for study details. Bronchitis, complicated 01/26/201502/12 Ankle [...] mRNA, LNP-s, No Pre serve, 2-Dose Series ([employer]) 09/04/2021,01/27/2021,01/01/2021 H1N1 2009 Influenza, IM 11/12/2009 PPD [...] encounter Miscellaneous Notes * Telephone Encounter - Lorraine García CPhT - 06/28/2024 3:18 PM EDT pharmacy called to request a 90 day supply for sertraline 100mg. If agreeable please send to [email or web address]. Thank you, Lorraine García CphT Osteopathic Physician III [facility]) 06/28/24 * Telephone Encounter - aYsmani Randolph MD - 06/28/2024 2:47 PM EDTSigned Prescriptions: Disp Refills Sertraline HCl 100 MG Oral Tablet (Zoloft) 45 Tab*1 Sig: Take 1.5 Tablets by mouth in the morning. Authorizing Provider: YASMANI RANDOLPH * Telephone Encounter - Jennifer Brown, MED ASSIST - 06/28/2024 1:26 PM EDT [...] 07/24/2024 11:30 AM EDT Office Visit Ophthalmology, [place] [address] [facility] [place] [address] Avtar Patel MD [address] [place] [address] 07/31/2024 10:30 AM EDT [facility] [address] [place] [address] Carlitos Conde MD [address] [place] [address] 08/06/2024 11:00 AM EDT Nutrition Services Nutrition Services [address] [address] Mercedez Alcantar RDN [address] [place] [address] 03/21/2025 11:00 AM EDT Nurse Only Ancillary [address] [address] College, Nurse Annual Wellness Visit [address] [address] Scheduled Procedures Name Priority Associated Diagnoses Date/Ti [...] this encounter Medical Devices Implanted Type Area Scale Tester Device Identifier Shelf Expiration Date Model / Serial / Lot Lens 19.0 Sn60wf - [id number] - [id number] Implanted:Qty: 1 on 09/16/2020 by Avtar Patel MD at OR [facility] Right: Eye WEST : SURGICAL SN60WF.190 / [id number] / Lens 19.5 Sn60wf - [id number] Implanted:Qty: 1 on 02/03/2021 by Avtar Patel MD at OR [facility] Left: Eye WEST : SURGICAL 12/18/2024 SN60WF.1 95 / / [id number] documented as of this encounter Visit Diagnoses Diagnosis Bipolar affective disorder, currently depressed, moderate (HCC) Bipolar I disorder, most recent episode (or current) depressed, moderate documented in this encounter Care Teams Palliative Care Coordinator Relationship Specialty Start Date End Date Narinder Milton DO [address] [place] [address] PCP - General Internal Medicine 04/25/24 documented as of this encounter
--- OUTSIDE RECORDS SUMMARY | 2024-07-22 08:33 | External Medical Summary | Summary of Care ---
Author Name Unknown Organization [facility] Address [address] [place] [address] Phone [phone] Care Team Providers Care Conflicts Analyst Name Role Phone Narinder Milton DO Primary Care Provider [phone] Reason for Visit * Reason Onset Date Comments Appointment 07/02/2024 Esophageal Manom etry Encounter Details Date Type Department Care Team (Late st Contact Info) Description [facility] [address] [place] [address] Nurse Appointment (Esophageal Manometry) Allergies Active Allergy Reactions Criticality Noted Date [...] A1c goal of less than 8.0% ([facility]) Take 1 Tablet by mouth [...] [facility] DET[facility] Study: Project # [id number], Hearing Stenographer: Antione Coburn, PhD. SUMMARY: Goal: Establish test [...] contact study staff at ; after hours Hearing Stenographer via the [facility] thread tool grinder set up operator . Please contact study team before resolving/deleting from patients problem list. Study phone number: [phone]. Diagnosis changed due to Research Module. Go to Snapshot for study details. Encounter for examination fo r normal comparison and control in clinical research program 01/14/2019 07/14/2022 Overview: DO NOT DELETE - [facility] DETECT Study: Project # [id number], Hearing Stenographer: Wilfrid Guzman, MS, MPH. SUMMARY: Goal: Establish [...] contact study staff at ; after hours Hearing Stenographer via the [facility] hospital thread tool grinder set up operator . - Please contact study team before resolving/deleting from patients problem list. Study phone number: [phone]. Diagnosis changed due to Research Module. Go [...] encounter Miscellaneous Notes * Telephone Encounter - Carmen Alberto RN - 07/02/2024 11:02 AM EDT Spoke with patient to review esophageal manometry preparation and date. Reviewed with patient that the preparation is NPO after midnight the night before and no use of muscle relaxers or sleeping pills/sedative medications for 24 hours prior. Reviewed procedure with patient. Patient verbalized understanding and any questions were answered at this time. Verified with patient that she uses MyChart and a haku message was sent with the above information. documented in this encounter Plan of Treatment Upcoming Encounters Date Type Department Care Team (Late st Contact Info) Description 07/12/2024 10:00 AM EDT Nurse Only Gastroenterology, [place] [address] [place] [address] [place], Nurse Gastroenterology [address] [place] [address] 07/24/2024 11:30 AM EDT Office Visit Ophthalmology, [place] [address] [place] [address] Avtar Patel MD [address] [place] [address] 07/31/2024 10:30 AM EDT Telemedicine General Surgery, [place] [address] [place] [address] Carlitos Conde MD [address] [place] [address] 08/06/2024 11:00 AM EDT Nutrition Services Nutrition Services [address], [place] [address] Mercedez Alcantar RDN 106 [facility] [place] [address] 03/21/2025 11:00 AM EDT Nurse Only Ancillary [address] [place], [place] [address] [place] [address] College, Nurse Annual Wellness Visit [address] [facility] [address] [place] [address] Scheduled Procedures Name Priority Associated Diagnoses Date/Ti [...] 02/12/2024, Additional history exists GFR 06/27/2025 06/27/2024, 2 01/2024, 04/29/2024, Additional history exists Colonoscopy 09/01/2025 [...] this encounter Medical Devices Implanted Type Area Corn Lab Technician Device Identifier Shelf Expiration Date Model / Serial / Lot Lens 19.0 Sn60wf - [id number] - [id number] Implanted:Qty: 1 on 09/16/2020 by Avtar Patel MD at OR [facility] Right: Eye WEST : SURGICAL SN60WF.190 / [id number] / Lens 19.5 Sn60wf - [id number] Implanted:Qty: 1 on 02/03/2021 by Avtar Patel MD at OR [facility] Left: Eye WEST : SURGICAL 12/18/2024 SN60WF.1 95 / / [id number] documented as of this encounter Care Teams Conflicts Analyst Relationship Specialty Start Date End Date Narinder Milton DO [address] [place] [address] PCP - General Internal Medicine 04/25/24 documented as of this encounter
--- OUTSIDE RECORDS SUMMARY | 2024-07-22 08:33 | External Medical Summary | Summary of Care ---
Author Name Unknown Organization [facility] Address [address] [place] [address] Phone [phone] Care Team Providers Care Hadoop Infrastructure Architect Name Role Phone Narinder Milton DO Primary Care Provider [phone] Reason for Visit * Reason Onset Date Comments Information 06/28/2024 Encounter Details Date Type Department Care Team (Late st Contact Info) Description 06/28/2024 Refill Family Practice [address], [place] [address] [place] [address] Narinder Milton DO [address] [place] [address] Primary open angle glaucoma of both eyes, mild stage Allergies Active Allergy Reactions Criticality Noted Date [...] 360 Tablet 2 4 12/31/19 25 Active Sertraline HCl 100 MG Oral Tablet (Zoloft)Indications:Bipol ar affective disorder, currently depressed, moderate (HCC) Take 1.5 Tablets by mouth in the morning. 45 Tablet 3 4 Active Clobetasol Propionate 0.05 % External Ointment [...] the morning. 100 Capsule 3 4 Active Hospital, Clinic, or Other Facility [...] program 01/14/2019 06/15/2020 Overview: DO NOT DELETE [facility] DETECT Study: Project # [id number], Tablet Making Machine Operator: Antione Coburn, PhD. SUMMARY: Goal: Establish [...] contact study staff at ; after hours Tablet Making Machine Operator via the [facility] hospital fabricating machine operator . Please contact study team before resolving/deleting from patients problem list. Study phone number: [phone]. Diagnosis changed due to Research Module. Go to Snapshot for study details. Encounter for examination fo r normal comparison and control in clinical research program 01/14/2019 07/14/2022 Overview: DO NOT DELETE - Micah [facility] Study: Project # [id number], Tablet Making Machine Operator: Wilfrid Guzman, MS, MPH. SUMMARY: Goal: [...] contact study staff at ; after hours Tablet Making Machine Operator via the [facility] hospital fabricating machine operator . - Please contact study team before resolving/deleting from patients problem list. Study phone number: [phone]. Diagnosis changed due to Research Module. Go [...] mRNA, LNP-s, No Pre serve, 2-Dose Series ([employer]) 09/04/2021,01/27/2021,01/01/2021 H1N1 2009 Influenza, IM 11/12/2009 Pneumococcal [...] encounter Miscellaneous Notes * Telephone Encounter - Narinder Milton DO - 06/28/2024 2:25 PM EDTPending Prescriptions: Disp Refills Latanoprost 0.005 % Ophthalmic Solution (X*10 mL 3 Sig: Instill 1 Drop into both eyes at bedtime. * Telephone Encounter - Narinder Milton DO - 06/28/2024 2:24 PM EDT Patient needs to get eye drops from her Oracle Application Consultant * Telephone Encounter - Martha Montemayor RPh - 06/28/2024 2:00 PM EDT Patient needs refill of latanoprost. Please sign and send. documented in this encounter Plan of Treatment Upcoming Encounters Date Type Department Care Team (Late st Contact Info) Description 07/24/2024 11:30 AM EDT Office Visit Ophthalmology, [place] [address] Avtar Patel MD [address] [place] [address] 07/31/2024 10:30 AM EDT Telemedicine General Surgery, [place] [address] [place] [address] Carlitos Conde MD [address] [place] [address] 08/06/2024 11:00 AM EDT Nutrition Services Nutrition Services [address] [address] Mercedez Alcantar RDN [address] [place], [place] [address] 03/21/2025 11:00 AM EDT Nurse Only Ancillary [address] [address] College, Nurse Annual Wellness Visit [address] [address] Scheduled Procedures Name Priority Associated Diagnoses Date/Ti [...] this encounter Medical Devices Implanted Type Area Operations Research Scientist Device Identifier Shelf Expiration Date Model / Serial / Lot Lens 19.0 Sn60wf - [id number] - [id number] Implanted:Qty: 1 on 09/16/2020 by Avtar Patel MD at OR [facility] Right: Eye WEST : SURGICAL SN60WF.190 / [id number] / Lens 19.5 Sn60wf - [id number] Implanted:Qty: 1 on 02/03/2021 by Avtar Patel MD at [facility] Left: Eye WEST : SURGICAL 12/18/2024 SN60WF.1 95 / / [id number] documented as of this encounter Visit Diagnoses Diagnosis Primary open angle glaucoma of both eyes, mild stage documented in this encounter Care Teams Hadoop Infrastructure Architect Relationship Specialty Start Date End Date Narinder Milton DO [address] [place] [address] PCP - General Internal Medicine 04/25/24 documented as of this encounter
--- OUTSIDE RECORDS SUMMARY | 2024-07-22 08:34 | External Medical Summary | Summary of Care ---
Author Name Unknown Organization [facility] Address [address] [facility] [place] [address] Phone [phone] Care Team Providers Care Aesthetician Name Role Phone Narinder Milton DO Primary Care Provider [phone] Encounter Details Date Type Department Care Team (Late st Contact Info) Description 05/17/2024 Telephone Gastroenterology, [facility] [address] [place] [address] Adelaide Bell CRNP [address] [place] [address] Allergies Active Allergy Reactions Criticality Noted Date Comments Betaxolol 01/08/1997 Betoptic S: insomnia, depression Carbamazepine And Analogs Unknown 04/01/1999 Levobunolol 01/08/1997 Betagan: fatigue, nightmares Levofloxacin Muscle pain 03/14/2011 Penicillins 04/01/1999 Rash, very sick Simvastatin Unknown 09/16/2004 zocor Sulfa Antibiotics Unknown 04/01/1999 documented as of this encounter (statuses as of 06/21/2024) Medications Medication Sig Dispensed Refills Start Date [...] by mouth in the morning. 3 Active traZODone HCl 50 MG Oral Tablet (Desyrel)Indicatio ns:Moderate episode of recurrent major depressive disorder (HCC) Take 1 Tablet by mouth at bedtime. 90 Tablet 3 3 Active Additional Information Patient not taking.Reported on 06/20/2024 Latanoprost 0.005 % Ophthalmic Solution (Xalatan)Indicatio ns:Primary open angle glaucoma of both eyes, mild stage Instill 1 Drop into both eyes at bedtime. 2.5 mL 5 4 Active rOPINIRole HCl 1 MG Oral Tablet (Requip)Indication s:Restless legs syndrome TAKE ONE TABLET BY MOUTH FOUR TIMES A DAY 360 Tablet 2 4 025 Active Sertraline HCl 100 MG Oral Tablet (Zoloft)Indication s:Bipolar affective disorder, currently depressed, moderate (HCC) Take 1.5 Tablets by mouth in the morning. 45 Tablet 3 4 Active Clobetasol Propionate 0.05 % External Ointment (Temovate)Indicati ons:Pruritus,[place] titis of right ear canal Apply 2x [...] daily with therapy for shoulder 2 024 Discontinued(W[place] dication List Clean Up) Levothyroxine Sodium 25 [...] 200 Capsule 2 3 024 Discontinued(Re fill) Atorvastatin Calcium 20 MG Oral Tablet (Lipitor)Indicatio ns:Dyslipidemia, goal LDL below 160 TAKE ONE TABLET BY MOUTH EVERY MORNING 100 Tablet 1 4 024 Discontinued(Re fill) Ozempic (0.25 or 0.5 MG/DOSE) 2 MG/3ML Solution Pen-injector (Semaglutide(0.25 or 0.5MG/DOS)) Inject 0.25 mg under the skin once a week. 024 Discontinued Azithromycin 250 MG Oral Tablet (Zithromax)Indicat ions:Bronchitis, complicated Take 2 tabs by mouth on the first day, then 1 tab daily on days two through five 6 Tablet 4 024 Discontinued(Me dication List Clean Up) Cephalexin 500 MG Oral CapsuleIndications :Cellulitis of left thumb Take 1 Capsule by mouth in the morning and 1 Capsule at noon and 1 Capsule before bedtime. Do all this for 10 days. 30 Capsule 4 024 Discontinued(Me dication List Clean Up) Famotidine 40 MG Oral Tablet (Pepcid) Take 1 Tablet by mouth at bedtime. 30 Tablet 5 4 024 Discontinued Hospital, Clinic, or Other Facility Administered Medication Ordered Dose Route Frequency Start Date End Date Status albuterol (PROVENTIL HFA) inhaler 4 PuffIndications:COPD, severity to be determined (HCC) 4 Puff IN Q4H PRN 09/08/2017 Active documented as of this encounter (statuses as of 06/21/2024) Active Problems Problem Noted Date Diagnosed Date Gout, arthropathy 04/29/2024 Generalized anxiety disorder 01/23/2024 Gastroesophageal reflux disease without esophagi [...] as of this encounter (statuses as of 06/21/2024) Resolved Problems Problem Noted Date Diagnosed Date [...] [facility] DETECT Study: Project # [id number], Roller Staker: Antione Cobrun, PhD. SUMMARY: Goal: Establish test characteristics (sensitivity, [...] contact study staff at ; after hours Roller Staker via the [facility] plaster machine operator . Please contact study team before resolving/deleting from patients problem list. Study phone number: [phone]. Diagnosis changed due to Research Module. Go to Snapshot for study details. Encounter for examination fo r normal comparison and control in clinical research program 01/14/2019 07/14/2022 Overview: DO NOT DELETE - [facility] Study: Project # [id number], Roller Staker: Wilfrid Guzman, MS, MPH. SUMMARY: Goal: Establish [...] contact study staff at ; after hours Roller Staker via the [facility] plaster machine operator . - Please contact study team before resolving/deleting from patients problem list. Study phone number: [phone]. Diagnosis changed due to Research Module. Go [...] as of this encounter (statuses as of 06/21/2024) Immunizations Name Administration Dates Next Due COVID-19 mRNA, LNP-s, No Pre serve, 2-Dose Series ([employer]) 09/04/2021,01/27/2021,01/01/2021 H1N1 2009 Influenza, IM 11/12/2009 PPD [...] Care Team (Late st Contact Info) Description 06/27/2024 11:30 AM EDT Telemedicine Family Practice 65 [facility] [address] [place] [phone] College, Pharmacist [address] [address] 06/28/2024 8:20 AM EDT Office Visit Family Practice [address] [place] [address] [address] [place] [phone] Narinder Milton, [address] [place] [address] 06/28/2024 10:00 AM EDT Office Visit General Surgery, [facility] [address] [place] [address] Isela Veras MD [address] [place] [address] 07/01/2024 12:30 PM EDT Office Visit Gastroenterology, [facility] [address] [place] [address] Adelaide Bell CRNP 132 [facility] [address] 07/24/2024 11:30 AM EDT Office Visit Ophthalmology, [place] [address] [place] [address] Avtar Patel MD [address] [place] [address] 08/06/2024 11:00 AM EDT Nutrition Services Nutrition Services [address] [place] [address] [place] [address] Mercedez Alcantar, NAHUN 106 [facility] [place] [id number] 03/21/2025 11:00 AM EDT Nurse Only Ancillary 65 [facility] 293 [place] [address] College, Nurse Annual Wellness Visit [address] [place] [address] Scheduled Procedures Name Priority Associated Diagnoses Date/Ti me COLONOSCOPY FLEXIBLE PROXIMAL DIAGNOSTIC Recall History of colon polyps Health Maintenance Due Date Last Done Comments COVID-19 Vaccine ( season) 2024 09/04/2021, 01/27/2021, 01/01/2021 Postponed from 07/14/2023 (Patient Declined After Education) Influenza Vaccine (FLU shot) (#1) 2024 09/25/2023, 08/25/2022, 01/05/2022, Additional history exists Diabetic Eye Exam 10/11/2024 10/11/2023, , 01/12/2022, Additional history exists HbA1c 12/05/2024 06/04/2024, 04/0 11/2023, 09/25/2023, Additional history exists Albumin/Creatinine Ratio 02/11/202502/11/2 024, 01/17/2023, 01/05/2022, Additional history exists Diabetic Foot Exam 02/11/2025 02/12/2024, 0 01/17/2023, 03/10/2022, Additional history exists TSH 02/11/2025 02/12/2024, 03/0 05/2023, 01/05/2022, Additional history exists DXA Scan 02/19/2025 02/19/2018, 07/14, 07/29/2013, Additional history exists Adult Wellness Visit 03/18/2025 03/18/2024, 03/16/2023, 03/10/2022 Depression Monitoring 03/25/2025 03/25/2024 , 03/18/2024, 02/12/2024, Additional history exists GFR 06/04/2025 06/04/2024, 04/13, 02/12/2024, Additional history exists Colonoscopy 09/01/2025 09/01/2020, 08/14, [...] this encounter Medical Devices Implanted Type Area Bench Shear Operator Device Identifier Shelf Expiration Date Model / Serial / Lot Lens 19.0 Sn60wf - [id number] - [id number] Implanted:Qty: 1 on 09/16/2020 by Avtar Patel MD at OR [facility] Right: Eye WEST : SURGICAL SN60WF.190 / [id number] / Lens 19.5 Sn60wf - [id number] Implanted:Qty: 1 on 02/03/2021 by Avtar Patel MD at OR [facility] Left: Eye WEST : SURGICAL 12/18/2024 SN60WF.1 95 / / [id number] documented as of this encounter Care Teams Aesthetician Relationship Specialty Start Date End Date Narinder Milton DO [address] [place] [address] PCP - General Internal Medicine 04/25/24 documented as of this encounter
--- OUTSIDE RECORDS SUMMARY | 2024-07-22 08:34 | External Medical Summary | Summary of Care ---
Author Name Unknown Organization [facility] Address [address] [facility] [place] [address] Phone [phone] Care Team Providers Care Director Of Marketing Name Role Phone Narinder Milton DO Primary Care Provider [phone] Reason for Visit * Reason Comments Dosage Adjustment In Person (Anticoag Cl inic) Diabetes Education Encounter Details Date Type Department Care Team (Late st Contact Info) Description 06/20/2024 11:20 AM EDT Office Visit Family Practice 65 [facility] 293 [place] [address] College, Pharmacist [address] [address] Type 2 diabetes mellitus with hemoglobin A1c goal of less than 8.0% ([facility])* Allergies Active Allergy Reactions Criticality Noted Date Comments Betaxolol 01/08/1997 Betoptic S: insomnia, depression Carbamazepine And Analogs Unknown 04/01/1999 Levobunolol 01/08/1997 Betagan: fatigue, nightmares Levofloxacin Muscle pain 03/14/2011 Penicillins 04/01/1999 Rash, very sick Simvastatin Unknown 09/16/2004 zocor Sulfa Antibiotics Unknown 04/01/1999 documented as of this encounter (statuses as of 06/20/2024) Medications Medication Sig Dispensed Refills Start Date End Date Status ASPIRIN 81 MG PO CHEW Take 1 Tablet by mouth in the morning. 0 09/29/2005 Active Vitamin D-3 25 MCG (1000 UT) Oral CapsuleIndications: Vitamin D deficiency Take 2 Capsules by mouth in the morning. 100 Capsule 3 05/29/2023 Active Vitamin B 12 500 MCG Oral TabletIndications:V itamin B 12 deficiency Take 500 mcg by mouth in the morning. 05/29/2023 Active Losartan Potassium-HCTZ 100-25 MG Oral Tablet (Hyzaar)Indications :HTN, goal below 130/80 TAKE ONE TABLET BY MOUTH EVERY DAY 100 Tablet 3 06/08/2023 Active Empagliflozin 25 MG Oral Tablet (Jardiance) Take 1 Tablet by mouth in the morning. 100 Tablet 2 08/22/2023 Active Potassium Chloride ER 10 MEQ Oral Capsule Extended ReleaseIndications: Hypertensive heart disease without heart failure TAKE ONE CAPSULE BY MOUTH EVERY MORNING AND TAKE ONE CAPSULE BY MOUTH EVERY DAY BEFORE BEDTIME 200 Capsule 2 09/22/2023 Active Additional Information Patient taking differently: 10 mEq Oral Daily(AM), Reported on 10/11/2023 traZODone HCl 50 MG Oral Tablet (Desyrel)Indication s:Moderate episode of recurrent major depressive disorder (HCC) Take 1 Tablet by mouth at bedtime. 90 Tablet 3 09/25/2023 Active Additional Information Patient not taking.Reported on 06/20/2024 Latanoprost 0.005 % Ophthalmic Solution (Xalatan)Indication s:Primary open angle glaucoma of both eyes, mild stage Instill 1 Drop into both eyes at bedtime. 2.5 mL 5 11/14/2023 Active rOPINIRole HCl 1 MG Oral Tablet (Requip)Indications :Restless legs syndrome TAKE ONE TABLET BY MOUTH FOUR TIMES A DAY 360 Tablet 2 01/01/2024 12/31/19 25 Active Atorvastatin Calcium 20 MG Oral Tablet (Lipitor)Indication s:Dyslipidemia, goal LDL below 160 TAKE ONE TABLET BY MOUTH EVERY MORNING 100 Tablet 1 01/22/2024 Active Sertraline HCl 100 MG Oral Tablet (Zoloft)Indications :Bipolar affective disorder, currently depressed, moderate (HCC) Take 1.5 Tablets by mouth in the morning. 45 Tablet 3 01/23/2024 Active Clobetasol Propionate 0.05 % External Ointment (Temovate)Indicatio ns:Pruritus,[place]erm[place] tis of right ear canal Apply 2x daily (or more if itchy instead of scratching) to itchy areas on scalp/behind ears or other itchy areas on body. 60 g 02/22/2024 Active Pantoprazole Sodium 40 MG Oral Tablet Delayed Release (Protonix) Take one tablet by mouth before breakfast and one tablet before supper 180 Tablet 3 05/15/2024 Active traMADol HCl 50 MG Oral Tablet (Ultram)Indications :Primary osteoarthritis of left knee Take 1 Tablet by mouth every 12 hours as needed for Pain, Severe. 30 Tablet 05/15/2024 Active Allopurinol 100 MG Oral Tablet (Zyloprim)Indicatio ns:Gout, arthropathy Take 1 Tablet by mouth in the morning and 1 Tablet before bedtime. 60 Tablet 5 05/15/2024 Active Additional Information Patient not taking.Reported on 06/20/2024 Famotidine 40 MG Oral Tablet (Pepcid)Indications :Gastroesophageal reflux disease, unspecified whether esophagitis present Take 1 Tablet by mouth at bedtime. 90 Tablet 3 06/06/2024 Active glipiZIDE ER 2.5 MG Oral Tablet Extended Release 24 Hour (Glucotrol XL)Indications:Type 2 diabetes mellitus with hemoglobin A1c goal of less than 8.0% (HCC) Take 1 Tablet by mouth 2 times a day with morning and evening meals. 60 Tablet 1 06/11/2024 Active Ozempic (0.25 or 0.5 MG/DOSE) 2 MG/3ML Solution Pen-injector (Semaglutide(0.25 or 0.5MG/DOS)) HOLD until discussed with PCP 06/11/2024 Active Levothyroxine Sodium 25 MCG Oral Tablet (Levoxyl)Indication s:Hypothyroidism TAKE 1 TABLET BY MOUTH DAILY AT LEAST 30 MINUTES PRIOR TO FIRST MEAL OF THE DAY OR OTHER MEDICATIONS 100 Tablet 2 06/14/2024 Active Acetaminophen 500 MG Oral Tablet (Tylenol) Take 1 Tablet by mouth every 6 hours as needed for Pain, Moderate. Active Ibuprofen 200 MG Oral Tablet (Motrin) Taking 2-3 daily with therapy for shoulder 01/05/2022 06/20/20 24 Discontinu ed(Medicat ion List Clean Up) Azithromycin 250 MG Oral Tablet (Zithromax)Indicati ons:Bronchitis, complicated Take 2 tabs by mouth on the first day, then 1 tab daily on days two through five 6 Tablet 03/25/2024 06/20/20 Discontinu ed(Medicat ion List Clean Up) Cephalexin 500 MG Oral CapsuleIndications: Cellulitis of left thumb Take 1 Capsule by mouth in the morning and 1 Capsule at noon and 1 Capsule before bedtime. Do all this for 10 days. 30 Capsule 04/23/2024 06/20/20 24 Discontinu ed(Medicat ion List Clean Up) Hospital, Clinic, or Other Facility Administered Medication Ordered Dose Route Frequency Start Date End Date Status albuterol (PROVENTIL HFA) inhaler 4 PuffIndications:COPD, severity to be determined (HCC) 4 Puff IN Q4H PRN 09/08/2017 Active documented as of this encounter (statuses as of 06/20/2024) Active Problems Problem Noted Date Diagnosed Date [...] as of this encounter (statuses as of 06/20/2024) Resolved Problems Problem Noted Date Diagnosed Date [...] 06/15/2020 Overview: DO NOT DELETE [facility] DETECT Study: Project # [id number], Pattern Changer And Repairer: Antione Coburn, PhD. SUMMARY: Goal: Establish test [...] contact study staff at ; after hours Pattern Changer And Repairer via the [facility] hospital bunch breaker machine operator . Please contact study team before resolving/deleting from patients problem list. Study phone number: [phone]. Diagnosis changed due to Research Module. Go to Snapshot for study details. Encounter for examination fo r normal comparison and control in clinical research program 01/14/2019 07/14/2022 Overview: DO NOT DELETE - [facility] DETECT Study: Project # [id number], Pattern Changer And Repairer: Wilfrid Guzman, MS, MPH. SUMMARY: Goal: Establish [...] contact study staff at ; after hours Pattern Changer And Repairer via the [facility] hospital bunch breaker machine operator . - Please contact study team before resolving/deleting from patients problem list. Study phone number: [phone]. Diagnosis changed due to Research Module. Go [...] as of this encounter (statuses as of 06/20/2024) Immunizations Name Administration Dates Next Due COVID-19 mRNA, LNP-s, No Pre serve, 2-Dose Series ([employer]) 09/04/2021,01/27/2021,01/01/2021 H1N1 2009 Influenza, IM 11/12/2009 Pneumococcal [...] No 09/25/2023 Does the household have a [facility] source of income? (Household - for [...] as of this encounter Progress Notes * Martha Montemayor, [facility] - 06/20/2024 11:19 AM EDT Medication Therapy Disease Management Clinic - Diabetes Management Progress Note Zonia Bailey, identified by name and date of , is a 74 year old female being seen for diabetes management/education. Patient presents for initial diabetic visit. 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 ([facility]) 03/22/2005 Disorder of eye movements DVD DM [...] A1c goal of less than 8.0% ([facility]) 04/28/2010 ICD-10 update of inactive term Vitamin B 12 deficiency 09/19/2022 Vitamin D deficiency 01/12/2022 Diagnosis: Type 2 Age of diabetes diagnosis: ~68 Family history of diabetes: mother, siblings, son Microvascular complications: none Macrovascular complications: hypertension dyslipidemia History of Treatment Barriers: Lifestyle: activity significantly limited due to needing knee surgery Therapy considerations: None Medication: metformin: Patient Preference, ozempic - stopped due to nausea (which continues despitestopping, but PCP recommended continuing to hold). Patient reports she's not willing to take metformin due to reading its side effects and brother of MD while on it DIABETES: Current diabetic medications: HOLD Ozempic (as of 06/11/24) Jardiance 25 mg daily START Glipizide 2.5mg with AM/PM meals (Unclear in EHR why metformin was stopped in 2019) Medication Injection Site: N/A Lifestyle: Diet: Comprehensive Diet Review Meal #1: Welsh muffin with crunchy PB with banana with canned navy beans; Or Scrambled eggs, spinach, onion, cheese Meal #2: sometimes skipping Meal #3: salad with chicken Glucose Review/SMBG: Readings per patient memory/recall: Patient is currently testing 2 times a day Reports she had a 58 blood sugar last week at 3-4pm and had to eat a cupcake to bring it up (unsureif she had skipped lunch or not and what she had eaten for breakfast) 89 at bedtime last night 145 this morning after breakfast Hypoglycemia: Does your blood sugar go below 70 mg/dL? Yes, on Monday went to 58 Hyperglycemia symptoms present: none Recent Labs Units 06/04/24 1523 02/12/24 0936 09/25/23 1108 HEMOGLOBIN A1C - [facility] % 8.2* 7.2* 7.2* Recent Labs Units 06/04/24 1523 04/29/24 1448 02/12/24 0936 ESTIMATED GLOMERULAR FILTRATION RATE - [facility] mL/min 74 88 89 CREATININE - [facility] mg/dL 0.8 0.7 0.7 HYPERTENSION: Patient on ACEi/ARB: yes BP Readings from Last 3 Encounters: 06/20/24 132/76 06/04/24 114/64 05/15/24 110/72 Blood pressure at goal: yes HYPERLIPIDEMIA: Patient is taking moderate or high intensity statin: yes HEALTH MAINTENANCE REVIEW: Health Maintenance Due Topic Date Due COVID-19 Vaccine () 07/14/2023 ASSESSMENT & PLAN: ICD-10-CM 1. Type 2 diabetes mellitus with hemoglobin A1c goal of less than 8.0% (HCC) E11.9 BG Readings - Blood sugars not available. Patient reports significant variability. Willing to have dexcom placed today. Medications - Reviewed current regimen, patient is adherent to regimen. Will continue current regimen, but advised to skip glipizide if she has a meal without carbs (ex. Egg scramble only) Diet, Exercise, Lifestyle - patient reports significantly cutting back food and skipping meals to try to get A1c down . Discussed with patient still making sure she's eating, and focusing on protein and vegetables versus skipping the meal.. Patient is agreeable to SMBG with Dexcom G7 for next 10 days. Patient aware to contact clinic if any hypoglycemia before next visit. MEDICATION CHANGES: no change Diabetic Medications: HOLD Ozempic (as of 06/11/24) Jardiance 25 mg daily Glipizide ER 2.5mg with AM/PM meals Dexcom G7: Patient Education and Review Patient provided G7 CGM components and training manual. Reviewed the following information with patient using provided cloth winder machine operator literature: Introduced CGM and components How to set up display device Follow the onscreen instructions on window treatment installer or appt to enter: Low and high alerts Sensor code Insert sensor and attach transmitter Choose sensor site Insert sensor with applicator Place sensor cover over sensor Pair transmitter and start sensor Wait for transmitter to pair No readings during the 30-min warmup Keep display device within 20 feet during warmup Home screen overview Review home screen overview in using your G7 with patient Home screen shows Sensor glucose readings Trend arrow Trend graph High and low alerts Treatment decisions Review treatment decisions in using your G7 with patient Use your meter if: Your G7 readings don't match your symptoms Your G7 doesn't show both a number and an arrow Ending Sensor Session Review ending your sensor session in using your G7 with patient Remover sensor + overpatch from body Discard sensor Patient set up personal device and self-inserted sensor and transmitter in office independently of pharmacist involvement other than for material review and support. HEALTH MAINTENANCE INTERVENTIONS: Labs: Up to Date Immunizations: Up to Date Foot Exam: Up to Date Eye Exam: Up to Date Annual Wellness Visit: Up to Date FOLLOW UP: Return to clinic in 1 weeks 06/27/2024 Martha Carr [facility] Clinical Pharmacist - Parking Manager Medication Therapy Management Clinic 06/20/2024, 11:19 AM documented in this encounter Plan of Treatment Upcoming Encounters Date Type Department Care Team (Late st Contact Info) Description 06/27/2024 11:30 AM EDT Telemedicine Family Practice 65 [facility] [address] [place] [address] College, Pharmacist [address] [address] 06/28/2024 8:20 AM EDT Office Visit Family Practice 65 [facility] [address] [place] [phone] Narinder Milton, [address] [place] [address] 06/28/2024 10:00 AM EDT Office Visit General Surgery, [facility] [address] [place] [address] Isela Veras MD [address] [place] [address] 07/01/2024 12:30 PM EDT Office Visit Gastroenterology, [facility] 132 [place] [address] Adelaide Bell CRNP [address] [place] [address] 07/24/2024 11:30 AM EDT Office Visit Ophthalmology, [place] [address] [address] Avtar Patel MD [address] [place] [address] 08/06/2024 11:00 AM EDT Nutrition Services Nutrition Services [address] [place] [address] Mercedez Alcantar RDN [facility] [address] 03/21/2025 11:00 AM EDT Nurse Only Ancillary [address] [place] [address] College, Nurse Annual Wellness Visit [address] [place] [address] Scheduled Procedures Name Priority Associated Diagnoses Date/Ti [...] 11/2023, 09/25/2023, Additional history exists Albumin/Creatinine Ratio 02/11/2025 024, [...] this encounter Medical Devices Implanted Type Area Sales Agent Fire Insurance Device Identifier Shelf Expiration Date Model / Serial / Lot Lens 19.0 Sn60wf - [id number] - [id number] Implanted:Qty: 1 on 09/16/2020 by Avtar Patel MD at OR [facility] Right: Eye WEST : SURGICAL SN60WF.190 / [id number] / Lens 19.5 Sn60wf - [id number] Implanted:Qty: 1 on 02/03/2021 by Avtar Patel MD at OR [facility] Left: Eye WEST : SURGICAL 12/18/2024 SN60WF.1 95 / / [id number] documented as of this encounter Visit Diagnoses Diagnosis Type 2 diabetes mellitus with hemoglobin A1c goal of less than 8.0% ([facility])- Primary documented in this encounter Care Teams Director Of Marketing Relationship Specialty Start Date End Date Narinder Milton DO [address] [place] [address] PCP - General Internal Medicine 04/25/24 documented as of this encounter
--- OUTSIDE RECORDS SUMMARY | 2024-07-22 08:34 | External Medical Summary | Summary of Care ---
Author Name Unknown Organization [facility] Address [address] [place] [address] Phone [phone] Care Team Providers Care Lighting Engineer Name Role Phone Narinder Milton DO Primary Care Provider [phone] Reason for Visit * Reason Onset Date Comments Order Request 06/18/202406/19 Encounter Details Date Type Department Care Team (Late st Contact Info) Description 06/18/2024 Telephone Family Practice 65 [facility] [address] [place] [address] Narinder Milton DO [address] [place] [address] Order Request (06/19) Allergies Active Allergy Reactions Criticality Noted Date Comments Betaxolol 01/08/1997 Betoptic S: insomnia, depression Carbamazepine And Analogs Unknown 04/01/1999 Levobunolol 01/08/1997 Betagan: fatigue, nightmares Levofloxacin Muscle pain 03/14/2011 Penicillins 04/01/1999 Rash, very sick Simvastatin Unknown 09/16/2004 zocor Sulfa Antibiotics Unknown 04/01/1999 documented as of this encounter (statuses as of 06/19/2024) Medications Medication Sig Dispensed Refills Start Date End Date Status ASPIRIN 81 MG PO CHEW Take 1 Tablet by mouth in the morning. 0 09/29/2005 Active Ibuprofen 200 MG Oral Tablet (Motrin) Taking 2-3 daily with therapy for shoulder 01/05/2022 Active Vitamin D-3 25 MCG (1000 UT) [...] TIMES A DAY 360 Tablet 2 01/01/2024 Active Atorvastatin Calcium 20 MG Oral Tablet [...] before bedtime. 60 Tablet 5 05/15/2024 Active Famotidine 40 MG Oral Tablet (Pepcid)Indications: Gastroesophageal reflux disease, unspecified whether esophagitis present Take [...] OTHER MEDICATIONS 100 Tablet 2 06/14/2024 Active Hospital, Clinic, or Other Facility Administered Medication Ordered Dose Route Frequency Start Date End Date Status albuterol (PROVENTIL HFA) inhaler 4 PuffIndications:COPD, severity to be determined ([facility]) 4 Puff IN Q4H PRN 09/08/2017 Active documented as of this encounter (statuses as of 06/19/2024) Active Problems Problem Noted Date Diagnosed Date [...] as of this encounter (statuses as of 06/19/2024) Resolved Problems Problem Noted Date Diagnosed Date [...] program 01/14/2019 06/15/2020 Overview: DO NOT DELETE [facility] DETECT Study: Project # [id number], Film Producer: Antione Coburn, PhD. SUMMARY: Goal: Establish test [...] contact study staff at ; after hours Film Producer via the [facility] pointer machine operator . Please contact study team before resolving/deleting from patients problem list. Study phone number: [phone]. Diagnosis changed due to Research Module. Go to [employer] for study details. Encounter for examination fo r normal comparison and control in clinical research program 01/14/2019 07/14/2022 Overview: DO NOT DELETE - [facility] Study: Project # [id number], Film Producer: Wilfrid Guzman, MS, MPH. SUMMARY: Goal: Establish [...] contact study staff at ; after hours Film Producer via the [facility] hospital pointer machine operator . - Please contact study team before resolving/deleting from patients problem list. Study phone number: [phone]. Diagnosis changed due to Research Module. Go to [employer] for study details. Bronchitis, complicated 01/26/201502/12 Ankle [...] as of this encounter (statuses as of 06/19/2024) Immunizations Name Administration Dates Next Due COVID-19 mRNA, LNP-s, No Pre serve, 2-Dose Series ([facility]) 09/04/2021,01/27/2021,01/01/2021 H1N1 2009 Influenza, IM 11/12/2009 PPD [...] No 09/25/2023 Does the household have a [facility] source of income? (Household - for [...] encounter Miscellaneous Notes * Telephone Encounter - Brenda Baptiste LPN - 06/19/2024 12:14 PM EDT Call placed to patient and relayed information from Dr. Milton. Pt stated her leg was supposed to be operated on last week. Stated "I can't talk about this" and then hung up the phone. Noted pt has OV scheduled with Dr. Milton tomorrow. * Telephone Encounter - Candis Amaro OSA - 06/19/2024 10:33 AM EDT Pt calling to check the status of this message, stating that she called regarding some labs yesterday and has not heard back. She can be reached at [phone]. * Telephone Encounter - Narinder Milton DO - 06/19/2024 8:22 AM EDT Next Hgba1c will need to be done in 08/2024. Keep appointment with MTM. * Telephone Encounter - Johana Marie LPN - 06/18/2024 1:18 PM EDT Last hgba1c was drawn on 06/04, when can patient have repeated to check value to have surgery Thank you * Telephone Encounter - Candis Pathak OSA - 06/18/2024 8:35 AM EDT Needs to have HBA1C drawn before she can get surgery Please place documented in this encounter Plan of Treatment Upcoming Encounters Date Type Department Care Team (Late st Contact Info) Description 06/20/2024 11:20 AM EDT Office Visit Family Practice [address] [place] [address] [address] [place] [address] College, Pharmacist [address] [address] 06/20/2024 11:40 AM EDT Office Visit Family Practice 65 [facility] [address] [place] [address] Narinder Milton DO [address] [place] [address] 06/28/2024 10:00 AM EDT Office Visit General Surgery, [facility] [address] [facility] [place] [address] Isela Veras MD [address] [facility] [place] [id number] 07/01/2024 12:30 PM EDT Office Visit Gastroenterology, [facility] [address] [facility] [place] [address] Adelaide Bell CRNP [address] [place] [address] 07/24/2024 11:30 AM EDT Office Visit Ophthalmology, [place] [address] [place] [address] Avtar Paetl MD 21 [place] [address] 08/06/2024 11:00 AM EDT Nutrition Services Nutrition Services [address] [address] Mercedez Alcantar RDN 106 [place] [address] 03/21/2025 11:00 AM EDT Nurse Only Ancillary [address] [address] College, Nurse Annual Wellness Visit [address] [address] Scheduled Procedures Name Priority Associated Diagnoses Date/Ti [...] 09/25/2023, Additional history exists Albumin/Creatinine Ratio 02/11/2025 04/2 024, 01/17/2023, 01/05/2022, Additional history exists Diabetic [...] this encounter Medical Devices Implanted Type Area Systems Integrator Device Identifier Shelf Expiration Date Model / Serial / Lot Lens 19.0 Sn60wf - [id number] - [id number] Implanted:Qty: 1 on 09/16/2020 by Avtar Patel MD at OR [facility] Right: Eye WEST : SURGICAL SN60WF.190 / [id number] / Lens 19.5 Sn60wf - [id number] Implanted:Qty: 1 on 02/03/2021 by Avtar Patel MD at [facility] Left: Eye WEST : SURGICAL 12/18/2024 SN60WF.1 95 / / [id number] documented as of this encounter Care Teams Lighting Engineer Relationship Specialty Start Date End Date Narinder Milton DO [address] [place] [address] PCP - General Internal Medicine 04/25/24 documented as of this encounter
--- OUTSIDE RECORDS SUMMARY | 2024-07-22 08:34 | External Medical Summary | Summary of Care ---
Author Name Unknown Organization [facility] Address [address] [place] [address] Phone [phone] Care Team Providers Care Retail Clerk Name Role Phone Narinder Milton DO Primary Care Provider [phone] Reason for Visit * Reason Comments Dosage Adjustment In Person (Anticoag Cl inic) Diabetes Follow-Up Encounter Details Date Type Department Care Team (Late st Contact Info) Description 06/27/2024 11:35 AM EDT Pharmacy Family Practice [address] [address] College, Pharmacist [address] [address] Type 2 diabetes mellitus with hemoglobin A1c goal of less than 8.0% ([facility])* Allergies Active Allergy Reactions Criticality Noted Date Comments Betaxolol 01/08/1997 Betoptic S: insomnia, depression Carbamazepine And Analogs Unknown 04/01/1999 Levobunolol 01/08/1997 Betagan: fatigue, nightmares Levofloxacin Muscle pain 03/14/2011 Penicillins 04/01/1999 Rash, very sick Simvastatin Unknown 09/16/2004 zocor Sulfa Antibiotics Unknown 04/01/1999 documented as of this encounter (statuses as of 06/27/2024) Medications Medication Sig Dispensed Refills Start Date [...] Active traZODone HCl 50 MG Oral Tablet (Desyrel)Indications: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 90 Tablet 3 3 Active Additional Information Patient not taking.Reported on 06/20/2024 Latanoprost 0.005 % Ophthalmic Solution (Xalatan)Indications:Prim margret [...] goal of less than 8.0% ([facility]) Take 1 Tablet by mouth 2 [...] inhaler 4 PuffIndications:COPD, severity to be determined ([facility]) 4 Puff IN Q4H PRN 09/08/2017 Active documented as of this encounter (statuses as of 06/27/2024) Active Problems Problem Noted Date Diagnosed Date [...] as of this encounter (statuses as of 06/27/2024) Resolved Problems Problem Noted Date Diagnosed Date [...] [facility] DETECT Study: Project # [id number], Color Weigher: Antione Coburn, PhD. SUMMARY: Goal: Establish test [...] contact study staff at ; after hours Color Weigher via the [facility] hospital plisse machine operator helper . Please contact study team before resolving/deleting from patients problem list. Study phone number: [phone]. Diagnosis changed due to Research Module. Go to [employer] for study details. Encounter for examination fo r normal comparison and control in clinical research program 01/14/2019 07/14/2022 Overview: DO NOT DELETE - Micah Gutierrez [facility] Study: Project # [id number], Color Weigher: Wilfrid Guzman, MS, MPH. SUMMARY: Goal: Establish [...] contact study staff at ; after hours Color Weigher via the [facility] hospital plisse machine operator helper . - Please contact study team before resolving/deleting from patients problem list. Study phone number: [phone]. Diagnosis changed due to Research Module. Go to [employer] for study details. Bronchitis, complicated 01/26/201502/12 [...] as of this encounter (statuses as of 06/27/2024) Immunizations Name Administration Dates Next Due COVID-19 mRNA, LNP-s, No Pre serve, 2-Dose Series ([employer]) 09/04/2021,01/27/2021,01/01/2021 H1N1 2009 Influenza, IM 11/12/2009 Pneumococcal [...] as of this encounter Progress Notes * Helen Richard, Martha Patricio, [facility] - 06/27/2024 4:20 PM EDT Images from the original note were not included. Medication Therapy Disease Management [facility] - Diabetes Management Progress Note Zonia Bailey, identified by name and date of , is a 74 year old female being seen for diabetes management/education. Patient presents for return diabetic visit. DIABETES: Current diabetic medications: Jardiance 25 mg daily Decrease Glipizide ER 2.5mg with PM meal only Medication Injection Site: N/A Lifestyle: Diet: improved. Patient trying to get more protein, limit carbs. Glucose Review/SMBG: Readings obtained from patient device - Dexcom G7 Hypoglycemia: Does your blood sugar go below 70 mg/dL? Yes, has had multiple BGs< 55 (two examples copied below) prior to med adjustment Hyperglycemia symptoms present: none Recent Labs Units [...] 110/72 Blood pressure at goal: yes HYPERLIPIDEMIA: Recent Labs Units 05/26/23 1559 LDL CHOLESTEROL (DIRECT MEASURE) - [facility] mg/dL 56 Does patient have clinical ASCVD? No, is patient LDL less than 70mg/dL? Yes HEALTH MAINTENANCE REVIEW: Health Maintenance Due Topic Date Due COVID-19 Vaccine ( season) 2023 ASSESSMENT & PLAN: ICD-10-CM 1. Type 2 diabetes mellitus with hemoglobin A1c goal of less than 8.0% (HCC) E11.9 BG Readings - Blood sugars controlled. Patient's sugars are very well controlled and however going a little low. Patient needs BGs controlled for knee surgery. Medications - Reviewed current regimen, patient is adherent to regimen. Will continue current regimen. Diet, Exercise, Lifestyle - No significant lifestyle changes since last visit. Discussed with patient ensuring she's getting enough protein. Patient is agreeable to SMBG with DexcomG7 CGM. Patient aware to contact clinic if any hypoglycemia before next visit. MEDICATION CHANGES: no change Diabetic Medications: Jardiance 25 mg daily Glipizide ER 2.5mg with PM meal only HEALTH MAINTENANCE INTERVENTIONS: Labs: Ordered & Scheduled: HgA1c due to concern for inaccurate last lab. Immunizations: Up to Date Foot Exam: Up to Date Eye Exam: Up to Date Annual Wellness Visit: Up to Date FOLLOW UP: Return to clinic in 4 weeks or sooner as needed. I spent a total of 30-39 minutes (exact time 30 mins) on the date of service in preparation, delivery, and documentation of the care provided to Zonia Bailey excluding any time spent in the performance of separately billed services. Martha Carr [facility] Clinical Pharmacist - Track Moving Machine Operator Medication Therapy Management Clinic 06/27/2024, 4:20 PM documented in this encounter Plan of Treatment Upcoming Encounters Date Type Department Care Team (Late st Contact Info) Description 06/28/2024 10:00 AM EDT Office Visit General Surgery, [facility] [address] [facility] [place] [address] Isela Veras MD [address] [facility] [place] [address] 07/01/2024 12:30 PM EDT Office Visit Gastroenterology, [facility] [address] [facility] [place] [address] Adelaide Bell CRNP [address] [place] [address] 07/24/2024 11:30 AM EDT Office Visit Ophthalmology, [place] [address] [place] [address] Avtar Patel MD [address] [place] [address] 08/06/2024 11:00 AM EDT Nutrition Services Nutrition Services [address] [place] [address] Mercedez Alcantar RDN 106 [place] [address] 03/21/2025 11:00 AM EDT Nurse Only Ancillary [address] [place] [address] College, Nurse Annual Wellness Visit [address] [place] [address] Pending Results Name Type Priority Associated Diagnoses Date /Time HEMOGLOBIN A1C Lab Routine Type 2 diabetes mellitus with hemoglobin A1c goal of less than 8.0% ([facility]) 06/27/2024 12:11 PM EDT BASIC METABOLIC PANEL Lab Routine Type 2 diabetes mellitus with hemoglobin A1c goal of less than 8.0% (HCC) 06/27/2024 12:11 PM EDT Scheduled Orders Name Type Priority Associated Diagnoses Orde r Schedule HEMOGLOBIN A1C Lab Routine Type 2 diabetes mellitus with hemoglobin A1c goal of less than 8.0% (HCC) Expected: 06/27/2024 (Approximate), Expires: 06/27/2025 BASIC METABOLIC PANEL Lab Routine Type 2 diabetes mellitus with hemoglobin A1c goal of less than 8.0% (HCC) Expected: 06/27/2024 (Approximate), Expires: 06/27/2025 LIPID PANEL WITH DIRECT LDL IF TG IS HIGH Lab Routine Type 2 diabetes mellitus with hemoglobin A1c goal of less than 8.0% (HCC) Expected: 06/27/2024, Expires: 06/27/2025 Scheduled Procedures Name Priority Associated Diagnoses Date/Ti [...] this encounter Medical Devices Implanted Type Area Operator Control Room Device Identifier Shelf Expiration Date Model / Serial / Lot Lens 19.0 Sn60wf - [id number] - [id number] Implanted:Qty: 1 on 09/16/2020 by Avtar Patel MD at OR [facility] Right: Eye WEST : SURGICAL SN60WF.190 / [id number] / Lens 19.5 Sn60wf - [id number] Implanted:Qty: 1 on 02/03/2021 by Avtar Patel MD at OR [facility] Left: Eye WEST : SURGICAL 12/18/2024 SN60WF.1 95 / / [id number] documented as of this encounter Visit Diagnoses Diagnosis Type 2 diabetes mellitus with hemoglobin A1c goal of less than 8.0% ([facility])- Primary documented in this encounter Care Teams Retail Clerk Relationship Specialty Start Date End Date Narinder Milton DO [address] [place] [address] PCP - General Internal Medicine 04/25/24 documented as of this encounter
--- OUTSIDE RECORDS SUMMARY | 2024-07-22 08:34 | External Medical Summary ---
Author Name Unknown Address Unknown Organization [id number]:[facility] [address] [place] [address] Laboratory Report Ordering Provider Test Date Status DANIELA MOTT 06/27/2024 12:11:36 Final Observation Date Value Abnormality Reference (Units ) Status BUN 06/27/2024 12:11:36 16 6-20 (mg/dL) Final Creatinine 06/27/2024 12:11:36 0.8 0.5-1.0 (mg/dL) Final Glomerular filtration rate/1.73 sq M.predicted [Volume Rate/Area] in Serum, Plasma or Blood by Creatinine-based formula (CKD-EPI) 06/27/2024 12:11:36 82 >=60 (mL/min) Final eGFR is calculated based on the CKD-EPI 2020 equation. Sodium 06/27/2024 12:11:36 140 135-146 (m mol/L) Final Potassium 06/27/2024 12:11:36 3.7 3.5-5.1 (m mol/L) Final Cl 06/27/2024 12:11:36 100 98-107 (mm ol/L) Final CO2 06/27/2024 12:11:36 29 22-32 (mmo l/L) Final Anion gap 06/27/2024 12:11:36 11 7-15 (mmol /L) Final Glucose 06/27/2024 12:11:36 88 70-120 (mg /dL) Final Calcium 06/27/2024 12:11:36 9.9 8.4-10.2 ( mg/dL) Final Performing Location [facility] [place] - [address] [place] [address]
--- OUTSIDE RECORDS SUMMARY | 2024-07-22 08:34 | External Medical Summary ---
Author Name Unknown Address Unknown Organization [id number]:[facility] [place] - [facility] [address] [facility] [address] Laboratory Report Ordering Provider Test Date Status PANTERASUSANNIMA MORGAN 06/27/2024 12:11:36 Final Observation Date Value Abnormality Reference (Units ) Status HbA1C 06/27/2024 12:11:36 7.5 Above high normal 4. 0-5.6 (%) Final The use of HbA1c to monitor glycemic status is based on normal hemoglobin and HbA composition. This test should not be used in patients with abnormal hemoglobin that affects the half life of the red blood cell or the in vivo glycation rates. Glucose, estimated average 06/27/2024 12:11:36 169 Above high normal <126 (mg/dL) Avila quezada Performing Location [facility] [place] - [address] [facility] [address]
--- OUTSIDE RECORDS SUMMARY | 2024-07-22 08:34 | External Medical Summary | Summary of Care ---
Author Name Unknown Organization [facility] Address [address] [place] [address] Phone [phone] Care Team Providers Care Deposit Clerk Name Role Phone Narinder Milton DO Primary Care Provider [phone] Reason for Visit * Reason Comments Follow Up Encounter Details Date Type Department Care Team (Latest Contact Info) Description 06/20/2024 11:40 AM EDT Office Visit Family Practice [address] [place] [address] [address] [place] [address] Narinder Milton DO [address] [place] [address] Primary osteoarthritis of left knee*; Type 2 diabetes mellitus with hemoglobin A1c goal of less than 8.0% ([facility]); Hypertensive heart disease without heart failure; Severe episode of recurrent major depressive disorder, without psychotic features ([facility]); Hypothyroidism due to acquired atrophy of thyroid; [...] as of this encounter (statuses as of 06/24/2024) Medications Medication Sig Dispensed Refills Start Date [...] Active traZODone HCl 50 MG Oral Tablet (Desyrel)Indications:Mod erate episode of recurrent major depressive disorder (HCC) Take 1 Tablet by mouth at bedtime. 90 Tablet 3 3 Active Additional Information Patient not taking.Reported on 06/20/2024 Latanoprost 0.005 % Ophthalmic Solution (Xalatan)Indications:[place] johana [...] hemoglobin A1c goal of less than 8.0% ([facility]) Take 1 Tablet by mouth [...] Capsule 2 3 024 Discontin ued(Refil l) Atorvastatin Calcium 20 MG Oral Tablet (Lipitor)Indications:Dys lipidemia, goal LDL below 160 TAKE ONE TABLET BY MOUTH EVERY MORNING 100 Tablet 1 4 024 Discontin ued(Refil l) Hospital, Clinic, or Other Facility Administered Medication Ordered Dose Route Frequency Start Date End Date Status albuterol (PROVENTIL HFA) inhaler 4 PuffIndications:COPD, severity to be determined (HCC) 4 Puff IN Q4H PRN 09/08/2017 Active documented as of this encounter (statuses as of 06/24/2024) Active Problems Problem Noted Date Diagnosed Date [...] as of this encounter (statuses as of 06/24/2024) Resolved Problems Problem Noted Date Diagnosed Date [...] 01/14/2019 06/15/2020 Overview: DO NOT DELETE [facility] DETECT Study: Project # [id number], Vice President Of Consulting Services: Antione Coburn, PhD. SUMMARY: Goal: Establish test [...] contact study staff at ; after hours Vice President Of Consulting Services via the [facility] hospital currency machine operator . Please contact study team before resolving/deleting from patients problem list. Study phone number: [phone]. Diagnosis changed due to Research Module. Go to Snapshot for study details. Encounter for examination fo r normal comparison and control in clinical research program 01/14/2019 07/14/2022 Overview: DO NOT DELETE - [facility] DETECT Study: Project # [id number], Vice President Of Consulting Services: Wilfrid Guzmna, MS, MPH. SUMMARY: Goal: Establish test characteristics [...] contact study staff at ; after hours Vice President Of Consulting Services via the [facility] hospital currency machine operator . - Please contact study team before resolving/deleting from patients problem list. Study phone number: [phone]. Diagnosis changed due to Research Module. Go [...] as of this encounter (statuses as of 06/24/2024) Immunizations Name Administration Dates Next Due COVID-19 mRNA, LNP-s, No Pre serve, 2-Dose Series (Quat-E) 09/04/2021,01/27/2021,01/01/2021 H1N1 2009 Influenza, IM 11/12/2009 Pneumococcal [...] encounter Progress Notes * Narinder Milton, - 06/20/2024 12:27 PM EDT SUBJECTIVE: Zonia [...] of major depressive disorder without psychotic features ([facility]) 03/22/2005 Disorder of eye movements DVD DM [...] hemoglobin A1c goal of less than 8.0% ([facility]) 04/28/2010 ICD-10 update of inactive term Vitamin B 12 deficiency 09/19/2022 Vitamin D deficiency 01/12/2022 Past Surgical History: Procedure Laterality Date COLONOSCOPY, DIAGNOSTIC (RECTUM) 07/18/2013 COLONOSCOPY FLEXIBLE PROXIMAL DIAGNOSTIC performed by Sarah Orlando DO at [facility]-hyperplastic polyp- repeat in 10 years COLONOSCOPY, DIAGNOSTIC (RECTUM) 09/01/2020 adenomatous polyps, diverticulosis, repeat 5 yrs / COLONOSCOPY FLEXIBLE PROXIMAL DIAGNOSTIC performed by Sarah Orlando DO at [facility] EGD, FLEXIBLE, DIAGNOSTIC 07/18/2013 UPPER GI ENDOSCOPY DIAGNOSTIC performed by Sarah Orlando DO at [facility]- Neg for Singleton's EGD, FLEXIBLE, DIAGNOSTIC 07/03/2014 mild inflammation, + H pylori EGD, FLEXIBLE, DIAGNOSTIC 07/03/2014 ESOPHAGOGASTRODUODENOSCOPY (EGD), FLEXIBLE, TRANSORAL, DIAGNOSTIC performed by Moshe Kemp MD at [facility] EGD, FLEXIBLE, DIAGNOSTIC 09/01/2020 hiatal hernia / ESOPHAGOGASTRODUODENOSCOPY (EGD), FLEXIBLE, TRANSORAL, DIAGNOSTIC performed by Sarah Orlando DO at [facility] EGD, FLEXIBLE, DIAGNOSTIC 09/23/2022 normal scope, small HH / no specimens collected / ESOPHAGOGASTRODUODENOSCOPY (EGD), FLEXIBLE, TRANSORAL, DIAGNOSTIC performed by Sarah Orlando DO at [facility] EGD, FLEXIBLE, DIAGNOSTIC N/A 2024 small HH/Yusef fundoplication/PIMENTEL show acid reflux/ESOPHAGOGASTRODUODENOSCOPY (EGD), FLEXIBLE, TRANSORAL, DIAGNOSTIC performed by Robbi Spears MD at [facility] EGD, FLEXIBLE, W/BIOPSY 07/27/2007 mild gastritis normal esophagus ESOPH FUNCT/REFLUX TEST,MUCOSAL PH N/A 2024 GASTRO REFLUX TEST WITH MUCOSAL TELEMETRY PH ELECTRODE performed by Robbi Spears MD at [facility] ESOPHAGOGASTRIC FUNDOPLASTY 07/05/2006 Laparoscopic Yusef Fundoplication By Dr. Garcia INFORMATION Strabismus surgery x 2 INFORMATION 03/30/2011 right rotator cuff repair LAP;FULGURATION OVIDUCTS 11/13/1982 Tubal Ligation,Laparoscopic LASER TRABECULOPLASTY 12/24/1991 ALT OD OTHER Bilateral carpal tunnel hand surgery [place] ARTHROPLASTY GLENOHUMERAL JOINT TOTAL SHOULDER Left 11/29/2021 AK XCAPSL CTRC RMVL INSJ IO LENS PROSTH W/O ECP 02/03/2021 OS [place] SN60WF 19.5 REMOVAL OF TONSILS, UNDER AGE 12 REMOVE CATARACT, INSERT LENS PROSTH 09/16/2020 OD [place] SN60WF 19.0 REMOVE CATARACT, INSERT LENS PROSTH Right 09/16/2020 EXTRACAPSULAR CATARACT REMOVAL WITH INTRAOCULAR LENS performed by Avtar Patel MD at OR [facility] REMOVE CATARACT, INSERT LENS PROSTH Left 02/03/2021 EXTRACAPSULAR CATARACT REMOVAL WITH INTRAOCULAR LENS performed by Avtar Patel MD at OR [facility] REMOVE VULVA GLAND/LESION Review of patient's [...] 11:30 AM EDT Telemedicine Family Practice [address] [facility] [address] [place] [address] College, Pharmacist [address] [place] [address], [place] [address] 06/28/2024 8:20 AM EDT Office Visit Family Practice [address] [facility] [address] [place] [address] Narinder Milton, [address] [place] [address] 06/28/2024 10:00 AM EDT Office Visit General Surgery, [facility] [address] [place] [address] Isela Veras MD [address] [place] [address] 07/01/2024 12:30 PM EDT Office Visit Gastroenterology, [facility] [address] [place] [address] Adelaide Bell CRNP [address] [place] [address] 07/24/2024 11:30 AM EDT Office Visit Ophthalmology, [place] [address] [facility] [place] [address] Avtar Patel MD [address] [place] [address] 08/06/2024 11:00 AM EDT Nutrition Services Nutrition Services [address] [address] Mercedez Alcantar RDN [address] [place] [address] 03/21/2025 11:00 AM EDT Nurse Only Ancillary [address] [address] College, Nurse Annual Wellness Visit [address] [address] Scheduled Procedures Name Priority Associated Diagnoses Date/Ti [...] this encounter Medical Devices Implanted Type Area Motion Picture Printer Device Identifier Shelf Expiration Date Model / Serial / Lot Lens 19.0 Sn60wf - [id number] - [id number] Implanted:Qty: 1 on 09/16/2020 by Avtar Patel MD at OR [facility] Right: Eye [place] : SURGICAL SN60WF.190 / [id number] / Lens 19.5 Sn60wf - [id number] Implanted:Qty: 1 on 02/03/2021 by Avtar Patel MD at OR [facility] Left: Eye [place] : SURGICAL 12/18/2024 SN60WF.1 95 / / [id number] documented as of this encounter Visit [...] hypertension documented in this encounter Care Teams Deposit Clerk Relationship Specialty Start Date End Date Narinder Milton DO [address] [place] [address] PCP - General Internal Medicine 04/25/24 documented as of this encounter
--- OUTSIDE RECORDS SUMMARY | 2024-07-22 08:34 | External Medical Summary | Summary of Care ---
Author Name Unknown Organization [facility] Address [address] [place] [address] Phone [phone] Care Team Providers Care Livestock Trader Name Role Phone Narinder Milton DO Primary Care Provider [phone] Reason for Visit * Reason Comments NEW PATIENT Gastric reflux * Evaluate & Treat - Unlimited Visits (Within 30 days (routine)) - Authorized Specialty Diagnoses / Procedures Referred By Rekha yanez Referred To Contact General Surgery Diagnoses Gastroesophageal reflux disease, unspecified whether esophagitis present Adelaide Bell CRNP [address] [place] [address] Referral ID Status Reason Start Date Expiration Date Visits Requested Visits Authorized [id number] Authorized Specialty Services Required 05/20/2024 [id number] Encounter Details Date Type Department Care Team (Latest Contact Info) Description 06/28/2024 10:00 AM EDT Office Visit General Surgery, [facility] [address] [place] [address] Isela Veras MD [address] [place] [address] Pharyngoesophageal dysphagia*; Esophagogastric junction outflow obstruction; Hypercontractile esophagus; Halitosis; History of Yusef fundoplication Allergies Active Allergy Reactions Criticality Noted Date [...] the morning. 100 Capsule 3 4 Active traZODone HCl 50 MG Oral Tablet (Desyrel)Indications:Mod erate episode of recurrent major depressive disorder (HCC) Take 1 Tablet by mouth at bedtime. 90 Tablet 3 3 024 Discontin ued(Medic ation List Clean Up) predniSONE 20 MG Oral Tablet (Deltasone)Indications:B ronchitis, [...] 06/15/2020 Overview: DO NOT DELETE [facility] DETECT Study: Project # [id number], Application Security Consultant: Antione Coburn, PhD. SUMMARY: Goal: Establish test [...] contact study staff at ; after hours Application Security Consultant via the [facility] hospital graining press operator . Please contact study team before resolving/deleting from patients problem list. Study phone number: [phone]. Diagnosis changed due to Research Module. Go to Snapshot for study details. Encounter for examination fo r normal comparison and control in clinical research program 01/14/2019 07/14/2022 Overview: DO NOT DELETE [facility] Study: Project # [id number], Application Security Consultant: Wilfrid Guzman, MS, MPH. SUMMARY: Goal: Establish [...] contact study staff at ; after hours Application Security Consultant via the [facility] hospital graining press operator . - Please contact study team before resolving/deleting from patients problem list. Study phone number: [phone]. Diagnosis changed due to Research Module. Go [...] mRNA, LNP-s, No Pre serve, 2-Dose Series ([employer] 09/04/2021,01/27/2021,01/01/2021 H1N1 2009 Influenza, IM 11/12/2009 PPD [...] Sign Reading Time Taken Comments Blood Pressure 140/65 06/28/2024 9:59 AM EDT Pulse 67 06/28/2024 9:59 AM EDT Temperature 36.9 C (98.4 F) 06/28/2024 9:59 AM ED T Respiratory Rate - - Oxygen Saturation - - Inhaled Oxygen Concentration - - Weight 69.4 kg (152 lb 14.4 oz) 06/28/2024 9:59 AM EDT Height - - Body Mass Index 26.66 06/20/2024 11:53 AM EDT documented in this encounter Progress Notes * Isela Veras MD - 06/28/2024 10:00 AM EDT Images from the original note were not included. [facility] "[facility]" AT [facility] CLINIC VISIT 06/27/2024 Zonia Sandovalgillian [id number] 74 year old PCP: Narinder Milton, DO Consult requested by: SETH Garner CC: Zonia Bailey comes to see me in [facility] ("[facility]") complaining of refractory gastroesophageal reflux disease. HPI: This patient has suffered from Heartburn up to cervical esophagus, Nocturnal heartburn with gagging and/or choking, Dysphagia, Gas bloating, and Regurgitation. These have been present since her surgery in 2006. Patient had Yusef in [address] Garcia at [facility] in [place] she states. She stated was done for GERD and Singleton's esophagus but not sure if she had a hiatal hernia as well. Does not recall her work-up. Did not have dysphagia prior to surgery but developedsevere dysphagia afterward. She followed up with her surgeon who attempted several medications it appears which included reglanand endoscopic dilations. She was also evaluated by GI, Dr. Urena, for several years and hadmanometry performed in 2013. 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 She had several dilations by GI and felt some relief after these dilations but only for about a month. She states surgical options including reversal of the fundoplication was mentioned to her but not offered. In the past several years she has been following lifestyle and dietary modifications to cope with her symptoms but these are not having as much of impact as they used to. She eats very small portions and chews her food well. She also avoids trigger foods suchas excessive coffee, carbonated beverages, smoking, NSAID use, and alcohol. Her primary symptoms isthe dysphagia which can be very unpredictable. It can happen every day for a week or once or twice a week. Fortunately, she has not had significant weight loss from the dsyphagia. Her other symptoms such as the gagging/choking, regurgitation, and severe halitosis as not as bothersome to her as the dyphagia. She feels either liquids or solids can get "stuck" and won't pass through unless she makesher self vomit or she projectile vomits. She started following up with a new GI provider who placedher on Pepcid and Protonix and a referral to [facility]. Of note, she was recently on Ozempic for some time for Diabetes but she is off of that now especially since it worsened her GI symptoms. Symptoms also include: Heartburn Score: 2 - Moderate - reasonably well controlled with ongoing treatment Gas Bloat Score: 1 - mild, episodic Dysphagia Score: 4 - intolerance to liquids and solids Regurgitation Score: 3 - severe - contant regurgitation without or with aspiration Nausea/Vomiting Score: 1 - minimal/episodic Diarrhea: 0 - none Extra-esophageal Manifestations: Chronic sore throat or mouth: 2 - moderate symptoms Ear pain: 0 - no symptoms Sinusitis: 0 - no symptoms Hallitosis: 3 - severe symptoms - interferes with daily life Poor dentition: 0 - no symptoms Reflux Symptom Index Evaluation (0-5): Hoarseness or problem with voice: 3 Throat Clearin Excess throat mucus/post-nasal drip: 0 Difficulty swallowing food, liquid, pills: 5 Coughing after eating or lying down: 3 Breathing difficulties or choking episodes: 3 Troublesome or annoying cough: 1 Globus sensation: 3 Heartburn, chest pain, indigestion, or stomach acid coming up: 5 RSI Total Score: 25 GERD-HRQL Evaluation (0-5) Global heartburn severity: 3 Supine heartburn: 3 Upright heartburn: 3 Post-parandial heartburn: 3 Does heartburn require dietary modification? 3 Does heartburn awaken from sleep? 4 Difficulty swallowin Pain with swallowin Feelings of gassiness or bloatin Impact of taking medication on daily life:5 GERD-HRQL score: 35 QOLRAD completed: yes Does this patient have a suspected or established diagnosis of Achalasia? No Burping or belching NO Additionally, she experiences Dry cough, Dyspnea with exertion, Sputum, and constipation. This patient denies any history of Dyspnea at rest, Fatigue, Hematemesis, Hematochezia, Hemoptysis,Melena, Productive cough, Wheezing, diarrhea, unexpected weight loss, exertional chest pain, and chest pain at rest. Most recently, she has been taking Pepcid, Protonix for the past few months. These medications haveresulted in no significant change in her symptoms. In the past, she has taken Other OTC for GERD symptoms. She stopped taking this because she had no improvement in her symptoms. Is this patient on PPI therapy and using supplemental Calcium citrate? YES. The symptoms improve when she eats slowly, small bites, and chews her food well. DIETARY HISTORY: Regular diet and Cut and chew foods to the consistency of applesauce. Eat slowly and with plenty of liquids. Previous DIAGNOSTIC TESTS include the following: Echo 05/29/24: EGD 04/22/24 PIMENTEL 04/22/24 UGI 10/24/23 HRM 08/01/14 Current Outpatient Medications Medication Sig Dispense Refill ASPIRIN 81 MG PO CHEW Take 1 Tablet by mouth in the morning. 0 Vitamin D-3 25 MCG (1000 UT) Oral Capsule Take 2 Capsules by mouth in the morning. 100 Capsule 3 Vitamin B 12 500 MCG Oral Tablet Take 500 mcg by mouth in the morning. Latanoprost 0.005 % Ophthalmic Solution (Xalatan) Instill [...] every 6 hours as needed for Pain,Moderate. Atorvastatin Calcium 20 MG Oral Tablet (Lipitor) [...] mouth in the morning. 100 Capsule 3 Current Facility-Administered Medications Medication Dose Route Frequency Provider Last Rate Last Admin albuterol (PROVENTIL HFA) inhaler 4 Puff 4 Puff Inhalation Q4H PRN Johana Antonio MD 4 Puff at 09/20/17 0927 Allergies as of 06/28/2024 - Reviewed 06/28/2024 Allergen Reaction Noted Betaxolol 01/08/1997 Carbamazepine and analogs Unknown 04/01/1999 Levobunolol 01/08/1997 Levofloxacin Muscle pain 03/14/2011 Penicillins 04/01/1999 Simvastatin Unknown 09/16/2004 Sulfa antibiotics Unknown 04/01/1999 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 (HCC) 03/22/2005 Disorder of eye movements DVD DM [...] hemoglobin A1c goal of less than 8.0% ([facility]) 04/28/2010 ICD-10 update of inactive term Vitamin B 12 deficiency 09/19/2022 Vitamin D deficiency 01/12/2022 Past Surgical History: Procedure Laterality Date COLONOSCOPY, DIAGNOSTIC (RECTUM) 07/18/2013 COLONOSCOPY FLEXIBLE PROXIMAL DIAGNOSTIC performed by Sarah Orlando DO at END[facility]COPY [facility]-hyperplastic polyp- repeat in 10 years COLONOSCOPY, DIAGNOSTIC (RECTUM) 09/01/2020 adenomatous polyps, diverticulosis, repeat 5 yrs / COLONOSCOPY FLEXIBLE PROXIMAL DIAGNOSTIC performed by Sarah Orlando DO at ENDOSCOPY [facility] EGD, FLEXIBLE, DIAGNOSTIC 07/18/2013 UPPER GI ENDOSCOPY DIAGNOSTIC performed by Sarah Orlando DO at ENDOSCOPY [facility]- Neg for Singleton's EGD, FLEXIBLE, DIAGNOSTIC 07/03/2014 mild inflammation, + H pylori EGD, FLEXIBLE, DIAGNOSTIC 07/03/2014 ESOPHAGOGASTRODUODENOSCOPY (EGD), FLEXIBLE, TRANSORAL, DIAGNOSTIC performed by Moshe Kemp MD at ENDOSCOPY [facility] EGD, FLEXIBLE, DIAGNOSTIC 09/01/2020 hiatal hernia / ESOPHAGOGASTRODUODENOSCOPY (EGD), FLEXIBLE, TRANSORAL, DIAGNOSTIC performed by Sarah Orlando DO at [facility]OSCOPY [facility] EGD, FLEXIBLE, DIAGNOSTIC 09/23/2022 normal scope, small HH / no specimens collected / ESOPHAGOGASTRODUODENOSCOPY (EGD), FLEXIBLE, TRANSORAL, DIAGNOSTIC performed by Sarah Orlando DO at [facility]OSCOPY [facility] EGD, FLEXIBLE, DIAGNOSTIC N/A 2024 small HH/Yusef fundoplication/PIMENTEL show acid reflux/ESOPHAGOGASTRODUODENOSCOPY (EGD), FLEXIBLE, TRANSORAL, DIAGNOSTIC performed by Robbi Spears MD at ENDOSCOPY [facility] EGD, FLEXIBLE, W/BIOPSY 07/27/2007 mild gastritis normal esophagus ESOPH FUNCT/REFLUX TEST,MUCOSAL PH N/A 2024 GASTRO REFLUX TEST WITH MUCOSAL TELEMETRY PH ELECTRODE performed by Robbi Spears MD at ENDOSCOPY [facility] ESOPHAGOGASTRIC FUNDOPLASTY 07/05/2006 Laparoscopic Yusef Fundoplication By Dr. Garcia INFORMATION Strabismus surgery x 2 INFORMATION 03/30/2011 right rotator cuff repair LAP;FULGURATION OVIDUCTS 11/13/1982 Tubal Ligation,Laparoscopic LASER TRABECULOPLASTY 12/24/1991 ALT OD OTHER Bilateral carpal tunnel hand surgery [place] ARTHROPLASTY GLENOHUMERAL JOINT TOTAL SHOULDER Left 11/29/2021 [place] XCAPSL CTRC RMVL INSJ IO LENS PROSTH W/O ECP 02/03/2021 OS [place] SN60WF 19.5 REMOVAL OF TONSILS, UNDER AGE 12 REMOVE CATARACT, INSERT LENS PROSTH 09/16/2020 OD [place] SN60WF 19.0 REMOVE CATARACT, INSERT LENS PROSTH Right 09/16/2020 EXTRACAPSULAR CATARACT REMOVAL WITH INTRAOCULAR LENS performed by Avtar Patel MD at OR [facility] REMOVE CATARACT, INSERT LENS PROSTH Left 02/03/2021 EXTRACAPSULAR CATARACT REMOVAL WITH INTRAOCULAR LENS performed by Avtar Patel MD at OR [facility] REMOVE VULVA GLAND/LESION Psychosocial Psychosocial Impairment NO History Depression Moderate with significant impairment, treatment indicated Currently on treatment. Confirmed Mental Health Diagnosis Bipolar Disorder and Anxiety/panic disorder EtOH Use currently less than 2 drinks per month Tobacco Use never smoked Substance Abuse None EMPLOYMENT; Retired. Family History Problem Relation Name Age of Onset Mental Disorder Mother Diabetes Mother Heart Disorder Mother 63 [place] Stroke Mother Hypertension Mother Depression Mother Psychosis Mother Heart Disorder Father 72 [place] Hypertension Father Hypertension Sister Tatyana Diabetes Sister Tatyana Hyperlipidemia Sister Tatyana Arthritis Sister Tatyana Mental Disorder Sister Esthela Hyperlipidemia Sister Esthela Hypertension Sister Esthela Cancer Sister Esthela bone cancer Heart Disorder Sister Esthela VA Heart murmur Sister Esthela 0 Diabetes Brother Huy Hyperlipidemia Brother Huy Hypertension Brother Huy Heart Disorder Brother Huy VA Cancer Grandmother (Paternal) Other (Other) Daughter Ana migraines Musculo-skeletal Disorder Daughter Ana Arthritis Daughter Chantel Depression Daughter Chantel Asthma Daughter Chantel Diabetes Son Dami prediabetic Hyperlipidemia Son Dami Hypertension Son Dami Hypertension Son Antony Heart Disorder Aunt (Maternal) [place] Breast Cancer No significant family history REVIEW OF SYSTEMS: Complains of ... change in hearing or ear pain, hoarseness, temporary blindness, significant headaches, dyspnea on exertion, memory problems, diabetes mellitus, and thryoid disorders Does not experience ... fevers, chills, rashes/itching, change in hair or nails, changes in vision/double vision, dizziness, postnasal drip, chronic sore throat, dysarthria, extremity paresthesia, weakness or paralysis, chest pain at rest, exertional chest pain, heart racing/arrhythmia, shortness of breath, productive cough, hemoptysis, melanic stool, hematechezia, hematemesis, hematuria, dysuria, anxiety, depression, excessive sweating, blood clotting abnormalities, h/o deep venous thrombosis or pulmonary embolism, and easy bruising or bleeding PHYSICAL EXAM: Blood pressure 140/65, pulse 67, temperature 36.9 C (98.4 F), weight 69.4 kg (152 lb 14.4 oz), last menstrual period 10/24/2000, not currently ., Body mass index is 26.66 kg/m. General: Alert and appropriate. Well-appearing and in no distress Skin: Warm, dry, anicteric Lymphatics: No neither Supraclavicular nor Cervical nor Infraclavicular adenopathy HEENT: PERRLA, EOMI, Sclera clear, anicteric, Oropharynx clear, no lesions, Neck supple with midline trachea, and Trachea midline Chest/Lungs: Clear Auscultation and No Wheezes Scars include None Breast: Not examined Cardiovascular: Cor RRR and No murmurs Abdomen: No Distention, No Hernias, No Masses, No Organomegaly, and No Tenderness Scars include Laparoscopic upper abdomen BILATERAL Rectal/Genital: Not examined Neurologic: No motor abnormalities, No sensory abnormalities, and Cranial Nerves intact Musculoskeletal: Normal ROM and Normal strength and tone Extremities: Warm and well perfused, No cyanosis, No clubbing, and No edema ECOG Performance Status (1) Restricted in physically strenuous activity, ambulatory and able to do work of light nature Currently lives independently at home Impression: 1) Dysphagia The primary symptoms that this patient would like to see resolution or improvement of are Nocturnalheartburn with gagging and/or choking, Dysphagia, Regurgitation, and projectile vomiting 2) Esophageal Reflux 3) History of Yusef fundoplication 4) Hypercontractile esophagus Our PLAN is to Recommend the following ... Continue current dietary practices: cut and chew foods well, eat small bites, and take plenty of sips of water in between bites. Do not eat within two hours of bedtime or sleeping Continue current home meds including Protonix and Pepcid Schedule to following diagnostic tests Esophageal manometry Referral to [facility] (Dr. Zarate) Referral to Dr. Conde for second opinion Path Review: None Medical Decision Making:High complexity Ms. Bailey is a pleasant 74 yo F who presents to me due to complications from her Yusef fundoplication operation performed in [address] Garcia. Since her surgery she has experienced a number of symptoms that have progressively worsened over time including dysphagia, nocturnal gagging/choking, globus sensation, severe halitosis, and food sticking that has lead to projectile vomiting and nausea. These started soon after her operation and for several years she followed with her surgeon and GI, Dr. Urena. She had a manometry performed which I personally reviewed and interpreted. 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 Shehad several interventions including medications and balloon as well as Savary dilations. Unfortunately, she found temporary relief with these but surgical options were not offered to her, although these were mentioned. For the past several the patient states she has continued to cope with her symptoms with lifestyle and dietary modifications but recently these are having less impact on her symptoms. She's here today to discuss her options. I personally reviewed and interpreted her recent PIMENTEL study and reviewed her EGD as well. Her PIMENTEL study demonstrates a borderline abnormal DeMeester score of 15.5 (normal Demeester is <14.4) but her acid exposure time was normal. Her EGD demonstrated a small hiatal hernia which was also seen on prior UGI imaging and an intact fundoplication. Therewas no mention of Singleton's esophagus which she previously had. The remainder of her EGD findings were unremarkable. We discussed her history and diagnostic imaging at great length. I explained to her that I believe her symptoms appear to be due to her Yusef fundoplication which based on her manometry seems to be causing an outflow obstruction leading to esophageal reflux and dysmotility. We discussed the treatment options for this including endoscopic and surgical. She has had balloon and Savary dilations butonly had temporary relief. Other endoscopic options include pneumatic dilation and POEM. From a surgical standpoint, her options would be reversal of her fundoplication with or without a partial wrapdepending on her esophageal function. Her UGI demonstrated a small hiatal hernia. I believe this isnot the etiology of her symptoms and therefore no intervention is necessary at this time for that. Her last manometry was performed 10 yrs ago. I advised her to repeat this study to assess her esophageal function at this time before proceeding with further intervention. She is apprehensive about surgery but is willing to consider other less invasive options such as endoscopic therapies if possible. I spoke with advanced GI, Dr. Antione Zarate, who believes she may be a candidate for pneumatic dilation and/or POEM. He agreed to see her and also agreed that her manometry should be repeated. Furthermore, I also offered her a second opinion with Dr. Conde. She and her agreed to proceed with this. Of note, she does not wish to proceed with surgery, if that is her only option, at this time as sheis scheduled to see an orthopedic surgeon soon for a knee replacement. This is her top priority at this time. All questions and concerns were addressed at this time. She and her seem to understand and at this time would like to proceed with esophageal manometry, consultation Dr. Conde and Dr. Zarate. I spent a total of 80 min on the date of service in preparation, delivery, and documentation of thecare provided to this patient excluding any time spent in the performance of separately billed services. This time was necessary to explain the complex nature of the problem and various treatment options available to me and the expected outcomes of each. Isela Veras M.D. Minimally Invasive Foregut and Bariatric Surgeon [facility] Office documented in this encounter Nursing Notes * Kasey Baker LPN - 06/28/2024 10:04 AM EDT Chief Complaint Patient presents with NEW PATIENT Gastric reflux Patient always has a burning, bad taste in her mouth and bad breath. documented in this encounter Plan of Treatment Upcoming Encounters Date Type Department Care Team (Late st Contact Info) Description 07/24/2024 11:30 AM EDT Office Visit Ophthalmology, [address] [place] [address] [facility] [place] [id number] 08/06/2024 11:00 AM EDT Nutrition Services Nutrition Services [address] [address] Mercedez Alcantar RDN [address] [place] [address] 03/21/2025 11:00 AM EDT Nurse Only Ancillary [address] [address] College, Nurse Annual Wellness Visit [address] [address] Scheduled Procedures Name Priority Associated Diagnoses Date/Ti me COLONOSCOPY FLEXIBLE PROXIMAL DIAGNOSTIC Recall History of colon polyps Scheduled Referrals Name Type Priority Associated Diagnoses Orde r Schedule SURGERY REFERRAL OP Referral Within 30 da ys (routine) Gastroesophageal reflux disease, unspecified whether esophagitis present Ordered: 05/20/2024 Health Maintenance Due Date Last Done Comments [...] this encounter Medical Devices Implanted Type Area Solar Installer Technician Device Identifier Shelf Expiration Date Model / Serial / Lot Lens 19.0 Sn60wf - [id number] - [id number] Implanted:Qty: 1 on 09/16/2020 by Avtar Patel MD at OR [facility] Right: Eye [employer] : SURGICAL SN60WF.190 / [id number] / Lens 19.5 Sn60wf - [id number] Implanted:Qty: 1 on 02/03/2021 by Avtar Patel MD at OR [facility] Left: Eye [place] : SURGICAL 12/18/2024 SN60WF.1 95 / / [id number] documented as of this encounter Visit Diagnoses Diagnosis Pharyngoesophageal dysphagia- Primary Dysphagia, pharyngoesophageal phase 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
--- OUTSIDE RECORDS SUMMARY | 2024-07-22 08:34 | External Medical Summary | Summary of Care ---
Author Name Unknown Organization [facility] Address [address] [place] [place] [address] Phone [phone] Care Team Providers Care Electric Scoop Operator Name Role Phone Narinder Milton DO Primary Care Provider [phone] Reason for Visit * Reason Comments Dosage Adjustment In Person (Anticoag Cl inic) Diabetes Education Encounter Details Date Type Department Care Team (Late st Contact Info) Description 06/20/2024 11:20 AM EDT Office Visit Family Practice 65 [facility] 293 [place] [address] College, Pharmacist [address] [address] Type 2 diabetes mellitus with hemoglobin A1c goal of less than 8.0% ([facility])* Allergies Active Allergy Reactions Criticality Noted Date [...] [facility] DETECT Study: Project # [id number], Maintenance Person: Antione Coburn, PhD. SUMMARY: Goal: Establish test [...] contact study staff at ; after hours Maintenance Person via the [facility] hoop machine operator . Please contact study team before resolving/deleting from patients problem list. Study phone number: [phone]. Diagnosis changed due to Research Module. Go to Snapshot for study details. Encounter for examination fo r normal comparison and control in clinical research program 01/14/2019 07/14/2022 Overview: DO NOT DELETE - [facility] DETECT Study: Project # [id number], Maintenance Person: Wilfrid Guzman, MS, MPH. SUMMARY: Goal: Establish [...] contact study staff at ; after hours Maintenance Person via the [facility] hospital hoop machine operator . - Please contact study team before resolving/deleting from patients problem list. Study phone number: [phone]. Diagnosis changed due to Research Module. 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 psychotic features ([facility]) 03/22/2005 Disorder of eye movements DVD DM [...] goal of less than 8.0% ([facility]) 04/28/2010 ICD-10 update of inactive term Vitamin [...] reading its side effects and brother of [place] while on it DIABETES: Current diabetic medications: HOLD Ozempic (as of 06/11/24) Jardiance 25 mg daily START Glipizide 2.5mg with AM/PM meals (Unclear in EHR why metformin was stopped in 2019) Medication Injection Site: N/A Lifestyle: Diet: Comprehensive Diet Review Meal #1: Citizen Of [place] muffin with crunchy PB with banana with canned navy beans; Or Scrambled eggs, spinach, onion, cheese Meal #2: sometimes skipping Meal #3: salad with chicken Glucose Review/SMBG: Readings per patient memory/recall: Patient is currently testing 2 times a day. Sensor glucose 57 in clinic, then 65. Patient had drank OJ to bring it up and fingerstick reading 119. Reports she had a 58 blood sugar [...] (as of 06/11/24) Jardiance 25 mg daily Decrease Glipizide ER 2.5mg with PM meal only Dexcom G7: Patient Education and Review Patient provided G7 CGM components and training manual. Reviewed the following information with patient using provided screen room operator literature: Introduced CGM and components How to set up display device Follow the onscreen instructions on pharmacy data analyst or appt to enter: Low and high [...] clinic in 1 weeks 06/27/2024 Martha Carr RPh Clinical Pharmacist - Storage Battery Inspector Medication Therapy [facility] 06/20/2024, 11:19 AM documented in this encounter Plan of Treatment Upcoming Encounters Date Type Department Care Team (Late st Contact Info) Description 06/27/2024 11:30 AM EDT Telemedicine Family Practice [address], [place] 293 [place] [address] College, Pharmacist [address] [address] 06/28/2024 8:20 AM EDT Office Visit Family Practice [address] [place] [address] Narinder Milton, 293 [place] [address] 06/28/2024 10:00 AM EDT Office Visit General Surgery, [facility] [place] 132 [facility] [place] [address] Isela Veras MD [address] [place] [address] 07/01/2024 12:30 PM EDT Office Visit Gastroenterology, [facility] [place] 132 [facility] [address] Adelaide Bell CRNP 132 [place] [address] 07/24/2024 11:30 AM EDT Office Visit Ophthalmology, [place] [address] [place] [address] Avtar Patel MD [address] [place] [address] 08/06/2024 11:00 AM EDT Nutrition Services Nutrition Services [address] [place] [address] Mercedez Alcantar RDN [address] [facility] [place] [address] 03/21/2025 11:00 AM EDT Nurse Only Ancillary [address] [address] College, Nurse Annual Wellness Visit 65 [address] [facility] 293 [place] [address] Scheduled Procedures Name Priority Associated Diagnoses Date/Ti [...] this encounter Medical Devices Implanted Type Area Pre Sales Systems Engineer Device Identifier Shelf Expiration Date Model / Serial / Lot Lens 19.0 Sn60wf - [id number] - [id number] Implanted:Qty: 1 on 09/16/2020 by Avtar Patel MD at OR [facility] Right: Eye WEST : SURGICAL SN60WF.190 / [id number] / Lens 19.5 Sn60wf - [id number] Implanted:Qty: 1 on 02/03/2021 by Avtar Patel MD at OR [facility] Left: Eye WEST : SURGICAL 12/18/2024 SN60WF.1 95 / / [id number] documented as of this encounter Visit Diagnoses Diagnosis Type 2 diabetes mellitus with hemoglobin A1c goal of less than 8.0% (HCC)- Primary documented in this encounter Care Teams Electric Scoop Operator Relationship Specialty Start Date End Date Narinder Milton DO [address] [place] [address] PCP - General Internal Medicine 04/25/24 documented as of this encounter
--- OUTSIDE RECORDS SUMMARY | 2024-07-22 08:34 | External Medical Summary | Summary of Care ---
Author Name Unknown Organization [facility] Address [address] [place] [address] Phone [phone] Care Team Providers Care Cardiothoracic Physiotherapist Name Role Phone Narinder Milton DO Primary Care Provider [phone] Reason for Visit * Reason Comments NEW PATIENT Gastric reflux * Evaluate & Treat - Unlimited Visits (Within 30 days (routine)) - Authorized Specialty Diagnoses / Procedures Referred By Rekha yanez Referred To Contact General Surgery Diagnoses Gastroesophageal reflux disease, unspecified whether esophagitis present Adelaide Bell CRNP [address] [facility] [address] Referral ID Status Reason Start Date Expiration Date Visits Requested Visits Authorized [id number] Authorized Specialty Services Required 05/20/[phone] Encounter Details Date Type Department Care Team (Latest Contact Info) Description 06/28/2024 10:00 AM EDT Office Visit General Surgery, [facility] [address] [facility] [place] [address] Isela Veras MD [address] [place] [address] Pharyngoesophageal dysphagia*; Esophagogastric junction outflow [...] 01/14/2019 06/15/2020 Overview: DO NOT DELETE [facility] DETECT Study: Project # [id number], Knurling Machine Operator: Antione Coburn, PhD. SUMMARY: Goal: [...] contact study staff at ; after hours Knurling Machine Operator via the [facility] frame pulley mortising machine operator . Please contact study team before resolving/deleting from patients problem list. Study phone number: [phone]. Diagnosis changed due to Research Module. Go to Snapshot for study details. Encounter for examination fo r normal comparison and control in clinical research program 01/14/2019 07/14/2022 Overview: [facility] Study: Project # [id number], Knurling Machine Operator: Wilfrid Guzman, MS, MPH. SUMMARY: [...] contact study staff at ; after hours Knurling Machine Operator via the [facility] frame pulley mortising machine operator . - Please contact study team before resolving/deleting from patients problem list. Study phone number: [phone]. Diagnosis changed due to Research Module. Go [...] mRNA, LNP-s, No Pre serve, 2-Dose Series ([employer]) 09/04/2021,01/27/2021,01/01/2021 H1N1 2009 Influenza, IM 11/12/2009 PPD [...] from the original note were not included. [facility]" AT [facility] CLINIC VISIT 06/27/2024 Zonia Sandovalgillian [id number] 74 year old PCP: Narinder Milton, DO Consult requested by: SETH Garner CC: Zonia Bailey comes to see me in [facility]") complaining of refractory gastroesophageal reflux disease. HPI: This patient has suffered from Heartburn up to cervical esophagus, Nocturnal heartburn with gagging and/or choking, Dysphagia, Gas bloating, and Regurgitation. These have been present since her surgery in 2006. Patient had Yusef in [address] Garcia at [facility] in [place] she states. She stated was done for [...] by Sarah Orlando DO at END[facility]COPY [facility]-hyperplastic polyp- repeat in 10 years COLONOSCOPY, DIAGNOSTIC (RECTUM) 09/01/2020 adenomatous polyps, diverticulosis, repeat 5 yrs / COLONOSCOPY FLEXIBLE PROXIMAL DIAGNOSTIC performed by Sarah Orlando DO at ENDOSCOPY [facility] EGD, FLEXIBLE, DIAGNOSTIC 07/18/2013 UPPER GI ENDOSCOPY DIAGNOSTIC performed by Sarah Orlando DO at ENDOSCOPY [facility]- Neg for Singleton's EGD, FLEXIBLE, DIAGNOSTIC 07/03/2014 mild inflammation, + H pylori EGD, FLEXIBLE, DIAGNOSTIC 07/03/2014 ESOPHAGOGASTRODUODENOSCOPY (EGD), FLEXIBLE, TRANSORAL, DIAGNOSTIC performed by Moshe Kemp MD at ENDOSCOPY [facility] EGD, FLEXIBLE, DIAGNOSTIC 09/01/2020 hiatal hernia / ESOPHAGOGASTRODUODENOSCOPY (EGD), FLEXIBLE, TRANSORAL, DIAGNOSTIC performed by Sarah Orlando DO at ENDOSCOPY [facility] EGD, FLEXIBLE, DIAGNOSTIC 09/23/2022 normal scope, small HH / no specimens collected / ESOPHAGOGASTRODUODENOSCOPY (EGD), FLEXIBLE, TRANSORAL, DIAGNOSTIC performed by Sarah Orlando DO at ENDOSCOPY [facility] EGD, FLEXIBLE, DIAGNOSTIC N/A 2024 small HH/Yusef fundoplication/PIMENTEL show acid reflux/ESOPHAGOGASTRODUODENOSCOPY (EGD), FLEXIBLE, TRANSORAL, DIAGNOSTIC performed by Robbi Spears MD at ENDOSCOPY [facility] EGD, FLEXIBLE, W/BIOPSY 07/27/2007 mild gastritis normal esophagus ESOPH FUNCT/REFLUX TEST,MUCOSAL PH N/A 2024 GASTRO REFLUX TEST WITH MUCOSAL TELEMETRY PH ELECTRODE performed by Robbi Spears MD at ENDOSCOPY [facility] ESOPHAGOGASTRIC FUNDOPLASTY 07/05/2006 Laparoscopic Yusef Fundoplication By Dr. Garcia INFORMATION Strabismus surgery x 2 INFORMATION 03/30/2011 right rotator cuff repair LAP;FULGURATION OVIDUCTS 11/13/1982 Tubal Ligation,Laparoscopic LASER TRABECULOPLASTY 12/24/1991 ALT OD OTHER Bilateral carpal tunnel hand surgery [place] ARTHROPLASTY GLENOHUMERAL JOINT TOTAL SHOULDER Left 11/29/2021 NH XCAPSL CTRC RMVL INSJ IO LENS PROSTH W/O ECP 02/03/2021 OS [place] SN60WF 19.5 REMOVAL OF TONSILS, UNDER AGE 12 REMOVE CATARACT, INSERT LENS PROSTH 09/16/2020 OD [place] SN60WF 19.0 REMOVE CATARACT, INSERT LENS PROSTH Right 09/16/2020 EXTRACAPSULAR CATARACT REMOVAL WITH INTRAOCULAR LENS performed by Avtar Patel MD at OR [facility] REMOVE CATARACT, INSERT LENS PROSTH Left 02/03/2021 EXTRACAPSULAR CATARACT REMOVAL WITH INTRAOCULAR LENS performed by Avtar Patel MD at OR [facility] REMOVE VULVA GLAND/LESION Psychosocial Psychosocial Impairment NO History Depression Moderate with significant impairment, treatment indicated Currently on treatment. Confirmed Mental Health Diagnosis Bipolar Disorder and Anxiety/panic disorder EtOH Use currently less than 2 drinks per month Tobacco Use never smoked Substance Abuse None EMPLOYMENT; Retired. Family History Problem Relation Name Age of Onset Mental Disorder Mother Diabetes Mother Heart Disorder Mother 63 [place] Stroke Mother Hypertension Mother Depression Mother Psychosis Mother Heart Disorder Father 72 [place] Hypertension Father Hypertension Sister Tatyana Diabetes Sister Tatyana Hyperlipidemia Sister Tatyana Arthritis Sister Tatyana Mental Disorder Sister Esthela Hyperlipidemia Sister Esthela Hypertension Sister Esthela Cancer Sister Esthela bone cancer Heart Disorder Sister Esthela IN Heart murmur Sister Esthela 0 Diabetes Brother Huy Hyperlipidemia Brother Huy Hypertension Brother Huy Heart Disorder Brother Huy IN Cancer Grandmother (Paternal) Other (Other) Daughter Ana migraines Musculo-skeletal Disorder Daughter Ana Arthritis Daughter Chantel Depression Daughter Chantel Asthma Daughter Chantel Diabetes Son Dami prediabetic Hyperlipidemia Son Dami Hypertension Son Dami Hypertension Son Antony Heart Disorder Aunt (Maternal) [place] Breast Cancer No significant family history REVIEW [...] M.D. Minimally Invasive Foregut and Bariatric Surgeon [facility] documented in this encounter Nursing Notes [...] 07/24/2024 11:30 AM EDT Office Visit Ophthalmology, [place] [address] [place] [address] Avtar Patel MD [facility] [place] [address] 08/06/2024 11:00 AM EDT Nutrition Services Nutrition Services [address] [address] Mercedez Alcantar RDN 106 [place] [address] 03/21/2025 11:00 AM EDT Nurse Only Ancillary [address] [address] College, Nurse Annual Wellness Visit [address] [address] Scheduled Procedures Name Priority Associated Diagnoses Date/Ti [...] this encounter Medical Devices Implanted Type Area Campus Recruiter Device Identifier Shelf Expiration Date Model / Serial / Lot Lens 19.0 Sn60wf - [id number] - [id number] Implanted:Qty: 1 on 09/16/2020 by Avtar Patel MD at OR [facility] Right: Eye [place] : SURGICAL SN60WF.190 / [id number] / Lens 19.5 Sn60wf - [id number] Implanted:Qty: 1 on 02/03/2021 by Avtar Patel MD at OR [facility] Left: Eye [place] : SURGICAL 12/18/2024 SN60WF.1 95 / / [id number] documented as of this encounter Visit Diagnoses Diagnosis Pharyngoesophageal dysphagia- Primary Dysphagia, pharyngoesophageal phase 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
--- OUTSIDE RECORDS SUMMARY | 2024-07-22 08:35 | External Medical Summary | Summary of Care ---
Author Name Unknown Organization [facility] Address [address] [place] [address] Phone [phone] Care Team Providers Care Coal Mine Inspector Name Role Phone Denisse Milton DO Primary Care Provider [phone] Reason for Visit * Reason Comments Medication Refill Encounter Details Date Type Department Care Team (Late st Contact Info) Description 06/14/2024 Refill Family Practice [address], [place] 293 [place] [id number] Denisse Milton DO [address] [place], [place] [id number] Hypothyroidism Allergies Active Allergy Reactions Criticality Noted Date Comments Betaxolol 01/08/1997 Betoptic S: insomnia, depression Carbamazepine And Analogs Unknown 04/01/1999 Levobunolol 01/08/1997 Betagan: fatigue, nightmares Levofloxacin Muscle pain 03/14/2011 Penicillins 04/01/1999 Rash, very sick Simvastatin Unknown 09/16/2004 zocor Sulfa Antibiotics Unknown 04/01/1999 documented as of this encounter (statuses as of 06/14/2024) Medications Medication Sig Dispensed Refills Start Date [...] 09/25/2023 Active Latanoprost 0.005 % Ophthalmic Solution (Xalatan)Indication s:Primary [...] 02/12/2024 Clobetasol Propionate 0.05 % External Ointment (Temovate)Indicatio [...] 05/15/2024 Active Famotidine 40 MG Oral Tablet (Pepcid)Indications :Gastroesophageal [...] OTHER MEDICATIONS 100 Tablet 2 06/14/2024 Active Levothyroxine Sodium 25 MCG Oral Tablet (Levoxyl)Indication s:Hypothyroidism TAKE 1 TABLET BY MOUTH DAILY AT LEAST 30 MINUTES PRIOR TO FIRST MEAL OF THE DAY OR OTHER MEDICATIONS 100 Tablet 3 04/13/2023 06/14/20 24 Discontinu ed(Refill) Hospital, Clinic, or Other Facility Administered Medication Ordered Dose Route Frequency Start Date End Date Status albuterol (PROVENTIL HFA) inhaler 4 PuffIndications:COPD, severity to be determined (HCC) 4 Puff IN Q4H PRN 09/08/2017 Active documented as of this encounter (statuses as of 06/14/2024) Active Problems Problem Noted Date Diagnosed Date [...] as of this encounter (statuses as of 06/14/2024) Resolved Problems Problem Noted Date Diagnosed Date [...] program 01/14/2019 06/15/2020 Overview: DO NOT DELETE [facility] DETECT Study: Project # [id number], Apartment Rental Clerk: Antione Coburn, PhD. SUMMARY: Goal: Establish test [...] contact study staff at ; after hours Apartment Rental Clerk via the [facility] nailing machine operator . Please contact study team before resolving/deleting from patients problem list. Study phone number: [phone]. Diagnosis changed due to Research Module. Go to [employer] for study details. Encounter for examination fo r normal comparison and control in clinical research program 01/14/2019 07/14/2022 Overview: DO NOT DELETE - [facility] SINGH Study: Project # [id number], Apartment Rental Clerk: Wilfrid Guzman, MS, MPH. SUMMARY: Goal: Establish [...] contact study staff at ; after hours Apartment Rental Clerk via the [facility] nailing machine operator . - Please contact study team before resolving/deleting from patients problem list. Study phone number: [phone]. Diagnosis changed due to Research Module. Go to [employer] for study details. Bronchitis, complicated 01/26/201502/12 Ankle [...] as of this encounter (statuses as of 06/14/2024) Immunizations Name Administration Dates Next Due COVID-19 mRNA, LNP-s, No Pre serve, 2-Dose Series ([employer]) 09/04/2021,01/27/2021,01/01/2021 H1N1 2009 Influenza, IM 11/12/2009 Pneumococcal [...] 18 years and over) Not on file 3 Are you (or your family) keo eless [...] encounter Miscellaneous Notes * Telephone Encounter - Shelby Kirby RPh - 06/14/2024 10:04 AM EDTSigned Prescriptions: Disp Refills Levothyroxine Sodium 25 MCG Oral Tablet (L*100 Ta*2 Sig: TAKE 1 TABLET BY MOUTH DAILY AT LEAST 30 MINUTES PRIOR TO FIRST MEAL OF THE DAY OR OTHER MEDICATIONSAuthorizing Provider: DENISSE MILTON AOrtarik User: SHELBY KIRBY documented in this encounter Plan of Treatment Upcoming Encounters Date Type Department Care Team (Late st Contact Info) Description 06/20/2024 11:20 AM EDT Office Visit Family Practice 65 [facility] 293 [place] [address] College, Pharmacist [address] [place] [address] 06/20/2024 11:40 AM EDT Office Visit Family Practice 65 [facility] [address] [place] [address] Denisse Milton, DO 293 [place] [address] 06/28/2024 10:00 AM EDT Office Visit General Surgery, [facility] 132 [place] [address] Isela Veras MD [address] [place] [address] 07/01/2024 12:30 PM EDT Office Visit Gastroenterology, [facility] 132 [place] [address] Adelaide Bell CRNP 132 [place] [address] 07/24/2024 11:30 AM EDT Office Visit Ophthalmology, [place] [address] [place] [address] Avtar Patel MD [address] [place] [address] 08/06/2024 11:00 AM EDT Nutrition Services Nutrition Services [address] [place] [address] Mercedez Alcantar RDN [address] [place] [address] [place] [id number] 03/21/2025 11:00 AM EDT Nurse Only Ancillary [address] [place] [address] College, Nurse Annual Wellness Visit [address] [place] [address] [facility], [place] [address] Scheduled Procedures Name Priority Associated Diagnoses Date/Ti [...] this encounter Medical Devices Implanted Type Area Wet Press Tender Device Identifier Shelf Expiration Date Model / Serial / Lot Lens 19.0 Sn60wf - [id number] - [id number] Implanted:Qty: 1 on 09/16/2020 by Avtar Patel MD at OR [facility] Right: Eye WEST : SURGICAL SN60WF.190 / [id number] / Lens 19.5 Sn60wf - [id number] Implanted:Qty: 1 on 02/03/2021 by Avtar Patel MD at OR [facility] Left: Eye WEST : SURGICAL 12/18/2024 SN60WF.1 95 / / [id number] documented as of this encounter Visit Diagnoses Diagnosis Hypothyroidism Unspecified hypothyroidism documented in this encounter Care Teams Coal Mine Inspector Relationship Specialty Start Date End Date Denisse Milton DO [address] [place] [address] PCP - General Internal Medicine 04/25/24 documented as of this encounter
--- OUTSIDE RECORDS SUMMARY | 2024-07-22 08:35 | External Medical Summary | Summary of Care ---
Author Name Unknown Organization [facility] Address [address] [place] [address] Phone [phone] Care Team Providers Care Log Grader Name Role Phone Narinder Milton DO Primary Care Provider [phone] Reason for Visit * Reason Onset Date Comments Nutritional Services Documentation 06/13/2024 Encounter Details Date Type Department Care Team (Late st Contact Info) Description 06/13/2024 8:30 AM EDT Scheduled Telephone Virtual Nutrition Services [address] [facility] [address] [place] [address] Mercedez Alcantar RDN [address] [place] [address] Allergies Active Allergy Reactions Criticality Noted Date Comments Betaxolol 01/08/1997 Betoptic S: insomnia, depression Carbamazepine And Analogs Unknown 04/01/1999 Levobunolol 01/08/1997 Betagan: fatigue, nightmares Levofloxacin Muscle pain 03/14/2011 Penicillins 04/01/1999 Rash, very sick Simvastatin Unknown 09/16/2004 zocor Sulfa Antibiotics Unknown 04/01/1999 documented as of this encounter (statuses as of 06/13/2024) Medications Medication Sig Dispensed Refills Start Date [...] HOLD until discussed with PCP 06/11/2024 Active Hospital, Clinic, or Other Facility Administered Medication Ordered Dose Route Frequency Start Date End Date Status albuterol (PROVENTIL HFA) inhaler 4 PuffIndications:COPD, severity to be determined (HCC) 4 Puff IN Q4H PRN 09/08/2017 Active documented as of this encounter (statuses as of 06/13/2024) Active Problems Problem Noted Date Diagnosed Date [...] as of this encounter (statuses as of 06/13/2024) Resolved Problems Problem Noted Date Diagnosed Date [...] [facility] [place] DET[facility] Study: Project # [id number], Air Twister Winder: Antione Coburn, PhD. SUMMARY: Goal: Establish test [...] contact study staff at ; after hours Air Twister Winder via the [facility] stereo plotter operator . Please contact study team before resolving/deleting from patients problem list. Study phone number: [phone]. Diagnosis changed due to Research Module. Go to Snapshot for study details. Encounter for examination fo r normal comparison and control in clinical research program 01/14/2019 07/14/2022 Overview: DO NOT DELETE - [facility] [place] DETECT Study: Project # [id number], Air Twister Winder: Wilfrid Guzman, MS, MPH. SUMMARY: Goal: Establish [...] contact study staff at ; after hours Air Twister Winder via the [facility] stereo plotter operator . - Please contact study team before resolving/deleting from patients problem list. Study phone number: [phone]. Diagnosis changed due to Research Module. Go [...] as of this encounter (statuses as of 06/13/2024) Immunizations Name Administration Dates Next Due COVID-19 mRNA, LNP-s, No Pre serve, 2-Dose Series ([employer]) 09/04/2021,01/27/2021,01/01/2021 H1N1 2009 Influenza, IM 11/12/2009 Pneumococcal [...] Telephone Encounter - Mercedez Alcantar RDN - 06/13/2024 11:50 AM EDT [address] Dietitian Phone Outreach Reached out to patient to check in on progress towards goal set at last visit and to clarify nutritional recommendations from previous visit. Result of call: Patient reports she is frustrated because of the pain she is in and she cannot have her knee surgery because her A1C is too high. Latest Reference Range & Units 06/04/24 15:23 Hemoglobin A1C 4.0 - 5.6 % 8.2 (H) (H): Data is abnormally high She has been intermittently skipping meals or not eating in order to lower her A1C. Patient provided limited 24 hour recall: Breakfast: Spinach wrap with ham and eggs and samoan blend; yesterday AM---2 dippy eggs and 1 slice toast Lunch: skips Supper: ham or sherry or eggs Snacks: raisin bran with banana and 1% milk Blood glucose was 153 after breakfast this AM. Encouraged patient to continue to work on goals and to reach out with any future nutrition questions/concerns. Encouraged patient to have a lean protein at all meals Discussed the effects of skipping meals on blood glucose control Reviewed importance of balancing meals (1/2 plate non-starchy vegetables, 1/4 plate carbohydrate containing foods, 1/4 plate protein foods) Reviewed examples of lean proteins Patient without any additional questions/concerns at this time. Patient verbalized understanding to call dietitian at [address] if nutrition questions/concerns arise. Reviewed upcoming nutrition visit. Electronically signed by: Mercedez Alcantar RDN, NUTR[facility] [address] documented in this encounter Plan of Treatment Upcoming Encounters Date Type Department Care Team (Late st Contact Info) Description 06/20/2024 11:20 AM EDT Office Visit Family Practice 65 [facility] [address] [place] [phone] College, Pharmacist [address] [address] 06/20/2024 11:40 AM EDT Office Visit Family Practice [address] [place] [address] [address] [place] [address] Narinder Milton, [address] [place] [address] 06/28/2024 10:00 AM EDT Office Visit General Surgery, [facility] [address] [facility] [place] [address] Isela Veras MD [address] [place] [address] 07/01/2024 12:30 PM EDT Office Visit Gastroenterology, [facility] 132 [facility] [place] [address] Adelaide Bell CRNP 132 [facility] [place] [address] 07/24/2024 11:30 AM EDT Office Visit OphthalmologyMaya 21 [facility] [place] [address] Avtar Patel MD [address] [place] [address] 08/06/2024 11:00 AM EDT Nutrition Services Nutrition Services [address] [place] [address] Mercedez Alcantar RDN 106 [place] [address] 03/21/2025 11:00 AM EDT Nurse Only Ancillary [address] [place] [address] College, Nurse Annual Wellness Visit [address] [place] [address] Scheduled Procedures Name Priority Associated Diagnoses Date/Ti [...] 11/2023, 09/25/2023, Additional history exists Albumin/Creatinine Ratio 02/11/20252 024, [...] this encounter Medical Devices Implanted Type Area Fermenter Device Identifier Shelf Expiration Date Model / Serial / Lot Lens 19.0 Sn60wf - [id number] - [id number] Implanted:Qty: 1 on 09/16/2020 by Avtar Patel MD at OR [facility] Right: Eye WEST : SURGICAL SN60WF.190 / [id number] / Lens 19.5 Sn60wf - [id number] Implanted:Qty: 1 on 02/03/2021 by Avtar Patel MD at OR [facility] Left: Eye WEST : SURGICAL 12/18/2024 SN60WF.1 95 / / [id number] documented as of this encounter Care Teams Log Grader Relationship Specialty Start Date End Date Narinder Milton DO [address] [place] [address] PCP - General Internal Medicine 04/25/24 documented as of this encounter
--- OUTSIDE RECORDS SUMMARY | 2024-07-22 08:35 | External Medical Summary | Summary of Care ---
Author Name Unknown Organization [facility] Address [address] [place] [address] Phone [phone] Care Team Providers Care Utility Inspector Name Role Phone Narinder Milton DO Primary Care Provider [phone] Reason for Visit * Reason Onset Date Comments Order Request 06/18/2024 HBA1C Encounter Details Date Type Department Care Team (Late st Contact Info) Description 06/18/2024 Telephone Family Practice 65 [facility] [place] [address] [place] [address] Narinder Milton DO [address] [place] [address] Order Request (HBA1C) Allergies Active Allergy Reactions Criticality Noted Date [...] [facility] DETECT Study: Project # [id number], Learning Coordinator: Antione Coburn, PhD. SUMMARY: Goal: Establish test [...] contact study staff at ; after hours Learning Coordinator via the [facility] stretcher leveler operator . Please contact study team before resolving/deleting from patients problem list. Study phone number: [phone]. Diagnosis changed due to Research Module. Go to Snapshot for study details. Encounter for examination fo r normal comparison and control in clinical research program 01/14/2019 07/14/2022 Overview: DO NOT DELETE [facility] DETECT Study: Project # [id number], Learning Coordinator: Wilfrid Guzman, MS, MPH. SUMMARY: Goal: Establish [...] contact study staff at ; after hours Learning Coordinator via the [facility] stretcher leveler operator . - Please contact study team before resolving/deleting from patients problem list. Study phone number: [phone]. Diagnosis changed due to Research Module. Go [...] mRNA, LNP-s, No Pre serve, 2-Dose Series ([employer]) 09/04/2021,01/27/2021,01/01/2021 H1N1 2009 Influenza, IM 11/12/2009 Pneumococcal [...] encounter Miscellaneous Notes * Telephone Encounter - Candis Amaro OSA - 06/19/2024 10:33 AM EDT Pt calling to check the status of this message, stating that she called regarding some labs yesterday and has not heard back. She can be reached at [phone]. * Telephone Encounter - Narinder Milton DO [...] AM EDT Office Visit Family Practice 65 [facility] [address] [place] [phone] College, Pharmacist [address] [address] 06/20/2024 11:40 AM EDT Office Visit Family [facility] 65 [facility] [address] [place] [phone] Narinder Milton, [address] [place] [address] 06/28/2024 10:00 AM EDT Office Visit General Surgery, [facility] 132 [place] [address] Isela Veras MD [address] [place] [address] 07/01/2024 12:30 PM EDT Office Visit Gastroenterology, [facility] 132 [place] [address] Adelaide Bell CRNP 132 [facility] [place] [address] 07/24/2024 11:30 AM EDT Office Visit Ophthalmology, [place] [address] [place] [address] Avtar Patel MD [address] [place] [address] 08/06/2024 11:00 AM EDT Nutrition Services Nutrition Services [address] [place] [address] [place] [address] Mercedez Alcantar RDN 106 [facility] [place] [id number] 03/21/2025 11:00 AM EDT Nurse Only Ancillary 65 [facility] 293 [facility] [place] [address] College, Nurse Annual Wellness Visit [address] [place] [address] Scheduled Procedures Name Priority Associated Diagnoses Date/Ti [...] this encounter Medical Devices Implanted Type Area Player Manager Device Identifier Shelf Expiration Date Model / Serial / Lot Lens 19.0 Sn60wf - [id number] - [id number] Implanted:Qty: 1 on 09/16/2020 by Avtar Patel MD at OR [facility] Right: Eye WEST : SURGICAL SN60WF.190 / [id number] / Lens 19.5 Sn60wf - [id number] Implanted:Qty: 1 on 02/03/2021 by Avtar Patel MD at OR [facility] Left: Eye WEST : SURGICAL 12/18/2024 SN60WF.1 95 / / [id number] documented as of this encounter Care Teams Utility Inspector Relationship Specialty Start Date End Date Narinder Milton DO [address] [place] [address] PCP - General Internal Medicine 04/25/24 documented as of this encounter
--- OUTSIDE RECORDS SUMMARY | 2024-07-22 08:35 | External Medical Summary | Summary of Care ---
Author Name Unknown Organization [facility] Address [address] [place] [address] Phone [phone] Care Team Providers Care Food Crops Farm Hand Name Role Phone Narinder Milton DO Primary Care Provider [phone] Reason for Referral * Evaluate & Treat - Unlimited Visits (Within 3 days (urgent)) - Authorized Specialty Diagnoses / Procedures Referred By Contac t Referred To Contact Pharmacist / Pharmacy Diagnoses Type 2 diabetes mellitus with hemoglobin A1c goal of less than 8.0% ([facility]) Narinder Milton DO [address] [place] [address] Referral ID Status Reason Start Date Expiration Date Visits Requested Visits Authorized [id number] Authorized Specialty Services Required 06/11/2024 12/08/2024 99 99 Question Answer Referral Priority Within 3 days (urgent) Where should this appointment be scheduled? [facility] Referring Provider Role: Primary Care Reason for Referral: DM Target A1c: < 7 - for surgery Comments Pharmacist Medication Therapy Management: Minimum frequency patient should be seen in person for medication management: as appropriate per clinical condition and patient status By my signature, I understand that my patient Zonia Bailey will have her medication therapy managed by the [facility] Medication Therapy Disease Management [facility] ([facility]) per established policies, procedures, and protocols. I also certify that this referral may serve as an initiation of service for the management of drug therapy in the above noted patient. [facility] providers will be responsible for scheduling patient visits, obtaining appropriate laboratory studies, and adjusting medication management therapy per patient's need, in addition to those roles spelled out in the clinic policy, procedures, and drug management protocols. I understand that the service provided by the [facility] Clinic is voluntary and have informed patient that they can refuse the service at their discretion. I am aware that the [facility] Clinic will provide me with a copy of the patient encounter via my [email or web address] InExperience Headphoneset. I authorize the [facility] Clinic to carry out these activities on my behalf. I consider this program to be a necessary part of the patient's medical care. Reason for Visit * Reason Onset Date Comments Information 06/11/2024 Encounter Details Date Type Department Care Team (Late st Contact Info) Description 06/11/2024 Telephone Family Practice [address] [place] [address] [place] [address] Narinder Milton DO [address] [place] [address] Information Allergies Active Allergy Reactions Criticality Noted Date [...] mouth in the morning. 0 5 Active Ibuprofen 200 MG Oral Tablet (Motrin) Taking 2-3 daily with therapy for shoulder 2 Active Levothyroxine Sodium 25 MCG Oral Tablet (Levoxyl)Indication s:Hypothyroidism TAKE 1 TABLET BY MOUTH DAILY AT LEAST 30 MINUTES PRIOR TO FIRST MEAL OF THE DAY OR OTHER MEDICATIONS 100 Tablet 3 3 06/27/20 24 Active Vitamin D-3 25 MCG (1000 UT) Oral CapsuleIndications: Vitamin D deficiency Take 2 Capsules by mouth in the morning. 100 Capsule 3 3 Active Vitamin B 12 500 MCG Oral TabletIndications:V itamin B 12 deficiency Take 500 mcg by mouth in the morning. 3 Active Losartan Potassium-HCTZ 100-25 MG Oral Tablet (Hyzaar)Indications :HTN, goal below 130/80 TAKE ONE TABLET BY MOUTH EVERY DAY 100 Tablet 3 3 Active Empagliflozin 25 MG Oral Tablet (Jardiance) Take 1 Tablet by mouth in the morning. 100 Tablet 2 3 Active Potassium Chloride ER 10 MEQ Oral Capsule Extended ReleaseIndications: Hypertensive heart disease without heart failure TAKE ONE CAPSULE BY MOUTH EVERY MORNING AND TAKE ONE CAPSULE BY MOUTH EVERY DAY BEFORE BEDTIME 200 Capsule 2 3 Active Additional Information Patient taking differently: 10 mEq Oral Daily(AM), Reported on 10/11/2023 traZODone HCl 50 MG Oral Tablet (Desyrel)Indication s:Moderate episode of recurrent major depressive disorder (HCC) Take 1 Tablet by mouth at bedtime. 90 Tablet 3 3 Active Latanoprost 0.005 % Ophthalmic Solution (Xalatan)Indication s:Primary open angle glaucoma of both eyes, mild stage Instill 1 Drop into both eyes at bedtime. 2.5 mL 5 4 Active rOPINIRole HCl 1 MG Oral Tablet (Requip)Indications :Restless legs syndrome TAKE ONE TABLET BY MOUTH FOUR TIMES A DAY 360 Tablet 2 4 12/31/19 25 Active Atorvastatin Calcium 20 MG Oral Tablet (Lipitor)Indication s:Dyslipidemia, goal LDL below 160 TAKE ONE TABLET BY MOUTH EVERY MORNING 100 Tablet 1 4 Active Sertraline HCl 100 MG Oral Tablet (Zoloft)Indications :Bipolar affective disorder, currently depressed, moderate (HCC) Take 1.5 Tablets by mouth in the morning. 45 Tablet 3 4 Active Additional Information Patient taking differently: 100 [...] 4 Active Allopurinol 100 MG Oral Tablet (Zyloprim)Indicatio ns:Gout, arthropathy Take 1 Tablet by mouth in the morning and 1 Tablet before bedtime. 60 Tablet 5 4 Active Famotidine 40 MG Oral Tablet (Pepcid)Indications [...] evening meals. 60 Tablet 1 4 Active Ozempic (0.25 or 0.5 MG/DOSE) 2 MG/3ML Solution Pen-injector (Semaglutide(0.25 or 0.5MG/DOS)) HOLD until discussed with PCP 4 Active Ozempic (0.25 or 0.5 MG/DOSE) 2 MG/3ML Solution Pen-injector (Semaglutide(0.25 or 0.5MG/DOS)) Inject 0.25 mg under the skin once a week. 06/11/20 24 Discontinued Hospital, Clinic, or Other Facility Administered [...] [facility] DETECT Study: Project # [id number], Nurse'S Assistant: Antione Coburn, PhD. SUMMARY: Goal: Establish test [...] contact study staff at ; after hours Nurse'S Assistant via the [facility] car shakeout operator . Please contact study team before resolving/deleting from patients problem list. Study phone number: [phone]. Diagnosis changed due to Research Module. Go to Snapshot for study details. Encounter for examination fo r normal comparison and control in clinical research program 01/14/2019 07/14/2022 Overview: DO NOT DELETE - [facility] [place] DETECT Study: Project # [id number], Nurse'S Assistant: Wilfrid Guzman, MS, MPH. SUMMARY: Goal: Establish [...] contact study staff at ; after hours Nurse'S Assistant via the [facility] car shakeout operator . - Please contact study team before resolving/deleting from patients problem list. Study phone number: [phone]. Diagnosis changed due to Research Module. Go to [employer] for study details. Bronchitis, complicated 01/26/201502/12 Ankle [...] mRNA, LNP-s, No Pre serve, 2-Dose Series ([employer] 09/04/2021,01/27/2021,01/01/2021 H1N1 2009 Influenza, IM 11/12/2009 PPD [...] Encounter - Mercedez Alcantar RDN - 06/13/2024 12:13 PM EDT Spoke with patient. See nutrition TE. Encouraged patient to have a lean protein at all meals Discussed the effects of skipping meals on blood glucose control Reviewed importance of balancing meals (1/2 plate non-starchy vegetables, 1/4 plate carbohydrate containing foods, 1/4 plate protein foods) Reviewed examples of lean proteins * Telephone Encounter - Martha Montemayor [facility] - 06/11/2024 10:48 AM EDT Diabetes telephone follow - up 06/11/2024 Patient Phone Numbers - Reason for contacting patient: Patient called in complaining of 24/7 nausea plus some sweating and drowsiness. She states she was at the ER last week because of it. Reports BGs are not to blame. Freddy discussed GERD and nausea with her in February and advised to stop Ozempic, however patient continued it as she's trying to get her A1c < 7 for knee surgery. She states she thinks the tramadol is what is making her tired and sweaty and nauseated based on what she found on google. Now refusing to take the tramadol but reports she's in excruciating pain. She reports if she's busy, she often skips meals and has also been avoiding eating to try to get A1c down. Frustrated with past info from nutrition as she states it recommended the following foods which she doesn't eat: Shrimp, avocado, seafood, cottage cheese. Also reports she can't eat cheese by itself and has to have it on crackers or cooked into items. She says they have chickens and she was put off by being told to eat egg whites. Wondering if she can have scrambled eggs with cheese in wrap. I advised her that the foods she listed are not requirements, but rather suggestions for healthy fats and protein options. - Current diabetic medications: Jardiance 25 mg daily Ozempic 0.25 mg on (dose limited by nausea) - Glucose review/ SMBG: Breakfast: pre meal 131 - Plain with PB and peach Bedtime: 243 Therapy Management Assessment/Plan: 1) Diabetes: Last PCP note recommended MTM referral, so pended to PCP now. Recommended patient holdozempic for next 2 doses until her follow up appointment and temporarily start glipzide to bring down prandial sugars. Also advised patient that she needs to be eating and recommended she meet with Mercedez again as her solution to getting A1c down is not eating. Jardiance 25 mg daily HOLD Ozempic 0.25 mg START Glipizide ER 2.5 mg with AM and PM meals (skip if she skips meal) Follow up in 1 week. Martha Carr RPh, Pharm D Clinical Pharmacist [facility] 06/11/2024, 10:48 AM * Telephone Encounter - Johana Marie LPN - 06/11/2024 9:54 AM EDT Patient calling with some nausea, sweating. States knee is still hurting, has upcoming surgery. Reminded her upcoming appt with Dr Milton. Problems with nausea--does take ozempic. Concerned of medication causing nausea. Thank you documented in this encounter Plan of Treatment Upcoming Encounters Date Type Department Care Team (Late st Contact Info) Description 06/20/2024 11:20 AM EDT Office Visit Family Practice [address] [place] [phone] College, Pharmacist [address] [place] [address] 06/20/2024 11:40 AM EDT Office Visit [address] [phone] Narinder Milton, DO [address] [place] [address] 06/28/2024 10:00 AM EDT Office Visit General Surgery, [facility] 132 [place] [address] Isela Veras MD [address] [place] [address] 07/01/2024 12:30 PM EDT Office Visit Gastroenterology, [facility] 132 [place] [address] Adelaide Bell CRNP 132 [place] [address] 07/24/2024 11:30 AM EDT Office Visit OphthalmologyMaya [address] [place] [address] Avtar Patel MD [address] [place] [address] 08/06/2024 11:00 AM EDT Nutrition Services Nutrition Services [address] [place], [place] [address] [place] [address] Mercedez Alcantar, NAHUN 106 [facility] [place] [address] 03/21/2025 11:00 AM EDT Nurse Only Ancillary [address] [address] College, Nurse Annual Wellness Visit [address] [address] Scheduled Procedures Name Priority Associated Diagnoses Date/Ti me COLONOSCOPY FLEXIBLE PROXIMAL DIAGNOSTIC Recall History of colon polyps Scheduled Referrals Name Type Priority Associated Diagnoses Orde r Schedule PHARMACIST MEDS THERAPY MGMT REFERRAL OP Referral Within 3 days (urgent) Type 2 diabetes mellitus with hemoglobin A1c goal of less than 8.0% (HCC) Ordered: 06/11/2024 Health Maintenance Due Date Last Done Comments [...] this encounter Medical Devices Implanted Type Area Ornamental Metal Erector Apprentice Device Identifier Shelf Expiration Date Model / Serial / Lot Lens 19.0 Sn60wf - [id number] - [id number] Implanted:Qty: 1 on 09/16/2020 by Avtar Patel MD at OR [facility] Right: Eye WEST : SURGICAL SN60WF.190 / [id number] / Lens 19.5 Sn60wf - [id number] Implanted:Qty: 1 on 02/03/2021 by Avtar Patel MD at OR [facility] Left: Eye WEST : SURGICAL 12/18/2024 SN60WF.1 95 / / [id number] documented as of this encounter Visit Diagnoses Diagnosis Type 2 diabetes mellitus with hemoglobin A1c goal of less than 8.0% ([facility])- Primary documented in this encounter Care Teams Food Crops Farm Hand Relationship Specialty Start Date End Date Narinder Milton DO [address] [place] [address] PCP - General Internal Medicine 04/25/24 documented as of this encounter
--- OUTSIDE RECORDS SUMMARY | 2024-07-22 08:35 | External Medical Summary | Summary of Care ---
Author Name Unknown Organization [facility] Address [address] [place] [address] Phone [phone] Care Team Providers Care Demo Coordinator Name Role Phone Narinder Milton DO Primary Care Provider [phone] Reason for Referral * Evaluate & Treat - Unlimited Visits (Within 3 days (urgent)) - Authorized Specialty Diagnoses / Procedures Referred By Contac t Referred To Contact Pharmacist / Pharmacy Diagnoses Type 2 diabetes mellitus with hemoglobin A1c goal of less than 8.0% ([facility]) Narinder Milton DO [address] [place] [address] Referral ID Status Reason Start Date Expiration Date Visits Requested Visits Authorized [id number] Authorized Specialty Services Required 06/11/2024 12/08/2024 99 99 Question Answer Referral Priority Within 3 days (urgent) Where should this appointment be scheduled? [facility] Referring Provider Role: Primary Care Reason for Referral: DM Target A1c: < 7 - for surgery Comments Pharmacist Medication Therapy Management: Minimum frequency patient should be seen in person for medication management: as appropriate per clinical condition and patient status By my signature, I understand that my patient Zonia Bailey will have her medication therapy managed by the [facility] Medication Therapy Disease Management Clinic ([facility]) per established policies, procedures, and protocols. I also certify that this referral may serve as an initiation of service for the management of drug therapy in the above noted patient. [facility] providers will be responsible for scheduling patient visits, obtaining appropriate laboratory studies, and adjusting medication management therapy per patient's need, in addition to those roles spelled out in the clinic policy, procedures, and drug management protocols. I understand that the service provided by the [facility] is voluntary and have informed patient that they can refuse the service at their discretion. I am aware that the [facility] will provide me with a copy of the patient encounter via my [employer]. I authorize the [facility] to carry out these activities on my behalf. I consider this program to be a necessary part of the patient's medical care. Reason for Visit * Reason Onset Date Comments Information 06/11/2024 Encounter Details Date Type Department Care Team (Late st Contact Info) Description 06/11/2024 Telephone Family Practice [address] [place] [address] [place] [address] Narinder Milton DO [address] [place] [address] Information Allergies Active Allergy Reactions Criticality Noted Date Comments Betaxolol 01/08/1997 Betoptic S: insomnia, depression Carbamazepine And Analogs Unknown 04/01/1999 Levobunolol 01/08/1997 Betagan: fatigue, nightmares Levofloxacin Muscle pain 03/14/2011 Penicillins 04/01/1999 Rash, very sick Simvastatin Unknown 09/16/2004 zocor Sulfa Antibiotics Unknown 04/01/1999 documented as of this encounter (statuses as of 06/12/2024) Medications Medication Sig Dispensed Refills Start Date [...] as of this encounter (statuses as of 06/12/2024) Active Problems Problem Noted Date Diagnosed Date [...] as of this encounter (statuses as of 06/12/2024) Resolved Problems Problem Noted Date Diagnosed Date [...] The Chronically Ill DETECT Study: Project # [id number], In Room Dining Server: Antione Coburn, PhD. SUMMARY: Goal: Establish test [...] contact study staff at ; after hours In Room Dining Server via the [facility] data coder operator . Please contact study team before resolving/deleting from patients problem list. Study phone number: [phone]. Diagnosis changed due to Research Module. Go to Snapshot for study details. Encounter for examination fo r normal comparison and control in clinical research program 01/14/2019 07/14/2022 Overview: DO NOT DELETE - [facility] DETECT Study: Project # [id number], In Room Dining Server: Wilfrid Guzman, MS, MPH. SUMMARY: Goal: Establish [...] contact study staff at ; after hours In Room Dining Server via the [facility] data coder operator . - Please contact study team before resolving/deleting from patients problem list. Study phone number: [phone]. Diagnosis changed due to Research Module. Go to [employer] for study details. Bronchitis, complicated 01/26/201502/12 Ankle [...] as of this encounter (statuses as of 06/12/2024) Immunizations Name Administration Dates Next Due COVID-19 mRNA, LNP-s, No Pre serve, 2-Dose Series (Corrigo) 09/04/2021,01/27/2021,01/01/2021 H1N1 2009 Influenza, IM 11/12/2009 Pneumococcal [...] encounter Miscellaneous Notes * Telephone Encounter - Martha Montemayor, [facility] - 06/11/2024 10:48 AM EDT Diabetes telephone [...] review/ SMBG: Breakfast: pre meal 131 - [place] with PB and peach Bedtime: 243 Therapy [...] AM EDT Office Visit Family Practice 65 [facility] 293 [place] [address] College, Pharmacist [address] [place] [address] 06/20/2024 11:40 AM EDT Office Visit Family Practice 65 [facility] [address] [place] [address] Narinder Milton, [address] [place] [address] 06/28/2024 10:00 AM EDT Office Visit General Surgery, [facility] [address] [place] [address] Isela Veras MD [address] [place] [address] 07/01/2024 12:30 PM EDT Office Visit Gastroenterology, [facility] [address] [place] [address] Adelaide Bell CRNP [address] [place] [address] 07/24/2024 11:30 AM EDT Office Visit Ophthalmology, [place] [address] [facility] [place] [address] Avtar Patel MD [address] [place] [address] 08/06/2024 11:00 AM EDT Nutrition Services Nutrition Services [address] [address] Mercedez Alcantar RDN [address] [place] [address] 03/21/2025 11:00 AM EDT Nurse Only Ancillary [address] [address] College, Nurse Annual Wellness Visit [address] [address] Scheduled Procedures Name Priority Associated Diagnoses Date/Ti me COLONOSCOPY FLEXIBLE PROXIMAL DIAGNOSTIC Recall History of colon polyps Scheduled Referrals Name Type Priority Associated Diagnoses Orde r Schedule PHARMACIST MEDS THERAPY MGMT REFERRAL OP Referral Within 3 days (urgent) Type 2 diabetes mellitus with hemoglobin A1c goal of less than 8.0% ([facility]) Ordered: 06/11/2024 Health Maintenance Due Date Last [...] 05/31/2021 , 05/18/2021, 08/22/2020, Additional history exists Hepatitis C Screening Completed 01/05/2022 , 01/05/2022, 01/05/2022, Additional history exists Zoster Vaccines Completed 03/10/2022, [...] this encounter Medical Devices Implanted Type Area Skein Inspector Device Identifier Shelf Expiration Date Model / Serial / Lot Lens 19.0 Sn60wf - [id number] - [id number] Implanted:Qty: 1 on 09/16/2020 by Avtar Patel MD at OR [facility] Right: Eye WEST : SURGICAL SN60WF.190 / [id number] / Lens 19.5 Sn60wf - [id number] Implanted:Qty: 1 on 02/03/2021 by Avtar Patel MD at OR [facility] Left: Eye WEST : SURGICAL 12/18/2024 SN60WF.1 95 / / [id number] documented as of this encounter Visit Diagnoses Diagnosis Type 2 diabetes mellitus with hemoglobin A1c goal of less than 8.0% (HCC)- Primary documented in this encounter Care Teams Demo Coordinator Relationship Specialty Start Date End Date Narinder Milton DO 293 [facility] [place] [address] PCP - General Internal Medicine 04/25/24 documented as of this encounter
--- OUTSIDE RECORDS SUMMARY | 2024-07-22 08:36 | External Medical Summary | Summary of Care ---
Author Name Unknown Organization [facility] Address [address] [place] [facility] [place] [address] Phone [phone] Care Team Providers Care Instrument Tech Name Role Phone Narinder Milton DO Primary Care Provider [phone] Reason for Visit * Reason Onset Date Comments Referral 06/11/2024 Diabetes Encounter Details Date Type Department Care Team (Late st Contact Info) Description 06/11/2024 Telephone Centralized Clinical Pharmacy Services, Shahnaz Vargas [address] [place] [address] [place] [address] College, Pharmacist [address] [place] [address], [place] [address] Referral (Diabetes) Allergies Active Allergy Reactions Criticality Noted Date Comments Betaxolol 01/08/1997 Betoptic S: insomnia, depression Carbamazepine And Analogs Unknown 04/01/1999 Levobunolol 01/08/1997 Betagan: fatigue, nightmares Levofloxacin Muscle pain 03/14/2011 Penicillins 04/01/1999 Rash, very sick Simvastatin Unknown 09/16/2004 zocor Sulfa Antibiotics Unknown 04/01/1999 documented as of this encounter (statuses as of 06/11/2024) Medications Medication Sig Dispensed Refills Start Date [...] as of this encounter (statuses as of 06/11/2024) Active Problems Problem Noted Date Diagnosed Date [...] as of this encounter (statuses as of 06/11/2024) Resolved Problems Problem Noted Date Diagnosed Date [...] [facility] DETECT Study: Project # [id number], Molder: Antione Coburn, PhD. SUMMARY: Goal: Establish test [...] contact study staff at ; after hours Molder via the [facility] carbide operator . Please contact study team before resolving/deleting from patients problem list. Study phone number: [phone]. Diagnosis changed due to Research Module. Go to Snapshot for study details. Encounter for examination fo r normal comparison and control in clinical research program 01/14/2019 07/14/2022 Overview: DO NOT DELETE [facility] DETECT Study: Project # [id number], Molder: Wilfrid Guzman, MS, MPH. SUMMARY: Goal: Establish [...] contact study staff at ; after hours Molder via the [facility] carbide operator . - Please contact study team before resolving/deleting from patients problem list. Study phone number: [phone]. Diagnosis changed due to Research Module. Go [...] as of this encounter (statuses as of 06/11/2024) Immunizations Name Administration Dates Next Due COVID-19 mRNA, LNP-s, No Pre serve, 2-Dose Series (A Fourth Act) 09/04/2021,01/27/2021,01/01/2021 H1N1 2009 Influenza, IM 11/12/2009 Pneumococcal [...] Miscellaneous Notes * Telephone Encounter - Martha Montemayor RPh - 06/11/2024 1:01 PM EDT Referral received and reviewed. Reason for referral: DM Referring provider: Narinder Milton Initial appt length: 40 min Appointment type indicated: Inperson Required Referral reviewed and relevant pre-visit information listed below: DM: Target Hgb A1c: < 7 for surgery, (< 8 usually) Hemoglobin A1c Results: Recent Labs Units 06/04/24 1523 02/12/24 0936 09/25/23 1108 HEMOGLOBIN A1C - [facility] % 8.2* 7.2* 7.2* Current DM Medications: HOLD Ozempic (as of 06/11/24) Jardiance 25 mg daily START Glipizide 2.5mg with AM/PM meals (Unclear in EHR why metformin was stopped in 2019) Current JOSE MANUEL/ARB therapy: YES losartan/HCTZ 100-25 Serum creatinine: 0.8 mg/dL 06/04/24 1523 Estimated creatinine clearance: 57.2 mL/min Current statin therapy: YES atorvastatin 20mg daily Martha Carr RPh 06/11/2024, 1:01 PM * Telephone Encounter - Christelle Del Rosario CPhT - 06/11/2024 11:56 AM EDT Comments Pharmacist Medication Therapy Management: Minimum frequency patient should be seen in person for medication management: as appropriate per clinical condition and patient status By my signature, I understand that my patient Zonia Bailey will have her medication therapy managed by the [facility] Medication Therapy Disease Management Clinic ([facility]) per established policies, procedures, and protocols. I also certify that this referral may serve as an initiation of service for the management of drug therapy in the above noted patient. [facility] providers will be responsible for scheduling patient visits, obtaining appropriate laboratory studies, and adjusting medication management therapy per patient's need, in addition to those roles spelled out in the clinic policy, procedures, and drug management protocols. I understand that the service provided by the [facility] Clinic is voluntary and have informed patient that they can refuse the service at their discretion. I am aware that the [facility] Clinic will provide me with a copy of the patient encounter via my [employer]. I authorize the [facility] to carry out these activities on my behalf. I consider this program to be a necessary part of the patient's medical care. Order Specific Questions Referral Priority Within 3 days (urgent) Where should this appointment be scheduled? [facility] Referring Provider Role: Primary Care Reason for Referral: DM Target A1c: < 7. for surgery documented in this encounter Plan of Treatment Upcoming Encounters Date Type Department Care Team (Late st Contact Info) Description 06/20/2024 11:20 AM EDT Office Visit Family Practice 65 [facility] 293 [place] [address] College, Pharmacist [address] [place] [address] 06/20/2024 11:40 AM EDT Office Visit Family Practice 65 [facility] 293 [place] [address] Narinder Milton, 293 [place] [address] 06/28/2024 10:00 AM EDT Office Visit General Surgery, [facility] 132 [place] [address] Isela Veras MD [address] [place] [address] 07/01/2024 12:30 PM EDT Office Visit Gastroenterology, [facility] 132 [facility] [place] [address] Adelaide Bell CRNP 132 [facility] [place] [address] 07/24/2024 11:30 AM EDT Office Visit Ophthalmology, [place] [address] [place] [address] Avtar Patel MD 21 [facility] [place] [address] 08/06/2024 11:00 AM EDT Nutrition Services Nutrition Services [address] [address] Mercedez Alcantar RDN 106 [place] [address] 03/21/2025 11:00 AM EDT Nurse Only Ancillary [address] [place] [address] College, Nurse Annual Wellness Visit [address] [place] [address] Scheduled Procedures Name Priority Associated Diagnoses Date/Ti [...] this encounter Medical Devices Implanted Type Area Minister Assistant Device Identifier Shelf Expiration Date Model / Serial / Lot Lens 19.0 Sn60wf - [id number] - [id number] Implanted:Qty: 1 on 09/16/2020 by [facility] Right: Eye WEST : SURGICAL SN60WF.190 / [id number] / Lens 19.5 Sn60wf - [id number] Implanted:Qty: 1 on 02/03/2021 by [facility]el [facility] Left: Eye WEST : SURGICAL 12/18/2024 SN60WF.1 95 / / [id number] documented as of this encounter Visit Diagnoses Diagnosis Type 2 diabetes mellitus with hemoglobin A1c goal of less than 8.0% ([facility])- Primary documented in this encounter Care Teams Instrument Tech Relationship Specialty Start Date End Date Narinder Milton DO [address] [place] [address] PCP - General Internal Medicine 04/25/24 documented as of this encounter
--- OUTSIDE RECORDS SUMMARY | 2024-07-22 08:36 | External Medical Summary ---
Author Name Unknown Address Unknown Organization K01:[facility] [place] [facility] [address] [place] [address] Laboratory Report Ordering Provider Test Date Status SHANITA SALCEDO 06/04/2024 15:23:47 Final Observation Date Value Abnormality Reference (Units ) Status WBC, Total 06/04/2024 15:23:47 5.14 4.00-10.80 (K/uL) Final RBC 06/04/2024 15:23:47 4.68 3.85-5.15 (M/uL) Final Hemoglobin 06/04/2024 15:23:47 13.5 12.0-15.3 (g/dL) Final HCT 06/04/2024 15:23:47 42.5 36.0-45.2 (%) Final MCV 06/04/2024 15:23:47 90.8 81.5-97.5 (fL) Final MCH 06/04/2024 15:23:47 28.8 27.0-34.0 (pg) Final MCHC 06/04/2024 15:23:47 31.8 32.0-36.0 (g/dL) Final RDW 06/04/2024 15:23:47 13.3 11.5-15.5 (%) Final Platelets 06/04/2024 15:23:47 222 140-400 (K/uL) Final MPV 06/04/2024 15:23:47 10.0 6.6-11.1 (fL) Final Nucleated erythrocytes/100 leukocytes [Ratio] in Blood by Automated count 06/04/2024 15:23:47 0 <=0 (/100 WBCs) Final Performing Location [facility] [place] [address] [place] [address]
--- OUTSIDE RECORDS SUMMARY | 2024-07-22 08:36 | External Medical Summary | Summary of Care ---
Author Name Unknown Organization [facility] Address [address] [facility] [place] [address] Phone [phone] Care Team Providers Care Deputy Controller Name Role Phone Narinder Milton DO Primary Care Provider [phone] Reason for Visit * Reason Onset Date Comments Med Request 06/06/2024 Encounter Details Date Type Department Care Team (Late st Contact Info) Description 06/06/2024 Telephone Gastroenterology, [facility] [address] [place] [address] Claudio Bell CRNP [address] [place] [address] Med Request Allergies Active Allergy Reactions Criticality Noted Date Comments Betaxolol 01/08/1997 Betoptic S: insomnia, depression Carbamazepine And Analogs Unknown 04/01/1999 Levobunolol 01/08/1997 Betagan: fatigue, nightmares Levofloxacin Muscle pain 03/14/2011 Penicillins 04/01/1999 Rash, very sick Simvastatin Unknown 09/16/2004 zocor Sulfa Antibiotics Unknown 04/01/1999 documented as of this encounter (statuses as of 06/06/2024) Medications Medication Sig Dispensed Refills Start Date [...] areas on body. 60 g 4 Active Ozempic (0.25 or 0.5 MG/DOSE) 2 MG/3ML Solution Pen-injector (Semaglutide(0.25 or 0.5MG/DOS)) Inject 0.25 mg under the skin once a week. Active Pantoprazole Sodium 40 MG Oral Tablet [...] at bedtime. 90 Tablet 3 4 Active Famotidine 40 MG Oral Tablet (Pepcid) Take 1 Tablet by mouth at bedtime. 30 Tablet 5 4 06/06/20 24 Discontinued Hospital, Clinic, or Other Facility Administered Medication Ordered Dose Route Frequency Start Date End Date Status albuterol (PROVENTIL HFA) inhaler 4 PuffIndications:COPD, severity to be determined (HCC) 4 Puff IN Q4H PRN 09/08/2017 Active documented as of this encounter (statuses as of 06/06/2024) Active Problems Problem Noted Date Diagnosed Date [...] as of this encounter (statuses as of 06/06/2024) Resolved Problems Problem Noted Date Diagnosed Date [...] [facility] DETECT Study: Project # [id number], Upper Cutter: Antione Coburn, PhD. SUMMARY: Goal: Establish [...] contact study staff at ; after hours Upper Cutter via the [facility] rough and truing machine operator . Please contact study team before resolving/deleting from patients problem list. Study phone number: [phone]. Diagnosis changed due to Research Module. Go to Snapshot for study details. Encounter for examination fo r normal comparison and control in clinical research program 01/14/2019 07/14/2022 Overview: DO NOT DELETE - [facility] DETECT Study: Project # [id number], Upper Cutter: Wilfrid Guzman, MS, MPH. SUMMARY: Goal: [...] contact study staff at ; after hours Upper Cutter via the [facility] rough and truing machine operator . - Please contact study team before resolving/deleting from patients problem list. Study phone number: [phone]. Diagnosis changed due to Research Module. Go to [employer] for study details. Bronchitis, complicated 01/26/201502/12 Ankle [...] as of this encounter (statuses as of 06/06/2024) Immunizations Name Administration Dates Next Due COVID-19 mRNA, LNP-s, No Pre serve, 2-Dose Series (Recognia) 09/04/2021,01/27/2021,01/01/2021 H1N1 2009 Influenza, IM 11/12/2009 Pneumococcal [...] encounter Miscellaneous Notes * Telephone Encounter - Claudio Bell CRNP - 06/06/2024 11:55 AM EDTSigned Prescriptions: Disp Refills Famotidine 40 MG Oral Tablet (Pepcid) 90 Tab*3 Sig: Take 1 Tablet by mouth at bedtime. Authorizing Provider: CLAUDIO BELL * Telephone Encounter - Cristiana Mendoza LPN - 06/06/2024 11:31 AM EDT Did you pend patient's preferred pharmacy and medication before forwarding?yes Pharmacy: [id number] [address] [facility] Pending Prescriptions: Disp Refills Famotidine 40 MG Oral Tablet (Pepcid) 90 Tab*3 Sig: Take 1 Tablet by mouth at bedtime. Last Visit: 05/15/2024 (in office), 10/05/2020 (telemedicine) Next Visit: 07/01/2024 If no future appointments scheduled, and last appointment is greater than a year ago, please schedule patient for a follow-up appointment Last date the medication was ordered: 05/15/2024 Patient Phone Numbers Labs: Lab Results Component Value Date/Time CREAT 0.8 06/04/2024 03:23 PM CREAT 0.7 06/30/2020 07:27 AM POTASSIUM 3.7 06/04/2024 03:23 PM POTASSIUM 3.9 06/30/2020 07:27 AM TSH 2.40 02/12/2024 09:36 AM TSH 3.00 06/30/2020 07:27 AM LDLCALC 85 05/17/2022 12:04 PM LDLCALC 85 06/30/2020 07:27 AM LDLDIRECT 56 05/26/2023 03:59 PM LDLDIRECT NOT APPLICABLE 06/30/2020 07:27 AM LDLDIRECT 130 (H) 08/24/2017 11:37 AM ALT 21 06/04/2024 03:23 PM ALT 18 06/30/2020 07:27 AM HGBA1C 8.2 (H) 06/04/2024 03:23 PM HGBA1C 6.6 (H) 06/30/2020 07:27 AM documented in this encounter Plan of Treatment Upcoming Encounters Date Type Department Care Team (Late st Contact Info) Description 06/17/2024 10:00 AM EDT Office Visit Family Practice 65 [facility] [address] Roseanna Childress DO [facility] [address] 06/20/2024 11:40 AM EDT Office Visit Family Practice 65 [facility] [address] Narinder Milton DO [facility] [address] 06/28/2024 10:00 AM EDT Office Visit General Surgery, [facility] [address] [place] [address] Isela Veras MD [address] [place] [address] 07/01/2024 12:30 PM EDT Office Visit Gastroenterology, [facility] 132 [facility] [place] [address] Claudio Bell CRNP 132 [place] [address] 07/24/2024 11:30 AM EDT Office Visit Ophthalmology, [place] 21 [place] [address] Avtar Patel MD [address] [place] [address] 08/06/2024 11:00 AM EDT Nutrition Services Nutrition Services [address] [address] Mercedez Alcantar RDN 106 [place] [address] 03/21/2025 11:00 AM EDT Nurse Only Ancillary [address] [address] College, Nurse Annual Wellness Visit [address] [address] Scheduled Procedures Name Priority Associated Diagnoses Date/Ti [...] this encounter Medical Devices Implanted Type Area Medication Reconciliation Technician Device Identifier Shelf Expiration Date Model / Serial / Lot Lens 19.0 Sn60wf - [id number] - [id number] Implanted:Qty: 1 on 09/16/2020 by Avtar Patel MD at OR [facility] Right: Eye WEST : SURGICAL SN60WF.190 / [id number] / Lens 19.5 Sn60wf - [id number] Implanted:Qty: 1 on 02/03/2021 by Avtar Patel MD at OR [facility] Left: Eye WEST : SURGICAL 12/18/2024 SN60WF.1 95 / / [id number] documented as of this encounter Visit Diagnoses Diagnosis Gastroesophageal reflux disease, unspecified whether esophagitis present- Primary documented in this encounter Care Teams Deputy Controller Relationship Specialty Start Date End Date Narinder Milton DO [address] [place] [address] PCP - General Internal Medicine 04/25/24 documented as of this encounter
--- OUTSIDE RECORDS SUMMARY | 2024-07-22 08:36 | External Medical Summary | Summary of Care ---
Author Name Unknown Organization [facility] Address [address] [place] [address] Phone [phone] Care Team Providers Care Power Plant Inspector Name Role Phone Narinder Milton DO Primary Care Provider [phone] Encounter Details Date Type Department Care Team (Late st Contact Info) Description 05/29/2024 Result Scan Unspecified Department <No scans attached> Allergies Active Allergy Reactions Criticality Noted Date [...] 06/15/2020 Overview: DO NOT DELETE [facility] DETECT Study: Project # [id number], Associate Product Manager: Antione Coburn, PhD. SUMMARY: Goal: Establish test [...] study staff at ; after hours Associate Product Manager via the [facility] multi punch operator . Please contact study team before resolving/deleting from patients problem list. Study phone number: [phone]. Diagnosis changed due to Research Module. Go to Snapshot for study details. Encounter for examination fo r normal comparison and control in clinical research program 01/14/2019 07/14/2022 Overview: DO NOT DELETE [facility] DETECT Study: Project # [id number], Associate Product Manager: Wilfrid Guzman, MS, MPH. SUMMARY: Goal: Establish [...] study staff at ; after hours Associate Product Manager via the [facility] multi punch operator . - Please contact study team before resolving/deleting from patients problem list. Study phone number: [phone]. Diagnosis changed due to Research Module. Go [...] on file Are you (or your family) eko eless or worried that you might be [...] AM EDT Office Visit Family Practice 65 [facility] [address] [place] [phone] Roseanna Childress, DO [address] [place] [address] 06/20/2024 11:40 AM EDT Office Visit Family Practice 65 [facility] [address] [place] [address] Narinder Milton, DO [address] [place] [address] 06/28/2024 10:00 AM EDT Office Visit General Surgery, [facility] [address] [place] [address] Isela Veras MD [address] [place] [address] 07/01/2024 12:30 PM EDT Office Visit Gastroenterology, [facility] [address] [place] [address] Adelaide Bell CRNP [address] [place] [address] 07/24/2024 11:30 AM EDT Office Visit Ophthalmology, [place] [address] [address] Avtar Patel MD [address] [address] 08/06/2024 11:00 AM EDT Nutrition Services Nutrition Services [address] [place] [address] [address] [place] [address] Mercedez Alcantar RDN [address] [place] [address], [place] [address] 03/21/2025 11:00 AM EDT Nurse Only Ancillary [address] [place] [address] [place] [address] College, Nurse Annual Wellness Visit [address] [facility] [address] [place] [address] Scheduled Procedures Name Priority Associated Diagnoses Date/Ti [...] this encounter Medical Devices Implanted Type Area Motor Checker Device Identifier Shelf Expiration Date Model / Serial / Lot Lens 19.0 Sn60wf - [id number] - [id number] Implanted:Qty: 1 on 09/16/2020 by Avtar Patel MD at OR [facility] Right: Eye WEST : SURGICAL SN60WF.190 / [id number] / Lens 19.5 Sn60wf - [id number] Implanted:Qty: 1 on 02/03/2021 by Avtar Patel MD at OR [facility] Left: Eye WEST : SURGICAL 12/18/2024 SN60WF.1 95 / / [id number] documented as of this encounter Procedures Procedure Name Priority Date/Time Associated Diagnosis Comments ECHOCARDIOLOGY SCANNED RESULT 05/29/2024 documented in this encounter Results * ECHOCARDIOLOGY SCANNED RESULT (05/29/2024) 05/29/2024 No Physician Data Unknown ECHOCARDIOLOGY documented in this encounter Care Teams Power Plant Inspector Relationship Specialty Start Date End Date Narinder Milton DO [address] [place] [address] PCP - General Internal Medicine 04/25/24 documented as of this encounter
--- OUTSIDE RECORDS SUMMARY | 2024-07-22 08:36 | External Medical Summary ---
Author Name Unknown Address Unknown Organization K01:[facility] - [address] [facility] [address] Laboratory Report Ordering Provider Test Date Status SHANITA SALCEDO 06/04/2024 15:23:47 Final Observation Date Value Abnormality Reference (Units ) Status HbA1C 06/04/2024 15:23:47 8.2 Above high normal 4. 0-5.6 (%) Final The use of HbA1c to monitor glycemic status is based on normal hemoglobin and HbA composition. This test should not be used in patients with abnormal hemoglobin that affects the half life of the red blood cell or the in vivo glycation rates. Glucose, estimated average 06/04/2024 15:23:47 189 Above high normal <126 (mg/dL) Avila quezada Performing Location [facility] - [address] [facility] [address]
--- OUTSIDE RECORDS SUMMARY | 2024-07-22 08:36 | External Medical Summary | Summary of Care ---
Author Name Unknown Organization [facility] Address [address] [place] [address] Phone [phone] Care Team Providers Care Chief Executive Officer Name Role Phone Narinder Milton DO Primary Care Provider [phone] Reason for Visit * Reason Onset Date Comments Test Results 06/05/202406/05 Encounter Details Date Type Department Care Team (Late st Contact Info) Description 06/05/2024 Telephone Family Practice 65 [facility] [place] [address] [place] [address] Narinder Milton DO [address] [place] [address] Test Results (06/05) Allergies Active Allergy Reactions Criticality Noted Date [...] [facility] DETECT Study: Project # [id number], Emt I/85: Antione Coburn, PhD. SUMMARY: Goal: Establish test [...] contact study staff at ; after hours Emt I/85 via the [facility] hospital liquid waste treatment plant operator . Please contact study team before resolving/deleting from patients problem list. Study phone number: [phone]. Diagnosis changed due to Research Module. Go to BitLit for study details. Encounter for examination fo r normal comparison and control in clinical research program 01/14/2019 07/14/2022 Overview: DO NOT DELETE [facility] Study: Project # [id number], Emt I/85: Wilfrid Guzman, MS, MPH. SUMMARY: Goal: Establish [...] contact study staff at ; after hours Emt I/85 via the [facility] hospital liquid waste treatment plant operator . - Please contact study team before resolving/deleting from patients problem list. Study phone number: [phone]. Diagnosis changed due to Research Module. Go to BitLit for study details. Bronchitis, complicated 01/26/201502/12 Ankle [...] mRNA, LNP-s, No Pre serve, 2-Dose Series (Peak 10) 09/04/2021,01/27/2021,01/01/2021 H1N1 2009 Influenza, IM 11/12/2009 Pneumococcal [...] Telephone Encounter - Johana Marie LPN - 06/06/2024 1:14 PM EDT Spoke to night warehouse selector at office of Dr Malhotra, faxed information to Dr Milton. Thank you * Telephone Encounter - Johana Marie LPN - 06/05/2024 3:42 PM EDT Patient is aware and will comply. Is using ozempic inject 0.25 mg under the skin once a week--gets on . Dr Malik Malhotra [phone] Called office was on hold for lengthy period of time. Will call back tomorrow 06/06 * Telephone Encounter - Johana Marie LPN - 06/05/2024 3:40 PM EDT ----- Message from Narinder Milton DO sent at 06/05/2024 8:25 AM EDT ----- Patient is wearing a Zio and Hgba1c has worsened. Check current Ozempic dose. Refer to MTM She cannot have surgery until glucose control is better and Zio completed. documented in this encounter Plan of Treatment Upcoming Encounters Date Type Department Care Team (Late st Contact Info) Description 06/17/2024 10:00 AM EDT Office Visit Family Practice [address] [place] [address] [address] [place] [phone] Roseanna Childress, DO [address] [place] [address] 06/20/2024 11:40 AM EDT Office Visit Family Practice 65 [facility] [address] [place] [phone] Narinder Milton, DO [address] [place] [address] 06/28/2024 10:00 AM EDT Office Visit General Surgery, [facility] [address] [place] [address] Isela Veras MD [address] [place] [address] 07/01/2024 12:30 PM EDT Office Visit Gastroenterology, [facility] 132 [place] [address] Adelaide Bell CRNP [address] [place] [address] 07/24/2024 11:30 AM EDT Office Visit Ophthalmology, [place] [address] [address] Avtar Patel MD [address] [address] 08/06/2024 11:00 AM EDT Nutrition Services Nutrition Services [address] [place] [address] Mercedez Alcantar RDN [address] [facility] [place] [address] 03/21/2025 11:00 AM EDT Nurse Only Ancillary [address] [place] [address] [place] [address] College, Nurse Annual Wellness Visit [address] [facility] [address] [place] [address] Scheduled Procedures Name Priority Associated Diagnoses Date/Ti [...] this encounter Medical Devices Implanted Type Area Pet Store Merchandiser Device Identifier Shelf Expiration Date Model / Serial / Lot Lens 19.0 Sn60wf - [id number] - [id number] Implanted:Qty: 1 on 09/16/2020 by Avtar Patel MD at OR [facility] Right: Eye WEST : SURGICAL SN60WF.190 / [id number] / Lens 19.5 Sn60wf - [id number] Implanted:Qty: 1 on 02/03/2021 by Avtar Patel MD at OR [facility] Left: Eye WEST : SURGICAL 12/18/2024 SN60WF.1 95 / / [id number] documented as of this encounter Care Teams Chief Executive Officer Relationship Specialty Start Date End Date Narinder Milton DO [address] [place] [address] PCP - General Internal Medicine 04/25/24 documented as of this encounter
--- OUTSIDE RECORDS SUMMARY | 2024-07-22 08:36 | External Medical Summary | Summary of Care ---
Author Name Unknown Organization [facility] Address [address] [place] [address] Phone [phone] Care Team Providers Care Patient Financial Representative Name Role Phone Narinder Milton DO Primary Care Provider [phone] Reason for Visit * Reason Onset Date Comments Hospital Follow-Up Hospital Follow-Up 06/04/2024 Encounter Details Date Type Department Care Team (Latest Contact Info) Description 06/04/2024 2:20 PM EDT Office Visit Family Practice [address] [facility] [address] [place] [address] Narinder Milton [address] [place] [address] Near syncope*; Primary osteoarthritis of left knee; Severe episode of recurrent major depressive disorder, without psychotic features ([facility]); Type 2 diabetes mellitus with hemoglobin A1c goal of less than 8.0% ([facility]); Hypertensive heart disease without heart failure; Primary insomnia; Hypothyroidism due to acquired atrophy of thyroid; HTN, goal below 140/90; Restless legs syndrome; Vitamin D deficiency; Vitamin B 12 deficiency; Lumbar degenerative disc disease; Gastroesophageal reflux disease without esophagitis; Generalized anxiety disorder; Gout, arthropathy; Hospital discharge follow-up Allergies Active Allergy Reactions Criticality Noted Date Comments Betaxolol 01/08/1997 Betoptic S: insomnia, depression Carbamazepine And Analogs Unknown 04/01/1999 Levobunolol 01/08/1997 Betagan: fatigue, nightmares Levofloxacin Muscle pain 03/14/2011 Penicillins 04/01/1999 Rash, very sick Simvastatin Unknown 09/16/2004 zocor Sulfa Antibiotics Unknown 04/01/1999 documented as of this encounter (statuses as of 06/04/2024) Medications Medication Sig Dispensed Refills Start Date [...] as of this encounter (statuses as of 06/04/2024) Active Problems Problem Noted Date Diagnosed Date [...] as of this encounter (statuses as of 06/04/2024) Resolved Problems Problem Noted Date Diagnosed Date [...] [facility] DETECT Study: Project # [id number], Thermodynamic Physicist: Antione Coburn, PhD. SUMMARY: Goal: Establish test [...] contact study staff at ; after hours Thermodynamic Physicist via the [facility] tool radial drill press set up operator . Please contact study team before resolving/deleting from patients problem list. Study phone number: [phone]. Diagnosis changed due to Research Module. Go to Snapshot for study details. Encounter for examination fo r normal comparison and control in clinical research program 01/14/2019 07/14/2022 Overview: DO NOT DELETE - [facility] Study: Project # [id number], Thermodynamic Physicist: Wilfrid Guzman, MS, MPH. SUMMARY: Goal: Establish [...] contact study staff at ; after hours Thermodynamic Physicist via the [facility] tool radial drill press set up operator . - Please contact study team before resolving/deleting from patients problem list. Study phone number: [phone]. Diagnosis changed due to Research Module. Go to Lore for study details. Bronchitis, complicated 01/26/201502/12 Ankle joint pain 04/30/2014 03/07/2017 Bacterial pneumonia 10/05/2011 05/25/20 12 Abdominal pain, generalized 11/05/2010 05/25/2012 Cough 09/23/2009 05/25/2012 NONALLERGIC RHINITIS 09/23/2009 020 Impaired fasting glucose 09/14/2009 RECURRENT ACUTE SINUSITIS 08/17/2009 Chronic pharyngitis 08/17/2009 05/25/20 CHRONIC AIRWAY OBSTRUCTION - MODERATE PERSISTENT 04/08/2009 [...] as of this encounter (statuses as of 06/04/2024) Immunizations Name Administration Dates Next Due COVID-19 mRNA, LNP-s, No Pre serve, 2-Dose Series (Lang-8) 09/04/2021,01/27/2021,01/01/2021 H1N1 2009 Influenza, IM 11/12/2009 Pneumococcal [...] No 09/25/2023 Does the household have a [facility] source [facility] income? (Household - [...] Sign Reading Time Taken Comments Blood Pressure 114/64 06/04/2024 2:35 PM EDT Pulse 88 06/04/2024 2:35 PM EDT Temperature 36.8 C (98.3 F) 06/04/2024 2:35 PM ED T Respiratory Rate 20 06/04/2024 2:35 PM EDT Oxygen Saturation 96% 06/04/2024 2:35 PM EDT Inhaled Oxygen Concentration - - Weight 71.1 kg (156 lb 11.2 oz) 06/04/2024 2:35 PM EDT Height 161.3 cm (5' 3.5") 06/04/2024 2:35 PM EDT Body Mass Index 27.32 06/04/2024 2:35 PM EDT documented in this encounter Progress Notes * Johana Marie LPN - 06/04/2024 3:23 PM EDT LAB DRAWN AND SENT TO [facility] [place]. * Narinder Milton DO - 06/04/2024 2:41 PM EDT SUBJECTIVE: Zonia Bailey is a 74 year old female. Chief Complaint Patient presents with Hospital Follow-Up Hospital Follow-Up Recent Admission: Patient was recently admitted to [facility]. The date of discharge was . Discharge report received and reviewed. 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 The patient was admitted to [facility] from 05/28/2024- 05/31/2024 due to near syncope. The patient had dizziness, difficulty with balance, nausea, diaphoresis, and dark vision. Patient had dry heaves as well. No chest pain or shortness of breath were present during the episode. She did not have syncope. She has worsening anxiety due to being scheduled for left knee replacement on 06/14. No further dizziness has occurred. No chest pain or shortness of breath are present. Weight is stable. Left knee pain continues to worsen. Patient Active Problem List Diagnosis Primary open [...] Tablet by mouth in the morning. 0 Ibuprofen 200 MG Oral Tablet (Motrin) Taking 2-3 daily with therapy for shoulder Levothyroxine Sodium 25 MCG Oral Tablet (Levoxyl) TAKE 1 TABLET BY MOUTH DAILY AT LEAST 30 MINUTES PRIOR TO FIRST MEAL OF THE DAY OR OTHER MEDICATIONS 100 Tablet 3 Vitamin D-3 25 MCG (1000 UT) Oral Capsule Take 2 Capsules by mouth in the morning. 100 Capsule 3 Vitamin B 12 500 MCG Oral Tablet Take 500 mcg by mouth in the morning. Losartan Potassium-HCTZ 100-25 MG Oral Tablet (Hyzaar) TAKE ONE TABLET BY MOUTH EVERY DAY 100 Tablet 3 Empagliflozin 25 MG Oral Tablet (Jardiance) Take 1 Tablet by mouth in the morning. 100 Tablet 2 Potassium Chloride ER 10 MEQ Oral Capsule Extended Release TAKE ONE CAPSULE BY MOUTH EVERY MORNING AND TAKE ONE CAPSULE BY MOUTH EVERY DAY BEFORE BEDTIME (Patient taking differently: Take 1 Capsule by mouth in the morning.) 200 Capsule 2 traZODone HCl 50 MG Oral Tablet (Desyrel) Take 1 Tablet by mouth at bedtime. 90 Tablet 3 rOPINIRole HCl 1 MG Oral Tablet (Requip) TAKE ONE TABLET BY MOUTH FOUR TIMES A DAY 360 Tablet 2 Atorvastatin Calcium 20 MG Oral Tablet (Lipitor) TAKE ONE TABLET BY MOUTH EVERY MORNING 100 Tablet 1 Sertraline HCl 100 MG Oral Tablet (Zoloft) Take 1.5 Tablets by mouth in the morning. (Patient taking differently: Take 1 Tablet by mouth in the morning.) 45 Tablet 3 Ozempic (0.25 or 0.5 MG/DOSE) 2 MG/3ML Solution Pen-injector (Semaglutide(0.25 or 0.5MG/DOS)) Inject 0.25 mg under the skin once a week. Famotidine 40 MG Oral Tablet (Pepcid) Take 1 Tablet by mouth at bedtime. 30 Tablet 5 Pantoprazole Sodium 40 MG Oral Tablet Delayed [...] and 1 Tablet beforebedtime. 60 Tablet 5 Latanoprost 0.005 % Ophthalmic Solution (Xalatan) Instill 1 Drop into both eyes at bedtime. 2.5 mL 5 Clobetasol Propionate 0.05 % External Ointment (Temovate) Apply 2x daily (or more if itchy instead of scratching) to itchy areas on scalp/behind ears or other itchy areas on body. 60 g 0 Current Facility-Administered Medications Medication Dose Route Frequency Provider Last Rate Last Admin albuterol (PROVENTIL HFA) inhaler 4 Puff 4 Puff Inhalation Q4H PRN Johana Antonio MD 4 Puff at 09/20/17 0913 Family History Problem Relation Name Age of Onset Mental Disorder Mother Diabetes Mother Heart Disorder Mother 63 NE Stroke Mother Hypertension Mother Depression Mother Psychosis Mother Heart Disorder Father 72 NE Hypertension Father Hypertension Sister Tatyana Diabetes Sister Tatyana Hyperlipidemia Sister Tatyana Arthritis Sister Tatyana Mental Disorder Sister Esthela Hyperlipidemia Sister Esthela Hypertension Sister Esthela Cancer Sister Esthela bone cancer Heart Disorder Sister Esthela NE Heart murmur Sister Esthela 0 Diabetes Brother Huy Hyperlipidemia Brother Huy Hypertension Brother Huy Heart Disorder Brother Huy NE Cancer Grandmother (Paternal) Other (Other) Daughter Ana migraines Musculo-skeletal Disorder Daughter Ana Arthritis Daughter Chantel Depression Daughter Chantel Asthma Daughter Chantel Diabetes Son Dami prediabetic Hyperlipidemia Son Dami Hypertension Son Dami Hypertension Son Antony Heart Disorder Aunt (Maternal) NE Breast Cancer No significant family history Social History Tobacco Use Smoking status: Never Passive exposure: Past Smokeless tobacco: Never Tobacco comments: no passive smoke exposures Vaping Use Vaping status: Never Used Substance Use Topics Alcohol use: Never Drug use: No Current and discharge medications have been reconciled. Review of patient's allergies indicates: Allergen Reactions Betaxolol Betoptic S: insomnia, depression Carbamazepine And Analogs Unknown Levobunolol Betagan: fatigue, nightmares Levofloxacin Muscle pain Penicillins Rash, very sick Simvastatin Unknown zocor Sulfa Antibiotics Unknown OBJECTIVE: BP 114/64 | Pulse 88 | Temp 36.8 C (98.3 F) (Tympanic) | Resp 20 | Ht 1.613 m (5' 3.5") | Wt 71.1 kg (156 lb 11.2 oz) | LMP 10/24/2000 | SpO2 96% | BMI 27.32 kg/m | BSA 1.78 m REVIEW OF SYSTEMS: Review of Systems Constitutional: Negative for appetite change, chills, fatigue, fever and unexpected weight change. HENT: Negative for congestion, sore throat and trouble swallowing. Respiratory: Negative for cough, shortness of breath and wheezing. Cardiovascular: Negative for chest pain, palpitations and leg swelling. Gastrointestinal: Negative for abdominal pain, blood in stool, constipation, diarrhea, nausea and vomiting. Genitourinary: Negative for dysuria, frequency and hematuria. Musculoskeletal: Positive for gait problem. Negative for back pain. Worsening left knee pain Neurological: Negative for dizziness, syncope, weakness and headaches. Psychiatric/Behavioral: Negative for confusion, decreased concentration and sleep disturbance. PHYSICAL EXAM: BP 114/64 | Pulse 88 | Temp 36.8 C (98.3 F) (Tympanic) | Resp 20 | Ht 1.613 m (5' 3.5") | Wt 71.1 kg (156 lb 11.2 oz) | LMP 10/24/2000 | SpO2 96% | BMI 27.32 kg/m | BSA 1.78 m Physical Exam Vitals and nursing note [...] sounds are normal. There is no distension. Tenderness: There is no abdominal tenderness. Musculoskeletal: Right lower leg: No edema. Left lower leg: No edema. Neurological: Mental Status: She is alert and oriented to person, place, and time. Mental status is at baseline. Motor: No weakness. Gait: Gait abnormal. Psychiatric: Mood and Affect: Mood normal. Behavior: Behavior normal. Thought Content: Thought content normal. Hospital records reviewed ECG: Normal sinus Rhythm, Possible LAE, nonspecific T wave abnormality CTA head and neck: No occlusion, hemodynamically significant stenosis, aneurysm, or dissection MRI Brain: No mass, no hemorrhage, and no acute infarct Echo 05/29/2024: LVH, EF>70%, LV is hyperdynamic,No , PAP estimated 47 mm/Hg, Grade I diastolicdysfunction. ASSESSMENT/PLAN Near syncope (Primary) Likely vasovagal episode - COMPREHENSIVE METABOLIC PANEL; Future; Expected date: 06/04/2024 - CBC WITH WBC DIFFERENTIAL; Future; Expected date: 06/04/2024 - EXTERNAL EKG 8 TO 15 DAYS HOME ENROLLMENT; Future; Expected date: 06/05/2024 Will need to postpone knee surgery until Zio is completed. Primary osteoarthritis of left knee Severe episode of recurrent major depressive disorder, without psychotic features (HCC) Continue Sertraline Type 2 diabetes mellitus with hemoglobin A1c goal of less than 8.0% (HCC) - HEMOGLOBIN A1C; Future; Expected date: 06/04/2024 Continue Ozempic, and Empagliflozin Hypertensive heart disease without heart failure Continue Losartan and HCTZ Primary insomnia Continue Trazodone Hypothyroidism due to acquired atrophy of thyroid Continue Levothyroxine HTN, goal below 140/90 Continue Losartan and HCTZ Restless legs syndrome Continue Ropinirole Vitamin D deficiency Vitamin B 12 deficiency Lumbar degenerative disc disease Gastroesophageal reflux disease without esophagitis Continue Pantoprazole and Famotidine Generalized anxiety disorder Continue Sertraline Gout, arthropathy Continue Allopurinol Hospital discharge follow-up - DISCH MED RECON CUR MED LIS Follow Up: Return in about 2 weeks (around 06/18/2024), or if symptoms worsen or fail to improve. Narinder Milton DO documented in this encounter Nursing Notes * Johana Marie LPN - 06/04/2024 3:15 PM EDT Zio applied per order [id number] * Johana Marie LPN - 06/04/2024 2:32 PM EDT Here for hospital follow up, Problems with syncope documented in this encounter Plan of Treatment Upcoming Encounters Date Type Department Care Team (Late st Contact Info) Description 06/17/2024 10:00 AM EDT Office Visit [address] [facility] [place] [id number] Roseanna Childress DO 293 [facility] [place] [place] [address] 06/20/2024 11:40 AM EDT Office Visit [address] [facility] [place] [phone] Narinder Milton DO [address] [facility] [place] [address] 06/28/2024 10:00 AM EDT Office Visit General Surgery, [facility] [address] [facility] [place] [address] Isela Veras MD [address] [place] [address] 07/01/2024 12:30 PM EDT Office Visit Gastroenterology, [facility] [address] [facility] [place] [address] Adelaide Bell CRNP 132 [place] [address] 07/24/2024 11:30 AM EDT Office Visit Ophthalmology, [place] [address] [place] [address] Avtar Patel MD [address] [place] [address] 08/06/2024 11:00 AM EDT Nutrition Services Nutrition Services [address] [address] Mercedez Alcantar RDN [address] [place] [address] 03/21/2025 11:00 AM EDT Nurse Only Ancillary [address] [address] College, Nurse Annual Wellness Visit [address] [address] Pending Results Name Type Priority Associated Diagnoses Date /Time HEMOGLOBIN A1C Lab Routine Type 2 diabetes mellitus with hemoglobin A1c goal of less than 8.0% ([facility]) 06/04/2024 3:23 PM EDT COMPREHENSIVE METABOLIC PANEL Lab Routine Near syncope 06/04/2024 3:23 PM EDT CBC WITH WBC DIFFERENTIAL Lab Routine Near syncope 06/04/2024 3:23 PM EDT CBC Lab Routine Near syncope 06/04/2024 3:23 PM EDT DIFFERENTIAL, AUTOMATED Lab Routine Near syncope 06/04/2024 3:23 PM EDT Scheduled Orders Name Type Priority Associated Diagnoses Orde r Schedule HEMOGLOBIN A1C Lab Routine Type 2 diabetes mellitus with hemoglobin A1c goal of less than 8.0% (HCC) Expected: 06/04/2024 (Approximate), Expires: 06/04/2025 COMPREHENSIVE METABOLIC PANEL Lab Routine Near syncope Expected: 06/04/2024 (Approximate), Expires: 06/04/2025 CBC WITH WBC DIFFERENTIAL Lab Routine Near syncope Expected: 06/04/2024 (Approximate), Expires: 06/04/2025 EXTERNAL EKG 8 TO 15 DAYS HOME ENROLLMENT Holter Routine Near syncope Expected: 06/05/2024 (Approximate), Expires: 06/04/2025 Scheduled Procedures Name Priority Associated Diagnoses Date/Ti [...] , 01/12/2022, Additional history exists Albumin/Creatinine Ratio 02/11/202502/11/2 024, 01/17/2023, 01/05/2022, Additional history exists Diabetic Foot Exam 02/11/2025 02/12/2024, 0 01/17/2023, 03/10/2022, Additional history exists TSH 02/11/2025 02/12/2024, 03/0 05/2023, 01/05/2022, Additional history exists DXA Scan 02/19/2025 02/19/2018, 07/14, 07/29/2013, Additional history exists Depression Monitoring 03/25/2025 03/25/2024 , 03/18/2024, 02/12/2024, Additional history exists GFR 04/29/2025 04/29/2024, 11/2023, 06/12/2023, Additional history exists Colonoscopy 09/01/2025 [...] this encounter Medical Devices Implanted Type Area Basketball Commentator Device Identifier Shelf Expiration Date Model / Serial / Lot Lens 19.0 Sn60wf - [id number] - [id number] Implanted:Qty: 1 on 09/16/2020 by Avtar Patel MD at OR [facility] Right: Eye WEST : SURGICAL [id number].190 / [id number] / Lens 19.5 Sn60wf - [id number] Implanted:Qty: 1 on 02/03/2021 by Avtar Patel MD at OR [facility] Left: Eye WEST : SURGICAL 12/18/2024 SN60WF.1 95 / / [id number] documented as of this encounter Visit Diagnoses Diagnosis Near syncope- Primary Syncope and collapse Primary osteoarthritis of left knee Primary localized osteoarthrosis, lower leg Severe episode of recurrent major depressive disorder, without psychotic features (HCC) Type 2 diabetes mellitus with hemoglobin A1c goal of less than 8.0% (HCC) Hypertensive heart disease without heart failure Unspecified hypertensive heart disease without heart failure Primary insomnia Persistent disorder of initiating or maintaining sleep Hypothyroidism due to acquired atrophy of thyroid HTN, goal below 140/90 Unspecified essential hypertension Restless legs syndrome Restless legs syndrome (RLS) Vitamin D deficiency Unspecified vitamin D deficiency Vitamin B 12 deficiency Other B-complex deficiencies Lumbar degenerative disc disease Degeneration of lumbar or lumbosacral intervertebral disc Gastroesophageal reflux disease without esophagitis Esophageal reflux Generalized anxiety disorder Gout, arthropathy Gouty arthropathy, unspecified Hospital discharge follow-up Other follow-up examination documented in this encounter Care Teams Patient Financial Representative Relationship Specialty Start Date End Date Narinder Milton DO [address] [place] [address] PCP - General Internal Medicine 04/25/24 documented as of this encounter
--- OUTSIDE RECORDS SUMMARY | 2024-07-22 08:36 | External Medical Summary | Summary of Care ---
Author Name Unknown Organization [facility] Address [address] [place] [address] Phone [phone] Care Team Providers Care Photographic Lithographer Name Role Phone Narinder Milton DO Primary Care Provider [phone] Reason for Visit * Reason Onset Date Comments Hospital Follow-Up Hospital Follow-Up 06/04/2024 Encounter Details Date Type Department Care Team (Latest Contact Info) Description 06/04/2024 2:20 PM EDT Office Visit Family Practice [address] [facility] [address] [place] [address] Narinder Milton [address] [place] [address] Near syncope*; Primary osteoarthritis of left knee; Severe episode of recurrent major depressive disorder, without psychotic features ([facility]); Type 2 diabetes mellitus with hemoglobin A1c goal of less than 8.0% ([facility]); Hypertensive heart disease without heart failure; Primary [...] [facility] DETECT Study: Project # [id number], Paper Products Printer: Antione Coburn, PhD. SUMMARY: Goal: Establish test [...] contact study staff at ; after hours Paper Products Printer via the [facility] electric arc furnace operator . Please contact study team before resolving/deleting from patients problem list. Study phone number: [phone]. Diagnosis changed due to Research Module. Go to Snapshot for study details. Encounter for examination fo r normal comparison and control in clinical research program 01/14/2019 07/14/2022 Overview: DO NOT DELETE - [facility] SINGH Study: Project # [id number], Paper Products Printer: Wilfrid Guzman, MS, MPH. SUMMARY: Goal: Establish [...] contact study staff at ; after hours Paper Products Printer via the [facility] electric arc furnace operator . - Please contact study team before resolving/deleting from patients problem list. Study phone number: [phone]. Diagnosis changed due to Research Module. Go to [employer] for study details. Bronchitis, complicated 01/26/201502/12 Ankle [...] mRNA, LNP-s, No Pre serve, 2-Dose Series (Endomedix) 09/04/2021,01/27/2021,01/01/2021 H1N1 2009 Influenza, IM 11/12/2009 PPD [...] Progress Notes * Johana Marie LPN - 06/06/2024 1:32 PM EDT Zio patch applied on 06/04 serial number is [id number] * Johana Marie LPN - 06/04/2024 3:23 PM EDT LAB DRAWN AND SENT TO [facility]. * Narinder Milton DO - 06/04/2024 2:41 PM EDT SUBJECTIVE: Zonia Bailey is a 74 year old female. Chief Complaint Patient presents with Hospital Follow-Up Hospital Follow-Up Recent Admission: Patient was recently admitted to [facility]. The date of discharge was . Discharge report received and reviewed. 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 The patient was admitted to [facility] from 05/28/2024- 05/31/2024 due to near syncope. [...] Antonio MD 4 Puff at 09/20/17 0927 Family History Problem Relation Name Age of Onset Mental Disorder Mother Diabetes Mother Heart Disorder Mother 63 [place] Stroke Mother Hypertension Mother Depression Mother Psychosis Mother Heart Disorder Father 72 [place] Hypertension Father Hypertension Sister Tatyana Diabetes Sister Tatyana Hyperlipidemia Sister Tatyana Arthritis Sister Tatyana Mental Disorder Sister Esthela Hyperlipidemia Sister Esthela Hypertension Sister Esthela Cancer Sister Esthela bone cancer Heart Disorder Sister Esthela [place] Heart murmur Sister Esthela 0 Diabetes Brother Huy Hyperlipidemia Brother Huy Hypertension Brother Huy Heart Disorder Brother Huy [place] Cancer Grandmother (Paternal) Other (Other) Daughter Ana migraines Musculo-skeletal Disorder Daughter Ana Arthritis Daughter Chantel Depression Daughter Chantel Asthma Daughter Chantel Diabetes Son Dami prediabetic Hyperlipidemia Son Dami Hypertension Son Dami Hypertension Son Antony Heart Disorder Aunt (Maternal) [place] Breast Cancer No significant family history Social [...] 3:15 PM EDT Zio applied per order [id number] * Johana Marie LPN - 06/04/2024 2:32 PM EDT Here for hospital follow up, Problems with syncope documented in this encounter Miscellaneous Notes * Result Encounter Note - Johana Marie LPN - 06/05/2024 3:47 PM EDT See telephone encounter. documented in this encounter Plan of Treatment Upcoming Encounters Date Type Department Care Team (Late st Contact Info) Description 06/17/2024 10:00 AM EDT Office Visit Family Practice [facility] 293 [place] [phone] Roseanna Childress, DO 293 [place] [address] 06/20/2024 11:40 AM EDT Office Visit Family Practice [address] [place] [address] 293 [place] [phone] Narnider Milton, DO 293 [place] [address] 06/28/2024 10:00 AM EDT Office Visit General Surgery, [facility] [address] [place] [address] Isela Veras MD [address] [place] [address] 07/01/2024 12:30 PM EDT Office Visit Gastroenterology, [facility] [address] [place] [place] [address] Adelaide Bell CRNP 132 [place] [address] 07/24/2024 11:30 AM EDT Office Visit Ophthalmology, [place] [address] [address] Avtar Patel MD [address] [address] 08/06/2024 11:00 AM EDT Nutrition Services Nutrition Services [address] [place] [address] [address] [place] [address] Mercedez Alcantar RDN [address] [facility] [place] [address] 03/21/2025 11:00 AM EDT Nurse Only Ancillary [address] [place] [address] [place] [address] College, Nurse Annual Wellness Visit [address] [place] [address] Scheduled Orders Name Type Priority Associated Diagnoses Orde r Schedule EXTERNAL EKG 8 TO 15 DAYS HOME [...] this encounter Medical Devices Implanted Type Area Mission Worker Device Identifier Shelf Expiration Date Model / Serial / Lot Lens 19.0 Sn60wf - [id number] - [id number] Implanted:Qty: 1 on 09/16/2020 by Avtar Patel MD at OR [facility] Right: Eye WEST : SURGICAL SN60WF.190 / [id number] / Lens 19.5 Sn60wf - [id number] Implanted:Qty: 1 on 02/03/2021 by Avtar Patel MD at OR [facility] Left: Eye WEST : SURGICAL 12/18/2024 SN60WF.1 95 / / [id number] documented as of this encounter Procedures Procedure Name Priority Date/Time Associated Diagnosis Comments DIFFERENTIAL, AUTOMATED Routine 06/04/2024 3:23 PM EDT Near syncope HEMOGLOBIN A1C Routine 06/04/2024 3:23 PM EDT Type 2 diabetes mellitus with hemoglobin A1c goal of less than 8.0% ([facility]) COMPREHENSIVE METABOLIC PANEL Routine 06/04/2024 3:23 PM EDT Near syncope CBC Routine 06/04/2024 3:23 PM EDT Near syncope CBC Routine 06/04/2024 3:23 PM EDT Near syncope documented in this encounter Results * DIFFERENTIAL, AUTOMATED (06/04/2024 3:23 PM EDT) WBC 5.14 4.00 - 10.80 K/uL 06/04/2024 11:21 PM EDT [facility] Neutrophils % 56.3 40.0 - 75.0 % 06/04/2024 11:21 PM EDT [facility] Lymphocytes % 31.1 18.0 - 42.0 % 06/04/2024 11:21 PM EDT [facility] Monocytes % 8.9 1.0 - 11.0 % 06/04/2024 11:21 PM EDT [facility] Eosinophils % 2.5 0.0 - 6.0 % 06/04/2024 11:21 PM EDT [facility] Basophils % 0.8 0.0 - 2.0 % 06/04/2024 11:21 PM EDT [facility] Immature Granulocytes % 0.4 0.0 - 2.0 % 06/04/2024 11:21 PM EDT [facility] Absolute Neutrophils 2.89 1.80 - 7.70 K/uL 06/04/2024 11:21 PM EDT [facility] Absolute Lymphocytes 1.60 1.00 - 4.80 K/ul 06/04/2024 11:21 PM EDT [facility] Absolute Monocytes 0.46 0.00 - 1.10 K/uL 06/04/2024 11:21 PM EDT [facility] Absolute Eosinophils 0.13 0.00 - 0.70 K/uL 06/04/2024 11:21 PM EDT [facility] Absolute Basophils 0.04 0.00 - 0.20 K/uL 06/04/2024 11:21 PM EDT [facility] Absolute Immature Granulocytes 0.02 0.00 - 0.20 K/uL 06/04/2024 11:21 PM EDT [facility] Blood Venous blood specimen / Unknown Venipuncture / Unknown 06/04/2024 3:23 PM EDT 06/04/2024 3:23 PM EDT Narinder Milton DO LAB BLOOD ORDERABLES Performing Organization Address City/State/[facility] Co de Phone Number [facility] [address] [place] [address] * CBC (06/04/2024 3:23 PM EDT) WBC 5.14 4.00 - 10.80 K/uL 06/04/2024 11:21 PM EDT [facility] RBC 4.68 3.85 - 5.15 M/uL 06/04/2024 11:21 PM EDT [facility] HGB 13.5 12.0 - 15.3 g/dL 06/04/2024 11:21 PM EDT [facility] HCT 42.5 36.0 - 45.2 % 06/04/2024 11:21 PM EDT [facility] MCV 90.8 81.5 - 97.5 fL 06/04/2024 11:21 PM EDT [facility] MCH 28.8 27.0 - 34.0 pg 06/04/2024 11:21 PM EDT [facility] MCHC 31.8 32.0 - 36.0 g/dL 06/04/2024 11:21 PM EDT [facility] RDW 13.3 11.5 - 15.5 % 06/04/2024 11:21 PM EDT [facility] PLT 222 140 - 400 K/uL 06/04/2024 11:21 PM EDT [facility] MPV 10.0 6.6 - 11.1 fL 06/04/2024 11:21 PM EDT [facility] nRBCs 0 <=0 /100 WBCs 06/04/2024 11:21 PM EDT [facility] Blood Venous blood specimen / Unknown Venipuncture / Unknown 06/04/2024 3:23 PM EDT 06/04/2024 3:23 PM EDT Narinder Milton DO LAB BLOOD ORDERABLES [facility] [address] [place], [place] [id number] * (ABNORMAL) COMPREHENSIVE METABOLIC PANEL (06/04/2024 3:23 PM EDT) BUN 20 6 - 20 mg/dL 06/05/2024 12:52 AM EDT [facility] Creatinine 0.8 0.5 - 1.0 mg/dL 06/05/2024 12:52 AM EDT [facility] Estimated Glomerular Filtration Rate 74 >=60 mL/min 06/05/2024 12:52 AM EDT [facility] Comment:eGFR is calculated b ased on the CKD-EPI 2020 equation. Sodium 139 135 - 146 mmol/L 06/05/2024 12:52 AM EDT [facility] Potassium 3.7 3.5 - 5.1 mmol/L 06/05/2024 12:52 AM EDT [facility] Chloride 100 98 - 107 mmol/L 06/05/2024 12:52 AM EDT [facility] CO2 26 22 - 32 mmol/L 06/05/2024 12:52 AM EDT [facility] Anion Gap 13 7 - 15 mmol/L 06/05/2024 12:52 AM EDT [facility] Glucose 209(H) 70 - 120 mg/dL 06/05/2024 12:52 AM EDT [facility] Albumin 4.1 3.8 - 5.0 g/dL 06/05/2024 12:52 AM EDT [facility] AST 20 10 - 35 U/L 06/05/2024 12:52 AM EDT [facility] Alkaline Phosphatase 101 35 - 130 U/L 06/05/2024 12:52 AM EDT [facility] Bilirubin, Total 0.3 <=1.2 mg/dL 06/05/2024 12:52 AM EDT [facility] Calcium 9.8 8.4 - 10.2 mg/dL 06/05/2024 12:52 AM EDT [facility] Protein 6.6 6.0 - 8.3 g/dL 06/05/2024 12:52 AM EDT [facility] ALT 21 10 - 35 U/L 06/05/2024 12:52 AM EDT LABORATORY [facility] Blood Venous blood specimen / Unknown Venipuncture / Unknown 06/04/2024 3:23 PM EDT 06/04/2024 3:23 PM EDT Narinder Milton DO LAB BLOOD ORDERABLES Performing Organization Address [facility] de Phone Number LABORATORY [facility] [address] [place] [address] * (ABNORMAL) HEMOGLOBIN A1C (06/04/2024 3:23 PM EDT) Hemoglobin A1C 8.2(H) 4.0 - 5.6 % 06/05/2024 12:20 AM EDT LABORATORY [facility] Comment:The use of HbA1c to monitor glycemic status is based on normal hemoglobin and HbA composition. This test should not be used in patients with abnormal hemoglobin that affects the half life of the red blood cell or the in vivo glycation rates. Estimated Average Glucose 189(H) <126 mg/dL 06/05/2024 12:20 AM EDT LABORATORY [facility] Blood Venous blood specimen / Unknown Venipuncture / Unknown 06/04/2024 3:23 PM EDT 06/04/2024 3:23 PM EDT Narinder Milton DO LAB BLOOD ORDERABLES Performing Organization Address [facility] de Phone Number LABORATORY [facility] [address] [place] [address] documented in this encounter Visit Diagnoses Diagnosis Near syncope- [...] examination documented in this encounter Care Teams Photographic Lithographer Relationship Specialty Start Date End Date Narinder Milton DO [address] [facility] [place] [address] PCP - General Internal Medicine 04/25/24 documented as of this encounter
--- OUTSIDE RECORDS SUMMARY | 2024-07-22 08:36 | External Medical Summary ---
Author Name Unknown Address Unknown Organization K01:[facility] [address] [facility] [place] [address] Laboratory Report Ordering Provider Test Date Status SHANITA SALCEDO 06/04/2024 15:23:47 Final Observation Date Value Abnormality Reference (Units ) Status BUN 06/04/2024 15:23:47 20 6-20 (mg/dL) Final Creatinine 06/04/2024 15:23:47 0.8 0.5-1.0 (mg/dL) Final Glomerular filtration rate/1.73 sq M.predicted [Volume Rate/Area] in Serum, Plasma or Blood by Creatinine-based formula (CKD-EPI) 06/04/2024 15:23:47 74 >=60 (mL/min) Final eGFR is calculated based on the CKD-EPI 2020 equation. Sodium 06/04/2024 15:23:47 139 135-146 (m mol/L) Final Potassium 06/04/2024 15:23:47 3.7 3.5-5.1 (m mol/L) Final Cl 06/04/2024 15:23:47 100 98-107 (mm ol/L) Final CO2 06/04/2024 15:23:47 26 22-32 (mmo l/L) Final Anion gap 06/04/2024 15:23:47 13 7-15 (mmol /L) Final Glucose 06/04/2024 15:23:47 209 Above high normal 70 -120 (mg/dL) Final Albumin 06/04/2024 15:23:47 4.1 3.8-5.0 (g /dL) Final AST (Aspartate aminotransferase) 06/04/2024 15:23:47 20 10-35 (U/L) Fin al Alk Phos 06/04/2024 15:23:47 101 35-130 (U/ L) Final Bilirubin, Total 06/04/2024 15:23:47 0.3 <=1 .2 (mg/dL) Final Calcium 06/04/2024 15:23:47 9.8 8.4-10.2 ( mg/dL) Final Protein 06/04/2024 15:23:47 6.6 6.0-8.3 (g /dL) Final ALT (Alanine aminotransferase) 06/04/2024 15:23:47 21 10-35 (U/L) Avila quezada Performing Location [facility] [address]. [facility] [address]
--- OUTSIDE RECORDS SUMMARY | 2024-07-22 08:36 | External Medical Summary | Summary of Care ---
Author Name Unknown Organization [facility] Address [address] [place] [address] Phone [phone] Care Team Providers Care Fuel Operator Name Role Phone Narinder Milton DO Primary Care Provider Encounter Details Date Type Department Care Team (Late st Contact Info) Description 06/04/2024 Population Health External Data Unspecified Department Allergies Active Allergy Reactions Criticality Noted Date Comments Betaxolol 01/08/1997 Betoptic S: insomnia, depression Carbamazepine And Analogs Unknown 04/01/1999 Levobunolol 01/08/1997 Betagan: fatigue, nightmares Levofloxacin Muscle pain 03/14/2011 Penicillins 04/01/1999 Rash, very sick Simvastatin Unknown 09/16/2004 zocor Sulfa Antibiotics Unknown 04/01/1999 documented as of this encounter (statuses as of 06/07/2024) Medications Medication Sig Dispensed Refills Start Date [...] as of this encounter (statuses as of 06/07/2024) Active Problems Problem Noted Date Diagnosed Date [...] as of this encounter (statuses as of 06/07/2024) Resolved Problems Problem Noted Date Diagnosed Date [...] [facility] [place] DET[place] Study: Project # [id number], Ios Programmer: Antione Coburn, PhD. SUMMARY: Goal: Establish test [...] contact study staff at ; after hours Ios Programmer via the [facility] hospital flexo operator . Please contact study team before resolving/deleting from patients problem list. Study phone number: [phone]. Diagnosis changed due to Research Module. Go to [employer] for study details. Encounter for examination fo r normal comparison and control in clinical research program 01/14/2019 07/14/2022 Overview: DO NOT DELETE - [facility] DETECT Study: Project # [id number], Ios Programmer: Wilfrid Guzman, MS, MPH. SUMMARY: Goal: Establish [...] contact study staff at ; after hours Ios Programmer via the [facility] hospital flexo operator . - Please contact study team before resolving/deleting from patients problem list. Study phone number: [phone]. Diagnosis changed due to Research Module. Go [...] as of this encounter (statuses as of 06/07/2024) Immunizations Name Administration Dates Next Due COVID-19 [...] AM EDT Office Visit Family Practice 65 [facility] 293 [place] [phone] Roseanna Childress, DO [address] [place] [address] 06/20/2024 11:40 AM EDT Office Visit Family Practice [address] [place] [address] 293 [place] [phone] Narinder Milton, DO [address] [place] [address] 06/28/2024 10:00 AM EDT Office Visit General Surgery, [facility] [address] [facility] [address] Isela Veras MD [address] [place] [address] 07/01/2024 12:30 PM EDT Office Visit Gastroenterology, [facility] [address] [place] [address] Adelaide Bell CRNP [address] [place] [address] 07/24/2024 11:30 AM EDT Office Visit Ophthalmology, [place] [address] [address] Avtar Patel MD [address] [address] 08/06/2024 11:00 AM EDT Nutrition Services Nutrition Services [address] [place] [address] 293 [place] [address] Mercedez Alcantar RDN [address] [facility] [place] [address] 03/21/2025 11:00 AM EDT Nurse Only Ancillary [address] [place] [address] [place] [address] College, Nurse Annual Wellness Visit [address] [facility] [address] [place] [address] Scheduled Procedures Name Priority Associated Diagnoses Date/Ti [...] this encounter Medical Devices Implanted Type Area Java Lead Engineer Device Identifier Shelf Expiration Date Model / Serial / Lot Lens 19.0 Sn60wf - [id number] - [id number] Implanted:Qty: 1 on 09/16/2020 by Avtar Patel MD at OR [facility] Right: Eye WEST : SURGICAL SN60WF.190 / [id number] / Lens 19.5 Sn60wf - [id number] Implanted:Qty: 1 on 02/03/2021 by Avtar Patel MD at OR [facility] Left: Eye WEST : SURGICAL 12/18/2024 SN60WF.1 95 / / [id number] documented as of this encounter Care Teams Fuel Operator Relationship Specialty Start Date End Date Narinder Milton DO [address] [facility] [place] [address] PCP - General Internal Medicine 04/25/24 documented as of this encounter
--- OUTSIDE RECORDS SUMMARY | 2024-07-22 08:36 | External Medical Summary | Summary of Care ---
Author Name Unknown Organization [facility] Address [address] [place] [address] Phone [phone] Care Team Providers Care Home Health Lpn Name Role Phone Narinder Milton DO Primary Care Provider [phone] Reason for Visit * Reason Onset Date Comments Hospital Follow-Up Hospital Follow-Up 06/04/2024 Encounter Details Date Type Department Care Team (Latest Contact Info) Description 06/04/2024 2:20 PM EDT Office Visit Family Practice [address] [place] [address] Narinder Milton 293 [place] [address] Near syncope*; Primary osteoarthritis of left knee; Severe episode of recurrent major depressive disorder, without psychotic features ([facility]); Type 2 diabetes mellitus with hemoglobin A1c goal of less than 8.0% ([facility]); Hypertensive heart disease without heart failure; [...] 01/14/2019 06/15/2020 Overview: DO NOT DELETE [facility] DETECT Study: Project # [id number], Pilot Control Operator Helper: Antione Coburn, PhD. SUMMARY: Goal: Establish [...] contact study staff at ; after hours Pilot Control Operator Helper via the [facility] cryptologic technician operator/analyst . Please contact study team before resolving/deleting from patients problem list. Study phone number: [phone]. Diagnosis changed due to Research Module. Go to Snapshot for study details. Encounter for examination fo r normal comparison and control in clinical research program 01/14/2019 07/14/2022 Overview: DO NOT DELETE - [facility] Study: Project # [id number], Pilot Control Operator Helper: Wilfrid Guzman, MS, MPH. SUMMARY: Goal: [...] contact study staff at ; after hours Pilot Control Operator Helper via the [facility] cryptologic technician operator/analyst . - Please contact study team before resolving/deleting from patients problem list. Study phone number: [phone]. Diagnosis changed due to Research Module. Go to BigBad for study details. Bronchitis, complicated 01/26/201502/12 Ankle [...] mRNA, LNP-s, No Pre serve, 2-Dose Series ([employer]) 09/04/2021,01/27/2021,01/01/2021 H1N1 2009 Influenza, IM 11/12/2009 Pneumococcal [...] No 09/25/2023 Does the household have a [facility] source of income? (Household - for ages [...] PM EDT LAB DRAWN AND SENT TO [facility]. * Narinder Milton DO - 06/04/2024 2:41 PM EDT SUBJECTIVE: Zonia Bailey is a 74 year old female. Chief Complaint Patient presents with Hospital Follow-Up Hospital Follow-Up Recent Admission: Patient was recently admitted to [facility]. The date of discharge was . Discharge report received and reviewed. 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 The patient was admitted to [facility] from 05/28/2024- 05/31/2024 due to near syncope. [...] Johana Antonio MD 4 Puff at 09/20/17 0945 Family History Problem Relation Name Age of Onset Mental Disorder Mother Diabetes Mother Heart Disorder Mother 63 [place] Stroke Mother Hypertension Mother Depression Mother Psychosis Mother Heart Disorder Father 72 [place] Hypertension Father Hypertension Sister Tatyana Diabetes Sister Tatyana Hyperlipidemia Sister Tatyana Arthritis Sister Tatyana Mental Disorder Sister Esthela Hyperlipidemia Sister Esthela Hypertension Sister Esthela Cancer Sister Esthela bone cancer Heart Disorder Sister Esthela NH Heart murmur Sister Esthela 0 Diabetes Brother Huy Hyperlipidemia Brother Huy Hypertension Brother Huy Heart Disorder Brother Huy NH Cancer Grandmother (Paternal) Other (Other) Daughter Ana migraines Musculo-skeletal Disorder Daughter Ana Arthritis Daughter Chantel Depression Daughter Chantel Asthma Daughter Chantel Diabetes Son Dami prediabetic Hyperlipidemia Son Dami Hypertension Son Dami Hypertension Son Antony Heart Disorder Aunt (Maternal) NH Breast Cancer No significant family history Social [...] 3:15 PM EDT Zio applied per order [id number] * Johana Marie LPN - 06/04/2024 2:32 PM EDT Here for hospital follow up, Problems with syncope documented in this encounter Plan of Treatment Upcoming Encounters Date Type Department Care Team (Late st Contact Info) Description 06/17/2024 10:00 AM EDT Office Visit [address] 293 [place] [phone] Roseanna Childress DO 293 [place] [address] 06/20/2024 11:40 AM EDT Office Visit [address] 293 [place] [address] Narinder Milton DO 293 [place] [address] 06/28/2024 10:00 AM EDT Office Visit General Surgery, [facility] [address] [place] [address] Isela Veras MD [address] [place] [address] 07/01/2024 12:30 PM EDT Office Visit Gastroenterology, [facility] 132 [facility] [place] [address] Adelaide Bell CRNP 132 [facility] [place] [address] 07/24/2024 11:30 AM EDT Office Visit Ophthalmology, [place] [address] [place] [address] Avtar Patel MD 21 [place] [address] 08/06/2024 11:00 AM EDT Nutrition Services Nutrition Services [address] [address] Mercedez Alcantar RDN [address] [place] [address] 03/21/2025 11:00 AM EDT Nurse Only Ancillary [address] [address] College, Nurse Annual Wellness Visit [address] [place] [address] [address] Pending Results Name Type Priority Associated Diagnoses Date /Time HEMOGLOBIN A1C Lab Routine Type 2 diabetes mellitus with hemoglobin A1c goal of less than 8.0% ([facility]) 06/04/2024 3:23 PM EDT COMPREHENSIVE METABOLIC PANEL [...] this encounter Medical Devices Implanted Type Area Recreation Therapy Aide Device Identifier Shelf Expiration Date Model / Serial / Lot Lens 19.0 Sn60wf - [id number] - [id number] Implanted:Qty: 1 on 09/16/2020 by Avtar Patel MD at OR [facility] Right: Eye WEST : SURGICAL SN60WF.190 / [id number] / Lens 19.5 Sn60wf - [id number] Implanted:Qty: 1 on 02/03/2021 by Avtar Patel MD at OR [facility] Left: Eye WEST : SURGICAL 12/18/2024 SN60WF.1 95 / / [id number] documented as of this encounter Visit [...] examination documented in this encounter Care Teams Home Health Lpn Relationship Specialty Start Date End Date Narinder Milton DO [address] [place] [address] PCP - General Internal Medicine 04/25/24 documented as of this encounter
--- OUTSIDE RECORDS SUMMARY | 2024-07-22 08:37 | External Medical Summary | Summary of Care ---
Author Name Unknown Organization [facility] Address [address] [place] [address] Phone [phone] Care Team Providers Care Senior Geologist Name Role Phone Narinder Milton DO Primary Care Provider [phone] Reason for Visit * Reason Onset Date Comments Hospital Follow-Up 05/30/2024 Encounter Details Date Type Department Care Team (Late st Contact Info) Description 05/30/2024 Telephone General Internal Medicine [facility] 200 [facility] [place] [address] Narinder Milton DO [address] [place] [address] Hospital Follow-Up Allergies Active Allergy Reactions Criticality Noted Date Comments Betaxolol 01/08/1997 Betoptic S: insomnia, depression Carbamazepine And Analogs Unknown 04/01/1999 Levobunolol 01/08/1997 Betagan: fatigue, nightmares Levofloxacin Muscle pain 03/14/2011 Penicillins 04/01/1999 Rash, very sick Simvastatin Unknown 09/16/2004 zocor Sulfa Antibiotics Unknown 04/01/1999 documented as of this encounter (statuses as of 06/01/2024) Medications Medication Sig Dispensed Refills Start Date [...] as of this encounter (statuses as of 06/01/2024) Active Problems Problem Noted Date Diagnosed Date [...] as of this encounter (statuses as of 06/01/2024) Resolved Problems Problem Noted Date Diagnosed Date [...] [facility] DET[facility] Study: Project # [id number], Insurance Risk Surveyor: Antione Coburn, PhD. SUMMARY: Goal: Establish test [...] contact study staff at ; after hours Insurance Risk Surveyor via the [facility] hospital ampoule washing machine operator . Please contact study team before resolving/deleting from patients problem list. Study phone number: [phone]. Diagnosis changed due to Research Module. Go to Snapshot for study details. Encounter for examination fo r normal comparison and control in clinical research program 01/14/2019 07/14/2022 Overview: DO NOT DELETE - [facility] SNIGH Study: Project # [id number], Insurance Risk Surveyor: Wilfrid Guzman, MS, MPH. SUMMARY: Goal: Establish [...] contact study staff at ; after hours Insurance Risk Surveyor via the [facility] hospital ampoule washing machine operator . - Please contact study team before resolving/deleting from patients problem list. Study phone number: [phone]. Diagnosis changed due to Research Module. Go [...] as of this encounter (statuses as of 06/01/2024) Immunizations Name Administration Dates Next Due COVID-19 mRNA, LNP-s, No Pre serve, 2-Dose Series ([employer]) 09/04/2021,01/27/2021,01/01/2021 H1N1 2009 Influenza, IM 11/12/2009 Pneumococcal [...] Telephone Encounter - Narinder Milton DO - 05/30/2024 2:03 PM EDT Thanks * Telephone Encounter - Panda Molina RN - 05/30/2024 1:44 PM EDT Patient discharged 05/30/24 to home from [facility] for evaluation for syncope, r/o CVA. Hospitalist recommends a 14 day Zio patch. Patient has a follow up appointment with Dr Milton on 06/04/24. Thank you documented in this encounter Plan of Treatment Upcoming Encounters Date Type Department Care Team (Late st Contact Info) Description 06/04/2024 2:20 PM EDT Office Visit Family [address] 293 [place] [address] Narinder Milton, 293 [place] [address] 06/17/2024 10:00 AM EDT Office Visit [address] 293 [facility] [place] [address] Roseanna Childress, DO [address] [place] [address] 06/28/2024 10:00 AM EDT Office Visit General Surgery, [facility] 132 [place] [address] Isela Veras MD [address] [place] [address] 07/01/2024 12:30 PM EDT Office Visit Gastroenterology, [facility] 132 [facility] [place] [address] Adelaide Bell CRNP 132 [place] [address] 07/24/2024 11:30 AM EDT Office Visit Ophthalmology, [facility] [address] [place] [address] Avtar Patel MD [address] [place] [address] 08/06/2024 11:00 AM EDT Nutrition Services Nutrition Services [address] [address] Mercedez Alcantar RDN [address] [place] [address] 03/21/2025 11:00 AM EDT Nurse Only Ancillary [address] [address] College, Nurse Annual Wellness Visit [address] [address] Scheduled Procedures Name Priority Associated Diagnoses Date/Ti [...] 01/12/2022, Additional history exists Albumin/Creatinine Ratio 02/11/2025 024, 01/17/2023, 01/05/2022, Additional history exists Diabetic Foot Exam 02/11/2025 02/12/2024, 0 01/17/2023, 03/10/2022, Additional history exists TSH 02/11/2025 02/12/2024, 03/0 05/2023, 01/05/2022, Additional history exists DXA Scan 02/19/2025 02/19/2018, 07/14, 07/29/2013, Additional history exists Depression Monitoring 03/25/2025 03/25/2024 , 03/18/2024, 02/12/2024, Additional history exists GFR 04/29/2025 04/29/2024, 04/0 11/2023, 06/12/2023, Additional history exists Colonoscopy 09/01/2025 [...] this encounter Medical Devices Implanted Type Area Auxiliary Equipment Operator Device Identifier Shelf Expiration Date Model / Serial / Lot Lens 19.0 Sn60wf - [id number] - [id number] Implanted:Qty: 1 on 09/16/2020 by Avtar Patel MD at OR [facility] Right: Eye WEST : SURGICAL SN60WF.190 / [id number] / Lens 19.5 Sn60wf - [id number] Implanted:Qty: 1 on 02/03/2021 by Avtar Patel MD at OR [facility] Left: Eye WEST : SURGICAL 12/18/2024 SN60WF.1 95 / / [id number] documented as of this encounter Care Teams Senior Geologist Relationship Specialty Start Date End Date Narinder Milton DO [address] [place] [address] PCP - General Internal Medicine 04/25/24 documented as of this encounter
--- OUTSIDE RECORDS SUMMARY | 2024-07-22 08:37 | External Medical Summary | Summary of Care ---
Author Name Unknown Organization [facility] Address [address] [place] [address] Phone [phone] Care Team Providers Care Casket Liner Name Role Phone Narinder Milton DO Primary Care Provider [phone] Reason for Visit * Reason Onset Date Comments Appointment 05/30/2024 [facility] discharge Encounter Details Date Type Department Care Team (Late st Contact Info) Description 05/30/2024 Telephone Family Practice [address] [facility] [address] [place] [address] Narinder Milton DO 293 [place] [address] Appointment ([facility] discharge) Allergies Active Allergy Reactions Criticality Noted Date Comments Betaxolol 01/08/1997 Betoptic S: insomnia, depression Carbamazepine And Analogs Unknown 04/01/1999 Levobunolol 01/08/1997 Betagan: fatigue, nightmares Levofloxacin Muscle pain 03/14/2011 Penicillins 04/01/1999 Rash, very sick Simvastatin Unknown 09/16/2004 zocor Sulfa Antibiotics Unknown 04/01/1999 documented as of this encounter (statuses as of 05/30/2024) Medications Medication Sig Dispensed Refills Start Date [...] as of this encounter (statuses as of 05/30/2024) Active Problems Problem Noted Date Diagnosed Date [...] as of this encounter (statuses as of 05/30/2024) Resolved Problems Problem Noted Date Diagnosed Date [...] [facility] DETECT Study: Project # [id number], Edge Trimmer Mechanic: Antione Coburn, PhD. SUMMARY: Goal: Establish test [...] contact study staff at ; after hours Edge Trimmer Mechanic via the [facility] hospital dye reel operator . Please contact study team before resolving/deleting from patients problem list. Study phone number: [phone]. Diagnosis changed due to Research Module. Go to Snapshot for study details. Encounter for examination fo r normal comparison and control in clinical research program 01/14/2019 07/14/2022 Overview: DO NOT DELETE - [facility] SNIGH Study: Project # [id number], Edge Trimmer Mechanic: Wilfrid Guzman, MS, MPH. SUMMARY: Goal: Establish [...] contact study staff at ; after hours Edge Trimmer Mechanic via the [facility] hospital dye reel operator . - Please contact study team before resolving/deleting from patients problem list. Study phone number: [phone]. Diagnosis changed due to Research Module. Go [...] as of this encounter (statuses as of 05/30/2024) Immunizations Name Administration Dates Next Due COVID-19 mRNA, LNP-s, No Pre serve, 2-Dose Series ([employer]) 09/04/2021,01/27/2021,01/01/2021 H1N1 2009 Influenza, IM 11/12/2009 Pneumococcal [...] Miscellaneous Notes * Telephone Encounter - Candis Pathak OSA - 05/30/2024 12:17 PM EDT Panda relayed information Pt aware * Telephone Encounter - Johana Marie LPN - 05/30/2024 11:51 AM EDT OJSE will need to be done--Jamila 06/04--2:20 please call and schedule--front end wheel loader operator Thank you * Telephone Encounter - Candis Pathak OSA - 05/30/2024 11:35 AM EDT Need hospital follow up Please advise where to place documented in this encounter Plan of Treatment Upcoming Encounters Date Type Department Care Team (Late st Contact Info) Description 06/04/2024 2:20 PM EDT Office Visit Family Practice 65 [facility] [address] [place] [phone] Narinder Milton, DO 293 [facility] [place] [place] [address] 06/17/2024 10:00 AM EDT Office Visit Family Practice 65 [facility] 293 [facility] [place] [address] Roseanna Childress DO 293 [place] [address] 06/28/2024 10:00 AM EDT Office Visit General Surgery, [facility] 132 [place] [address] Isela eVras MD [address] [place] [address] 07/01/2024 12:30 PM EDT Office Visit Gastroenterology, [facility] 132 [employer] [address] Adelaide Bell CRNP 132 [place] [address] 07/24/2024 11:30 AM EDT Office Visit [facility], [place] [facility] [address] Avtar Patel MD 21 [place] [address] 08/06/2024 11:00 AM EDT Nutrition Services Nutrition Services [address] [address] Mercedez Alcantar RDN [address] [place] [address] 03/21/2025 11:00 AM EDT Nurse Only Ancillary [address] [address] College, Nurse Annual Wellness Visit [address] [address] Scheduled Procedures Name Priority Associated Diagnoses Date/Ti [...] this encounter Medical Devices Implanted Type Area Plant Packer Device Identifier Shelf Expiration Date Model / Serial / Lot Lens 19.0 Sn60wf - [id number] - [id number] Implanted:Qty: 1 on 09/16/2020 by Avtar Patel MD at OR [facility] Right: Eye WEST : SURGICAL SN60WF.190 / [id number] / Lens 19.5 Sn60wf - [id number] Implanted:Qty: 1 on 02/03/2021 by Avtar Patel MD at OR [facility] Left: Eye WEST : SURGICAL 12/18/2024 SN60WF.1 95 / / [id number] documented as of this encounter Care Teams Casket Liner Relationship Specialty Start Date End Date Narinder Milton DO 293 [place] [address] PCP - General Internal Medicine 04/25/24 documented as of this encounter
--- OUTSIDE RECORDS SUMMARY | 2024-07-22 08:37 | External Medical Summary | Summary of Care ---
Author Name Unknown Organization [facility] Address [address] [place] [address] Phone [phone] Care Team Providers Care Plugman Name Role Phone Narinder Milton DO Primary Care Provider [phone] Reason for Visit * Reason Onset Date Comments Hospital Follow-Up 05/30/2024 Encounter Details Date Type Department Care Team (Late st Contact Info) Description 05/30/2024 Telephone General Internal Medicine [facility] 200 [facility] [place] [address] Narinder Milton DO [address] [place] [address] Hospital Follow-Up Allergies Active Allergy Reactions Criticality [...] [facility] Study: Project # [id number], Lacrosse Coach: Antione Coburn, PhD. SUMMARY: Goal: Establish test [...] contact study staff at ; after hours Lacrosse Coach via the [facility] hospital multiple effect evaporator operator . Please contact study team before resolving/deleting from patients problem list. Study phone number: [phone]. Diagnosis changed due to Research Module. Go to Snapshot for study details. Encounter for examination fo r normal comparison and control in clinical research program 01/14/2019 07/14/2022 Overview: DO NOT DELETE - [facility] SING[facility] Study: Project # [id number], Lacrosse Coach: Wilfrid Guzman, MS, MPH. SUMMARY: Goal: Establish [...] contact study staff at ; after hours Lacrosse Coach via the [facility] hospital multiple effect evaporator operator . - Please contact study team before resolving/deleting from patients problem list. Study phone number: [phone]. Diagnosis changed due to Research Module. Go [...] mRNA, LNP-s, No Pre serve, 2-Dose Series ([employer] [place]) 09/04/2021,01/27/2021,01/01/2021 H1N1 2009 Influenza, IM 11/12/2009 Pneumococcal [...] EDT Patient discharged 05/30/24 to home from [facility] for evaluation for syncope, r/o CVA. Hospitalist recommends a 14 day Zio patch. Patient has a follow up appointment with Dr Milton on 06/04/24. Thank you documented in this encounter Plan of Treatment Upcoming Encounters Date Type Department Care Team (Late st Contact Info) Description 06/04/2024 2:20 PM EDT Office Visit Family [address] 293 [place] [address] Narinder Milton, 293 [place] [address] 06/17/2024 10:00 AM EDT Office Visit [address] 293 [place] [address] Roseanna Childress, DO 293 [place] [address] 06/28/2024 10:00 AM EDT Office Visit General Surgery, [facility] 132 [place] [address] Isela Veras MD [address] [place] [address] 07/01/2024 12:30 PM EDT Office Visit Gastroenterology, [facility] 132 [place] [address] Adelaide Bell CRNP 132 [place] [address] 07/24/2024 11:30 AM EDT Office Visit Ophthalmology, [place] [address] [place] [address] Avtar Patel MD [address] [place] [address] 08/06/2024 11:00 AM EDT Nutrition Services Nutrition Services [address] [address] Mercedez Alcantar RDN [address] [place] [address] 03/21/2025 11:00 AM EDT Nurse Only Ancillary [address] [address] College, Nurse Annual Wellness Visit [address] [address] Scheduled Procedures Name Priority Associated Diagnoses Date/Ti [...] this encounter Medical Devices Implanted Type Area Linux Network Systems Administrator Device Identifier Shelf Expiration Date Model / Serial / Lot Lens 19.0 Sn60wf - [id number] - [id number] Implanted:Qty: 1 on 09/16/2020 by Avtar Patel MD at OR [facility] Right: Eye WEST : SURGICAL SN60WF.190 / [id number] / Lens 19.5 Sn60wf - [id number] Implanted:Qty: 1 on 02/03/2021 by Avtar Patel MD at OR [facility] Left: Eye WEST : SURGICAL 12/18/2024 SN60WF.1 95 / / [id number] documented as of this encounter Care Teams Plugman Relationship Specialty Start Date End Date Narinder Milton DO 293 [place] [address] PCP - General Internal Medicine 04/25/24 documented as of this encounter
--- OUTSIDE RECORDS SUMMARY | 2024-07-22 08:37 | External Medical Summary ---
Author Name Unknown Address Unknown Organization K01:[facility] [place] - [address] [facility]. [place] [address] Laboratory Report Ordering Provider Test Date Status SHANITA SALCEDO 06/04/2024 15:23:47 Final Observation Date Value Abnormality Reference (Units ) Status SYNC LEUKOCYTES IN BLOOD BY AUTOMATED COUNT 06/04/2024 15:23:47 5.14 4.00-10.80 (K/uL) Final Segs 06/04/2024 15:23:47 56.3 40.0-75.0 (%) Final Lymphs % 06/04/2024 15:23:47 31.1 18.0-42.0 (%) Final Monos 06/04/2024 15:23:47 8.9 1.0-11.0 (%) Final Eosinophils 06/04/2024 15:23:47 2.5 0.0-6.0 (%) Final Basos 06/04/2024 15:23:47 0.8 0.0-2.0 (%) Final Immature Granulocyte, Percent 06/04/2024 15:23:47 0.4 0.0-2.0 (%) Final Absolute Segs 06/04/2024 15:23:47 2.89 1.80-7.70 (K/uL) Final Lymphs, absolute 06/04/2024 15:23:47 1.60 1.00-4.80 (K/ul) Final Monos, Abs 06/04/2024 15:23:47 0.46 0.00-1.10 (K/uL) Final Eos, Abs 06/04/2024 15:23:47 0.13 0.00-0.70 (K/uL) Final Basos, Abs 06/04/2024 15:23:47 0.04 0.00-0.20 (K/uL) Final Immature Granulocytes, Number 06/04/2024 15:23:47 0.02 0.00-0.20 (K/uL) Final Performing Location [facility] [place] - [address] [facility] [address]
--- OUTSIDE RECORDS SUMMARY | 2024-07-22 08:37 | External Medical Summary | Summary of Care ---
Author Name Unknown Organization [facility] Address [address] [place] [address] Phone [phone] Care Team Providers Care Records Management Clerk Name Role Phone Narinder Milton DO Primary Care Provider [phone] Reason for Visit * Reason Onset Date Comments Appointment 05/30/2024 [facility] discharge Encounter Details Date Type Department Care Team (Late st Contact Info) Description 05/30/2024 Telephone Family Practice [facility] [address] [place] [address] Narinedr Milton DO [address] [place] [address] Appointment ([facility] discharge) Allergies Active Allergy Reactions Criticality Noted [...] [facility] DETECT Study: Project # [id number], Ship Pilot Dispatcher: Antione Coburn, PhD. SUMMARY: Goal: Establish test [...] contact study staff at ; after hours Ship Pilot Dispatcher via the [facility] hospital radio station operator . Please contact study team before resolving/deleting from patients problem list. Study phone number: [phone]. Diagnosis changed due to Research Module. Go to Snapshot for study details. Encounter for examination fo r normal comparison and control in clinical research program 01/14/2019 07/14/2022 Overview: DO NOT DELETE - [facility] Study: Project # [id number], Ship Pilot Dispatcher: Wilfrid Guzman, MS, MPH. SUMMARY: Goal: Establish [...] contact study staff at ; after hours Ship Pilot Dispatcher via the [facility] hospital radio station operator . - Please contact study team before resolving/deleting from patients problem list. Study phone number: [phone]. Diagnosis changed due to Research Module. Go [...] mRNA, LNP-s, No Pre serve, 2-Dose Series ([employer]) 09/04/2021,01/27/2021,01/01/2021 H1N1 2009 Influenza, IM 11/12/2009 Pneumococcal [...] Marie LPN - 05/30/2024 11:51 AM EDT JOSE will need to be done--Jamila 06/04--2:20 please call and schedule--director of front office Thank you * Telephone Encounter - Candis Pathak OSA - 05/30/2024 11:35 AM EDT Need hospital follow up Please advise where to place documented in this encounter Plan of Treatment Upcoming Encounters Date Type Department Care Team (Late st Contact Info) Description 06/04/2024 2:20 PM EDT Office Visit Family Practice [facility] [address] [place] [phone] Narinder Milton, DO [address] [place] [address] 06/17/2024 10:00 AM EDT Office Visit Family Practice 65 [facility] 293 [facility] [place] [phone] Roseanna Childress DO [address] [place] [address] 06/28/2024 10:00 AM EDT Office Visit General Surgery, [facility] [address] [place] [address] Isela Veras MD [address] [place] [address] 07/01/2024 12:30 PM EDT Office Visit Gastroenterology, [facility] [address] [place] [address] Adelaide Bell CRNP [address] [place] [address] 07/24/2024 11:30 AM EDT [facility] [address] Avtar Patel MD [address] [place] [address] 08/06/2024 11:00 AM EDT Nutrition Services Nutrition Services [address] [address] Mercedez Alcantar RDN [address] [place] [address] 03/21/2025 11:00 AM EDT Nurse Only Ancillary [address] [address] College, Nurse Annual Wellness Visit [address] [address] Scheduled Procedures Name Priority Associated Diagnoses Date/Ti [...] this encounter Medical Devices Implanted Type Area Pumper Head Device Identifier Shelf Expiration Date Model / Serial / Lot Lens 19.0 Sn60wf - [id number] - [id number] Implanted:Qty: 1 on 09/16/2020 by Avtar Patel MD at OR [facility] Right: Eye WEST : SURGICAL SN60WF.190 / [id number] / Lens 19.5 Sn60wf - [id number] Implanted:Qty: 1 on 02/03/2021 by Avtar Patel MD at OR [facility] Left: Eye WEST : SURGICAL 12/18/2024 SN60WF.1 95 / / [id number] documented as of this encounter Care Teams Records Management Clerk Relationship Specialty Start Date End Date Narinder Milton DO [address] [place] [address] PCP - General Internal Medicine 04/25/24 documented as of this encounter
--- NOTE | 2024-07-22 09:01 | History & Physical Bridge Note ---
Date of Service July 22, 2024 History & Physical Bridge Note I have examined the patient, reviewed the History & Physical and in the interval since the performance of the History & Physical I have noted the following changes of clinical significance: no changes noted
[2024-07-22] MEDS: LR 60ML/HR IV SCH (09:16)
[2024-07-22] MEDS ORDERED: ONDANSETRON INJ 2 MG/ML 2 ML VIAL IV PRN ×2 (09:23→13:38)
[2024-07-22] MEDS ORDERED: ATROPINE SULFATE 0.1 MG/ML 10ML SYR IV PRN (09:23)
[2024-07-22] MEDS ORDERED: fentaNYL citrate PF 100 MCG/2 ML VIAL IV PRN (09:23)
[2024-07-22] MEDS ORDERED: ePHEDrine sulfate 50 MG/ML AMP IV PRN (09:23)
[2024-07-22] MEDS: LR 500ML BOLUS, THEN 15ML/HR IV SCH (09:25)
[2024-07-22] MEDS: ACETAMINOPHEN 500 MG TAB PO SCH ×2 (09:32→16:16)
[2024-07-22] MEDS: GABAPENTIN 300 MG CAP PO SCH (09:33)
[2024-07-22] MEDS: FAMOTIDINE 20 MG TAB PO SCH (09:33)
[2024-07-22] MEDS: dexAMETHasone**PF** 10 MG/ML VIAL IV SCH (09:35)
[2024-07-22] MEDS: TRANEXAMIC ACID 1,000 MG **IV Pre-op IV SCH (09:54)
[2024-07-22] MEDS: ceFAZolin 2000MG 2,000 MG/15 ML SYR IV SCH ×2 (10:07→17:54)
[2024-07-22] MEDS: ORTHO JOINT ANESTHETIC ONE (10:37)
[2024-07-22] MEDS: ROPIV 0.5% 246mg, Ketorolac 30mg, EPINEPHrine 0.5mg in NSS INFIL SCH (10:37)
[2024-07-22] MEDS: TRANEXAMIC ACID 1,000 MG **IV Intra-op IV SCH (11:00)
--- NOTE | 2024-07-22 11:15 | Operative Report ---
PG Post Operative Report Pre & Post Diagnosis Operation Date: 07/22/24 10:00 Pre-Op Diagnosis: Degenerative Joint Disease Left Knee Post-Op Diagnosis: Degenerative Joint Disease Left Knee I identified the patient and participated in the time-out.: Yes Procedure Operation Date: 07/22/24 10:00 Actual Procedures p Left Total Knee Arthroplasty(Left) - Malik Malhotra DO Surgeon Malik Malhotra DO Auxiliary Power Equipment Operator Malik Gutierrez PA-C Estimated Blood Loss 30 Findings Consistent with Post-Op Diagnosis Specimens Left femoral and tibial bone Description of Procedure Implants used: I used a Ashwin Persona total knee arthroplasty system with a size 7 standard femur, D tibia, 28 oval patella, and a size 11 medial congruent polyethylene bearing. All components were cemented in place with Biomet cement. Zonia arrived [facility] for the above procedure. She was seen in the preoperative holding area and the operative extremity was identified and signed. She was given a preoperative antibiotic, TXA, a spinal anesthetic and an adductor nerve block. She was taken back to the operating room and laid on the table in supine position. She was given basic sedation. The operative knee was then prepped and draped in sterile fashion. A timeout was done, and the patient and the operative extremity was properly identified. A midline incision was made directly over the patella. Dissection was taken down to the extensor mechanism. A subvastus arthrotomy was used. The medial retinaculum was released and the fat pad was mostly excised. The knee was flexed and the ACL, PCL, and meniscus were removed. A drill was sent down the center of the femoral canal followed by an intramedullary kenan. Off that kenan a distal femoral cutting block was placed. 9 mm was resected off the distal femur at 5 of valgus. A posterior referencing AP sizing guide was then placed on the distal femur. The femur measured to be a size 7. 2 drill holes were placed in 3 of external rotation. A 4-in-1 cutting block was then impacted into place. Anterior, posterior, and chamfer cuts were then made. The proximal tibia was then exposed. An external tibial alignment guide was placed. A tibial cut guide was then anchored in place and the proximal tibia was then resected. The posterior aspect of the knee was then op ened up and any additional meniscus fragments and osteophytes were removed. The tibia measured to be a size D. The tibial plate was then placed in the appropriate rotation and the tibia was drilled and punched. Trial components were then placed. I used a size 11 medial congruent polyethylene insert. The knee was brought through a full range of motion and felt to be stable. The peg holes for the femoral component were then drilled. The patella was then everted and 9 mm was resected off the posterior aspect of the patella. The patella measured to be a size 28 oval. 3 peg holes were then drilled. A trial patella was placed. The knee was once again brought through a full range of motion and felt to be stable. Trial components were then removed. The surrounding soft tissues were injected with 100 cc of an orthopedic pain control cocktail. All components were then cemented into place with Biomet cement. The final polyethylene insert was then snapped into place. Once cement was dry the tourniquet was deflated. Hemostasis was obtained. A dilute betadyne lavage was then done for 3 minutes. The joint was then irrigated with normal saline solution. The subvastus arthrotomy was then closed with #1 Vicryl suture. The skin was closed with 2-0 Vicryl, 3-0V lock suture, and nate. A soft compressive dressing was placed. She was then transferred to a hospital bed and taken to the postanesthesia care unit in stable condition. She tolerated the procedure well. Malik Gutierrez PA-C, was present for the entire procedure. He was critical for patient positioning, prepping, draping, retraction exposure, wound closure and application of sterile dressing. I attest to the content of the Intraoperative Record and any orders documented therein. Any exceptions are noted below.
--- NOTE | 2024-07-22 12:07 | XRay Report ---
TWO VIEWS LEFT KNEE CLINICAL HISTORY: Postoperative examination. FINDINGS: AP and crosstable lateral portable views of the left knee are obtained. A left knee arthrop lasty is in near anatomic alignment. There has been undersurface remodeling of the patella. No acute fracture is seen. There are expected postoperative changes around the knee including skin clips, soft tissue edema, and subcutaneous gas. IMPRESSION: Expected postoperative changes status post left knee arthroplasty. No acute fracture is s een. ACT 112: Negative or not required by law. Electronically signed by: Neymar Connelly M.D. 07/22/2024 12:06 PM
--- NOTE | 2024-07-22 12:39 | Anesthesiology Progress Note ---
Date of Service July 22, 2024 Anesthesia Post Procedure Vital Signs Vital Signs: Temp Pulse Pulse Resp BP BP Pulse Ox 07/22/24 12:30 80 18 144/80 H 95 07/22/24 12:20 77 14 152/71 H 92 07/22/24 12:10 83 18 136/73 95 07/22/24 12:00 71 14 136/76 95 07/22/24 11:50 81 13 133/73 91 07/22/24 11:40 87 16 129/62 93 07/22/24 11:31 36.2 C L 92 H 10 L 128/67 96 07/22/24 09:04 36.6 C 68 18 181/91 H 96 O2 Del Method O2 Flow Rate 07/22/24 12:30 Room Air 07/22/24 12:20 Room Air 07/22/24 12:10 Room Air 07/22/24 12:00 Room Air 07/22/24 11:50 Room Air 07/22/24 11:40 Room Air 07/22/24 11:31 Oxymask 4 07/22/24 09:04 Room Air Pain Intensity Left Knee: Pain Intensity: 4 Transfer of Care Handoff Completed per policy Notes Mental Status: alert / awake / arousable Patient Amnestic to Procedure: Yes Nausea / Vomiting: adequately controlled Pain: adequately controlled Airway Patency, RR, SpO2: stable & adequate BP & HR: stable & adequate Hydration State: stable & adequate Neuraxial Anesthesia: was administered and sensory block is resolving Anesthetic Complications: no major complications apparent and Pt Satisfied with anesthetic care
[2024-07-22] MEDS ORDERED: PHARMACY GLYCEMIC MGMT CONSULT PRN (13:38)
[2024-07-22] MEDS ORDERED: METOCLOPRAMIDE HCL INJ 5 MG/ML 2 ML VIAL IV PRN (13:38)
[2024-07-22] MEDS ORDERED: HYDROmorphone INJ 0.5 MG/0.5 ML SYR IV PRN (13:38)
[2024-07-22] MEDS ORDERED: ALBUTEROL HFA 8 GM INHALER INH PRN (13:38)
[2024-07-22] MEDS ORDERED: bisacodyL 10 MG SUPP PR PRN (13:38)
[2024-07-22] MEDS ORDERED: NALOXONE HCL 0.4 MG/1 ML VIAL/CARP IV PRN (13:38)
[2024-07-22] MEDS ORDERED: CLOBETASOL PROPIONATE 0.05% CREAM 15 GM TUBE TOP PRN (13:38)
[2024-07-22] MEDS ORDERED: MAGNESIUM HYDROXIDE SUSP 30 ML UDC PO PRN (13:38)
[2024-07-22] MEDS: SODIUM CHLORIDE 0.9% 1,000 ML IV SCH (13:53)
[2024-07-22] MEDS ORDERED: Nursing to Pharmacy Communication SCH (14:00)
--- NOTE | 2024-07-22 14:06 | Pharmacy Report ---
Pharmacy Glycemic Short Note 2 - Date of Service July 22, 2024 - Glycemic Short BSG Results (Last 24 hours): 07/22/24 07/22/24 07/22/24 08:47 11:35 13:49 POC Glucose 119 H 151 H 143 H OUTPATIENT ANTIDIABETIC REGIMEN: * Jardiance 25mg PO Daily * Glipizide 2.5mg PO HS * Ozempic 0.25mg SQ Weekly (last dose 07/11/24) ASSESSMENT: * 74 yo F, s/p LTKA, type 2 diabetic, received 10mg IV Dexamethasone pre-op, no further steroids ordered. * Basal-bolus insulin therapy for glycemic control at this time, loosen NovoLog parameters as steroids wear off. PLAN FOR INPATIENT GLYCEMIC CONTROL: * Hold outpatient diabetes medications * Basal insulin * Lantus 20 units SQ x 1 dose now, then 12 units HS for BSG > 180, then further dosing in AM * Bolus insulin * NovoLog per scale ACHS or Q6hrs while NPO * Goal Range: Low 110 mg/dL - High 140 mg/dL * Correction Factor: 25 mg/dL/unit * Nutritional / Prandial insulin per carb ratio of 1 unit per 8 grams CHO consumed
[2024-07-22 14:17] VITALS: RESP 16
[2024-07-22] MEDS: INSULIN ASPART PER UNIT CHARGE SC SCH (14:50)
[2024-07-22] MEDS: LANTUS PER UNIT CHARGE SC ONE ×2 (14:50→20:40)
[2024-07-22] MEDS: KETOROLAC TROMETHAMINE 15 MG/ML VIAL IV SCH (15:02)
[2024-07-22] MEDS: rOPINIRole HCL 1 MG TABLET PO SCH (16:15)
--- NOTE | 2024-07-22 16:47 | Gastrointestinal Consultation ---
Date of Consultation July 22, 2024 Assessment & Plan (1) Dysphagia: Patient with a longstanding history of esophageal problems dating back to 2006 she does not know what medicine she is taking for those other than a PPI she states she had some sort of her lap procedure done and after that she had issues she has had multiple EGDs as per the patient she has had multiple dilations as per the patient she has had barium esophagram's also multiple times of note she had a barium esophagram done in our healthcare system in October 2023 which was essentially normal except for a hiatal hernia there was no evidence of nutcracker esophagus on that or achalasia today she actually had surgery and also got anesthetic I am not sure whether the episode that she suffered was as a result of her lingering episode of the anesthesia currently she is completely asymptomatic at the current time I would 1. Placed on IV PPI twice daily 2. Soft diet 3. Obtain old records from [facility] to find the exact diagnosis that she carries and the results of her previous upper endoscopies and discuss with the physician at [facility] regarding further treatment I would not treat her with anything for nutcracker esophagus at the current time as her last barium esophagram in our system did not support that diagnosis History of Present Illness Reason for Consultation: Esophageal dysfunction Requesting Physician: Luis Trinidad Attending Physician: Malik Malhotra, DO History of Present Illness A pleasant 74-year-old female who had knee surgery done today she states she has a complicated history of esophageal dysfunction approximately in 2006 she has states she had some sort of wrap procedure done since then she states she has had like multiple different EGDs done at times she has been dilated 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 Today postsurgery she allegedly had difficulty swallowing. She cannot really fully describe what happened however currently she states she feels well she did not have any chest pain or any difficulty swallowing currently that she feels with her saliva she has no abdominal pain she states she cannot vomit but projectile things regurgitate she appears quite comfortable at the current time. And she denies any active GI complaints currently Allergies Allergy/AdvReac Type Severity Reaction Status Date / Time Penicillins Allergy Intermediate rash/very Verified 07/22/24 08:47 sick Sulfa (Sulfonamide Allergy Unknown Unknown Verified 07/22/24 08:47 Antibiotics) betaxolol AdvReac Intermediate Insomnia Verified 07/22/24 08:47 (eye drop)/depression carbamazepine AdvReac Intermediate Worsened Verified 07/22/24 08:47 depression levobunolol AdvReac Intermediate Insomnia Verified 07/22/24 08:47 (eye drop) levofloxacin AdvReac Intermediate Muscle Pain Verified 07/22/24 08:47 simvastatin AdvReac Intermediate Myalgias Verified 07/22/24 08:47 Home Medications Medication Instructions Recorded Confirmed Type aspirin 81 mg tablet,delayed 81 mg PO QAM 05/18/21 07/22/24 History release (Ashley Low Dose Aspirin) empagliflozin 25 mg tablet 25 mg PO QAM 05/18/21 07/22/24 History (Jardiance) latanoprost 0.005 % eye drops 1 drp OPB HS 05/18/21 07/22/24 History (Xalatan) levothyroxine 25 mcg tablet 25 mcg PO DAILYBB 05/18/21 07/22/24 History (Synthroid) losartan 100 1 tab PO QAM 05/18/21 07/22/24 History mg-hydrochlorothiazide 25 mg tablet (Hyzaar) ropinirole 1 mg tablet 1 mg PO QID 05/18/21 07/22/24 History potassium chloride 10 mEq 10 meq PO QAM 08/04/21 07/22/24 History capsule,extended release albuterol sulfate 90 mcg/actuation 1 - 2 puff inhalation Q4H PRN 05/28/24 07/22/24 History aerosol inhaler Shortness Of Breath Or Wheezing atorvastatin 20 mg tablet (Lipitor) 20 mg PO QAM 05/28/24 07/22/24 History cholecalciferol (vitamin D3) 25 50 mcg PO DAILY 05/28/24 07/22/24 History mcg (1,000 unit) capsule (Vitamin D3) clobetasol 0.05 % topical cream 1 applic topical BID PRN ITCHING 05/28/24 07/22/24 History OF SCALP/BEHIND EARS cyanocobalamin (vitamin B-12) 500 500 mcg PO DAILY 05/28/24 07/22/24 History mcg tablet (Vitamin B-12) ibuprofen 200 mg tablet 200 mg PO Q6H PRN Pain 05/28/24 07/22/24 History pantoprazole 40 mg tablet,delayed 40 mg PO BID 05/28/24 07/22/24 History release sertraline 100 mg tablet (Zoloft) 150 mg PO QAM 05/28/24 07/22/24 History tramadol 50 mg tablet 50 mg PO Q12H PRN Pain, Severe 05/28/24 07/22/24 History trazodone 50 mg tablet 50 mg PO HS 05/28/24 07/22/24 History famotidine 40 mg tablet 40 mg PO HS 07/10/24 07/22/24 History glipizide 2.5 mg tablet, extended 2.5 mg PO PM 07/10/24 07/22/24 History release 24 hr semaglutide 0.25 mg or 0.5 mg (2 0.25 mg subcut WK 07/22/24 07/22/24 History mg/3 mL) subcutaneous pen injector (Ozempic) Patient History Medical History ASCVD (arteriosclerotic cardiovascular disease) dx per chart review Near syncope admitted to [facility] 05/28/24-05/31/24 after 3 near syncopal events (all in a matter of hours); dx likely vasovagal response vs dehydration; CVA was ruled out; pt had Zio monitor as outpt which was WNL Lumbar degenerative disc disease Hx of Lyme disease (2022) treated Gout Short-term memory loss Hypokalemia during 05/2024 hosp admission [facility]; likely 2/2 dehydration; resolved prior to D/C Jackhammer esophagus follows with GI Osteoarthritis GERD (gastroesophageal reflux disease) Hypothyroidism Glaucoma primary open angle b/l Anxiety and depression Restless leg syndrome Mini stroke vs. complex migraine (most recent event 15+ years ago) Sleep apnea Could not tolerate device Asthma stable- has not used inhaler > 1 yr Chronic obstructive pulmonary disease Diabetes mellitus, type II NIDDM Bipolar disorder stable Hyperlipidemia Hypertension Surgical History History of left shoulder replacement L reverse TSA 11/29/21; GA: MAC#3, ETT#7.5, Gr View 1, DVLx1 atraumatic History of carpal tunnel release RT/LEFT History of repair of rotator cuff RT/LEFT History of esophagogastroduodenoscopy (EGD) 6/10/24 [facility] EGD W/ PIMENTEL done hx-WITH ESOPHAGEAL STRETCHING 7-9 times History of colonoscopy History of Yusef fundoplication History of tonsillectomy and adenoidectomy H/O eye surgery LASER PROCEDURE FOR GLAUCOMA Strabismus RT/LEFT REPAIRED A CHILD (2 SURGERIES) History of cataract surgery RT/LEFT History of cardiac cath 30 years ago > no stents Family History Mother Family history of diabetes mellitus Brother Family history of diabetes mellitus Other No family history of adverse response to anesthesia Social History Smoking Status: Never smoker Second Hand Exposure: No; Do You Dip or Chew Tobacco: No; Tobacco Cessation Education Requested by Patient: No Hx Alcohol Use: No Hx Substance Use: No Preferred Language: [place] Citizen Communication Ability: Effective Behavioral Health Counselor Required: No Beliefs That Will Affect Care: None Current Living Situation: Spouse Other Information That Helps Us Care for You: No Feels Safe at Home: Yes Safety Concerns: Feels Safe At This Time Assistive Devices: Cane and Walker Assistive Devices Comment: cane prn Review of Systems Review of Systems: A 10 point review of systems was done Physical Exam Constitutional: WD/WN, vitals as above Respiratory: normal respiratory effort, lungs clear to auscultation Cardiovascular: RRR, no murmur, no edema Gastrointestinal (Abdomen): normal bowel sounds, soft, nontender, no hepatosplenomegaly Results & Data Vital Signs (Past 12 Hours) Vital Signs Temp Pulse Pulse Resp BP BP Pulse Ox 07/22/24 16:25 37.0 C 91 H 16 135/79 92 07/22/24 15:23 37.0 C 89 16 150/83 H 96 07/22/24 15:11 37.0 C 75 16 108/62 99 07/22/24 14:15 36.5 C 73 16 175/84 H 96 07/22/24 13:48 36.4 C L 74 18 141/66 H 96 07/22/24 13:02 36.6 C 74 18 129/74 93 07/22/24 12:50 36.2 C L 74 15 155/87 H 93 07/22/24 12:40 78 23 141/89 H 97 07/22/24 12:30 80 18 144/80 H 95 07/22/24 12:20 77 14 152/71 H 92 07/22/24 12:10 83 18 136/73 95 07/22/24 12:00 71 14 136/76 95 07/22/24 11:50 81 13 133/73 91 07/22/24 11:40 87 16 129/62 93 07/22/24 11:31 36.2 C L 92 H 10 L 128/67 96 07/22/24 09:04 36.6 C 68 18 181/91 H 96 O2 Del Method O2 Flow Rate 07/22/24 16:25 Room Air 07/22/24 15:23 Room Air 07/22/24 15:11 Room Air 07/22/24 14:15 Room Air 07/22/24 13:48 Room Air 07/22/24 13:02 Room Air 07/22/24 12:50 Room Air 07/22/24 12:40 Room Air 07/22/24 12:30 Room Air 07/22/24 12:20 Room Air 07/22/24 12:10 Room Air 07/22/24 12:00 Room Air 07/22/24 11:50 Room Air 07/22/24 11:40 Room Air 07/22/24 11:31 Oxymask 4 07/22/24 09:04 Room Air PG Care Time/CCT Total # of Minutes Spent Total Time Spent with Patient: Total time spent is greater than 50% in coordination of care (as documented) at patient's floor/unit and/or counseling patient: Coding Level of Care Code 00203 IN/OBS CONSULT LVL 2,35M Diagnoses Dysphagia R13.10
[2024-07-22] MEDS: FAMOTIDINE 40 MG TABLET PO SCH (20:38)
[2024-07-22] MEDS: LATANOPROST 0.005% OP SOLN 2.5 ML BTL OPB SCH (20:38)
[2024-07-22] MEDS: PANTOprazole 40 MG in SYRINGE 0 ML IV SCH (20:38)
[2024-07-22] MEDS: ASPIRIN 81 MG ECTAB PO SCH (20:38)
[2024-07-22] MEDS: DOCUSATE SODIUM 100 MG CAP PO SCH (20:45)
[2024-07-22] MEDS: SENNA 8.6 MG TAB PO SCH (20:45)
[2024-07-22] MEDS: traZODone HCL 50 MG TAB PO SCH (20:45)
[2024-07-22] MEDS ORDERED: PANTOprazole 40 MG TAB PO SCH (21:00)
[2024-07-22 23:51] VITALS: TEMP 97.7
[2024-07-23] MEDS: LEVOTHYROXINE SODIUM 25 MCG TABLET PO SCH (06:14)
--- NOTE | 2024-07-23 06:58 | Orthopedic Progress Note ---
Date of Service July 23, 2024 Assessment & Plan (1) Status post left knee replacement: Overall she is doing fairly well. She is not having much pain in the left knee. She will be seen by physical therapy today for ambulation and range of motion exercises. She is on aspirin for DVT prophylaxis. The nursing staff can change her dressing after physical therapy. If she does okay with physical therapy then she can be discharged home later today. She will follow-up with orthopedics in 2 weeks. Cordelia Brar was seen and examined at bedside this morning. Overall she is doing fairly well. She is not having much pain in the left knee. She has been up and ambulating to the bathroom. She has no complaints.. Review of Systems All systems reviewed & are unremarkable except as noted in HPI & below. Physical Exam On physical examination left knee, the dressing is clean and dry. Her leg is out full extension. She has active dorsiflexion plantarflexion of her left ankle.. Results & Data Results & Data Laboratory Results . Diagnostic Findings Postoperative x-rays of the left knee show the prosthesis to be in anatomic alignment without any evidence of fracture complication, or loosening.. PG Care Time/CCT Total # of Minutes Spent Total Time Spent with Patient: Total time spent is greater than 50% in coordination of care (as documented) at patient's floor/unit and/or counseling patient: Coding Level of Care Code 84943 Post Operative Follow-Up Diagnoses Status post left knee replacement Z96.652
--- NOTE | 2024-07-23 07:00 | Discharge Summary ---
Date of Service July 23, 2024 Admission HPI (Per Admitting) Zonia is a pleasant 74-year-old female who has been dealing with chronic increasing left knee pain. It is to the point where she is ambulating with a cane. She was seeing an another provider. She has had aspirations and injections to the left knee. She can no longer ambulate well with it. X-rays and clinical examination have shown worsening osteoarthritis of the left knee. After failing conservative treatment, she has elected to proceed with a left total knee arthroplasty. Admission Exam (Per Admitting) On physical examination of the left knee, she has slight varus deformity. She h as tenderness palpation of the distal medial femoral condyle and over the medial joint line.. Principal Diagnosis Same as "Discharge Diagnosis" noted below under Discharge Instructions. Discharge Exam On physical examination left knee, the dressing is clean and dry. Her leg is out full extension. She has active dorsiflexion plantarflexion of her left ankle.. Discharge Data Consultations 07/22/24 16:07 Consult Gastroenterology Routine Procedures Performed Operation Date: 07/22/24 10:00 Actual Procedures p Left Total Knee Arthroplasty(Left) - Malik Malhotra DO Ordered Studies 07/22/24 05:00 US - OR guided needle placemen Routine Hospital Course (1) Status post left knee replacement: On July 22, 2024 Zonia arrived at [facility] and underwent a left knee replacement without complication. She had a spinal anesthetic. Postoperatively she was started on aspirin for DVT prophylaxis and transferred to the general orthopedic floors. Her hospital course was uneventful. On postop day #1, her vital signs were stable and her pain was well-controlled. She was able to participate well with physical therapy doing ambulation and range of motion exercises. She was then discharged to home. She will follow-up with orthopedics in 2 weeks. PG Care Time/CCT Total # of Minutes Spent Total Time Spent with Patient: Total time spent is greater than 50% in coordination of care (as documented) at patient's floor/unit and/or counseling patient: Discharge Plan Discharge Items Patient Disposition: Home - Self-Care Reason For Visit: Degenerative Joint Disease Left Knee Discharge Diagnosis: Status post left knee replacement Activity: Per Instructions section Non-emergency contact: Surgeon Call non-emergency contact if: your wound has increased redness and your wound has increased drainage Follow-up/Referrals: Narinder Milton, [Primary Care Provider] - Diet: Regular Addtl Attending Provider Instructions: Activity and Therapy Recommendations: * If you are using [facility] then therapy will be provided at your home until they feel you have accomplished all of your goals. * If you are using [facility] then Physical Therapy will be provided until they feel you are ready to start Outpatient Physical Therapy. * If you are not using home therapy then Outpatient Physical Therapy should start about 3-5 days from your day of surgery. Therapy will last about 6-10 weeks * It is important not to put a pillow under your knee when you are relaxing or sleeping. It is just as important to make sure you are getting your knee perfectly straight as it is to regain your knee bend. * You were shown a series of exercises in the hospital. Do these exercises three times each day including the exercises you were shown in physical therapy. * Get up and walk several times each day. For the first four weeks, try not to stand or walk for more than one hour at a time. If you do stand or walk for more than one hour, you will not hurt anything, but your leg will likely swell. * As you feel comfortable, you may change from the walker or crutches to a cane and then to independent walking. Medications: * Narcotic You will likely be sent home from the hospital with a prescription for the narcotic pain medication that worked best throughout your stay. * Cefadroxil -take the antibiotic twice a day for 10 days to help prevent infection. * Aspirin Most patients will be required to take Aspirin 81mg twice a day for 6 weeks after surgery. This is obtained [id number] and a prescription is not necessary. * Other medications may be prescribed for specific circumstances. If you have any questions, please call the office at . * Resume previous home medications unless otherwise instructed TEDs/Elastic Stockings: The white elastic stockings help limit swelling and prevent blood clots from forming in your legs.~ The more you wear them, the more they work. Wear them for six weeks. Dressing Care: The dressing can be changed after physical therapy on postop day #1. Daily dry dressing changes for a few days, especially if the incision is still draining some. If the incision is not draining then you may leave the nate open to air. If there is a little bit of drainage or if the nate are getting stuck on your clothing then cover the incision with a dry dressing. The nate will be removed at your 2 week follow-up appointment. Showering: You may shower 5 days from the day of surgery as long as the incision is no longer draining. You may shower with the nate exposed. Let soapy water run over the nate and pat them dry. Do not scrub or soak the incision. Things To Watch For: * Drainage from the incision site that occurs more than one week after your surgery. * Increased redness at the incision site. * Fever above 102 degrees Fahrenheit. * Unusual chest pain or shortness of breath. * Call [facility] at with any of the above problems Follow-Up Visit: Follow-up with Dr. Malhotra's PA (Malik Gutierrez) 2-3 weeks after your day of surgery. He will remove your nate and answer any questions. If you have any additional questions or concerns, Dr Malhotra is usually in the office at the same time and will be available An appointment was probably scheduled when you signed-up for surgery in the office. If you have any questions call Office Instructions: More detailed instructions as well as Frequently Asked Questions were provided in a folder by our office when you signed-up for surgery. Please review these instructions when you get home. If you have any further questions or concerns, please feel free to call the office at [phone] Pending Studies at Discharge: No Stand-Alone Forms: [facility], Sm[facility] Cessation Medications and DC Order Prescriptions: New oxycodone 5 mg Tablet 5 mg PO Q4H PRN (Reason: pain) Qty: 30 0RF cefadroxil 500 mg capsule 500 mg PO BID 10 Days Qty: 20 0RF Continued latanoprost [Xalatan] 0.005 % drops 1 drp OPB HS ropinirole 1 mg tablet 1 mg PO QID levothyroxine [Synthroid] 25 mcg tablet 25 mcg PO DAILYBB losartan-hydrochlorothiazide [Hyzaar] 100-25 mg tablet 1 tab PO QAM Jardiance 25 mg tablet 25 mg PO QAM potassium chloride 10 mEq Capsule, Extended Release 10 meq PO QAM Rx Instructions: PER [facility]- ORDERED BID, PT ONLY TAKES QAM. famotidine 40 mg tablet 40 mg PO HS glipizide 2.5 mg Tablet Extended Release 24hr 2.5 mg PO PM Ozempic 0.25 mg or 0.5 mg (2 mg/3 mL) Pen Injector 0.25 mg SUBCUT WK Rx Instructions: atorvastatin [Lipitor] 20 mg tablet 20 mg PO QAM trazodone 50 mg tablet 50 mg PO HS sertraline [Zoloft] 100 mg tablet 150 mg PO QAM clobetasol 0.05 % Cream 1 applic TOPICAL BID PRN (Reason: ITCHING OF SCALP/BEHIND EARS) tramadol 50 mg tablet 50 mg PO Q12H PRN (Reason: Pain, Severe) cyanocobalamin (vitamin B-12) [Vitamin B-12] 500 mcg Tablet 500 mcg PO DAILY pantoprazole 40 mg Tablet,Delayed Release (Dr/Ec) 40 mg PO BID Rx Instructions: TAKE PRIOR TO BREAKFAST AND SUPPER ibuprofen 200 mg Tablet 200 mg PO Q6H PRN (Reason: Pain) Rx Instructions: PER [facility]--TAKES 2-3 TABS DAILY FOR SHOULDER PAIN albuterol sulfate 90 mcg/actuation Hfa Aerosol Inhaler 1 - 2 puff INHALATION Q4H PRN (Reason: Shortness Of Breath Or Wheezing) cholecalciferol (vitamin D3) [Vitamin D3] 25 mcg (1,000 unit) Capsule 50 mcg PO DAILY Changed aspirin [Ashley Low Dose Aspirin] 81 mg Tablet,Delayed Release (Dr/Ec) 81 mg PO BID 42 Days Qty: 0 0RF Admission Data Admit Date/Time: 07/22/24 11:35 Attending Provider: Malik Malhotra Admit Provider: Malik Malhotra Primary Care Provider: Narinder Milton Other Providers: Luis Trinidad
[2024-07-23 07:15] VITALS: BP 156/71; PULSE 75; O2SAT 95
[2024-07-23] MEDS: SERTRALINE HCL 50 MG TABLET PO SCH (08:11)
[2024-07-23] MEDS: MULTIVITAMIN TAB PO SCH (08:11)
[2024-07-23] MEDS: LOSARTAN/HCTZ 50/12.5MG TAB PO SCH (08:12)
[2024-07-23] MEDS: ATORVASTATIN 20 MG TAB PO SCH (08:13)
[2024-07-23] MEDS: POTASSIUM CHLORIDE 10 MEQ TABCR PO SCH (08:16)
--- NOTE | 2024-07-23 09:33 | Gastroenterology Progress Note ---
Date of Service July 23, 2024 Assessment & Plan (1) Dysphagia: Plan: 74 year old female with history of T2DM, hypothyroidism, hyperlipidemia, HTN, ASCVD, hypertensive heart disease without heart failure, GERD without esophagitis, history of B12 deficiency, history of vitamin D deficiency, restless leg syndrome, lumbar degenerative disc disease, gouty arthropathy, primary open angle glaucoma of both eyes, depression, attention deficit disorder, anxiety admitted s/p left knee replacement - GI asked to evaluate for ongoing and intermittent upper GI systems. She is established with [facility]. Recent EGD w/ Pimentel and esophageal motility testing reviewed which showed a single long nocturnal episode of acid reflux but no symptoms reported during the study. The motility testing was not suggestive of ineffective esophageal motility. She was ultimately referred to [facility] given her history of YSABEL years ago. She was encouraged to continue a soft, slippery diet as tolerated. Continue established therapy for her GERD symptoms. Continued follow up with [facility]. No GI contraindication diet and discharge as directed by the orthopaedic service line. Thank you for allowing us to participate in the care of this patient. Please call with any acute changes, questions or concerns. Please see addendum below with additional recommendation from my supervising physician. I spent a total of 50 minutes on the date of service in review of patient's record, and previously obtained information in person and appropriate medical visit, discussion and education of plan, with patient and/or caregiver, placing orders for tests/referral/procedures as medically necessary and documentation of pertinent clinical information in patient's medical records for their visit today. Admission and Anticipated Discharge Date Admission Date: July 22, 2024 Supervising Physician Co-Signing Physician Notes Patient seen and examined. Case discussed with Filomena ANN. No evidence of "nutcracker" esophagus on barium study or motility study. Dysphagia could be secondary to tightly wrapped Ysabel fundoplication. She is following with surgery and can follow OP GI if needed. No further IP GI work up planned. IP GI Service will sign off. Subjective Pt was seen and evaluated, chart reviewed. Intermittent dysphagia, odynophagia since 2006. Following with [facility]. Esophagram 2022: Small hiatus hernia with mild gastroesophageal reflux. Mild to moderate esophageal dysmotility. Esophageal Manometry 2023: Upper esophageal sphincter with low basal pressures. Esophageal body with peristalsis in response to wet swallows 7/10, 1/10 weak, 2/10 failed. Lower esophageal sphincter relaxes in response to wet swallows. Band consistent with hernia in this area. During rapid swallow phase DCI >450 which is NOT suggestive of ineffective esophageal motility. Pimentel Report 2023: there was a single long nocturnal episode of acid reflux which resulted in a DeMeester score of 15.5 which is considered positive for acid reflux. - No symptoms reported during the study. EGD 2023: - Small hiatal hernia.- A Ysabel fundoplication was found. The wrap appears intact. - Normal stomach. - Normal duodenal bulb and second portion of the duodenum.- The PIMENTEL pH capsule was positioned 31 cm from the incisors, which was 6 cm proximal to the GE junction. - No specimens collected. Review of Systems Review of Systems: All other findings negative except as noted in HPI. Physical Exam Constitutional: WD/WN, vitals as above Respiratory: normal respiratory effort, lungs clear to auscultation Cardiovascular: RRR, no murmur, no edema Gastrointestinal (Abdomen): normal bowel sounds, soft, nontender, no hepatosplenomegaly Skin: no rashes, warm and dry Results & Data Results & Data Vital Signs (Past 12 Hours) Vital Signs Temp Pulse Resp BP BP Pulse Ox O2 Del Method 07/23/24 07:27 Room Air 07/23/24 07:14 36.5 C 75 16 156/71 H 95 Room Air 07/23/24 04:18 36.5 C 69 16 137/69 92 Room Air 07/22/24 23:49 36.5 C 84 16 139/84 93 Room Air PG Care Time/CCT Total # of Minutes Spent Total Time Spent with Patient: Total time spent is greater than 50% in coordination of care (as documented) at patient's floor/unit and/or counseling patient: Coding Level of Care Code 51094 SUB INP/OBS CARE 3/50MIN Diagnoses Dysphagia, unspecified type R13.10 Dysphagia type: unspecified (1) Dysphagia Dysphagia type: unspecified Qualified Code(s): R13.10 - Dysphagia, unspecified
[2024-07-23] MEDS: oxyCODONE HCL IR 5 MG TAB (IMMEDIATE RELEASE) PO PRN (10:30)
== END 2024-07-23 11:08 | disposition home or self-care (01) ==
LOC: ASU 08:03 → INTOOBSV 11:35 → 3E 11:35